=== PATIENT | female | born 1955 | race Caucasian/White ===

== ENCOUNTER 2020-07-18 12:39 | Outpatient (CLI) | payer MEDICARE, OTHER, SELFPAY ==
--- NOTE | 2020-07-18 | ECHO_ITS ---
Patient Info Name: Niru Patterson Age: 64 years : 1955 Gender: Female Ht: 63 in Wt: 185 lbs BSA: 1.96 m2 HR: 87 bpm BP: 174 / 90 mmHg Heart Rhythm: Sinus Rhythm Exam Date: 07/18/2020 1:15 PM Exam Location: [facility] Patient Status: Outpatient Admit Date: 07/18/2020 Staff Ordering Physician: BreezyLenny MD Assembler Skylights: Jordyn Garcia RDCS Attending Provider: BreezyLenny MD Exam Type: CA echo doppler color flow Study Info Indications - Vertigo R42 - Dizziness and giddiness Complete two-dimensional, color flow and Doppler transthoracic echocardiogram is performed. Summary 1. Complete two-dimensional, color flow and Doppler transthoracic echocardiogram is performed. 2. Left ventricular chamber dimension is normal. 3. Left ventricular systolic function is hyperdynamic, estimated at >70%. 4. There is no increased left ventricular wall thickness. 5. The left ventricular diastolic function is grade II diastolic dysfunction. 6. Left atrial chamber dimension is mildly enlarged. 7. There is mild aortic valve stenosis with a peak velocity of 271 cm/s, mean gradient of 12 mmHg, and aortic valve area of 1.9 cm2. Left Ventricle Left ventricular chamber dimension is normal. Left ventricular systolic function is hyperdynamic, estimated at >70%. There is no increased left ventricular wall thickness. The left ventricular diastolic function is grade II diastolic dysfunction. Right Ventricle Right ventricular chamber dimension is normal. Right ventricular systolic function is normal. Left Atria Left atrial chamber dimension is mildly enlarged. Right Atria Right atrial chamber dimension is normal. Atrial Septum Intact interatrial septum visualized by color flow imaging. Aortic Valve The aortic valve is trileaflet. There is mild aortic valve stenosis with a peak velocity of 271 cm/s, mean gradient of 12 mmHg, and aortic valve area of 1.9 cm2. There is trace aortic valve regurgitation. There is mild aortic valve calcification. Pulmonic Valve The pulmonic valve is normal. There is no pulmonic valve stenosis. There is trace pulmonic regurgitation. Mitral Valve The mitral valve has normal leaflets. There is no mitral valve stenosis. There is trace mitral valve regurgitation. Tricuspid Valve The tricuspid valve leaflets are normal. There is no significant tricuspid valve stenosis. There is trace tricuspid valve regurgitation. Pericardium/Pleural The pericardium appears normal. There is no pericardial effusion. Inferior Vena Cava Normal inferior vena cava with >50% collapse upon inspiration consistent with normal right atrial pressure, 5 mmHg. Aorta The aortic root size at the sinus of Valsalva is normal. The prox ascending aorta size is normal. Left Ventricular Outflow Tract Name Value Normal LVOT 2D LVOT Diameter 2.0 cm LVOT Doppler LVOT Peak Gradient 7 mmHg LVOT Mean Gradient 3 mmHg LVOT VTI 29 cm LVOT VTI/AV VTI Ratio 0.6
== END 2020-07-18 12:40 | disposition home or self-care (01) ==
PROVIDERS: PCP Internal Medicine; Visit Provider Internal Medicine
DX: R42 Dizziness and giddiness (principal); I35.0 Nonrheumatic aortic (valve) stenosis
CPT/HCPCS: 93306

== ENCOUNTER 2023-09-08 12:58 | Outpatient (CLI) | payer MEDICARE, SELFPAY ==
--- NOTE | ~2023-09-08 | XR_ITS ---
XR chest 2V Ordering provider: Lenny Tijerina, History: 67 years Female with . PERSISTENT COUGH . Comparison: October 24, 2011 FINDINGS: MEDIASTINUM: The cardiac silhouette is not enlarged. Prominent right hilum. LUNGS: No effusion or pneumothorax. Opacification in the right upper lobe suggestive of pneumonia. Ri ght hilar mass with distal pneumonia is not excluded. Follow-up advised to resolution OTHER: No free air under the diaphragm. IMPRESSION: Opacification in the right upper lobe suggestive of pneumonia. Right hilar mass with distal pneumonia is not excluded. Follow-up advised to resolution Reviewed, dictated and finalized at location A.
--- NOTE | 2023-09-08 14:45 | NEURO_ITS ---
Impression: # Complains of numbness of hands. # Normal Nerve Conduction Study; No Carpal Tunnel Syndrome or ulnar neuropathy. # Normal needle/EMG exam proximally and distally. # Clinical correlation recommended. Nerve Conduction Studies Anti Sensory Summary Table Stim Site NR Peak (ms) P-T Amp (?V) Site1 Site2 Delta-P (ms) Dist (cm) Benoit (m/s) Left Median Anti Sensory (2-3nd Digit) Wrist 3.5 51.4 Wrist 2-3nd Digit 3.5 14.0 40 Wrist 3.4 56.6 Wrist 2-3nd Digit 3.5 14.0 40 Right Median Anti Sensory (2-3nd Digit) Wrist 3.6 43.8 Wrist 2-3nd Digit 3.6 14.0 39 Wrist 3.7 22.9 Wrist 2-3nd Digit 3.6 14.0 39 Left Radial Anti Sensory (Base 1st Digit) Wrist 2.7 29.1 Wrist Base 1st Digit 2.7 0.0 Right Radial Anti Sensory (Base 1st Digit) Wrist 3.0 11.4 Wrist Base 1st Digit 3.0 0.0 Left Ulnar Anti Sensory (5th Digit) Wrist 3.1 34.5 Wrist 5th Digit 3.1 14.0 45 Right Ulnar Anti Sensory (5th Digit) Wrist 3.1 58.6 Wrist 5th Digit 3.1 14.0 45 Motor Summary Table Stim Site NR Onset (ms) O-P Amp (mV) Site1 Site2 Delta-0 (ms) Dist (cm) Benoit (m/s) Left Median Motor (Abd Poll Brev) Wrist 3.5 1.3 Elbow Wrist 5.6 28.0 50 Elbow 9.1 1.0 Right Median Motor (Abd Poll Brev) Wrist 3.2 5.8 Elbow Wrist 5.6 28.0 50 Elbow 8.8 1.9 Left Ulnar Motor (Abd Dig Minimi) Wrist 2.9 4.2 A Elbow Wrist 5.1 27.0 53 A Elbow 8.0 3.0 Right Ulnar Motor (Abd Dig Minimi) Wrist 2.8 3.7 A Elbow Wrist 5.4 29.0 54 A Elbow 8.2 2.3 F Wave Studies NR F-Lat (ms) L-R F-Lat (ms) Left Median (Mrkrs) (Abd Poll Brev) 28.49 0.96 Right Median (Mrkrs) (Abd Poll Brev) 27.54 0.96 Left Ulnar (Mrkrs) (Abd Dig Min) 28.28 0.39 Right Ulnar (Mrkrs) (Abd Dig Min) 28.68 0.39 EMG Side Muscle Nerve Root Ins Act Fibs Amp Dur Recrt Comment Right 1stDorInt Ulnar C8-T1 Nml Nml Nml Nml Nml Right Ext Indicis Radial (Post Int) C7-8 Nml Nml Nml Nml Nml Right Ext Digitorum Radial (Post Int) C7-8 Nml Nml Nml Nml Nml Right BrachioRad Radial C5-6 Nml Nml Nml Nml Nml Right PronatorTeres Median C6-7 Nml Nml Nml Nml Nml Right Abd Poll Brev Median C8-T1 Nml Nml Nml Nml Nml Right ABD Dig Min Ulnar C8-T1 Nml Nml Nml Nml Nml Left 1stDorInt Ulnar C8-T1 Nml Nml Nml Nml Nml Left Ext Indicis Radial (Post Int) C7-8 Nml Nml Nml Nml Nml Left Ext Digitorum Radial (Post Int) C7-8 Nml Nml Nml Nml Nml Left BrachioRad Radial C5-6 Nml Nml Nml Nml Nml Left PronatorTeres Median C6-7 Nml Nml Nml Nml Nml Left Abd Poll Brev Median C8-T1 Nml Nml Nml Nml Nml Left ABD Dig Min Ulnar C8-T1 Nml Nml Nml Nml Nml Right Biceps Musculocut C5-6 Nml Nml Nml Nml Nml Right Triceps Radial C6-7-8 Nml Nml Nml Nml Nml Right Deltoid Axillary C5-6 Nml Nml Nml Nml Nml Left Biceps Musculocut C5-6 Nml Nml Nml Nml Nml Left Triceps Radial C6-7-8 Nml Nml Nml Nml Nml Left Deltoid Axillary C5-6 Nml Nml Nml Nml Nml MTDD
== END 2023-09-08 12:59 | disposition home or self-care (01) ==
PROVIDERS: PCP Internal Medicine; Visit Provider Internal Medicine
DX: M25.531 Pain in right wrist (principal); R20.0 Anesthesia of skin; R05.3 Chronic cough
CPT/HCPCS: 71046; 95886; 95911

== ENCOUNTER 2023-09-28 09:21 | Outpatient (CLI) | payer MEDICARE, SELFPAY ==
--- NOTE | ~2023-09-28 | CT_ITS ---
CT diagnostic chest w con Ordering provider: Lenny Tijerina, History: 67 years Female with . Abn cxr . Comparison: None. Technique: CT chest with IV contrast. Radiation reduction technique utilized. The dose-length product was 288.32 mGy-cm. 75 mL of Omnipaque 350 was given IV. Findings: VISUALIZED THORACIC INLET: Normal. MEDIASTINUM: Aorta/coronary arteries: Mild atheromatous disease. Heart/other: The heart is not enlarged. Lymph nodes: No mediastinal or hilar adenopathy. LUNGS: Infiltrate is seen in the right upper lobe anteriorly suggestive of residual pneumonia. No def inite mass is seen. 2 mm nodule is seen in the left upper lobe laterally.. No effusions. No pneumotho rax. VISUALIZED UPPER ABDOMEN: Left renal cyst measuring 1.3 cm. Soft tissue density also seen in the left kidney upper pole which may be a mass or a complex cyst measuring 1.6 cm. Ultrasound follow-up advis ed. Mild fat infiltration of the liver. Tiny cyst in the liver right lobe measuring 0.8 cm. Left adre nal adenoma measuring 1.2 cm is also noted. Otherwise, the visualized upper abdomen is normal. MUSCULOSKELETAL: Soft tissues: The superficial soft tissues are normal. Bones: Age appropriate degenerative changes of the spine. IMPRESSION: Residual pneumonia in the right upper lobe. Follow-up advised. Soft tissue density also seen in the left kidney upper pole which may be a mass or a complex cyst dilcia suring 1.6 cm. Ultrasound follow-up advised. Left adrenal adenoma measuring 1.2 cm. No follow-up is recommended unless clinical suspicion is prese nt. Reviewed, dictated and finalized at location A. IMPRESSION: Residual pneumonia in the right upper lobe. Follow-up advised. Soft tissue density also seen in the left kidney upper pole which may be a mass or a complex cyst measuring 1.6 cm. Ultrasound follow-up advised. Left adrenal adenoma measuring 1.2 cm. No follow-up is recommended unless clini emily suspicion is present.
--- NOTE | ~2023-09-28 | US_ITS ---
EXAMINATION: US aorta [facility] DATE: 09/29/2023 08:18 CDT INDICATION: Abdominal aortic aneurysm screening. History of smoking. High cholesterol. TECHNIQUE: Grayscale, color Doppler, and pulsed Doppler images of the aorta and common iliac arteries were obtained. COMPARISON: None. FINDINGS: The proximal aorta measures 2.5 cm greatest sagittal dimension. The mid aorta measures 2.2 cm greates t sagittal dimension. The distal aorta measures 2.5 cm greatest sagittal dimension. The right common internal iliac artery measures 1.1 cm. The left common iliac artery measures 1.1 cm. IMPRESSION: 1. Normal caliber aorta without aneurysm. Reviewed, dictated and finalized at location B.
[2023-09-28 09:57] LABS: Estimated Glomerular Filt Rate > 60
== END 2023-09-28 09:22 ==
LOC: MICIMG 09:24
PROVIDERS: PCP Internal Medicine; Visit Provider Internal Medicine
DX: R93.89 Abnormal findings on diagnostic imaging of other specified body structures (principal); D35.02 Benign neoplasm of left adrenal gland
CPT/HCPCS: 71260; 76706; Q9967

== ENCOUNTER 2023-10-14 13:55 | Outpatient (CLI) | payer MEDICARE, OTHER, SELFPAY ==
--- NOTE | ~2023-10-14 | CT_ITS ---
CT Scan of the Chest without Contrast: Clinical Indication: Pulmonary nodule Technique: Contiguous sections were acquired throughout the chest without intravenous contrast. Dose reduction technique was used on this scan by utilizing automated exposure control and iterative recon struction technique. The dose-length product (DLP) was 257.91 mGy-cm. COMPARISON: 09/28/2023 Findings: There is no evidence of any significant mediastinal, hilar or axillary lymphadenopathy. Calcified rig ht paratracheal and right hilar lymph nodes are present. There are atherosclerotic ossifications of t he aorta and coronary arteries. There is no evidence of pleural or pericardial effusion. There is patchy haziness and interstitial disease in the right upper lobe peripherally, stable from p rior exam. Calcified right upper lobe granuloma present. Chronic focal scarring or atelectasis at the lingula. Images through the upper abdomen reveal are calcified splenic granulomas. Impression: Patchy hazy and interstitial disease in the right upper lobe with predominantly peripheral distributi on. Findings could reflect persistent pneumonia, or possibly postradiation changes or postinflammator y change. Correlate clinically. Consider continued follow-up. Evidence of prior granulomatous disease. Reviewed, dictated and finalized at location . Impression: Patchy hazy and interstitial disease in the right upper lobe with predominantly peripheral distribution. Findings could reflect persistent pneumonia, or possi albaro postradiation changes or postinflammatory change. Correlate clinically. Con poultry pathologist continued follow-up. Evidence of prior granulomatous disease.
--- NOTE | ~2023-10-14 | US_ITS ---
US renal BI Ordering provider: Lenny Tijerina, History: . KIDNEY LESION . Comparison: None. Technique: Ultrasound bilateral kidneys. Findings: RIGHT KIDNEY: Measures 11.3x 5.3x 5.6 cm in length which is normal in size. No renal cysts. No renal mass or visualized echogenic stones. Otherwise, normal echotexture and contour. No hydronephrosis. No rmal renal cortical thickness. LEFT KIDNEY: Measures 11.9x 4.8x 5.8 cm in length which is normal in size. Possibility of hypoechoic area in the anterosuperior area of the left kidney is not excluded. Follow-up advised. No visualized echogenic stones. Otherwise, normal echotexture and contour. No hydronephrosis. Normal renal cortica l thickness. BLADDER: Underfilled. IMPRESSION: Possible hypoechoic area in the anterolateral cyst. Left kidney which may be a cyst. Follow-up advise d. Otherwise unremarkable study. Reviewed, dictated and finalized at location A. IMPRESSION: Possible hypoechoic area in the anterolateral cyst. Left kidney which may be a cyst. Follow-up advised. Otherwise unremarkable study.
== END 2023-10-14 13:56 ==
PROVIDERS: PCP Internal Medicine; Visit Provider Internal Medicine
DX: R93.89 Abnormal findings on diagnostic imaging of other specified body structures (principal); N28.9 Disorder of kidney and ureter, unspecified; R91.8 Other nonspecific abnormal finding of lung field
CPT/HCPCS: 71250; 76775

== ENCOUNTER 2023-12-16 09:04 | Outpatient (CLI) | payer MEDICARE, SELFPAY ==
--- NOTE | ~2023-12-16 | XR_ITS ---
Clinical Indication: Pneumonia PA and lateral views of the chest: Comparison: 09/08/2023 Findings: The lungs are clear, without evidence of focal consolidation or pleural effusion. Cardiome diastinal silhouette is within normal limits. Bones and soft tissues are unremarkable. Impression: Normal chest. Reviewed, dictated and finalized at location . Impression: Normal chest.
[2023-12-16 10:12] LABS: Rheumatoid Factor < 12.0 IU/ML (<12)
--- NOTE | 2023-12-16 14:52 | WPDPFTINT ---
PFT Procedure Performed PFT Procedure Performed Spirometry with Pre/Post Bronchodilator Plethysmography (Lung Vol) Diffusing Cap (DLCO) Flow Vol Loop PFT Interpretation Lung volumes were measured with the body plethysmography method. The diminished expiratory reserve volume could be due to obesity. The remaining lung volumes are unremarkable. Spirometry showed diminished expiratory flow rates and a diminished FEV1 to FVC ratio 64%, indicative of obstructive airway disease. Following administration of a bronchodilator there was no significant increase in expiratory flow rates. Lung diffusion capacity is within the normal range at 91% predicted. The flow-volume loop is consistent with obstructive airway disease. Impression: Mild obstructive airway disease with no response to bronchodilators on this testing. Lung diffusion capacity within the normal range.
--- NOTE | 2023-12-16 14:54 | WPDSIXMINUTE ---
Six Minute Walk Procedure Procedure Performed Pulmonary Stress Test (6 min walk) Six Minute Walk Six Minute Walk: This 6 minute walk test was carried out with the patient breathing ambient air. The pre-walk baseline oxyhemoglobin saturation was 94%. The patient walked 274 m with no stops during testing. During the walk the oxyhemoglobin saturation remained in the range of 92% to 94%. Impression: No evidence of oxyhemoglobin desaturation on this testing.
[2023-12-17 07:38] LABS: SS-A <1.0 NEG AI (<1.0 NEG); SS-B <1.0 NEG AI (<1.0 NEG)
[2023-12-18 15:14] LABS: Anti Cyclic Citrullinated Pept <16 UNITS
== END 2023-12-16 09:05 | disposition home or self-care (01) ==
PROVIDERS: PCP Internal Medicine; Visit Provider Internal Medicine Pulmonary Disease
DX: R93.89 Abnormal findings on diagnostic imaging of other specified body structures (principal); J98.8 Other specified respiratory disorders; Z87.01 Personal history of pneumonia (recurrent)
CPT/HCPCS: 36415; 71046; 86038; 86039; 86200; 86235; 86430; 94060; 94618; 94726; 94729

== ENCOUNTER 2024-03-21 10:08 | Outpatient (CLI) | payer MEDICARE, SELFPAY ==
--- NOTE | ~2024-03-21 | DEXA_ITS ---
Bone Density Report Name: SANTIAGO ASIF Age: 68 Sex: Female Ethnicity: White Date of : 1955 Indication: postmenopausal; screening for osteoporosis; asthma or emphysema; Referring Provider: CORTEZ CHAMBERS Study: Bone densitometry was performed. Exam Date: March 21, 2024 Accession number: [id number] Bone Density: Region BMD T-score Z-score Classification AP Spine(L1-L4) 0.945 -0.9 1.1 Normal Femoral Neck (Left) 0.655 -1.7 0.0 Osteopenia Total Hip (Left) 0.925 -0.1 1.3 Normal Femoral Neck (Right) 0.579 -2.4 -0.7 Osteopenia Total Hip (Right) 0.884 -0.5 1.0 Normal Total Hip Mean 0.905 -0.3 1.2 Normal World Health Organization criteria for BMD impression classify patients as: Normal (T-score at or above -1.0), Osteopenia (T-score between -1.0 and -2.5), or Osteoporosis (T-score at or below -2.5). 10-year Fracture Risk(1): Major Osteoporotic Fracture 14% Hip Fracture 4.6% Reported Risk Factors: [place] (), Neck BMD=0.579, BMI=32.0, smoking (1) FRAX(R) Version 3.08. Fracture probability calculated for an untreated patient. Fracture probability may be lower if the patient has received treatment. Clinical Information Provided by Patient: Smokes Has used the following medications: Vitamin D Has the following medical conditions: Asthma or Emphysema Patient maximum height was 65 Menopause Age: 44 Does not regularly consume dairy products Drinks caffeinated beverages Onset of menses at age 11 Number of children 2 Impression: The patient has low bone mass, based on the Right Femoral Neck T-score. The patient has an estimated ten-year risk of hip fracture of 4.6% and an estimated ten-year risk of major fracture of 14%, based on the WHO FRAX algorithm. The patient has risk factors, including: smoking. Discussion: BONE DENSITY IS LOW AT ONE OR MORE SKELETAL SITES. THE PATIENT'S BMD AND CLINICAL RISK FACTORS CONTRIBUTE TO THIS PATIENT'S INCREASED RISK OF FRACTURE. This patient's lowest T-score is low at one or more skeletal sites. It meets the World Health Organization's (WHO) criteria for ?low bone mass? (T-score between -1.0 and -2.5). The patient's 10-year risk of hip fracture as calculated by FRAX exceeds the threshold where pharmacological therapy is recommended by the National Osteoporosis Foundation (NOF). However, all treatment decisions require clinical judgment and consideration of individual patient factors, including patient preferences, comorbidities, previous drug use, risk factors not captured in the FRAX model (e.g., frailty, falls, vitamin D deficiency, increased bone turnover, interval significant decline in bone density) and possible under or overestimation of fracture risk by FRAX. The patient should follow a healthful lifestyle (good nutrition with adequate calcium and vitamin D, and appropriate weight-bearing exercise). Follow-Up: Consider a repeat BMD and Vertebral Fracture Assessment (VFA) exam in 2 years or sooner if medically necessary, to reassess this patient's status. Reported by: ALYSSIA on 03/21/2024 10:46:00 AM. Reviewed, dictated and finalized at location A.
== END 2024-03-21 10:09 | disposition home or self-care (01) ==
LOC: ANHIMG 10:13
PROVIDERS: PCP Internal Medicine; Visit Provider Internal Medicine
DX: Z78.0 Asymptomatic menopausal state (principal); M85.852 Other specified disorders of bone density and structure, left thigh; M85.851 Other specified disorders of bone density and structure, right thigh
CPT/HCPCS: 77080

== ENCOUNTER 2024-05-08 04:36 | Inpatient (IN) | payer MEDICARE, SELFPAY ==
[2024-05-08] VITALS (19 sets, daily range): BP systolic 154–176; BP diastolic 72–88; PULSE 74–93; RESP 16–21; TEMP 36.6–37.2; O2SAT 83–99; BMI 31.8
--- NOTE | ~2024-05-08 | CT_ITS ---
Clinical Indication: Hypoxia CT Scan of the Chest with Contrast: Technique: Contiguous sections were acquired throughout the chest after intravenous administration of 100 cc of Omnipaque 350. Dose reduction technique was used on this scan by utilizing automated expos ure control and iterative reconstruction technique. The dose-length product (DLP) was 271.31 mGy-cm. COMPARISON: 10/14/2023 Findings: There is no evidence of any significant mediastinal, hilar or axillary lymphadenopathy. There is no f illing defect in the pulmonary arterial tree to suggest pulmonary embolus. There is no evidence of ao rtic dissection or aneurysm. There is no evidence of pleural or pericardial effusion. The lungs are clear, aside from right upper lobe calcified granuloma. Images through the upper abdomen reveal no abnormalities. Impression: No evidence of pulmonary embolus, aortic dissection, or aortic aneurysm. No significant pulmonary abnormality. Reviewed, dictated and finalized at [facility]. TH SERVICES MANAGER Impression: No evidence of pulmonary embolus, aortic dissection, or aortic aneurysm. No significant pulmonary abnormality.
--- NOTE | ~2024-05-08 | XR_ITS ---
Portable chest x-ray Comparison: 12/16/2023 Clinical History: Shortness of breath Findings: Probable minimal left pleural effusion. Questionable minimal bibasilar interstitial edema. Cardiomediastinal silhouette is stable. Bones and soft tissues are unremarkable. Impression: Minimal left pleural effusion and questionable minimal bibasilar interstitial pulmonary edema. Reviewed, dictated and finalized at [facility]. R TRIMMER Impression: Minimal left pleural effusion and questionable minimal bibasilar interstitial p ulmonary edema.
--- NOTE | 2024-05-08 04:44 | PC.NURSE ---
EKG with manual patient info entered and shown to Dr. Calzada [id number]
--- NOTE | 2024-05-08 04:52 | ECG_ITS ---
Test Date: 2024-05-08 04:41:39 Measurements Intervals [place] Rate: 85 P: 67 GA: 146 QRS: 95 QRSD: 140 T: 72 QT: 403 QTc: 479 Interpretive Statements SINUS RHYTHM RIGHT BUNDLE BRANCH BLOCK [120+ ms QRS DURATION, UPRIGHT V1, 40+ ms S IN I/aVL/V4/V5/V6] ABNORMAL ECG No previous ECG available for comparison Electronically Signed On 05-08-2024 07:58:29 [employer]OCKSTITCH [employer]AT [employer] by Tomy Dupree M.D.
[2024-05-08 05:03] LABS: Basophils Absolute Auto 0.1 K/mm3 (0.0-0.1); Basophils Percent Auto 0.7 % (0.2-1.2); Eosinophils Absolute Auto 0.4 K/mm3 (0-0.3); Eosinophils Percent Auto 5.9 % (0-4.4); Hematocrit 50.3 % (37.0-47.0); Hemoglobin 16.2 g/dL (12.0-15.0); Immature Granulocyte Absolute 0.02 K/mm3 (0.00-0.031); Immature Granulocyte Percent A 0.3 % (0-0.5); Lymphocytes Absolute Auto 1.98 K/mm3 (0.9-3.2); Mean Corpuscular HGB Conc 32.2 g/dl (32-36); Mean Corpuscular Hemoglobin 33.1 pg (26-34); Mean Corpuscular Volume 102.9 fl (80-100); Mean Platelet Volume 10.1 fl (7.4-10.4); Monocytes Absolute Auto 0.5 K/mm3 (0.1-0.6); Monocytes Percent Auto 7.9 % (2.6-8.5); Neutrophils Absolute Auto 3.8 K/mm3 (1.3-6.7); Neutrophils Percent Auto 56.2 % (45.5-73.1); Platelet Count Result 190 k/mm3 (150-375); Red Blood Count 4.89 M/mm3 (4.2-5.4); Red Cell Distribution Width 15.7 % (11.5-14.5); White Blood Count 6.8 K/mm3 (4.5-10.0)
[2024-05-08] MEDS: IPRATROPIUM 0.5 MG/ALBUTEROL SULFATE 2.5 MG AMPUL.NEB 3 ML 10 ML INHALATION (05:09)
--- NOTE | 2024-05-08 05:11 | ED.GENADULT ---
HPI - General Adult General Chief complaint: Shortness of Breath/Dyspnea Stated complaint: sob/asthma hx History of Present Illness HPI narrative: Patient is a 68-year-old female who presents to the emergency department this evening complaining of worsening shortness of breath for the past 24 hours. Patient states that she has been battling with upper respiratory infection for over 10 days in her primary care physician started her on doxycycline on May 06 which she has been taking. Patient states that she has a history of asthma and uses a rescue inhaler at home as needed. Patient states that she has been using it at home multiple times with no relief and states that over the last 8 hours she has noticed that her shortness of breath has continued to decline. Upon EMS arrival, patient was noted to be satting 85% on room air. Patient does not wear any home oxygen. EMS administered 2 DuoNeb breathing treatments, 2 g of IV magnesium and 125 mg of IV Solu-Medrol. Patient states that her symptoms have significantly improved with the DuoNeb breathing treatments. Denies any chest pain, any recent fevers or chills. Any nausea vomiting or abdominal pain. No additional symptoms or concerns at this time. Related Data Home Medications ?Medication ?Instructions ?Recorded ?Confirmed ?Last Taken ?Type latanoprost 0.005 % eye drops 1 drp EACH EYE DAILY 04/08/23 04/08/23 Unknown History levothyroxine 88 mcg tablet 88 mcg PO DAILY 04/08/23 04/08/23 Unknown History (Synthroid) timolol maleate 0.5 % eye drops 1 drp EACH EYE Q12H 04/08/23 04/08/23 Unknown History fluticasone propionate 230 2 inh inhalation BID 12/08/23 Unknown History mcg-salmeterol 21 mcg/actuation HFA inhaler (Advair HFA) albuterol sulfate 90 mcg/actuation 1 inh inhalation Q4-6H PRN 12/31/23 Unknown History aerosol inhaler Allergies Allergy/AdvReac Type Severity Reaction Status Date / Time Penicillins Allergy Severe Difficulty Verified 12/31/23 11:08 Breathing Lisinopril Allergy Intermediate Rash Uncoded 12/31/23 11:08 Review of Systems Review of Systems: All systems are reviewed and are negative unless stated otherwise in the HPI. [facility] Past Medical History Medical History Asthma Cataract Thyroid disease Heart disease SVT 2012 Small bowel problem bloating Back pain L-5 Ovarian cyst Surgical History Surgical History History of removal of ovarian cyst History of orthopedic surgery H/O laminectomy History of thyroid surgery right thyroidectomy Hx of cataract surgery Family History Family History Grandparent Breast cancer Other Diabetes mellitus Father Alcoholism Social History Social History Smoking packs per day: 1 Smoking cigarettes per day: 20.0 Years smoked: 50 Smoking pack-years: 50.00 Smoking status: Current every day smoker Tobacco type: cigarettes Alcohol intake: current Substance use: never Substance use type: does not use Do You Feel Safe in your Home?: Yes Lack of Transportation: No Lack of Food: Never True Current Housing: I Have Housing Concerned About Future Housing: No Difficulty Paying Gas/Electric Bills: No Difficulty Paying for Meds: No Currently Unemployed: No Education: Master's Degree or Higher Difficulty w/ Childcare or Family Care: No Living arrangements: with family Occupation/Education: retired Gender identity (if verbalized by the patient): Female Sexual Orientation (if Verbalized by the Patient): Straight or Heterosexual Exam Narrative: General: Alert, awake, afebrile, in no acute distress. HEENT: PERRL, no rhinorrhea, no post nasal drip, oropharynx clear. Neck: Trachea midline, no JVD, no lymphadenopathy. Cardiovascular: Regular rate and rhythm, no murmurs, rubs or gallops, no peripheral edema. Respiratory: Wheezing noted along the left lung reese worse than the right, no respiratory distress. Abdomen: Soft, nontender, nondistended, no rebound, no guarding, no peritoneal signs. Musculoskeletal: No joint swelling or deformity, normal muscle tone. Skin: No rashes or petechia, no signs of infection. Psychiatric: Alert and oriented, normal behavior and judgment for situation. Neurological: Alert and oriented to person, place, and time. Follows all commands. No focal deficits, speech is clear and fluent. Course Vital Signs Vital signs: Vital Signs Temperature 98.9 F 05/08/24 04:38 Pulse Rate 88 05/08/24 04:38 Respiratory Rate 21 H 05/08/24 04:38 Pulse Oximetry 91 05/08/24 04:38 Oxygen Delivery Nasal Cannula 05/08/24 04:38 Oxygen Flow Rate 4 05/08/24 04:38 Temperature 98.9 F 05/08/24 04:38 Pulse Rate 84 05/08/24 06:37 Respiratory Rate 20 05/08/24 06:15 Blood Pressure 160/79 H 05/08/24 06:05 Pulse Oximetry 93 05/08/24 05:45 Oxygen Delivery Nasal Cannula 05/08/24 05:45 Oxygen Flow Rate 4 05/08/24 05:45 Fraction of Inspired Oxygen 100 05/08/24 05:19 Medical Decision Making MDM Narrative Medical decision making narrative: The patient was evaluated by myself in the emergency department. History is obtained from patient who is an independent historian and physical exam was performed. External medical records were reviewed at this time. IV was established and pertinent tests were ordered. Vital signs were reviewed and patient was noted to have a blood pressure 160/79, respiratory rate 20, heart rate 79 and currently satting 98% on a non-rebreather. Patient was administered an hour long DuoNeb breathing treatment. EKG was obtained which revealed sinus rhythm rate of 85 beats per minute with a right bundle-branch block. No evidence of acute ischemia. EKG was independently interpreted by me and is currently pending official cardiology read. Laboratory results obtained revealing a magnesium of 2.7 and mild transaminitis with an AST of 46 and ALT 51 otherwise unremarkable. Viral swabs negative for COVID/influenza/RSV. Imaging studies obtained included CXR which was independently interpreted by me revealing no acute cardiopulmonary process, which is pending final radiology interpretation. Differential diagnosis considerations include acute viral syndrome, infectious process such as pneumonia, asthma exacerbation. Comorbidities impacting this visit include history of asthma. I have evaluated and discussed social determinants of health with the patient that could potentially impact subsequent diagnosis and treatment plans. On repeat assessment at the patient, patient's wheezing did improve, patient is still having wheezing mainly along the left lung field. Still requiring oxygen. At this time I did inform the patient that I am recommending hospital admission given her oxygen requirement and the fact that she does not have any O2 at home and patient is agreeable with this plan. On repeat assessment of the patient, reevaluation revealed that the patient is doing well and is in no acute distress. Patient symptoms have improved since she arrived to our emergency department. Repeat vital signs were all reviewed and noted to be stable. Differential diagnosis and treatment plan were discussed with the patient at bedside. Patient agrees with discussion and after shared medical decision making agrees with admission. All questions were answered to the patient's satisfaction. Case was discussed with the on-call hospitalist Dr. Shah at 0630 and he accepted admission for asthma exacerbation. Patient was admitted in stable condition. Vital Signs Vital Signs: Vital Signs Temperature 98.9 F 05/08/24 04:38 Pulse Rate 88 05/08/24 04:38 Respiratory Rate 21 H 05/08/24 04:38 Pulse Oximetry 91 05/08/24 04:38 Oxygen Delivery Nasal Cannula 05/08/24 04:38 Oxygen Flow Rate 4 05/08/24 04:38 Temperature 98.9 F 05/08/24 04:38 Pulse Rate 84 05/08/24 06:37 Respiratory Rate 20 05/08/24 06:15 Blood Pressure 160/79 H 05/08/24 06:05 Pulse Oximetry 93 05/08/24 05:45 Oxygen Delivery Nasal Cannula 05/08/24 05:45 Oxygen Flow Rate 4 05/08/24 05:45 Fraction of Inspired Oxygen 100 05/08/24 05:19 Lab Data 05/08/24 04:56 05/08/24 04:56 Labs: Lab Results 05/08/24 Range/Units 04:56 WBC 6.8 (4.5-10.0) K/mm3 RBC 4.89 (4.2-5.4) M/mm3 Hgb 16.2 H (12.0-15.0) g/dL Hct 50.3 H (37.0-47.0) % MCV 102.9 H (80-100) fl MCH 33.1 (26-34) pg MCHC 32.2 (32-36) g/dl RDW 15.7 H (11.5-14.5) % Plt Count 190 (150-375) k/mm3 MPV 10.1 (7.4-10.4) fl Immature Gran % (Auto) 0.3 (0-0.5) % Neut % (Auto) 56.2 (45.5-73.1) % Lymph % (Auto) 29.0 (18.3-44.2) % [place] % (Auto) 7.9 (2.6-8.5) % Eos % (Auto) 5.9 H (0-4.4) % Baso % (Auto) 0.7 (0.2-1.2) % Lymph # (Auto) 1.98 (0.9-3.2) K/mm3 [place] # (Auto) 0.5 (0.1-0.6) K/mm3 Eos # (Auto) 0.4 H (0-0.3) K/mm3 Baso # (Auto) 0.1 (0.0-0.1) K/mm3 Abs Immat Gran (auto) 0.02 (0.00-0.031) K/mm3 Absolute Neuts (auto) 3.8 (1.3-6.7) K/mm3 Absolute Nucleated RBC 0.000 (0.0-0.012) K/mm3 Nucleated RBC % 0.0 (0.0-0.2) % Sodium 142 (137-145) mmol/L Potassium 3.8 (3.4-5.0) mmol/L Chloride 103 (98-107) mmol/L Carbon Dioxide 29 (22-30) mmol/L Anion Gap 10 (4-12) mmol/L BUN 16 (7-17) mg/dL Creatinine 0.56 L (0.7-1.0) mg/dL Estim Creat Clear Calc 84 ml/min Estimated GFR > 60 (59 - ) Glucose 134 H (65-110) mg/dL Calcium 9.8 (8.4-10.2) mg/dL Magnesium 2.7 H (1.6-2.3) mg/dL Total Bilirubin 1.0 (0.2-1.3) mg/dL AST 46 H (14-36) U/L ALT 51 H (6-35) U/L Alkaline Phosphatase 112 (38-126) U/L Total Protein 8.0 (6.3-8.2) g/dL Albumin 4.6 (3.5-5.1) g/dL Influenza A (RT-PCR) Negative (Negative) Influenza B (RT-PCR) Negative (Negative) RSV (RT-PCR) Negative (Negative) SARS-CoV-2 RNA (RT-PCR) Negative (Negative) Discharge Plan Discharge Clinical Impression: Acute dyspnea, Asthma exacerbation, Acute upper respiratory infection, Acute hypoxic respiratory failure Patient Disposition: Still a Patient Condition: Improved Patient Language: Citizen Of [place] Prescriptions: No Action fluticasone propion-salmeterol [Advair HFA] 230-21 mcg/actuation HFA aerosol inhaler 2 inh inhalation BID albuterol sulfate 90 mcg/actuation HFA aerosol inhaler 1 inh inhalation Q4-6H PRN latanoprost 0.005 % drops 1 drp EACH EYE DAILY levothyroxine [Synthroid] 88 mcg tablet 88 mcg PO DAILY timolol maleate 0.5 % drops 1 drp EACH EYE Q12H Follow-up/Referrals: Breezy,MD Lenny [Primary Care Provider] - Time of Disposition: 06:19
--- OUTSIDE RECORDS SUMMARY | 2024-05-08 05:11 | XMS_ITS | Referral Summary ---
Author Organization [facility] [place] [address] Address [address] [place] [address] Care Team Providers Care Manager Solution Name Role Phone Lenny Tijerina MD Primary Care Provider Joaquin Sosa DO Unavailable [phone] Allergies Active Allergy Reactions Criticality Noted Date Comments Lisinopril Rash Medium 01/29/2021 Penicillins Anaphylaxis High Medications levothyroxine (SYNTHROID) 88 mcg tablet Take 88 mcg by mouth irrigator gravity flow before breakfast Active timoloL (BETIMOL) 0.5 % ophthalmic solution 1 drop 2 (two) times a day Active aspirin 325 mg tablet Take 325 mg by mouth every 6 (six) hours as needed for pain Active vitamin D3-vitamin K2 1000-90 unit-mcg tablet,disintegr ating Take by mouth Active [id number]-[id number]-glutami [id number] 1,000-50 mg tablet, effervescent Take by mouth Act kati albuterol HFA (PROVENTIL HFA,VENTOLIN HFA,PROAIR HFA) 90 mcg/actuation inhaler albuterol sulfate HFA 90 mcg/actuation aerosol inhaler INHALE 2 INHALATIONS EVERY 4 6 HOURS BY MOUTH NEEDED. Active fluticasone propion-salmeter oL (ADVAIR DISKUS) 250-50 mcg/dose diskus inhaler Advair Diskus 250 mcg-50 mcg/dose powder for inhalation INHALE 1 PUFF TWICE A DAY BY INHALATION ROUTE. Active losartan (COZAAR) 25 mg tablet losartan 25 mg tablet TAKE 1 TABLET BY MOUTH EVERY DAY Active Active Problems Problem Noted Date Diagnosed Date Elevated hemoglobin (CMS/HCC) 12/05/2021 Erythrocytosis 07/12/2021 Dizziness and giddiness 01/01/2021 Non-toxic multinodular goiter 07/23/2013 Overview (06/11/2016): NONTOX MULTINODUL GOITER Social History Tobacco Use Types Packs/Day Years Used Date Smoking Tobacco: Every Day Cigarettes 1.5 20 Smokeless Tobacco: Never Tobacco Cessation:Ready to Q uit: Yes; Counseling Given: Yes Alcohol Use Standard Drinks/Week Comments Yes 0 (1 standard drink = 0.6 oz pur e alcohol) AUDIT-C Answer Date Recorded Q1: How often do you have a drink containing alc ohol? 2-3 times a week 09/29/2021 Q2: How many drinks containi ng alcohol do you have on a typical day when you are drinking? 1 or 2 09/29/2021 Q3: How often do you have si x or more drinks on one occasion? 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 SPECIALIST Gender Identity Not on file Sexual Orientation Not on file Occupation Industry Job Start Date Job End Date Retired Not on file Not on file Not on file Last Filed Vital Signs Vital Sign Reading Time Taken Comments Blood Pressure 125/80 01/17/2022 3:03 PM BUSINESS CONTINUITY SPECIALIST Pulse 89 01/17/2022 3:03 PM BUSINESS CONTINUITY SPECIALIST Temperature 36.8 C (98.3 F) 01/17/2022 2:18 PM BUSINESS CONTINUITY SPECIALIST Respiratory Rate 18 01/17/2022 3:03 PM BUSINESS CONTINUITY SPECIALIST Oxygen Saturation 93% 01/17/2022 3:0 3 PM BUSINESS CONTINUITY SPECIALIST Inhaled Oxygen Concentration - - Weight 87 kg (191 lb 12.8 oz) 2:18 PM BUSINESS CONTINUITY SPECIALIST without shoes Height 161 cm (5' 3.39 ) 01/17/2022 2:1 8 PM BUSINESS CONTINUITY SPECIALIST Body Mass Index 33.56 01/17/2022 2:18 PM BUSINESS CONTINUITY SPECIALIST Plan of Treatment Not on file Insurance MEDICARE [employer] CLAIMS OFFICE Member Subscriber Plan / Payer ( fective 2020-Present) Name:Niru Patterson Relation to Subscriber:Self Name:Niru Patterson Payer ID:[id number] (NAIC) Type:MANAGED CARE OTHER Address: [place] [id number] [facility] Care Teams Manager Solution Relationship Specialty Start Date End Date Lenny Tijerina MD PCP - General Internal Medicine 12/04/20 [place] [address] [place] [address] MEDICAL ONCOLOGY, [facility] [address] [place] [address] Medical Oncologist/Undercutter Hematology and Oncology 03/06/22
--- OUTSIDE RECORDS SUMMARY | 2024-05-08 05:11 | XMS_ITS | Data Portability ---
Author Organization [place] [facility] [employer], Main Office Address [address] [place] [address] Care Team Providers Care Slide Machine Tender Name Role Phone CORTEZ TIJERINA Primary Care Provider Assessment Encounter Date Assessment Date Assessment LastModified by Organization Details LastModified Time 06/17/2022 06/17/2022 I have recommended cholesterol medication Tobacco cessation again recommended Continue current therapy See me in 4 months Not available 07/19/2022 23:19:09 01/08/2023 01/08/2023 Continue current therapy follow-up 6 months [email or web address] Not available 01/17/2023 15:50:27 Plan of Treatment Reminders Order Date Submit Date Provider Last Modified By Organization Details Last Modified Time Details Appointments None recorded . Lab T3, free, serum or plasma 023 01/09/20 23 [email or web address] Not available 4 18:42:33 T4, free, serum 023 01/09/20 23 [email or web address] Not available 4 18:42:33 TSH, serum or plasma 023 01/09/20 23 [email or web address] Not available 4 18:42:33 CBC w/ auto diff 023 01/09/20 23 [email or web address] Not available 4 18:42:34 lipid panel, serum 023 01/09/20 23 Not available 4 18:42:34 CMP, serum or plasma 023 01/09/20 23 Not available 4 18:42:34 Referral None recorded . Procedures None recorded . Surgeries None recorded . Imaging None recorded . Medication Orders None recorded . Patient TargetsNo targets recorded. Patient Instructions Encounter Date Encounter Id Patient Instructions Last Modified By Organization Details Last Modified Time 05/29/2022 [id number] we discussed rep eat biopsy but she strongly prefers to avoid. She will continue to work on her smoking. [email or web address] Not available 05/29/2022 11:36:30 06/17/2022 [id number] dementia rating scale-2* [email or web address] Not available 07/19/2022 23:19:34 alcohol misuse* [email or web address] Not available 07/19/2022 23:19:34 depression screening* [email or web address] Not available 07/19/2022 23:19:33 multi-dimensiona l health assessment questionnaire* [email or web address] Not available 07/19/2022 23:19:34 Personalized [facility] Plan and Screening Recommendations Advance Directives - Do you have one? Yes Advance Directives - Do we have your advance directive on file in your health record? No, please bring in a copy at your earliest convenience Primary Prevention/Interven tion (prevents or decreases the chance of common diseases from occurring) Smoking Risk: Smoker Refer to attached smoking cessation handouts Refer to attached handouts and prescription will be sent to pharmacy Continue to consider stopping smoking and call if we can assist you Alcohol Misuse Screening: Positive Refer to attached alcohol cessation handout Refer to attached handout and prescription will be sent to pharmacy Decrease alcohol intake to 1 or less servings per day Continue to consider stopping alcohol and call if we can assist you Weight: Appropriate Overwei ght continue your current weight loss efforts try to lose 5% of your body weight try to lose 10% of your body weight Physical activity: Need more exercise/physical activity minimum of 10-20 minutes of activity that causes mild breathlessness/day Nutrition: Good Fall Risk (screened today): Low Vaccines Pneumococcal: Ordered Recommended today Recommended today, but you have declined Influenza: Ordered Recommended today Recommended today, but you have declined Chronic Disease Risks Stroke: Low Risk Intermediate Risk Heart Attack: Low risk Intermediate Risk Clogging of the Arteries: Low risk Intermediate Risk Diabetes: Low Risk I have no recommendations Secondary Prevention/Interven tion (detects treatable diseases before they may cause symptoms, disability, or ) Breast Cancer Screening with mammogram: Your next mammogram: Ordered Recommended today Cervical/Uterine/Ov luis a Cancer Screening: No screening necessary Osteoporosis Screening: Your next DEXA in: Ordered Recomme nded today Date Screening Last Performed: 04/28/2016 Colon Cancer Screening: Colonoscopy In: Ordered Recomme nded Date Screening Last Performed: 06/29/2009 Eye Disease Screening: Dementia Risk: Low I have no recommendations Depression Screening: Negative Not available 06/17/2022 11:05:47 Reason for Referral None Reported. Results Created Date Observation Date Name Description Value Unit Range Abnormal Flag Note LastModifiedBy Organization Detail LastModifiedTime 04/14/1904/14/2022 POTAS SIUM potassium 4.6 mmol/ L 3.5-5. 1 Not Available [facility] (Lab) [address] [place], [address], 04/14/2022 11:18:24 04/14/19 23 04/14/2022 PLATE LET COUNT platelets 222 x10'3 /uL 150-40 0 Not Available [facility] (Lab) [address] [place], [address], 04/14/2022 11:02:00 04/14/19 23 04/14/2022 HEMOG LOBIN /REY TOCRI T hemoglobin 16.9 g/dL 12.0-1 5.6 high Not Available [facility] (Lab) [address] [place], [address], 04/14/2022 11:01:43 04/14/19 23 04/14/2022 HEMOG LOBIN /REY TOCRI T hematocrit 52.7 % 35.7-4 5.7 high Not Available [facility] (Lab) [address] [place], [address], 04/14/2022 11:01:43 07/03/19 23 07/02/2022 CBC/C OMPLE TE BLD COUNT W/DIF F white blood cells 6.8 x10'3 /uL 4.2-10 .8 Not Available [facility] (Lab) [address] [place], [address], 07/02/2022 18:52:00 07/03/19 23 07/02/2022 CBC/C OMPLE TE BLD COUNT W/DIF F red blood cells 4.99 x10'6 /uL 3.80-5 .20 Not Available [facility] (Lab) [address] [place], [address], 07/02/2022 18:52:00 07/03/19 23 07/02/2022 CBC/C OMPLE TE BLD COUNT W/DIF F hemoglobin 16.4 g/dL 12.0-1 5.6 high Not Available [facility] (Lab) [address] [place], [address], 07/02/2022 18:52:00 07/03/1907/02/2022 CBC/C OMPLE TE BLD COUNT W/DIF F hematocrit 52.4 % 35.7-4 5.7 high Not Available [facility] (Lab) [address] [place], [address], 07/02/2022 18:52:00 07/03/19 23 07/02/2022 CBC/C OMPLE TE BLD COUNT W/DIF F mean red cell volume 105.0 fL 82.0-9 9.0 high Not Available [facility] (Lab) [address] [place], [address], 07/02/2022 18:52:00 07/03/1907/02/2022 CBC/C OMPLE TE BLD COUNT W/DIF F mean red cell hemoglobin 32.9 pg 27.0-3 3.0 Not Available [facility] (Lab) [address] [place], [address], 07/02/2022 18:52:00 07/03/19 23 07/02/2022 CBC/C OMPLE TE BLD COUNT W/DIF F mean RBC HGB concentratio n 31.3 g/dL 31.0-3 6.0 Not Available [facility] (Lab) [address] [place], [address], 07/02/2022 18:52:00 07/03/1907/02/2022 CBC/C OMPLE TE BLD COUNT W/DIF F red cell distribution width 15.3 % 11.8-1 5.5 Not Available [facility] (Lab) [address] [place], [address], 07/02/2022 18:52:00 07/03/19 23 07/02/2022 CBC/C OMPLE TE BLD COUNT W/DIF F platelets 241 x10'3 /uL 150-40 0 Not Available [facility] (Lab) [address] [place], [address], 07/02/2022 18:52:00 07/03/1907/02/2022 CBC/C OMPLE TE BLD COUNT W/DIF F mean platelet volume 11.1 fL 9.0-12 .4 Not Available [facility] (Lab) [address] [place], [address], 07/02/2022 18:52:00 07/03/1907/02/2022 CBC/C OMPLE TE BLD COUNT W/DIF F neutrophils 56.0 % 39.0-7 2.0 Not Available [facility] (Lab) [address] [place], [address], 07/02/2022 18:52:00 07/03/1907/02/2022 CBC/C OMPLE TE BLD COUNT W/DIF F lymphocytes 32.7 % 16.0-4 7.0 Not Available [facility] (Lab) [address] [place], [address], 07/02/2022 18:52:00 07/03/19 23 07/02/2022 CBC/C OMPLE TE BLD COUNT W/DIF F monocytes 7.3 % 5.0-12 .0 Not Available [facility] (Lab) [address] [place], [address], 07/02/2022 18:52:00 07/03/1907/02/2022 CBC/C OMPLE TE BLD COUNT W/DIF F eosinophils 3.4 % 1.0-7. 0 Not Available [facility] (Lab) [address] [place], [address], 07/02/2022 18:52:00 07/03/1907/02/2022 CBC/C OMPLE TE BLD COUNT W/DIF F basophils 0.3 % 0.0-2. 0 Not Available [facility] (Lab) [address] [place], [address], 07/02/2022 18:52:00 07/03/1907/02/2022 CBC/C OMPLE TE BLD COUNT W/DIF F immature granulocytes 0.3 % 0.00-0 .50 Not Available [facility] (Lab) [address] [place], [address], 07/02/2022 18:52:00 07/03/1907/02/2022 CBC/C OMPLE TE BLD COUNT W/DIF F neutrophils, absolute count 3.83 x10'3 /uL 1.5-8. 0 Not Available [facility] (Lab) [address] [place], [address], 07/02/2022 18:52:00 07/03/1907/02/2022 CBC/C OMPLE TE BLD COUNT W/DIF F lymphocytes, absolute count 2.24 x10'3 /uL 1.07-3 .43 Not Available [facility] (Lab) [address] [place], [address], 07/02/2022 18:52:00 07/03/19 23 07/02/2022 CBC/C OMPLE TE BLD COUNT W/DIF F monocytes, absolute count 0.50 x10'3 /uL 0.29-0 .99 Not Available [facility] (Lab) [address] [place], [address], 07/02/2022 18:52:00 07/03/1907/02/2022 CBC/C OMPLE TE BLD COUNT W/DIF F eosinophils, absolute count 0.23 x10'3 /uL 0.02-0 .53 Not Available [facility] (Lab) [address] [place], [address], 07/02/2022 18:52:00 07/03/19 23 07/02/2022 CBC/C OMPLE TE BLD COUNT W/DIF F basophils, absolute count 0.02 x10'3 /uL 0.01-0 .08 Not Available [facility] (Lab) [address] [place], [address], 07/02/2022 18:52:00 07/03/19 23 07/02/2022 CBC/C OMPLE TE BLD COUNT W/DIF F immature granulocytes ,absolute 0.02 x10'3 /uL 0.00-0 .05 Not Available [facility] (Lab) [address] [place], [address], 07/02/2022 18:52:00 07/03/1907/02/2022 CBC/C OMPLE TE BLD COUNT W/DIF F nucleated red blood cells 0.0 % -0 Not Available [facility] (Lab) [address] [place], [address], 07/02/2022 18:52:00 07/03/1907/02/2022 CBC/C OMPLE TE BLD COUNT W/DIF F NRBC# 0.00 x10'3 /uL Not Available [facility] (Lab) [address] [place], [address], 07/02/2022 18:52:00 07/03/1907/02/2022 COMPR EHENS JAYA METAB OLIC PANEL sodium 138 mmol/ L 137-14 5 Not Available [facility] (Lab) [address] [place], [address], 07/02/2022 19:19:54 07/03/19 23 07/02/2022 COMPR EHENS JAYA METAB OLIC PANEL potassium 4.5 mmol/ L 3.5-5. 1 Not Available [facility] (Lab) [address] [place], [address], 07/02/2022 19:19:54 07/03/19 23 07/02/2022 COMPR EHENS JAYA METAB OLIC PANEL chloride 103 mmol/ L 98-107 Not Available [facility] (Lab) [address] [place], [address], 07/02/2022 19:19:54 07/03/19 23 07/02/2022 COMPR EHENS JAYA METAB OLIC PANEL carbon dioxide 27 mmol/ L 22-30 Not Available [facility] (Lab) [address] [place], [address], 07/02/2022 19:19:54 07/03/19 23 07/02/2022 COMPR EHENS JAYA METAB OLIC PANEL anion gap 12.5 mmol/ L 14-22 low Not Available [facility] (Lab) [address] [place], [address], 07/02/2022 19:19:54 07/03/19 23 07/02/2022 COMPR EHENS JAYA METAB OLIC PANEL glucose 99 mg/dL 70-99 Not Available [facility] (Lab) [address] [place], [address], 07/02/2022 19:19:54 07/03/19 23 07/02/2022 COMPR EHENS JAYA METAB OLIC PANEL BUN 16 mg/dL 8-19 Not Available [facility] (Lab) [address] [place], [address], 07/02/2022 19:19:54 07/03/19 23 07/02/2022 COMPR EHENS JAYA METAB OLIC PANEL creatinine 0.64 mg/dL 0.66-1 .25 low Not Available [facility] (Lab) [address] [place], [address], 07/02/2022 19:19:54 07/03/19 23 07/02/2022 COMPR EHENS JAYA METAB OLIC PANEL GFR >60 Refer ence Range : [place] ge GFR Healt hy Adult : >60 mL/mi n/1.7 3 m2 Chron ic Kidne y Disea se: 15-60 mL/mi n/1.7 3 m2 Kidne y Failu re: <15/m L/min /1.73 m2 www.n iddk. nih.g ov The MDRD study equat ion has not been valid ated in child jermain <18 years of age; pregn ant women ; the elder ly >85 years of age; or in some racia l or ethni c subgr oups, such as Hisne nics. Outsi de the valid ated celine eters , estim ated GFR is less accur ate, requi ring clini emily judgm ent on a case- by-ca se basis . Clini emily inter preta tion for other races and ages must be made by the clini eduin. The MDRD study equat ion has not been valid ated for the evalu ation of serum creat inine relat ed to nutri leticia l statu s or medic ation usage . For perso ns <18 years of age, a pedia tric GFR calcu lator is avail able on the [facility] websi te: https ://ww w.kid herminia.o rg/pr ofess ional s/kdo qi/gf r_cal culat or Not Available [facility] (Lab) [address] [place], [address], 07/02/2022 19:19:54 07/03/19 23 07/02/2022 COMPR EHENS JAYA METAB OLIC PANEL alkaline phosphatase 95 U/L 38-126 Not Available [facility] (Lab) [address] [place], [address], 07/02/2022 19:19:54 07/03/19 23 07/02/2022 COMPR EHENS JAYA METAB OLIC PANEL alanine aminotransfe rase 51 U/L 0-35 high Not Available [facility] (Lab) [address] [place], [address], 07/02/2022 19:19:54 07/03/19 23 07/02/2022 COMPR EHENS JAYA METAB OLIC PANEL aspartate aminotransfe rase 57 U/L 15-37 high Not Available [facility] (Lab) [address] [place], [address], 07/02/2022 19:19:54 07/03/19 23 07/02/2022 COMPR EHENS JAYA METAB OLIC PANEL bilirubin, total 0.50 mg/dL 0.20-1 .30 Not Available [facility] (Lab) [address] [place], [address], 07/02/2022 19:19:54 07/03/19 23 07/02/2022 COMPR EHENS JAYA METAB OLIC PANEL calcium 9.4 mg/dL 8.4-10 .2 Not Available [facility] (Lab) [address] [place], [address], 07/02/2022 19:19:54 07/03/19 23 07/02/2022 COMPR EHENS JAYA METAB OLIC PANEL total protein 7.2 g/dL 6.3-8. 2 Not Available [facility] (Lab) [address] [place], [address], 07/02/2022 19:19:54 07/03/19 23 07/02/2022 COMPR EHENS JAYA METAB OLIC PANEL albumin 4.5 g/dL 3.0-4. 4 high Not Available [facility] (Lab) [address] [place], [address], 07/02/2022 19:19:54 07/03/19 23 07/02/2022 COMPR EHENS JAYA METAB OLIC PANEL globulin 2.7 g/dL 2.6-4. 2 Not Available [facility] (Lab) [address] [place], [address], 07/02/2022 19:19:54 07/03/19 23 07/02/2022 COMPR EHENS JAYA METAB OLIC PANEL A/G ratio 1.7 ratio 1.0-2. 0 Not Available [facility] (Lab) [address] [place], [address], 07/02/2022 19:19:54 07/03/19 23 07/02/2022 T3 FREE free T3 3.3 pg/mL 2.77-5 .27 Not Available [facility] (Lab) [address] [place], [address], 07/02/2022 19:37:56 07/03/19 23 07/02/2022 T4 FREE free T4 1.38 NG/dL 0.78-2 .19 Not Available [facility] (Lab) [address] [place], [address], 07/02/2022 19:37:58 07/03/19 23 07/02/2022 TSH thyroid-stim ulating hormone 1.010 uIU/m L 0.465- 4.680 Not Available [facility] (Lab) [address] [place], [address], 07/02/2022 20:00:55 07/03/1907/02/2022 VITAM IN B12 (ANABEL EDUARDA ) vb12 338 pg/mL 239-93 1 Not Available [facility] (Lab) [address] [place], [address], 07/02/2022 21:14:20 07/03/19 23 07/02/2022 FOLAT E, SERUM /PLAS MA folate 5.34 NG/mL 2.76-2 0.0 Not Available [facility] (Lab) [address] [facility] [place], [address], 07/02/2022 21:14:25 09/30/19 24 09/28/2023 US, aorta No observ ation record ed. [email or web address] [facility] [address], [place], [address], 11/19/2023 11:15:10 10/15/19 24 10/14/2023 US, renal No observ ation record ed. [email or web address] [facility] [address], [place], [address], 11/19/2023 11:15:29 Result Notes None recorded. Problems Name Problem SNOMED Code Status Onset Date Resolution Date Notes Provider Name and Address Organization Details Recorded Time Tobacco user 400522334 Active Not Available [facility] 4 23:03:22 Erythrocy tosis 310650897 Active 2021 Not Available [facility] 4 23:03:22 Backache 361029856 Completed Not Available [facility] 3 04:54:42 Pain in throat 233704796 Active 2021 Not Available [facility] 4 23:03:22 Serum vitamin B12 below reference range 603507279 Active 2020 Not Available [facility] 4 23:03:22 Asthma 941497985 Active Not Available [facility] 4 23:03:22 Postopera tive pain 280808602 Active 2022 [facility] 23:03:22 Discitis 2114147 Active [facility] Available [facility] 4 23:03:22 Pure hyperchol esterolem ia 170182040 Active Not Available [facility] 4 23:03:22 Low back pain 889257305 Active Not Available [facility] 4 23:03:22 Lesion of tongue 747367557 Active 2021 Not Available [facility] 4 23:03:22 Otitis externa 1587002 Active 2021 Not Available [facility] 4 23:03:22 Pain in right hip joint 17249610259 9102 Active Not Available [facility] 4 23:03:22 Vitamin D deficienc y 89100342 Active Not Available [facility] 4 23:03:23 Hypothyro idism 85007496 Active Not Available [facility] 4 23:03:23 Herniatio n of rectum into vagina 485254317 Active Not Available [facility] 4 23:03:23 Hyperlipi demia 87235485 Active 2016 Not Available [facility] 4 23:03:23 Essential hypertens ion 13585745 Active 2020 Not Available [facility] 4 23:03:23 Vitamin B12 deficienc y (non anemic) 41283167 Active 2021 Not Available [facility] 4 23:03:23 Neck pain 91006767 Active Not Available [facility] 4 23:03:23 Problem Notes None recorded. Procedures Surgical History Date Name Laterality Status Provider Name and Address Organization Details Recorded Time 06/18/19 Medicare Wellness CPT Code, subsequent completed Corinne Mcfarland RN [place] [facility] [place] [facility] 06/17/2022 10:57:55 10/04/19 20 Most Recent Mammogram completed Not Available [facility] 05/07/2022 04:45:09 09/22/19 20 Date of Last Pap Smear completed Not Available [facility] 05/07/2022 04:45:09 05/19/19 20 Most Recent Bone Density completed Not Available [facility] 05/07/2022 04:45:09 laminectomy completed Not Available [facility] 05/07/2022 04:45:13 Orthopedic Surgery completed Not Available [facility] 05/07/2022 04:45:13 Cataract Surgery completed Not Available [facility] 05/07/2022 04:45:13 Removal of ovarian cyst(s) completed Not Available [facility] 05/07/2022 04:45:13 thyroidectomy completed Not Available [facility] 05/07/2022 04:45:13 Imaging Results Imaging Date Name Status LastModified by Organiz ation Details LastModified Time 09/28/2023 US, aorta completed [email or web address] [facility] [address], [place], [address], 11/19/2023 11:15:10 10/14/2023 US, renal completed [facility] [address], [place], [address], 11/19/2023 11:15:29 Procedure Notes None recorded. Medical Equipment None Reported. Allergies Allergen ID Allergen Name Allergen Category Reaction Reaction Severity Criticality Documentation Date Start Date Code Code System Note Provider Name and Address Organization Details Recorded Time 8328 Product containin g penicilli n (product) medicatio n anaphylax is severe Not available 05/07/2022 30585 8001 SNOMED Not Available [facility] 3 05:04:43 8329 lisinopri l medicatio n rash Not available Not available 05/07/20222020 63123 RxNorm Not Available [facility] 3 05:04:43 Medications Name Sig Start Date Stop Date Status Note LastModified by Organization Details LastModified Time cyclobenz aprine 10 mg tablet Take 1 tablet 3 times a day by oral route as needed. active Not Available Not Available No t Available latanopro st 0.005 % eye drops INSTILL 1 DROP INTO BOTH EYES AT BEDTIME active Not Available Not Available No t Available prednison e 10 mg tablet Take by oral route. active Not Available Not Available No t Available doxycycli ne hyclate 100 mg capsule Take 1 capsule twice a day by oral route for 10 days. active Not Available Not Available No t Available atorvasta tin 20 mg tablet Take 1 tablet every day by oral route. 07/12 completed Pt stated that she has not started this med yet, but she does have it. Not Available Not Available Not Available aspirin 325 mg tablet Take 1 tablet every day by oral route. 2020 active Not Available Not Available Not Avai lable prednison e 20 mg tablet Take 2 tablets every day by oral route for 5 days. 02/07 completed Not Available Not Available Not Available Synthroid 100 mcg tablet one tablet daily 03/15 completed Not Available Not Available Not Available Zithromax Z-Jozef 250 mg tablet Take 1 dose pk by oral route as directed . active Not Available Not Available No t Available Navid Low Dose Aspirin 81 mg tablet,de layed release Take 1 tablet every day by oral route. 04/12 completed Not Available Not Available Not Available Advair Diskus 100 mcg-50 mcg/dose powder for inhalatio n INHALE 1 PUFF PO BID active Not Available Not Available No t Available ketorolac 10 mg tablet 06/22 completed Not Available Not Available Not Available levothyro xine 75 mcg tablet Take 1 tablet every day by oral route. 03/15 completed Not Available Not Available Not Available Valium 5 mg tablet Take 0.5 tablets twice a day by oral route. 07/26 completed Not Available Not Available Not Available hydrocodo ne 7.5 mg-acetam inophen 325 mg tablet TAKE 1 TABLET BY MOUTH EVERY 6 HOURS 06/17 completed Not Available Not Available Not Available cyanocoba eduarda (vit B-12) 1,000 mcg/mL injection solution inject 1ml once a week for 4 weeks then go to monthly shots 10/16 completed shot #4 Not Available Not Available Not Available tobramyci n 0.3 % eye drops 12/28 completed Not Available Not Available Not Available triamcino lone acetonide 0.1 % topical ointment active Not Available Not Available Not Available triamcino lone acetonide 55 mcg nasal spray aerosol Take 2 sprays every day by nasal route for 90 days. 12/16 completed Not Available Not Available Not Available Synthroid 88 mcg tablet TAKE 1 TABLET BY MOUTH EVERY DAY 2023 active Not Available Not Available Not Avai lable losartan 25 mg tablet TAKE 1 TABLET BY MOUTH EVERY DAY 02/10 completed Not Available Not Available Not Available Advair Diskus 250 mcg-50 mcg/dose powder for inhalatio n INHALE 1 PUFF TWICE A DAY BY INHALATI ON ROUTE. active Not Available Not Available No t Available etodolac 400 mg tablet Take 1 tablet twice a day by oral route for 30 days. active Not Available Not Available No t Available lisinopri l 5 mg tablet Take 1 tablet every day by oral route. active Not Available Not Available No t Available methylpre dnisolone 4 mg tablets in a dose pack 12/28 completed Not Available Not Available Not Available albuterol sulfate HFA 90 mcg/actua tion aerosol inhaler INHALE 2 INHALATI ONS EVERY 4-6 HOURS BY MOUTH NEEDED. active Not Available Not Available No t Available Vitamin D2 1,250 mcg (50,000 unit) capsule Take 1 capsule every week by oral route. active Not Available Not Available No t Available timolol maleate 0.5 % eye drops PLEASE SEE ATTACHED FOR DETAILED DIRECTIO NS active Not Available Not Available No t Available loratadin e 10 mg tablet Take 1 tablet every day by oral route. active Not Available Not Available No t Available tobramyci n 0.3 %-dexamet hasone 0.1 % eye drops,berto pension INSTILL 3 DROPS LEFT EAR 3 TIMES A DAY FOR 1 WEEK 06/17 completed Not Available Not Available Not Available OraMagicR x mouthwash 15 ML BY MOUTH, SWISH 1 MINUTE THEN SPIT, 3 TIMES DAILY NEEDED. 2024 active Not Available Not Available Not Avai lable moxifloxa caren 0.5 % eye drops 10/27 completed Not Available Not Available Not Available Ciprodex 0.3 %-0.1 % ear drops,berto pension INSTILL 4 DROPS INTO AFFECTED EAR(S) BY OTIC ROUTE 2 TIMES PER DAY FOR 10 DAYS active Not Available Not Available No t Available rosuvasta tin 20 mg tablet Take 1 tablet every day by oral route. active Not Available Not Available No t Available Crestor 10 mg tablet Take 1 tablet every day by oral route. 06/16 completed pt never started Not Available Not Available Not Available timolol 2 drops into each eye 2 times daily 10/12 completed Not Available Not Available Not Available Travatan Z 0.004 % eye drops active Not Available Not Available No t Available Durezol 0.05 % eye drops 06/22 completed Not Available Not Available Not Available Ilevro 0.3 % eye drops,berto pension 06/22 completed Not Available Not Available Not Available Lotemax 0.5 % eye gel drops 01/24 completed Not Available Not Available Not Available Lumify 0.025 % eye drops 2021 active Not Available Not Available Not Mariam Back Date Recorded Body mass index (BMI) Body height Body temperature Body weight Provider Name and Address Organization Details Last Updated DateTime 03/25/2022 32.6 kg/m2 162.56 cm 97.8 [degF] 83558.55 g Not Available [facility] 05/07/2022 04:51:22 Date Recorded Body mass index (BMI) Body height Body temperature Body weight Provider Name and Address Organization Details Last Updated DateTime 04/24/2022 32.8 kg/m2 162.56 cm 97.9 [degF] 24417.14 g Not Available [facility] 05/07/2022 04:51:22 Date Recorded Body height Body mass index (BMI) Body weight Body temperature Provider Name and Address Organization Details Last Updated DateTime 05/29/2022 162.56 cm 33 kg/m2 14101.74 g 97.6 [degF] Rasheeda Kidd CMA IN [employer] 05/29/2022 11:18:25 Date Recorded Body height Body mass index (BMI) Body weight Body temperature Heart rate Systolic blood pressure Diastolic blood pressure Provider Name and Address Organization Details Last Updated DateTime 3 162.56 cm 33.1 kg/m2 26152.3 3 g 98.5 [degF] 73 /min 144 mm[Hg] 80 mm[Hg] Summer barrios RN [facility] [employer] 3 10:44:57 Date Recorded Pain severity - 0-10 verbal numeric rating [Score] - Reported Provider Name and Address Organization Details Last Updated DateTime 06/17/2022 3 Corinne Mcfarland RN [facility] 06/17/2022 10:58:11 Date Recorded Body height Body mass index (BMI) Body weight Body temperature Heart rate Systolic blood pressure Diastolic blood pressure Provider Name and Address Organization Details Last Updated DateTime 3 162.56 cm 31.6 kg/m2 24313 g 98.2 [degF] 73 /min 136 mm[Hg] 74 mm[Hg] SHA Anne Mobivery [facility] [employer] 3 09:58:29 Social History Question Answer Notes LastModified by Organization Details LastModified Time Tobacco Smoking Status Current Every Day Smoker Not Available [facility] 05/07/2022 04:43:25 Do You Have An Advance Directive? Yes MIGRATION.0301 [id number] Information not available 05/07/2022 What Is Your Level Of Alcohol Consumption? Moderate 2 Glasses Wine Per Day MIGRATION.0301 057761 Information not available 05/07/2022 Are You Blind Or Do You Have Difficulty Seeing? No MIGRATION.0301 716100 Information not available 05/07/2022 What Is Your Level Of Caffeine Consumption? Moderate MIGRATION.0301 709412 Information not available 05/07/2022 How Much Tobacco Do You Chew? None MIGRATION.0301 613533 Information not available 05/07/2022 In The 14 Days Before Symptom Onset, Have You Had Close Contact With A Laboratory-conf irmed COVID-19 While That Case Was Ill? No MIGRATION.030 203224 Information not available 05/07/2022 In The 14 Days Before Symptom Onset, Have You Had Close Contact With A Person Who Is Under Investigation For COVID-19 While That Person Was Ill? No MIGRATION.0301 [id number] Information not available 05/07/2022 Are You Deaf Or Do You Have Serious Difficulty Hearing? No MIGRATION.0301 [id number] Information not available 05/07/2022 What Type Of Diet Are You Following? REGULAR MIGRATION.0301 380256 Information not available 05/07/2022 Which Illicit Or Recreational Drugs Have You Used? None MIGRATION.0301 848975 Information not available 05/07/2022 Do You Or Have You Ever Used E-cigarettes Or Vape? Never Used Electronic Cigarettes MIGRATION.0301 397343 Information not available 05/07/2022 What Is Your Occupation? Retired MIGRATION.0301 800570 Information not available 05/07/2022 Have There Been Any Changes To Your Family Or Social Situation? No MIGRATION.0301 997748 Information not available 05/07/2022 Are There Any Guns Present In Your Home? No MIGRATION.0301 494998 Information not available 05/07/2022 Do You Use Insect Repellent Routinely? No MIGRATION.0301 180114 Information not available 05/07/2022 Where Do You Live? SingleLevelHouse With Basement Information not available 06/17/2022 Presence Of Domestic Violence No Information not available 06/17/2022 Guns Present In The Home? No Information not available 06/17/2022 Are You Able To Care For Yourself? Yes Information not available 06/17/2022 Are You Blind Or Do Yo Have Difficulty Seeing? No Information not available 06/17/2022 Are You Deaf Or Do You Have Serious Difficulty Hearing? No Information not available 06/17/2022 General Stress Level? Low Information not available 06/17/2022 Live Alone Of With Others? With Others [email or web address] Information not available 06/17/2022 Do You Have A Medical Power Of Blow Torch Burner? Yes MIGRATION.0301 [id number] Information not available 05/07/2022 What Was The Date Of Your Most Recent Tobacco Screening? 01/08/2023 [email or web address] Information not available 01/08/2023 Have You Ever Been Counseled For Unhealthy Alcohol Use? No MIGRATION.0301 175661 Information not available 05/07/2022 Do You Have Any Pets? Yes MIGRATION.0301 901360 Information not available 05/07/2022 What Is Your Relationship Status? MIGRATION.0301 089841 Information not available 05/07/2022 Do You Use Your Seat Belt Or Car Seat Routinely? Yes MIGRATION.0301 437973 Information not available 05/07/2022 Do You Have Smoke And Carbon Monoxide Detectors In Your Home? Yes MIGRATION.0301 817501 Information not available 05/07/2022 At What Age Did You Start Smoking Tobacco? 15 MIGRATION.0301 596915 Information not available 05/07/2022 Are You Passively Exposed To Smoke? Yes MIGRATION.0301 196872 Information not available 05/07/2022 Do You Or Have You Ever Used Smokeless Tobacco? Never Used Smokeless Tobacco MIGRATION.0301 571089 Information not available 05/07/2022 Are There Any Smokers In Your House? Yes MIGRATION.0301 877972 Information not available 05/07/2022 How Much Tobacco Do You Smoke? 1 PPD MIGRATION.0301 275798 Information not available 05/07/2022 What Types Of Sporting Activities Do You Participate In? None MIGRATION.0301 084004 Information not available 05/07/2022 Do You Use Any Illicit Or Recreational Drugs? No MIGRATION.0301 095724 Information not available 05/07/2022 Do You Use Sunscreen Routinely? Yes MIGRATION.0301 534498 Information not available 05/07/2022 How Many Years Have You Smoked Tobacco? 45 MIGRATION.0301 800557 Information not available 05/07/2022 Have You Recently Traveled Abroad? No MIGRATION.0301 797782 Information not available 05/07/2022 Do You Have Any Dietary Restrictions? No MIGRATION.0301 874989 Information not available 05/07/2022 Do You Or Have You Ever Used Any Other Forms Of Tobacco Or Nicotine? No MIGRATION.0301 107441 Information not available 05/07/2022 Sex: Female Functional Status Question Answer Note LastModified by Organizat ion Details LastModified Time Do you have difficulty walking or climbing stairs? No Information not available 06/17/2022 Do you have transportation difficulties? No MIGRATION.2527320 026 Information not available 05/07/2022 Are you able to walk? YESWOREST MIGRATION.5103286 026 Information not available 05/07/2022 Do you have difficulty doing errands alone? No MIGRATION.3327820 026 Information not available 05/07/2022 Are you able to care for yourself? Yes MIGRATION.5381016 026 Information not available 05/07/2022 Do you have difficulty dressing or bathing? No MIGRATION.8335442 026 Information not available 05/07/2022 What is your exercise level? Occasional Information not available 06/17/2022 Mental Status Question Answer Note LastModified by Organizat ion Details LastModified Time Do you have difficulty concentrating, remembering or making decisions? No MIGRATION.877307307 6 Information not available 05/07/2022 Family History Relationship Description Onset Age of this Age Resolved Age Notes LastModified by Organization Details LastModified Time Maternal Aunt Diabetes mellitus MIGRATION.337 [id number] Not available 05/07/2022 04:45:20 Sister Diabetes mellitus MIGRATION.902 [id number] Not available 05/07/2022 04:45:20 Sister Diabetes mellitus MIGRATION.233 [id number] Not available 05/07/2022 04:45:21 Maternal Grandmother Malignant tumor of breast >50s MIGRATION.116 [id number] Not available 05/07/2022 04:45:21 Paternal Grandmother Malignant tumor of breast MIGRATION.502 [id number] Not available 05/07/2022 04:45:21 Father Alcoholism MIGRATION.084 2973754 Not available 05/07/2022 04:45:21 Unspecified Relation Alcoholism nephew MIGRATION.852 [id number] Not available 05/07/2022 04:45:21 Medical History Condition Response NERVE DISEASE N BLINDNESS N RHEUMATIC FEVER N KIDNEY STONES N BLADDER PROBLEMS N MRSA N OTHER # 1 N POLIO N LUNG DISEASE/DISORDER N COPD N RADIATION / CHEMOTHERAPY N Other # 2 N BLOOD DISEASES N EAR OR HEARING PROBLEMS N MUMPS N DEPRESSION (INCLUDING POST ) N BOWEL PROBLEMS Y STROKE/TIA N ULCERS N BENIGN PROSTATIC HYPERPLASIA N MEASLES N MYOCARDIAL INFARCTION N OBESITY N GERD/NAUSEA N ANEURYSM N URINARY/BLADDER/KIDNEY PROBLEMS N CORONARY ARTERY DISEASE (CAD) N ADDICTION CONCERNS N Impotence N ENDOMETRIOSIS N USE OF BLOOD THINNERS N SKIN PROBLEMS N GASTROINTESTINAL DISORDER N PERIPHERAL VASCULAR DISEASE N MUSCLE,JOINT OR BONE PROBLEMS N GASTROINTESTINAL BLEEDING N BLOOD CLOTS N ASTHMA Y CATARACTS Y ERECTILE DYSFUNCTION N VARICOSITIES N GI PROBLEMS N Low Testosterone N INFERTILITY N AIDS/HIV N CHEMOTHERAPY / RADIATION N LIVER DISEASE N MALE HYPOGONADISM N HYPERTENSION N Deficiency N TOURETTE'S N ANXIETY DISORDER N BLOOD TRANSFUSION N ANEMIA/BLOOD DISORDER N CHRONIC EAR INFECTIONS N BRONCHITIS N TUBERCULOSIS N GLAUCOMA N FOOT PROBLEM N DIVERTICULITIS N SLEEP APNEA N CHICKENPOX N INFECTIOUS DISEASE N PROSTATE N HEART ARRHYTHMIA N INSOMNIA N HIGH CHOLESTEROL / HYPERLIPIDEMIA Y EYE PROBLEMS N HYPERTHYROIDISM N EDEMA N CHRONIC PAIN SYNDROME N HYPOTHYROIDISM Y CAROTID BLOCKAGE N CONSTIPATION N BACK / NECK PROBLEMS Y HAVE YOU BEEN HOSPITALIZED OR SEEN IN [facility] IN THE PAST YEAR ? N ATHEROSCLEROSIS N BREAST PROBLEMS Y DIALYSIS N ECZEMA N OSTEOPOROSIS N ARTHRITIS N APPENDICITIS N DIABETES, TYPE N BAD TEETH N ENT N HEARTBURN / REFLUX N AUTISM SPECTRUM DISORDER (ASD) N HEPATITIS / LIVER DISEASE N GOUT N SLEEP DISORDER N ALZHEIMER'S DISEASE N Brain Problems N DEMENTIA N HERPES N SEIZURES/EPILEPSY N HEADACHES/MIGRAINES N VASCULAR DISEASE N PACEMAKER N Blood Disorder N DIZZINESS N HEART DISEASE/HEART PROBLEMS N KIDNEY DISEASE N MULTIPLE SCLEROSIS N CANCER: SPECIFY N CARDIAC ARRHYTHMIA N ATRIAL FIBRILLATION N Gall Stones N PULMONARY EMBOLISM N AUTOIMMUNE DISEASE N Gynecological History Statement/Question Response Abnormal Pap N Date of Last Mammogram 10/04/2019 Date of Last Colonoscopy Most Recent Bone Density 05/19/2019 Date of Last Pap 09/22/2019 Date of Last Pap Smear 09/22/2019 Current Control Method Menopause Age at Menarche 11 Most Recent Mammogram 10/04/2019 Breast Problems no Obstetrics History GPAL:G 4 P 2 0 2 2 Type Value Full Term 2 Spontaneous 2 Living 2 Total 4 Immunizations Vaccine Type Date Status Note Provider Nam e and Address Organization Details Recorded Time COVID-19, mRNA, LNP-S, PF, 30 mcg/0.3 mL dose 06/11/2020 completed Not Available [facility] 4 23:03:23 COVID-19, mRNA, LNP-S, PF, 30 mcg/0.3 mL dose 05/14/2020 completed Not Available [facility] 4 23:03:23 Past Encounters Encounter ID Performer Location Encounter Start Date Encounter Closed Date Diagnosis/Indication Diagnosis SNOMED-CT Code Diagnosis ICD10 Code Diagnosis Note [id number] [facility] Internal Med Gennaro Mosher, [place] [address] 07/12/2020 00:00:00 07/13/2020 08:00:17 [id number] [facility] [place] [address] 07/26/2020 00:00:00 07/28/2020 20:57:31 [id number] [facility] [place] [address] 09/04/2020 00:00:00 09/10/2020 21:40:49 [id number] _ATHENA_M IGRATION_ DEFAULT_1 _1 , 10/16/2020 00:00:00 10/16/2020 13:07:00 [id number] [facility] [place] [address] 01/10/2021 00:00:00 01/20/2021 12:34:34 [id number] S[facility] Internal [place] [address] 02/07/2021 00:00:00 03/10/2021 16:40:05 [id number] [facility] Gennaro duncan [address] [place] [address] [place] [address] 03/21/2021 00:00:00 03/21/2021 21:11:17 [id number] [facility] Gennaro duncan [address] [place] [address] [place] [address] 06/13/2021 00:00:00 06/21/2021 20:48:34 [id number] [facility] [address] [facility], [facility] [address] [place] [address] 02/10/2022 00:00:00 02/10/2022 22:51:50 [id number] [facility] [place] [address] [place] [address] 03/25/2022 00:00:00 03/25/2022 12:14:14 [id number] [facility] [place] [address] [place] [address] 04/24/2022 00:00:00 04/24/2022 10:46:19 [id number] Srini El MD [facility] [place] [address] [place] [address] 05/29/2022 10:49:01 05/29/2022 11:42:42 Lesion of tongue 534914789 K14.9 [id number] Cortez Tijerina MD [facility] Gennaro duncan [address] [place] [address] [place] [address] 06/17/2022 10:28:45 06/17/2022 11:49:07 Adult health examination 787192986 Z00.00 Screening for disorder 258868426 Z13.9 Essential hypertension 98502106 I10 Hyperlipidemia 73320664 E78.5 Asthma 032001273 J45.90 9 [id number] Cortez Tijerina MD [facility] Internal Med Gennaro duncan [facility] [place] [address] 01/08/2023 09:41:16 01/08/2023 10:26:33 Essential hypertension 66323436 I10 Hyperlipidemia 95894453 E78.5 Hypothyroidism 80153728 E03.9 Health Concerns Section Related Observation LastModified by Organization Detai ls LastModified Time None Recorded Concern Status LastModified by Organization Details LastModified Time None Recorded Advance Directives Directive Y: Payers Encounter Date Sequence Insurance Name Policy Number Policy Gifford Covered Member ID Gifford Member ID Guarantor Name 05/29/2022 1 [place] Niru A Neunaber [id number] Dara Neunaber 05/29/2022 2 [employer] (MEDICARE SUPPLEMENT) Niru A Neunaber [id number] Dara Neunaber 06/17/2022 1 [place] Niru A Neunaber [id number] 7 Dara Neunaber 06/17/2022 2 [employer] (MEDICARE SUPPLEMENT) Niru A Neunaber [id number] Dara Neunaber 01/08/2023 1 [place] Niru A Neunaber [id number] 7 Dara Neunaber 01/08/2023 2 [employer] (MEDICARE SUPPLEMENT) Niru A Neunaber [id number] Dara Neunaber Notes Date Note Type Note Provider Name and Address Organization Details Recorded Time 3 text/html the patient reports that she has irritation in the area of the previous left tongue biopsy. She reports that she is reducing smoking but has not yet managed quit. Srini El MD [address], [place], [address], [facility] 05/29/2022 11:36:47 3 text/html Cholesterol 270Biopsy of oral lesionHypothyroid no heat or cold intoleranceContinues to smokeCOPD stable Cortez Tijerina MD [address], [address], [place], [address], [facility] 07/19/2022 23:19:37 3 text/html Hyperlipidemia try to follow low-fat dietBiopsy of oral lesion still has some symptomsHypothyroid no heat or cold intoleranceContinues to smokeCOPD stable Cortez Tijerina MD [address] [facility], [facility] [address], [place], [address], [facility] [place] [facility] 01/17/2023 15:50:43 OBGyn Episode No OBEpisode recorded.
--- OUTSIDE RECORDS SUMMARY | 2024-05-08 05:11 | XMS_ITS | Encounter Summary ---
Author Organization [employer] Address 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 Gender Identity Not on file Sexual Orientation Not on file documented as of this encounter Plan of Treatment Not on file documented as of this encounter Procedures Procedure Name Priority Date/Time Associated Diagnosis Comments HEMOGLOBIN AND HEMATOCRIT Routine 12/11/2004 10:53 AM CDT documented in this encounter Results * (ABNORMAL) HEMOGLOBIN AND HEMATOCRIT (12/11/2004 10:53 AM CDT) HEMOGLOBIN 15.1(H) 11.8 - 14.8 g/dL INTERFACE SYSTEM HEMATOCRIT 45.4(H) 35.5 - 44.0 % INTERFACE SYSTEM 12/11/2004 10:5 3 AM CDT us Donnie Smallwood MD HEMATOLOGY ORDERABLES Final R esult INTERFACE SYSTEM Refer to clinic/hospital department documented in this encounter Visit Diagnoses Diagnosis Benign neoplasm of thyroid glands- Primary documented in this encounter
--- OUTSIDE RECORDS SUMMARY | 2024-05-08 05:11 | XMS_ITS | Clinical Summary ---
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
--- OUTSIDE RECORDS SUMMARY | 2024-05-08 05:11 | XMS_ITS | Clinical Summary ---
Author Organization [facility] [address] Address [address] [place] [address] Care Team Providers Care Production Controller Name Role Phone Lenny Tijerina MD Primary Care Provider Joaquin Sosa DO Unavailable [phone] Allergies Active Allergy Reactions Criticality Noted Date Comments Lisinopril Rash Medium 01/29/2021 Penicillins Anaphylaxis High Medications levothyroxine (SYNTHROID) 88 mcg tablet Take 88 mcg by mouth systems program manager before breakfast Active timoloL (BETIMOL) 0.5 % ophthalmic solution 1 drop 2 (two) times a day Active aspirin 325 mg tablet Take 325 mg by mouth every 6 (six) hours as needed for pain Active vitamin D3-vitamin K2 1000-90 unit-mcg tablet,disintegr ating Take by mouth Active ys-iyg-F-glutami [id number]-ososhc-[id number] 1,000-50 mg tablet, effervescent Take by mouth [...] goiter 07/23/2013 Overview (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/2016): NONTOX MULTINODUL GOITER Surgical History Surgery Date Site/Laterality Comments THYROIDECTOMY 2006 Thyroidectomy LAMINECTOMY AND MICRODISCECTOMY LUMBAR SPINE Medical History Medical History Date Comments Postoperative hypothyroidism Moderate asthma with acute exacerbation Seasonal rhinitis Primary hypertension Pure hypercholesterolemia Family History Medical History Relation Name Comments Stroke Father No Known Problems Maternal Grandfather Cancer Maternal Grandmother No Known Problems Mother No Known Problems Paternal Grandfather No Known Problems Paternal Grandmother Diabetes Sister Relation Name Status Comments Father Maternal Grandfather Maternal Grandmother Mother Paternal Grandfather Paternal Grandmother Sister Social History Tobacco Use Types Packs/Day Years [...] on file Legal 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 Gender Identity Not on file Sexual Orientation Not on file Occupation Industry Job Start Date Job End Date Retired Not on file Not on file Not on file Obstetrics History Last Filed Vital Signs Vital Sign Reading Time Taken Comments Blood Pressure 125/80 01/17/2022 3:03 PM TYING MACHINE OPERATOR Pulse 89 01/17/2022 3:03 PM TYING MACHINE OPERATOR Temperature 36.8 C (98.3 F) 01/17/2022 2:18 PM TYING MACHINE OPERATOR Respiratory Rate 18 01/17/2022 3:03 PM TYING MACHINE OPERATOR Oxygen Saturation 93% 01/17/2022 3:0 3 PM TYING MACHINE OPERATOR Inhaled Oxygen Concentration - - Weight 87 kg (191 lb 12.8 oz) 2 2:18 PM TYING MACHINE OPERATOR without shoes Height 161 cm (5' 3.39 ) 01/17/2022 2:1 8 PM TYING MACHINE OPERATOR Body Mass Index 33.56 01/17/2022 2:18 PM TYING MACHINE OPERATOR Plan of Treatment Health Maintenance Due Date Last Done Comments Breast Cancer Screening-Mammogram 1954 Colon Cancer Screening-Colonoscopy 1954 Depression Screening 1954 Fall Risk Assessment 1954 Hepatitis C Screening 1954 Osteoporosis Screening-Bone Density Scan 1954 DTaP/Tdap/Td Vaccine (1 - Tdap) 1965 Hepatitis B Screening 1972 Pneumococcal vaccine 65+ (1 of 2 - PCV) 1973 Zoster Vaccine (1 of 2) 2004 Well Visit 65+ 11/18/2019 Covid-19 Vaccine ( season) 11/08/202307/2020, 05/14/2020 Influenza Vaccine (#1) 2023 [place] [address] [facility] CLAIMS OFFICE [facility] CLAIMS OFFICE MEDICARE Care Teams Production Controller Relationship Specialty Start Date End Date Lenny Tijerina MD PCP - General Internal Medicine 12/04/20 Joaquin Sosa DO [address] [place] [address] MEDICAL ONCOLOGY, [facility] [address] [place] [address] Medical Oncologist/Counselor [facility] Hematology and Oncology 03/06/22
--- OUTSIDE RECORDS SUMMARY | 2024-05-08 05:11 | XMS_ITS | CONTINUITY OF CARE DOCUMENT ---
Author Name woody mckay Address Unknown Organization [facility] Address [address] [place] [address] Phone [phone] Care Team Providers Care Candy Department Manager Name Role Phone Akash Camacho MD Unavailable CORTEZ URBINA MD Unavailable [phone] CORTEZ URBINA MD Unavailable [phone] INSURANCE PROVIDERS Payer name Policy type / Coverage type [place] red alliance party ID [employer] PPO HMO [id number] [place] MEDICARE Medicare [id number]
--- OUTSIDE RECORDS SUMMARY | 2024-05-08 05:11 | XMS_ITS | Encounter Summary ---
Author Organization [employer] Address [address] [place] [address] Care Team Providers Care Health And Wellness Instructor Name Role Phone Unavailable Primary Care Provider Unavailabl e Encounter Details Date Type Department Care Team (Late st Contact Info) Description 12/11/2004 Outpatient Historical [facility] Support [facility]. ([facility]t Cardiology[facility]) [address] 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
[2024-05-08 05:15] LABS: Alanine Aminotransferase 51 U/L (6-35); Albumin Level 4.6 g/dL (3.5-5.1); Alkaline Phosphatase 112 U/L (38-126); Anion Gap 10 mmol/L (4-12); Aspartate Amino Transferase 46 U/L (14-36); Blood Urea Nitrogen 16 mg/dL (7-17); Calcium 9.8 mg/dL (8.4-10.2); Carbon Dioxide 29 mmol/L (22-30); Chloride 103 mmol/L (98-107); Estimated CRCL calculation 84 ml/min; Estimated Glomerular Filt Rate > 60; Glucose 134 mg/dL (65-110); Magnesium 2.7 mg/dL (1.6-2.3); Potassium 3.8 mmol/L (3.4-5.0); Sodium 142 mmol/L (137-145)
[2024-05-08 05:40] LABS: Influenza A QL RT-PCR Negative (Negative); Influenza B QL RT-PCR Negative (Negative); RSV RNA, RT-PCR Negative (Negative); SARS-CoV-2 RNA PCR Negative (Negative)
--- NOTE | 2024-05-08 06:37 | PC.NURSE ---
Addendum entered by Trisha Vaughn RN 05/08/24 06:42: *After breathing treatment pt was placed on 8L high flow nasal cannula and has remained in lower 90s. Original Note: Upon arrival to ed pt was sating upper 80s to lower 90s on 4L nasal cannula. Pts sats continued to drop. Around 30 minutes after arrival pt was sating 87% on 5L nasal cannula.. Pt placed on nonrebreather until RT arrived for breathing treatment. After breathing treatment pt has remained in lower 90s on 4L nasal cannula.
[2024-05-08] MEDS: methylPREDNISolone SOD SUCC 125 MG VIAL 60 MG IV PUSH ×3 (08:35→20:54)
--- NOTE | 2024-05-08 09:08 | P.HP_ITS ---
H&P: HPI History of Present Illness Date/Time: 05/08/24 09:08 Chief Complaint: SOB Narrative: Patient is a 68-year-old female who presented to the emergency department with complaints of worsening shortness breath. Patient states around 10 days ago she was developing shortness a breath and left ear pain and spoke with her primary care physician who at that time prescribed patient doxycycline. patient st ates that she has gotten progressively worse for the last few days and woke up around 3:00 a.m. prior to arrival with continued difficulty breathing and called EMS. upon arrival to the emergency department patient was found to be in acute respiratory distress with hypoxia she was requiring 8 L high-flow to maintain 92%. Patient reports she does have a history asthma, hypertension, and hypothyroidism however she has not been taking her medication for hypertension states she has been monitoring her BP at home and her systolic is usually in the 130s. patient's CXR showed mild pulmonary edema otherwise clear lung reese. I performed a CTA to rule out PE which was negative and again showed clear lung reese. Patient with normal WBC denied any fever chills nausea or vomiting, viral panel COVID/influenza/ RSV negative. patient was given a 1 hour nebulizer treatment with some improvement to shortness breath however continued to be hypoxic. Patient was admitted to the medical unit for acute respiratory failure with hypoxia likely secondary to asthma exacerbation started on IV methylprednisone continued DuoNeb. Review of Systems Review of Systems: All systems reviewed & are unremarkable except as noted in HPI and below PMFSH Past Medical History Medical History (Updated 05/08/24 @ 09:13 by Fariha Angeles APRN) Hypothyroidism Asthma Cataract Thyroid disease Heart disease SVT 2011 Small bowel problem bloating Back pain L-5 Ovarian cyst Surgical History Surgical History History of removal of ovarian cyst History of orthopedic surgery H/O laminectomy History of thyroid surgery right thyroidectomy Hx of cataract surgery Family History Family History Grandparent Breast cancer Other Diabetes mellitus Father Alcoholism Social History Social History Smoking packs per day: 1 Smoking cigarettes per day: 20.0 Years smoked: 50 Smoking pack-years: 50.00 Smoking status: Current every day smoker Tobacco type: cigarettes Alcohol intake: current Substance use: never Substance use type: does not use Do You Feel Safe in your Home?: Yes Lack of Transportation: No Lack of Food: Never True Current Housing: I Have Housing Concerned About Future Housing: No Difficulty Paying Gas/Electric Bills: No Difficulty Paying for Meds: No Currently Unemployed: No Education: Master's Degree or Higher Difficulty w/ Childcare or Family Care: No Living arrangements: with family Occupation/Education: retired Gender identity (if verbalized by the patient): Female Sexual Orientation (if Verbalized by the Patient): Straight or Heterosexual Meds Home Medications and Allergies Home Medications ?Medication ?Instructions ?Recorded ?Confirmed ?Type latanoprost 0.005 % eye drops 1 drp EACH EYE DAILY 04/08/23 05/08/24 History levothyroxine 88 mcg tablet 88 mcg PO DAILY 04/08/23 05/08/24 History (Synthroid) timolol maleate 0.5 % eye drops 1 drp EACH EYE Q12H 04/08/23 05/08/24 History fluticasone propionate 230 2 inh inhalation BID 12/08/23 05/08/24 History mcg-salmeterol 21 mcg/actuation HFA inhaler (Advair HFA) albuterol sulfate 90 mcg/actuation 1 inh inhalation Q4-6H 12/31/23 05/08/24 History aerosol inhaler doxycycline hyclate 100 mg tablet 100 mg PO Q12H 05/08/24 05/08/24 History Allergies Allergy/AdvReac Type Severity Reaction Status Date / Time Penicillins Allergy Severe Difficulty Verified 05/08/24 06:42 Breathing lisinopril Allergy Intermediate Rash Verified 05/08/24 07:47 Vital Signs Vital Signs - 24 hr 05/08/24 04:38 05/08/24 05:09 05/08/24 05:19 Temperature 98.9 F Pulse Rate 88 79 Respiratory Rate 21 H 20 Blood Pressure Pulse Oximetry 91 98 Oxygen Delivery Nasal Cannula Non-Rebreather Mask Oxygen Flow Rate 4 10 Fraction of Inspired Oxygen 100 05/08/24 05:45 05/08/24 06:05 05/08/24 06:15 Temperature Pulse Rate 88 Respiratory Rate 20 Blood Pressure 160/79 H Pulse Oximetry 93 Oxygen Delivery Nasal Cannula Oxygen Flow Rate 4 Fraction of Inspired Oxygen 05/08/24 06:37 05/08/24 06:38 Temperature Pulse Rate 84 Respiratory Rate Blood Pressure Pulse Oximetry 92 Oxygen Delivery High Flow Nasal Cannula Oxygen Flow Rate 8 Fraction of Inspired Oxygen Exam Narrative: * GENERAL: Alert and oriented x 3. No acute distress. * EYES: EOMI. No scleral icterus. PERRLA. * HEENT: Moist mucous membranes. * LUNGS: Clear to auscultation bilaterally. No accessory muscle use. * CARDIOVASCULAR: Regular rate and rhythm. No murmur. No JVD. S1-S2 * ABDOMEN: Soft, non tenderness and non-distended. No palpable masses. * EXTREMITIES: No edema. Non-tender * SKIN: No rashes or lesions. Skin warm, dry. * NEUROLOGIC: No focal neurological deficits. CN II-XII grossly intact * PSYCHIATRIC: Appropriate mood and affect. Good judgement and insight. No visual or auditory hallucinations. No suicidal or homicidal ideation. H&P: Results Labs Labs: Short CBC 05/08/24 Range/Units 04:56 WBC 6.8 (4.5-10.0) K/mm3 Hgb 16.2 H (12.0-15.0) g/dL Hct 50.3 H (37.0-47.0) % Plt Count 190 (150-375) k/mm3 BMP 05/08/24 04:56 Sodium 142 Potassium 3.8 Chloride 103 Carbon Dioxide 29 BUN 16 Creatinine 0.56 L Glucose 134 H Calcium 9.8 Liver Function 05/08/24 Range/Units 04:56 Total Bilirubin 1.0 (0.2-1.3) mg/dL AST 46 H (14-36) U/L ALT 51 H (6-35) U/L Alkaline Phosphatase 112 (38-126) U/L Albumin 4.6 (3.5-5.1) g/dL Imaging Chest x-ray: Radiologist's impression: Portable chest x-ray Comparison: 12/16/2023 Clinical History: Shortness of breath Findings: Probable minimal left pleural effusion. Questionable minimal bibasilar interstitial edema. Cardiomediastinal silhouette is stable. Bones and soft tissues are unremarkable. Impression: Minimal left pleural effusion and questionable minimal bibasilar interstitial pulmonary edema. Assessment and Plan Assessment and plan (1) Acute hypoxic respiratory failure: Code(s): J96.01 - Acute respiratory failure with hypoxia Status: Acute Assessment and Plan: Patient presented with hypoxia was requiring 8 L high-flow just to maintain 92% patient with past medical history asthma in recently treated outpatient with doxycycline for possible pneumonia. * CXR Minimal left pleural effusion and questionable minimal bibasilar interstitial pulmonary edema. * CTA pending to r/o PE * Viral panel negative * IV methylprednisone (HX asthma) * DuoNebs * Echocardiogram pending * will add lasix pending BNP/echo * Wean oxygen as tolerated to maintain 92% currently requiring 8L high flow (2) Asthma exacerbation: Code(s): J45.901 - Unspecified asthma with (acute) exacerbation Status: Acute Assessment and Plan: * SEE ABOVE (3) Hypothyroidism: Code(s): E03.9 - Hypothyroidism, unspecified Status: Acute Assessment and Plan: * resume levothyroxine Plan Code status: Full code per patient DVT prophylaxis: Lovenox Stress ulcer prophylaxis: NA PT/OT notes: Ambulatory Disposition: Quality VTE Prophylaxis VTE prophylaxis: pharmacologic ordered -Patient's previous records reviewed on admission -ER notes reviewed in detail on admission -discussed all findings and current treatment plan with patient/Family/POA -Consultations reviewed for recommendations -Patient's disposition for safe discharge discussed with telephonic case manager Dictation performed by [employer] direct speech recognition software, therefore through operator variants and typographical errors may occur. Hospitalist MIPS Advance Care Plan I have confirmed that the patient's Advanced Care Plan is present, code status is documented, or surrogate decision maker is listed in patient medical record.: Yes Medication Reconciliation I have utilized all available resources to obtain, update and review the patients current medications (includes all prescriptions, OTC, herbals, cannabis, and nutritional supplements).: Yes The patient is not eligible for med reconciliation; the patient is in a emergent medical situation where delaying treatment would jeopardize the patients health.: No
[2024-05-08] MEDS: IPRATROPIUM 0.5 MG/ALBUTEROL SULFATE 2.5 MG AMPUL.NEB 3 ML INHALATION ×3 (09:10→20:08)
[2024-05-08] MEDS: ENOXAPARIN 40 MG/0.4 ML SYRINGE SUB-Q (09:22)
[2024-05-08 11:10] LABS: NT Pro B Type Natriuretic Pept 392 pg/mL (19.9-100)
[2024-05-08] MEDS: guaiFENesin 12 HR 600 MG TABCR 1200 MG PO ×2 (11:26→20:53)
[2024-05-08] MEDS: LORATADINE 10 MG TABLET PO (20:53)
[2024-05-09] VITALS (19 sets, daily range): BP systolic 126–154; BP diastolic 60–81; PULSE 70–98; RESP 18–20; TEMP 36.7–37.2; O2SAT 93–98
--- NOTE | 2024-05-09 | ECHO_ITS ---
Patient Info Name: Niru Patterson Age: 68 years : 1955 Gender: Female Ht: 64 in Wt: 185 lbs BSA: 1.98 m2 HR: 81 bpm BP: 154 / 81 mmHg Heart Rhythm: Sinus Rhythm Technical Quality: Good Exam Date: 05/09/2024 11:52 AM Exam Location: Echo Lab Patient Status: Inpatient Admit Date: 05/08/2024 Staff Ordering Physician: Fariha Angeles APRN Endodontic Assistant: Bren Rudolph RDCS Attending Provider: Bal Mabry MD Referring Physician: Karthik ROTHMAN; Exam Type: CA echo doppler color flow Study Info Indications - Hypoxia/Pulmonary edema Complete two-dimensional, color flow and Doppler transthoracic echocardiogram is performed. Summary 1. Left ventricular chamber dimension is normal. 2. Left ventricular systolic function is normal, estimated at 65-70%. 3. There is mildly increased left ventricular wall thickness. 4. The left ventricular diastolic function is grade I diastolic dysfunction. 5. Right ventricular systolic function is normal. 6. There is mild aortic valve stenosis with a peak velocity of 206 cm/s, mean gradient of 11 mmHg, and aortic valve area of 1.8 cm2. 7. There is mild aortic valve regurgitation. 8. There is mild tricuspid valve regurgitation. 9. Normal inferior vena cava with >50% collapse upon inspiration consistent with normal right atrial pressure, 3 mmHg. Left Ventricle Left ventricular chamber dimension is normal. Left ventricular systolic function is normal, estimated at 65-70%. There is mildly increased left ventricular wall thickness. The left ventricular diastolic function is grade I diastolic dysfunction. Right Ventricle Right ventricular chamber dimension is normal. Right ventricular systolic function is normal. Left Atria Left atrial chamber dimension is normal. Right Atria Right atrial chamber dimension is normal. Atrial Septum Intact interatrial septum visualized by color flow imaging. Aortic Valve The aortic valve is trileaflet. There is mild aortic valve stenosis with a peak velocity of 206 cm/s, mean gradient of 11 mmHg, and aortic valve area of 1.8 cm2. There is mild aortic valve regurgitation. Pulmonic Valve The pulmonic valve is not well visualized. There is no pulmonic regurgitation. Mitral Valve There is trace mitral valve regurgitation. Tricuspid Valve There is mild tricuspid valve regurgitation. Pericardium/Pleural There is no pericardial effusion. Inferior Vena Cava Normal inferior vena cava with >50% collapse upon inspiration consistent with normal right atrial pressure, 3 mmHg. Aorta The aortic root size at the sinus of Valsalva is normal. Left Ventricular Outflow Tract Name Value Normal LVOT 2D LVOT Diameter 1.8 cm LVOT Doppler LVOT Peak Gradient 8 mmHg LVOT Mean Gradient 5 mmHg LVOT VTI 36 cm LVOT VTI/AV VTI Ratio 0.7 LVOT Stroke Volume 87 ml LVOT CO 16.0 l/min LVOT CI 8.1 l/min/m2 Pulmonic Valve Name Value Normal PV Doppler PV Peak Gradient 6 mmHg Mitral Valve Name Value Normal MV Doppler MV Decel [place] 373 cm/s2 MV PHT 66 ms MV Area (PHT) 3.3 cm2 4.0-5.0 MV Diastolic Function MV E Peak Velocity 85 cm/s MV A Peak Velocity 91 cm/s MV E/A 0.9 MV Decel Time 227 ms MV Annular TDI MV E/e' (Septal) 14.0 <=8.0 MV E/e' (Lateral) 10.3 <=8.0 MV E/e' (Average) 12.2 Tricuspid Valve Name Value Normal TV Regurgitation Doppler TR Peak Velocity 197 cm/s TR Peak Gradient 16 mmHg Estimated PAP/RSVP RA Pressure 3 mmHg <=5 PA Systolic Pressure 19 mmHg <36 RV Systolic Pressure 19 mmHg <36 Aorta Name Value Normal Ascending Aorta Ao Root Diameter (MM) 3.0 cm Ao Root Diam Index (MM) 1.5 cm/m2 Aortic Valve Name Value Normal AV Doppler AV Peak Velocity 206 cm/s AV Peak Gradient 16 mmHg AV Mean Gradient 11 mmHg AV VTI 48 cm AV Area (Cont Eq VTI) 1.8 cm2 >=3.0 AV Area (Cont Eq [place]) 1.7 cm2 AV Regurgitation 2D LVOT Area 2.4 cm2 Ventricles Name Value Normal LV Dimensions 2D/MM IVS Diastolic Thickness (2D) 1.4 cm 0.6-1.0 LVID Diastole (2D) 4.3 cm 3.8-5.2 LVIW Diastolic Thickness (2D) 1.1 cm 0.6-0.9 LVID Systole (2D) 2.7 cm 2.2-3.5 LVOT Diameter 1.8 cm LV Mass (2D Cubed) 193.83 g 67.00-162.00 LV Mass Index (2D Cubed) 98 g/m2 43-95 Relative Wall Thickness (2D) 0.52 LV Fractional Shortening/Ejection Fraction 2D/MM LV Fractional Shortening (2D) 37 % 27-45 LV EF (2D Teicholz) 67 % 54-74 LV Diastolic Volume (4C MOD) 83 ml LV EF (4C MOD) 67 % LV Diastolic Volume (2C MOD) 83 ml LV EF (2C MOD) 63 % LV Diastolic Volume (BP MOD) 83 ml 46-106 LV Diastolic Volume Index (BP MOD) 42 ml/m2 29-61 LV Systolic Volume (BP MOD) 29 ml 14-42 LV Systolic Volume Index (BP MOD) 15 ml/m2 8-24 LV EF (BP MOD) 65 % 54-74 LV Diastolic Length (4C) 7.8 cm LV Systolic Length (4C) 6.0 cm LV Stroke Volume (4C MOD) 56 ml Atria Name Value Normal LA Dimensions LA Dimension (MM) 3.5 cm 2.7-3.8 LA Volume (4C A-L) 55 ml LA Volume (BP A-L) 55 ml RA Dimensions RA Area (4C) 15.7 cm2 <=18.0 Report Signatures
[2024-05-09] MEDS: IPRATROPIUM 0.5 MG/ALBUTEROL SULFATE 2.5 MG AMPUL.NEB 3 ML INHALATION ×5 (02:10→20:43)
[2024-05-09] MEDS: methylPREDNISolone SOD SUCC 125 MG VIAL 60 MG IV PUSH ×3 (05:02→20:48)
[2024-05-09 06:39] LABS: Basophils Percent Auto 0.1 % (0.2-1.2); Hematocrit 46.2 % (37.0-47.0); Hemoglobin 14.7 g/dL (12.0-15.0); Immature Granulocyte Absolute 0.09 K/mm3 (0.00-0.031); Immature Granulocyte Percent A 0.6 % (0-0.5); Lymphocytes Absolute Auto 1.23 K/mm3 (0.9-3.2); Lymphocytes Percent Auto 8.1 % (18.3-44.2); Mean Corpuscular HGB Conc 31.8 g/dl (32-36); Mean Corpuscular Hemoglobin 32.5 pg (26-34); Mean Corpuscular Volume 102.2 fl (80-100); Mean Platelet Volume 10.2 fl (7.4-10.4); Monocytes Absolute Auto 0.6 K/mm3 (0.1-0.6); Monocytes Percent Auto 4.1 % (2.6-8.5); Neutrophils Absolute Auto 13.3 K/mm3 (1.3-6.7); Neutrophils Percent Auto 87.1 % (45.5-73.1); Platelet Count Result 233 k/mm3 (150-375); Red Blood Count 4.52 M/mm3 (4.2-5.4); Red Cell Distribution Width 15.8 % (11.5-14.5); White Blood Count 15.2 K/mm3 (4.5-10.0)
[2024-05-09 07:03] LABS: Alanine Aminotransferase 37 U/L (6-35); Albumin Level 4.1 g/dL (3.5-5.1); Alkaline Phosphatase 77 U/L (38-126); Anion Gap 10 mmol/L (4-12); Aspartate Amino Transferase 26 U/L (14-36); Bilirubin,Total 0.7 mg/dL (0.2-1.3); Blood Urea Nitrogen 17 mg/dL (7-17); Calcium 9.6 mg/dL (8.4-10.2); Carbon Dioxide 25 mmol/L (22-30); Chloride 104 mmol/L (98-107); Estimated CRCL calculation 91 ml/min; Estimated Glomerular Filt Rate > 60; Glucose 205 mg/dL (65-110); Potassium 4.2 mmol/L (3.4-5.0); Sodium 139 mmol/L (137-145)
[2024-05-09] MEDS: guaiFENesin 12 HR 600 MG TABCR 1200 MG PO ×2 (08:37→20:48)
--- NOTE | 2024-05-09 10:51 | P.PNIM_ITS ---
Progress Note: A&P Assessment and Plan (1) Acute hypoxic respiratory failure: Code(s): J96.01 - Acute respiratory failure with hypoxia Status: Acute Assessment and Plan: Patient presented with hypoxia was requiring 8 L high-flow just to maintain 92% patient with past medical history asthma in recently treated outpatient with doxycycline for possible pneumonia. * CXR Minimal left pleural effusion and questionable minimal bibasilar interstitial pulmonary edema. * CTA pending to r/o PE * Viral panel negative * IV methylprednisone (HX asthma) * DuoNebs * Echocardiogram pending * will add lasix pending BNP/echo * Wean oxygen as tolerated to maintain 92% currently requiring 8L high flow 3/3: * Patient weaned to 5L * Echo still pending * May need a home oxygen study if unable to wean oxygen * Follow-up for further outpatient PFT testing and with pulmonology (2) Asthma exacerbation: Code(s): J45.901 - Unspecified asthma with (acute) exacerbation Status: Acute Assessment and Plan: * SEE ABOVE (3) Hypothyroidism: Code(s): E03.9 - Hypothyroidism, unspecified Status: Acute Assessment and Plan: * resume levothyroxine Plan Code status: Full code per patient DVT prophylaxis: Lovenox Stress ulcer prophylaxis: NA PT/OT notes: Ambulatory Disposition: patient continues admission for acute respiratory failure hypoxia continue to wean oxygen tolerated plan will be to return when medically stable Time Spent With Patient Time with patient: 15 - 25 minutes Subjective Date/time seen: 05/09/24 10:51 Interval history: Patient is a 68-year-old female who was admitted for treatment of acute respiratory failure with hypoxia secondary to recent U RI with asthma exacerbation. 05/09/24: Patient remains on 5L HF to maintain 92%, WBC bumped likely secondary to high dose IV steroids. Overall states she is feeling better and cough has improved. Review of Systems Review of Systems: All systems reviewed & are unremarkable except as noted in HPI and below Exam Narrative: * GENERAL: Alert and oriented x 3. No acute distress. * HEENT: Moist mucous membranes. * LUNGS: diminished with scant wheezing to auscultation bilaterally. Use of accessory muscles, dry cough * CARDIOVASCULAR: Regular rate and rhythm. No murmur. No JVD. S1-S2 * ABDOMEN: Soft, non tenderness and non-distended. * EXTREMITIES: No edema. Non-tender * SKIN: No rashes or lesions. Skin warm, dry. * NEUROLOGIC: No focal neurological deficits. * PSYCHIATRIC: Appropriate mood and affect. Good judgement and insight. Objective Data Vital Signs Vital Signs: Vital Signs - 24 hr 05/08/24 11:35 05/08/24 15:03 05/08/24 15:03 Temperature Pulse Rate 76 85 Respiratory Rate 16 20 Blood Pressure 176/76 H Pulse Oximetry 99 96 Oxygen Delivery High Flow Nasal Cannula Oxygen Flow Rate 8 Fraction of Inspired Oxygen 05/08/24 15:10 05/08/24 15:12 05/08/24 20:00 Temperature 97.9 F Pulse Rate 78 83 Respiratory Rate 20 16 Blood Pressure 154/72 H Pulse Oximetry 83 L 95 Oxygen Delivery High Flow Nasal Cannula Oxygen Flow Rate 6 Fraction of Inspired Oxygen 05/08/24 20:00 05/08/24 20:08 05/08/24 20:11 Temperature Pulse Rate 77 74 Respiratory Rate 20 Blood Pressure Pulse Oximetry 99 Oxygen Delivery High Flow Nasal Cannula Oxygen Flow Rate 8 Fraction of Inspired Oxygen 05/08/24 20:16 05/08/24 20:16 05/08/24 22:00 Temperature 98 F Pulse Rate 75 79 Respiratory Rate 20 18 Blood Pressure 171/88 H Pulse Oximetry 97 95 Oxygen Delivery High Flow Nasal Cannula Oxygen Flow Rate 6 Fraction of Inspired Oxygen 05/09/24 00:00 05/09/24 02:12 05/09/24 02:18 Temperature Pulse Rate 72 88 80 Respiratory Rate 20 20 Blood Pressure Pulse Oximetry Oxygen Delivery Oxygen Flow Rate Fraction of Inspired Oxygen 05/09/24 04:00 05/09/24 05:08 05/09/24 07:50 Temperature 98.1 F Pulse Rate 79 76 Respiratory Rate 18 Blood Pressure 154/81 H Pulse Oximetry 93 97 Oxygen Delivery High Flow Nasal Cannula Oxygen Flow Rate 6 Fraction of Inspired Oxygen 44 05/09/24 07:50 05/09/24 07:58 05/09/24 08:00 Temperature Pulse Rate 90 94 Respiratory Rate 20 20 Blood Pressure Pulse Oximetry 94 Oxygen Delivery High Flow Nasal Cannula Oxygen Flow Rate 5 Fraction of Inspired Oxygen 05/09/24 08:00 05/09/24 09:07 Temperature Pulse Rate 74 Respiratory Rate Blood Pressure Pulse Oximetry 94 Oxygen Delivery High Flow Nasal Cannula Oxygen Flow Rate 5 Fraction of Inspired Oxygen 40 Intake/Output Intake/Output: Intake & Output 05/06/24 05/07/24 05/08/24 05/09/24 23:59 23:59 23:59 23:59 Intake Total 280 440 Balance 280 440 Meds/Results Medications: Active Medications Generic Name Dose Route Start Last Admin Trade Name Freq PRN Reason Stop Dose Admin Acetaminophen 650 mg 05/08/24 07:42 Acetaminophen 325 Mg Tablet PO Q4H PRN Mild Pain (1-3) or Fever Hydrocodone Bitart/Acetaminophen 1 tab 05/08/24 07:42 Hydrocodone/Acetaminophen (*Crx) 5-325 Mg Tablet PO Q4H PRN Moderate Pain (4-6) Albuterol/Ipratropium 3 ml 05/08/24 08:00 05/09/24 07:50 Ipratropium 0.5 Mg/Albuterol Sulfate 2.5 Mg Ampul.Neb 3 Ml INHALATION 3 ml Q6HRT SHA Administration Enoxaparin Sodium 40 mg 05/08/24 09:00 05/08/24 09:22 Enoxaparin 40 Mg/0.4 Ml Syringe SUB-Q 40 mg DAILY SHA Administration Guaifenesin 1,200 mg 05/08/24 11:15 05/09/24 08:37 Guaifenesin 12 Hr 600 Mg Tabcr PO 1,200 mg Q12HR SHA Administration Levothyroxine Sodium 88 mcg 05/08/24 06:30 05/09/24 05:02 Levothyroxine Sodium 88 Mcg Tablet PO Not Given DAILY@0630 [facility] Loratadine 10 mg 05/08/24 21:00 05/08/24 20:53 Loratadine 10 Mg Tablet PO 10 mg QHS SHA Administration Methylprednisolone Sodium Succinate 60 mg 05/08/24 07:50 05/09/24 05:02 Methylprednisolone Sod Succ 125 Mg Vial IV PUSH 60 mg Q8HR SHA Administration Ondansetron HCl 4 mg 05/08/24 07:42 Ondansetron Inj 4 Mg/2 Ml Vial IV PUSH Q6H PRN Nausea And Vomiting Perflutren Lipid Microsphere 0 ml 05/08/24 07:46 Perflutren Lipid Microspheres 1.5 Ml Vial Diluted To 10 Ml Total Volume IV P [facility] 05/11/24 07:46 ONCE PRN adequate visualization Protocol Radiology Results: ITS Impressions Chest X-Ray 05/08/24 06:29 Impression: Minimal left pleural effusion and questionable minimal bibasilar interstitial pulmonary edema. Chest CTA 05/08/24 09:31 Impression: No evidence of pulmonary embolus, aortic dissection, or aortic aneurysm. No significant pulmonary abnormality. Labs Labs: Laboratory Results - last 24 hr 05/08/24 05/09/24 10:47 06:27 WBC 15.2 H RBC 4.52 Hgb 14.7 Hct 46.2 MCV 102.2 H MCH 32.5 MCHC 31.8 L RDW 15.8 H Plt Count 233 MPV 10.2 Immature Gran % (Auto) 0.6 H Neut % (Auto) 87.1 H Lymph % (Auto) 8.1 L [place] % (Auto) 4.1 Eos % (Auto) 0.0 Baso % (Auto) 0.1 L Lymph # (Auto) 1.23 [place] # (Auto) 0.6 Eos # (Auto) 0.0 Baso # (Auto) 0.0 Abs Immat Gran (auto) 0.09 H Absolute Neuts (auto) 13.3 H Absolute Nucleated RBC 0.000 Nucleated RBC % 0.0 Sodium 139 Potassium 4.2 Chloride 104 Carbon Dioxide 25 Anion Gap 10 BUN 17 Creatinine 0.51 L Estim Creat Clear Calc 91 Estimated GFR > 60 Glucose 205 H Calcium 9.6 Total Bilirubin 0.7 AST 26 ALT 37 H Alkaline Phosphatase 77 NT-Pro-B Natriuret Pep 392 H Total Protein 7.0 Albumin 4.1 Quality VTE Prophylaxis VTE prophylaxis: pharmacologic ordered -Patient's previous records reviewed on admission -ER notes reviewed in detail on admission -discussed all findings and current treatment plan with patient/Family/POA -Consultations reviewed for recommendations -Patient's disposition for safe discharge discussed with disability case manager Dictation performed by [employer] direct speech recognition software, ther [employer] machinist set up variants and typographical errors may occur. Hospitalist MIPS Advance Care Plan I have confirmed that the patient's Advanced Care Plan is present, code status is documented, or surrogate decision maker is listed in patient medical record.: Yes Medication Reconciliation I have utilized all available resources to obtain, update and review the patients current medications (includes all prescriptions, OTC, herbals, cannabis, and nutritional supplements).: Yes The patient is not eligible for med reconciliation; the patient is in a emergent medical situation where delaying treatment would jeopardize the patients health.: No
[2024-05-09] MEDS: LORATADINE 10 MG TABLET PO (20:48)
[2024-05-10] VITALS (18 sets, daily range): BP systolic 150–182; BP diastolic 70–90; PULSE 63–95; RESP 18–20; TEMP 36.2–36.7; O2SAT 94–98
[2024-05-10] MEDS: methylPREDNISolone SOD SUCC 125 MG VIAL 60 MG IV PUSH ×3 (05:09→21:42)
[2024-05-10 07:23] LABS: Basophils Percent Auto 0.1 % (0.2-1.2); Hematocrit 45.3 % (37.0-47.0); Hemoglobin 14.4 g/dL (12.0-15.0); Immature Granulocyte Percent A 2.6 % (0-0.5); Lymphocytes Absolute Auto 0.97 K/mm3 (0.9-3.2); Lymphocytes Percent Auto 6.3 % (18.3-44.2); Mean Corpuscular HGB Conc 31.8 g/dl (32-36); Mean Corpuscular Hemoglobin 33.6 pg (26-34); Mean Corpuscular Volume 105.8 fl (80-100); Mean Platelet Volume 10.4 fl (7.4-10.4); Monocytes Absolute Auto 0.5 K/mm3 (0.1-0.6); Neutrophils Absolute Auto 13.6 K/mm3 (1.3-6.7); Platelet Count Result 233 k/mm3 (150-375); Red Blood Count 4.28 M/mm3 (4.2-5.4); Red Cell Distribution Width 15.9 % (11.5-14.5); White Blood Count 15.4 K/mm3 (4.5-10.0)
[2024-05-10 07:36] LABS: Alanine Aminotransferase 35 U/L (6-35); Alkaline Phosphatase 65 U/L (38-126); Anion Gap 10 mmol/L (4-12); Aspartate Amino Transferase 27 U/L (14-36); Bilirubin,Total 0.6 mg/dL (0.2-1.3); Blood Urea Nitrogen 22 mg/dL (7-17); Calcium 9.4 mg/dL (8.4-10.2); Carbon Dioxide 24 mmol/L (22-30); Chloride 104 mmol/L (98-107); Estimated CRCL calculation 85 ml/min; Estimated Glomerular Filt Rate > 60; Glucose 175 mg/dL (65-110); Potassium 4.4 mmol/L (3.4-5.0); Sodium 138 mmol/L (137-145)
[2024-05-10 08:12] LABS: Platelet Estimate Adequate (Adequate); Schistocytes None Seen
[2024-05-10] MEDS: guaiFENesin 12 HR 600 MG TABCR 1200 MG PO ×2 (08:20→21:40)
[2024-05-10] MEDS: IPRATROPIUM 0.5 MG/ALBUTEROL SULFATE 2.5 MG AMPUL.NEB 3 ML INHALATION ×2 (08:22→14:36)
--- NOTE | 2024-05-10 10:43 | P.PNIM_ITS ---
Progress Note: A&P Assessment and Plan (1) Acute hypoxic respiratory failure: Code(s): J96.01 - Acute respiratory failure with hypoxia Status: Acute Assessment and Plan: Patient presented with hypoxia was requiring 8 L high-flow just to maintain 92% patient with past medical history asthma in recently treated outpatient with doxycycline for possible pneumonia. * CXR Minimal left pleural effusion and questionable minimal bibasilar interstitial pulmonary edema. * CTA pending to r/o PE * Viral panel negative * IV methylprednisone (HX asthma) * DuoNebs * Echocardiogram pending * will add lasix pending BNP/echo * Wean oxygen as tolerated to maintain 92% currently requiring 8L high flow 05/09: * Patient weaned to 5L * Echo still pending * May need a home oxygen study if unable to wean oxygen * Follow-up for further outpatient PFT testing and with pulmonology 05/10: * Continue with current treatment plan weaned to 4L NC today * if unable to wean in the next few days will need home oxygen walk study perfor med for discharge * Echo: Diastolic grade 1 LVEF 65-70% (2) Asthma exacerbation: Code(s): J45.901 - Unspecified asthma with (acute) exacerbation Status: Acute Assessment and Plan: * SEE ABOVE * Transition to PO steroids 05/11/24 * will need taper dose at discharge (3) Hypothyroidism: Code(s): E03.9 - Hypothyroidism, unspecified Status: Acute Assessment and Plan: * resume levothyroxine (4) Hypertension: Code(s): I10 - Essential (primary) hypertension Status: Acute Assessment and Plan: * Patient continued to be hypertensive * BP: 182/90>177/80 * No home medication * started on Nifedipine 30 XL * will continue to monitor and adjust as needed Plan Code status: Full code per patient DVT prophylaxis: Lovenox Stress ulcer prophylaxis: NA PT/OT notes: Ambulatory Disposition: patient continues admission for acute respiratory failure hypoxia continue to wean oxygen tolerated plan will be to return when medically stable will need oxygen walk study prior to discharge if unable to wean oxygen and follow-up outpatient with pulmonology for further PFT testing Time Spent With Patient Time with patient: 15 - 25 minutes Subjective Date/time seen: 05/10/24 10:43 Interval history: Patient is a 68-year-old female who was admitted for treatment of acute respiratory failure with hypoxia secondary to recent U RI with asthma exacerbation. 05/10/24: Patient with slow progression but weaning off oxygen down to 4 liters today, Patient reports improvement to SOB and cough overall. Review of Systems Review of Systems: All systems reviewed & are unremarkable except as noted in HPI and below Exam Narrative: * GENERAL: Alert and oriented x 3. No acute distress. * HEENT: Moist mucous membranes. * LUNGS: diminished with scant wheezing to auscultation bilaterally. Use of accessory muscles, dry cough * CARDIOVASCULAR: Regular rate and rhythm. No murmur. No JVD. S1-S2 * ABDOMEN: Soft, non tenderness and non-distended. * EXTREMITIES: No edema. Non-tender * SKIN: No rashes or lesions. Skin warm, dry. * NEUROLOGIC: No focal neurological deficits. * PSYCHIATRIC: Appropriate mood and affect. Good judgement and insight. Objective Data Vital Signs Vital Signs: Vital Signs - 24 hr 05/09/24 12:00 05/09/24 13:33 05/09/24 13:33 Temperature Pulse Rate 80 97 Respiratory Rate 20 Blood Pressure Pulse Oximetry 98 Oxygen Delivery High Flow Nasal Cannula Oxygen Flow Rate 5 Fraction of Inspired Oxygen 40 05/09/24 13:40 05/09/24 13:56 05/09/24 14:00 Temperature 99.0 F Pulse Rate 98 90 Respiratory Rate 20 18 Blood Pressure 126/60 Pulse Oximetry 96 98 Oxygen Delivery High Flow Nasal Cannula Oxygen Flow Rate 4 Fraction of Inspired Oxygen 36 05/09/24 16:00 05/09/24 20:00 05/09/24 20:00 Temperature Pulse Rate 79 70 Respiratory Rate Blood Pressure Pulse Oximetry 98 Oxygen Delivery High Flow Nasal Cannula Oxygen Flow Rate 4 Fraction of Inspired Oxygen 05/09/24 20:43 05/09/24 20:52 05/09/24 20:52 Temperature Pulse Rate 94 96 Respiratory Rate 20 20 Blood Pressure Pulse Oximetry 96 Oxygen Delivery High Flow Nasal Cannula Oxygen Flow Rate 4 Fraction of Inspired Oxygen 05/09/24 22:00 05/10/24 00:00 05/10/24 04:00 Temperature 98.0 F Pulse Rate 75 75 64 Respiratory Rate 18 Blood Pressure 140/64 Pulse Oximetry 98 Oxygen Delivery Oxygen Flow Rate Fraction of Inspired Oxygen 05/10/24 05:54 05/10/24 08:00 05/10/24 08:00 Temperature 97.2 F L Pulse Rate 75 63 Respiratory Rate 18 Blood Pressure 182/90 H Pulse Oximetry 98 94 Oxygen Delivery High Flow Nasal Cannula Oxygen Flow Rate 4 Fraction of Inspired Oxygen 05/10/24 08:19 05/10/24 08:22 05/10/24 08:26 Temperature Pulse Rate 95 Respiratory Rate 18 Blood Pressure 177/80 H Pulse Oximetry 94 Oxygen Delivery High Flow Nasal Cannula Oxygen Flow Rate 4 Fraction of Inspired Oxygen 05/10/24 08:32 05/10/24 09:19 Temperature Pulse Rate 95 Respiratory Rate 18 Blood Pressure 150/70 H Pulse Oximetry Oxygen Delivery Oxygen Flow Rate Fraction of Inspired Oxygen Intake/Output Intake/Output: Intake & Output 05/07/24 05/08/24 05/09/24 05/10/24 23:59 23:59 23:59 23:59 Intake Total 280 1220 490 Balance 280 1220 490 Meds/Results Medications: Active Medications Generic Name Dose Route Start Last Admin Trade Name Freq PRN Reason Stop Dose Admin Acetaminophen 650 mg 05/08/24 07:42 Acetaminophen 325 Mg Tablet PO Q4H PRN Mild Pain (1-3) or Fever Hydrocodone Bitart/Acetaminophen 1 tab 05/08/24 07:42 Hydrocodone/Acetaminophen (*Crx) 5-325 Mg Tablet PO Q4H PRN Moderate Pain (4-6) Albuterol/Ipratropium 3 ml 05/08/24 08:00 05/10/24 08:22 Ipratropium 0.5 Mg/Albuterol Sulfate 2.5 Mg Ampul.Neb 3 Ml INHALATION 3 ml Q6HRT SHA Administration Enoxaparin Sodium 40 mg 05/08/24 09:00 05/10/24 08:18 Enoxaparin 40 Mg/0.4 Ml Syringe SUB-Q Not Given DAILY SHA Guaifenesin 1,200 mg 05/08/24 11:15 05/10/24 08:20 Guaifenesin 12 Hr 600 Mg Tabcr PO 1,200 mg Q12HR SHA Administration Levothyroxine Sodium 88 mcg 05/08/24 06:30 05/10/24 05:13 Levothyroxine Sodium 88 Mcg Tablet PO Not Given DAILY@0630 [facility] Loratadine 10 mg 05/08/24 21:00 05/09/24 20:48 Loratadine 10 Mg Tablet PO 10 mg QHS SHA Administration Methylprednisolone Sodium Succinate 60 mg 05/08/24 07:50 05/10/24 05:09 Methylprednisolone Sod Succ 125 Mg Vial IV PUSH 60 mg Q8HR SHA Administration Nifedipine 30 mg 05/10/24 09:00 Nifedipine 30 Mg Tab.Er.24 PO QAM [facility] Ondansetron HCl 4 mg 05/08/24 07:42 Ondansetron Inj 4 Mg/2 Ml Vial IV PUSH Q6H PRN Nausea And Vomiting Perflutren Lipid Microsphere 0 ml 05/08/24 07:46 Perflutren Lipid Microspheres 1.5 Ml Vial Diluted To 10 Ml Total Volume IV PUSH 05/11/24 07:46 ONCE PRN adequate visualization Protocol Radiology Results: ITS Impressions Chest X-Ray 05/08/24 06:29 Impression: Minimal left pleural effusion and questionable minimal bibasilar interstitial pulmonary edema. Chest CTA 05/08/24 09:31 Impression: No evidence of pulmonary embolus, aortic dissection, or aortic aneurysm. No significant pulmonary abnormality. Labs Labs: Laboratory Results - last 24 hr 05/10/24 07:08 WBC 15.4 H RBC 4.28 Hgb 14.4 Hct 45.3 MCV 105.8 H MCH 33.6 MCHC 31.8 L RDW 15.9 H Plt Count 233 MPV 10.4 Immature Gran % (Auto) 2.6 H Neut % (Auto) 88.0 H Lymph % (Auto) 6.3 L [place] % (Auto) 3.0 Eos % (Auto) 0.0 Baso % (Auto) 0.1 L Lymph # (Auto) 0.97 [place] # (Auto) 0.5 Eos # (Auto) 0.0 Baso # (Auto) 0.0 Abs Immat Gran (auto) 0.40 H Absolute Neuts (auto) 13.6 H Absolute Nucleated RBC 0.000 Band Neutrophils % Not Reportable Nucleated RBC % 0.0 Platelet Estimate Adequate Schistocytes None seen Sodium 138 Potassium 4.4 Chloride 104 Carbon Dioxide 24 Anion Gap 10 BUN 22 H Creatinine 0.55 L Estim Creat Clear Calc 85 Estimated GFR > 60 Glucose 175 H Calcium 9.4 Total Bilirubin 0.6 AST 27 ALT 35 Alkaline Phosphatase 65 Total Protein 7.0 Albumin 4.0 Quality VTE Prophylaxis VTE prophylaxis: pharmacologic ordered -Patient's previous records reviewed on admission -ER notes reviewed in detail on admission -discussed all findings and current treatment plan with patient/Family/POA -Consultations reviewed for recommendations -Patient's disposition for safe discharge discussed with case packer and sealer Dictation performed by [employer] direct speech recognition software, therefore bush and vine farmer fruit crops variants and typographical errors may occur. Hospitalist MIPS Advance Care Plan I have confirmed that the patient's Advanced Care Plan is present, code status is documented, or surrogate decision maker is listed in patient medical record.: Yes Medication Reconciliation I have utilized all available resources to obtain, update and review the patients current medications (includes all prescriptions, OTC, herbals, cannabis, and nutritional supplements).: Yes The patient is not eligible for med reconciliation; the patient is in a emergent medical situation where delaying treatment would jeopardize the patients health.: No
[2024-05-10 13:09] LABS: Hemoglobin A1C 5.4 % (<5.7)
[2024-05-10] MEDS: NIFEdipine 30 MG TAB.ER.24 PO (14:37)
[2024-05-10] MEDS: LORATADINE 10 MG TABLET PO (21:42)
[2024-05-11] VITALS (19 sets, daily range): BP systolic 150–172; BP diastolic 68–92; PULSE 63–88; RESP 16–22; TEMP 36.5–36.7; O2SAT 92–98
--- NOTE | 2024-05-11 02:34 | PCRCNOTE ---
Window of time for administration has passed. See next scheduled administration.
[2024-05-11] MEDS: IPRATROPIUM 0.5 MG/ALBUTEROL SULFATE 2.5 MG AMPUL.NEB 3 ML INHALATION ×4 (02:36→21:00)
[2024-05-11] MEDS: LEVOTHYROXINE SODIUM 88 MCG TABLET PO (05:20)
[2024-05-11] MEDS: methylPREDNISolone SOD SUCC 125 MG VIAL 60 MG IV PUSH ×3 (05:20→20:31)
[2024-05-11 06:14] LABS: Alanine Aminotransferase 35 U/L (6-35); Alkaline Phosphatase 56 U/L (38-126); Anion Gap 10 mmol/L (4-12); Aspartate Amino Transferase 29 U/L (14-36); Bilirubin,Total 0.7 mg/dL (0.2-1.3); Blood Urea Nitrogen 24 mg/dL (7-17); Calcium 9.2 mg/dL (8.4-10.2); Carbon Dioxide 27 mmol/L (22-30); Chloride 103 mmol/L (98-107); Estimated CRCL calculation 88 ml/min; Estimated Glomerular Filt Rate > 60; Glucose 145 mg/dL (65-110); Potassium 4.3 mmol/L (3.4-5.0); Sodium 140 mmol/L (137-145)
[2024-05-11 06:26] LABS: Basophils Percent Auto 0.1 % (0.2-1.2); Hematocrit 44.8 % (37.0-47.0); Hemoglobin 14.3 g/dL (12.0-15.0); Immature Granulocyte Absolute 0.08 K/mm3 (0.00-0.031); Immature Granulocyte Percent A 0.7 % (0-0.5); Lymphocytes Percent Auto 10.4 % (18.3-44.2); Mean Corpuscular HGB Conc 31.9 g/dl (32-36); Mean Corpuscular Hemoglobin 32.9 pg (26-34); Mean Corpuscular Volume 103.2 fl (80-100); Mean Platelet Volume 10.7 fl (7.4-10.4); Monocytes Absolute Auto 0.4 K/mm3 (0.1-0.6); Monocytes Percent Auto 3.8 % (2.6-8.5); Neutrophils Absolute Auto 9.8 K/mm3 (1.3-6.7); Platelet Count Result 234 k/mm3 (150-375); Red Blood Count 4.34 M/mm3 (4.2-5.4); Red Cell Distribution Width 15.8 % (11.5-14.5); White Blood Count 11.6 K/mm3 (4.5-10.0)
[2024-05-11] MEDS: NIFEdipine 30 MG TAB.ER.24 PO (08:28)
[2024-05-11] MEDS: guaiFENesin 12 HR 600 MG TABCR 1200 MG PO ×2 (08:28→20:30)
--- NOTE | 2024-05-11 10:15 | P.PNIM_ITS ---
Progress Note: A&P Assessment and Plan (1) Acute upper respiratory infection: Code(s): J06.9 - Acute upper respiratory infection, unspecified Status: Acute (2) Asthma exacerbation: Code(s): J45.901 - Unspecified asthma with (acute) exacerbation Status: Acute (3) Hypothyroidism: Code(s): E03.9 - Hypothyroidism, unspecified Status: Acute (4) Hypertension: Code(s): I10 - Essential (primary) hypertension Status: Acute Plan (1) Acute hypoxic respiratory failure: Code(s): J96.01 - Acute respiratory failure with hypoxia Status: Acute Assessment and Plan: Patient presented with hypoxia was requiring 8 L high-flow just to maintain 92% patient with past medical history asthma in recently treated outpatient with doxycycline for possible pneumonia. * CXR Minimal left pleural effusion and questionable minimal bibasilar interstitial pulmonary edema. * CTA does not show PE or significant pulmonary abnormality * Viral panel negative * IV methylprednisone (HX asthma) * DuoNebs * will add lasix pending BNP/echo * Wean oxygen as tolerated to maintain 92% currently requiring 8L high flow3/3: * May need a home oxygen study if unable to wean oxygen * Follow-up for further outpatient PFT testing and with pulmonology3/4: * Continue with current treatment plan weaned to 4L NC * Echo: Diastolic grade 1 LVEF 65-70% Asthma exacerbation: Code(s): J45.901 - Unspecified asthma with (acute) exacerbation Status: Acute Assessment and Plan: Continue DuoNeb scheduled, q.6 hours, methylprednisolone 60 mg q8h IV, Start DuoNeb scheduled q.12 hours Patient still on high-flow oxygen Hypothyroidism: Code(s): E03.9 - Hypothyroidism, unspecified Status: Acute Assessment and Plan: resume levothyroxine Hypertension: Code(s): I10 - Essential (primary) hypertension Status: Acute Assessment and Plan: * Patient continued to be hypertensive * BP: 182/90>177/80 * No home medication * started on Nifedipine 30 XL * will continue to monitor and adjust as needed Plan Code status: Full code per patient DVT prophylaxis: Lovenox Stress ulcer prophylaxis: NA PT/OT notes: Ambulatory Disposition: patient continues admission for acute respiratory failure hypoxia continue to wean oxygen tolerated plan will be to return when medically stable will need oxygen walk study prior to discharge if unable to wean oxygen and follow-up outpatient with pulmonology for further PFT testing Subjective Date/time seen: 05/11/24 10:15 Interval history: I saw examined patient today, patient feels better today, still has a cough with scant phlegm. No respiratory distress at rest, but still has shortness breath with walking. Denies chest pain abdomen pain nausea vomiting diarrhea Exam Narrative: * GENERAL: Alert and oriented x 3. No acute distress. * HEENT: Moist mucous membranes. * LUNGS: diminished with scant wheezing to auscultation bilaterally. Use of accessory muscles, dry cough * CARDIOVASCULAR: Regular rate and rhythm. No murmur. No JVD. S1-S2 * ABDOMEN: Soft, non tenderness and non-distended. * EXTREMITIES: No edema. Non-tender * SKIN: No rashes or lesions. Skin warm, dry. * NEUROLOGIC: No focal neurological deficits. * PSYCHIATRIC: Appropriate mood and affect. Good judgement and insight. Objective Data Vital Signs Vital Signs: Vital Signs - 24 hr 05/10/24 12:00 05/10/24 13:40 05/10/24 14:00 Temperature 98.0 F Pulse Rate 81 88 Respiratory Rate 18 Blood Pressure 170/84 H 168/74 H Pulse Oximetry 95 Oxygen Delivery Oxygen Flow Rate Fraction of Inspired Oxygen 05/10/24 14:36 05/10/24 14:39 05/10/24 14:45 Temperature Pulse Rate 70 74 Respiratory Rate 20 20 Blood Pressure Pulse Oximetry 94 Oxygen Delivery High Flow Nasal Cannula Oxygen Flow Rate 4 Fraction of Inspired Oxygen 05/10/24 16:00 05/10/24 20:00 05/10/24 20:00 Temperature Pulse Rate 75 63 Respiratory Rate Blood Pressure Pulse Oximetry 95 Oxygen Delivery High Flow Nasal Cannula Oxygen Flow Rate 4 Fraction of Inspired Oxygen 36 05/10/24 21:59 05/11/24 00:00 05/11/24 02:25 Temperature 97.9 F Pulse Rate 66 63 70 Respiratory Rate 20 20 Blood Pressure 151/77 H Pulse Oximetry 96 Oxygen Delivery Oxygen Flow Rate Fraction of Inspired Oxygen 05/11/24 02:35 05/11/24 04:00 05/11/24 05:35 Temperature 97.7 F Pulse Rate 74 68 77 Respiratory Rate 20 22 H Blood Pressure 150/82 H Pulse Oximetry 98 Oxygen Delivery Oxygen Flow Rate Fraction of Inspired Oxygen 05/11/24 07:57 05/11/24 07:57 05/11/24 08:07 Temperature Pulse Rate 85 77 Respiratory Rate 20 20 Blood Pressure Pulse Oximetry 92 Oxygen Delivery Nasal Cannula Oxygen Flow Rate 4 Fraction of Inspired Oxygen Intake/Output Intake/Output: Intake & Output 05/08/24 05/09/24 05/10/24 05/11/24 23:59 23:59 23:59 23:59 Intake Total 280 1220 2410 904 Balance 280 1220 2410 904 Meds/Results Medications: Active Medications Generic Name Dose Route Start Last Admin Trade Name Freq PRN Reason Stop Dose Admin Acetaminophen 650 mg 05/08/24 07:42 Acetaminophen 325 Mg Tablet PO Q4H PRN Mild Pain (1-3) or Fever Hydrocodone Bitart/Acetaminophen 1 tab 05/08/24 07:42 Hydrocodone/Acetaminophen (*Crx) 5-325 Mg Tablet PO Q4H PRN Moderate Pain (4-6) Albuterol/Ipratropium 3 ml 05/08/24 08:00 05/11/24 07:57 Ipratropium 0.5 Mg/Albuterol Sulfate 2.5 Mg Ampul.Neb 3 Ml INHALATION 3 ml Q6HRT SHA Administration Enoxaparin Sodium 40 mg 05/08/24 09:00 05/11/24 08:31 Enoxaparin 40 Mg/0.4 Ml Syringe SUB-Q Not Given DAILY SHA Guaifenesin 1,200 mg 05/08/24 11:15 05/11/24 08:28 Guaifenesin 12 Hr 600 Mg Tabcr PO 1,200 mg Q12HR SHA Administration Levothyroxine Sodium 88 mcg 05/08/24 06:30 05/11/24 05:20 Levothyroxine Sodium 88 Mcg Tablet PO 88 mcg DAILY@0630 SHA Administration Loratadine 10 mg 05/08/24 21:00 05/10/24 21:42 Loratadine 10 Mg Tablet PO 10 mg QHS SHA Administration Methylprednisolone Sodium Succinate 60 mg 05/08/24 07:50 05/11/24 05:20 Methylprednisolone Sod Succ 125 Mg Vial IV PUSH 60 mg Q8HR SHA Administration Nifedipine 30 mg 05/10/24 09:00 05/11/24 08:28 Nifedipine 30 Mg Tab.Er.24 PO 30 mg QAM SHA Administration Ondansetron HCl 4 mg 05/08/24 07:42 Ondansetron Inj 4 Mg/2 Ml Vial IV PUSH Q6H PRN Nausea And Vomiting Radiology Results: ITS Impressions Chest X-Ray 05/08/24 06:29 Impression: Minimal left pleural effusion and questionable minimal bibasilar interstitial pulmonary edema. Chest CTA 05/08/24 09:31 Impression: No evidence of pulmonary embolus, aortic dissection, or aortic aneurysm. No significant pulmonary abnormality. Labs Labs: Laboratory Results - last 24 hr 05/10/24 05/11/24 07:08 05:32 WBC 11.6 H RBC 4.34 Hgb 14.3 Hct 44.8 MCV 103.2 H MCH 32.9 MCHC 31.9 L RDW 15.8 H Plt Count 234 MPV 10.7 H Immature Gran % (Auto) 0.7 H Neut % (Auto) 85.0 H Lymph % (Auto) 10.4 L [place] % (Auto) 3.8 Eos % (Auto) 0.0 Baso % (Auto) 0.1 L Lymph # (Auto) 1.20 [place] # (Auto) 0.4 Eos # (Auto) 0.0 Baso # (Auto) 0.0 Abs Immat Gran (auto) 0.08 H Absolute Neuts (auto) 9.8 H Absolute Nucleated RBC 0.000 Nucleated RBC % 0.0 Sodium 140 Potassium 4.3 Chloride 103 Carbon Dioxide 27 Anion Gap 10 BUN 24 H Creatinine 0.53 L Estim Creat Clear Calc 88 Estimated GFR > 60 Glucose 145 H Hemoglobin A1c 5.4 Calcium 9.2 Total Bilirubin 0.7 AST 29 ALT 35 Alkaline Phosphatase 56 Total Protein 7.0 Albumin 4.0
[2024-05-11] MEDS: FLUTICASONE/SALMETEROL 115-21 MCG INHALER 1 PUFF 2 PUFF INHALATION ×2 (12:25→21:00)
[2024-05-11] MEDS: LORATADINE 10 MG TABLET PO (20:30)
[2024-05-12] VITALS (25 sets, daily range): BP systolic 133–168; BP diastolic 56–81; PULSE 62–90; RESP 16–20; TEMP 36.3–36.7; O2SAT 92–100
[2024-05-12] MEDS: IPRATROPIUM 0.5 MG/ALBUTEROL SULFATE 2.5 MG AMPUL.NEB 3 ML INHALATION ×4 (02:37→20:37)
[2024-05-12] MEDS: LEVOTHYROXINE SODIUM 88 MCG TABLET PO (05:16)
[2024-05-12] MEDS: methylPREDNISolone SOD SUCC 125 MG VIAL 60 MG IV PUSH (05:16)
[2024-05-12 07:16] LABS: Basophils Percent Auto 0.1 % (0.2-1.2); Hematocrit 46.4 % (37.0-47.0); Hemoglobin 14.8 g/dL (12.0-15.0); Immature Granulocyte Absolute 0.06 K/mm3 (0.00-0.031); Immature Granulocyte Percent A 0.7 % (0-0.5); Lymphocytes Absolute Auto 0.91 K/mm3 (0.9-3.2); Lymphocytes Percent Auto 9.9 % (18.3-44.2); Mean Corpuscular HGB Conc 31.9 g/dl (32-36); Mean Corpuscular Volume 103.6 fl (80-100); Mean Platelet Volume 10.2 fl (7.4-10.4); Monocytes Absolute Auto 0.5 K/mm3 (0.1-0.6); Monocytes Percent Auto 5.5 % (2.6-8.5); Neutrophils Absolute Auto 7.7 K/mm3 (1.3-6.7); Neutrophils Percent Auto 83.8 % (45.5-73.1); Platelet Count Result 210 k/mm3 (150-375); Red Blood Count 4.48 M/mm3 (4.2-5.4); Red Cell Distribution Width 15.6 % (11.5-14.5); White Blood Count 9.2 K/mm3 (4.5-10.0)
[2024-05-12 07:25] LABS: Alanine Aminotransferase 42 U/L (6-35); Albumin Level 3.9 g/dL (3.5-5.1); Alkaline Phosphatase 57 U/L (38-126); Anion Gap 7 mmol/L (4-12); Aspartate Amino Transferase 33 U/L (14-36); Bilirubin,Total 0.7 mg/dL (0.2-1.3); Blood Urea Nitrogen 23 mg/dL (7-17); Calcium 9.4 mg/dL (8.4-10.2); Carbon Dioxide 30 mmol/L (22-30); Chloride 100 mmol/L (98-107); Estimated CRCL calculation 78 ml/min; Estimated Glomerular Filt Rate > 60; Glucose 156 mg/dL (65-110); Potassium 4.5 mmol/L (3.4-5.0); Sodium 137 mmol/L (137-145)
[2024-05-12] MEDS: FLUTICASONE/SALMETEROL 115-21 MCG INHALER 1 PUFF 2 PUFF INHALATION ×2 (08:21→20:37)
[2024-05-12] MEDS: NIFEdipine 30 MG TAB.ER.24 PO (08:40)
[2024-05-12] MEDS: guaiFENesin 12 HR 600 MG TABCR 1200 MG PO ×2 (08:40→21:29)
--- NOTE | 2024-05-12 09:12 | P.PNIM_ITS ---
Progress Note: A&P Assessment and Plan (1) Acute upper respiratory infection: Code(s): J06.9 - Acute upper respiratory infection, unspecified Status: Acute (2) Asthma exacerbation: Code(s): J45.901 - Unspecified asthma with (acute) exacerbation Status: Acute (3) Hypothyroidism: Code(s): E03.9 - Hypothyroidism, unspecified Status: Acute (4) Hypertension: Code(s): I10 - Essential (primary) hypertension Status: Acute Plan (1) Acute hypoxic respiratory failure: Code(s): J96.01 - Acute respiratory failure with hypoxia Status: Acute Assessment and Plan: Patient presented with hypoxia was requiring 8 L high-flow just to maintain 92% patient with past medical history asthma in recently treated outpatient with doxycycline for possible pneumonia. * CXR Minimal left pleural effusion and questionable minimal bibasilar interstitial pulmonary edema. * CTA does not show PE or significant pulmonary abnormality * Viral panel negative * IV methylprednisone (HX asthma) * DuoNebs * will add lasix pending BNP/echo * Wean oxygen as tolerated to maintain 92% currently requiring 8L high flow3/3: * May need a home oxygen study if unable to wean oxygen * Follow-up for further outpatient PFT testing and with pulmonology3/4: * Continue with current treatment plan weaned to 4L NC * Echo: Diastolic grade 1 LVEF 65-70% Asthma exacerbation: Code(s): J45.901 - Unspecified asthma with (acute) exacerbation Status: Acute Assessment and Plan: Continue DuoNeb scheduled, q.6 hours, methylprednisolone 60 mg q8h IV, Start DuoNeb scheduled q.12 hours Patient still on high-flow oxygen Change to Methylprednisone 40 mg q.12 hours IV today /. May change to prednisone p.o. tomorrow Hypothyroidism: Code(s): E03.9 - Hypothyroidism, unspecified Status: Acute Assessment and Plan: resume levothyroxine Hypertension: Code(s): I10 - Essential (primary) hypertension Status: Acute Assessment and Plan: * Patient continued to be hypertensive * BP: 182/90>177/80 * No home medication * started on Nifedipine 30 XL * will continue to monitor and adjust as needed Plan Code status: Full code per patient DVT prophylaxis: Lovenox Stress ulcer prophylaxis: NA PT/OT notes: Ambulatory Disposition: patient continues admission for acute respiratory failure hypoxia continue to wean oxygen tolerated plan will be to return when medically stable will need oxygen walk study prior to discharge if unable to wean oxygen and follow-up outpatient with pulmonology for further PFT testing Subjective Date/time seen: 05/12/24 09:12 Interval history: I saw examined patient today, patient feels better today, patient condition continue approved still has cough but less severe. No respiratory distress at rest, Denies chest pain abdomen pain nausea vomiting diarrhea Exam Narrative: * GENERAL: Alert and oriented x 3. No acute distress. * HEENT: Moist mucous membranes. * LUNGS: diminished with scant wheezing to auscultation bilaterally. Use of accessory muscles, dry cough * CARDIOVASCULAR: Regular rate and rhythm. No murmur. No JVD. S1-S2 * ABDOMEN: Soft, non tenderness and non-distended. * EXTREMITIES: No edema. Non-tender * SKIN: No rashes or lesions. Skin warm, dry. * NEUROLOGIC: No focal neurological deficits. * PSYCHIATRIC: Appropriate mood and affect. Good judgement and insight. Objective Data Vital Signs Vital Signs: Vital Signs - 24 hr 05/11/24 12:00 05/11/24 12:00 05/11/24 14:00 Temperature 98.0 F Pulse Rate 83 88 Respiratory Rate 18 Blood Pressure 159/68 H Pulse Oximetry 93 94 Oxygen Delivery Nasal Cannula Oxygen Flow Rate 3 05/11/24 14:18 05/11/24 14:18 05/11/24 14:28 Temperature Pulse Rate 78 76 Respiratory Rate 20 20 Blood Pressure Pulse Oximetry 94 Oxygen Delivery Nasal Cannula Oxygen Flow Rate 3 05/11/24 16:00 05/11/24 20:00 05/11/24 20:00 Temperature Pulse Rate 80 65 Respiratory Rate Blood Pressure Pulse Oximetry 93 Oxygen Delivery Nasal Cannula Oxygen Flow Rate 3 05/11/24 20:33 05/11/24 20:36 05/11/24 21:00 Temperature 98.1 F Pulse Rate 69 73 Respiratory Rate 16 20 Blood Pressure 172/69 H 162/92 H Pulse Oximetry 95 Oxygen Delivery Oxygen Flow Rate 05/11/24 21:00 05/11/24 21:12 05/12/24 00:00 Temperature Pulse Rate 74 66 Respiratory Rate 20 Blood Pressure Pulse Oximetry 93 Oxygen Delivery Nasal Cannula Oxygen Flow Rate 3 05/12/24 02:37 05/12/24 02:45 05/12/24 04:00 Temperature Pulse Rate 65 70 67 Respiratory Rate 20 20 Blood Pressure Pulse Oximetry Oxygen Delivery Oxygen Flow Rate 05/12/24 05:14 05/12/24 08:36 05/12/24 08:36 Temperature 98.0 F Pulse Rate 69 77 Respiratory Rate 16 18 Blood Pressure 168/81 H Pulse Oximetry 94 97 Oxygen Delivery Nasal Cannula Oxygen Flow Rate 3 05/12/24 08:44 Temperature Pulse Rate 80 Respiratory Rate 18 Blood Pressure Pulse Oximetry Oxygen Delivery Oxygen Flow Rate Intake/Output Intake/Output: Intake & Output 05/09/24 05/10/24 05/11/24 05/12/24 23:59 23:59 23:59 23:59 Intake Total 1220 2410 1384 568 Balance 1220 2410 1384 568 Meds/Results Medications: Active Medications Generic Name Dose Route Start Last Admin Trade Name Freq PRN Reason Stop Dose Admin Acetaminophen 650 mg 05/08/24 07:42 Acetaminophen 325 Mg Tablet PO Q4H PRN Mild Pain (1-3) or Fever Hydrocodone Bitart/Acetaminophen 1 tab 05/08/24 07:42 Hydrocodone/Acetaminophen (*Crx) 5-325 Mg Tablet PO Q4H PRN Moderate Pain (4-6) Albuterol/Ipratropium 3 ml 05/08/24 08:00 05/12/24 08:20 Ipratropium 0.5 Mg/Albuterol Sulfate 2.5 Mg Ampul.Neb 3 Ml INHALATION 3 ml Q6HRT SHA Administration Enoxaparin Sodium 40 mg 05/08/24 09:00 05/12/24 08:40 Enoxaparin 40 Mg/0.4 Ml Syringe SUB-Q Not Given DAILY [facility] Guaifenesin 1,200 mg 05/08/24 11:15 05/12/24 08:40 Guaifenesin 12 Hr 600 Mg Tabcr PO 1,200 mg Q12HR SHA Administration Levothyroxine Sodium 88 mcg 05/08/24 06:30 05/12/24 05:16 Levothyroxine Sodium 88 Mcg Tablet PO 88 mcg DAILY@0630 SHA Administration Loratadine 10 mg 05/08/24 21:00 05/11/24 20:30 Loratadine 10 Mg Tablet PO 10 mg QHS SHA Administration Methylprednisolone Sodium Succinate 60 mg 05/08/24 07:50 05/12/24 05:16 Methylprednisolone Sod Succ 125 Mg Vial IV PUSH 60 mg Q8HR SHA Administration Nifedipine 30 mg 05/10/24 09:00 05/12/24 08:40 Nifedipine 30 Mg Tab.Er.24 PO 30 mg QAM SHA Administration Ondansetron HCl 4 mg 05/08/24 07:42 Ondansetron Inj 4 Mg/2 Ml Vial IV PUSH Q6H PRN Nausea And Vomiting Fluticasone/Salmeterol 2 puff 05/11/24 10:30 05/12/24 08:21 Fluticasone/Salmeterol 115-21 Mcg Inhaler 1 Puff INHALATION 2 puff Q12HRT SHA Administration Radiology Results: ITS Impressions Chest X-Ray 05/08/24 06:29 Impression: Minimal left pleural effusion and questionable minimal bibasilar interstitial pulmonary edema. Chest CTA 05/08/24 09:31 Impression: No evidence of pulmonary embolus, aortic dissection, or aortic aneurysm. No significant pulmonary abnormality. Labs Labs: Laboratory Results - last 24 hr 05/12/24 05/12/24 07:05 07:06 WBC 9.2 RBC 4.48 Hgb 14.8 Hct 46.4 MCV 103.6 H MCH 33.0 MCHC 31.9 L RDW 15.6 H Plt Count 210 MPV 10.2 Immature Gran % (Auto) 0.7 H Neut % (Auto) 83.8 H Lymph % (Auto) 9.9 L [place] % (Auto) 5.5 Eos % (Auto) 0.0 Baso % (Auto) 0.1 L Lymph # (Auto) 0.91 [place] # (Auto) 0.5 Eos # (Auto) 0.0 Baso # (Auto) 0.0 Abs Immat Gran (auto) 0.06 H Absolute Neuts (auto) 7.7 H Absolute Nucleated RBC 0.000 Nucleated RBC % 0.0 Sodium 137 Potassium 4.5 Chloride 100 Carbon Dioxide 30 Anion Gap 7 BUN 23 H Creatinine 0.61 L Estim Creat Clear Calc 78 Estimated GFR > 60 Glucose 156 H Calcium 9.4 Total Bilirubin 0.7 AST 33 ALT 42 H Alkaline Phosphatase 57 Total Protein 7.0 Albumin 3.9
[2024-05-12] MEDS: LORATADINE 10 MG TABLET PO (21:29)
[2024-05-13] VITALS (14 sets, daily range): BP systolic 138–152; BP diastolic 65–71; PULSE 63–92; RESP 16–18; TEMP 36.3; O2SAT 87–93
[2024-05-13] MEDS: IPRATROPIUM 0.5 MG/ALBUTEROL SULFATE 2.5 MG AMPUL.NEB 3 ML INHALATION ×2 (02:59→09:01)
[2024-05-13] MEDS: LEVOTHYROXINE SODIUM 88 MCG TABLET PO (05:42)
[2024-05-13 06:43] LABS: Basophils Percent Auto 0.1 % (0.2-1.2); Eosinophils Percent Auto 0.5 % (0-4.4); Hematocrit 45.9 % (37.0-47.0); Hemoglobin 14.6 g/dL (12.0-15.0); Immature Granulocyte Absolute 0.04 K/mm3 (0.00-0.031); Immature Granulocyte Percent A 0.5 % (0-0.5); Lymphocytes Absolute Auto 2.38 K/mm3 (0.9-3.2); Lymphocytes Percent Auto 28.5 % (18.3-44.2); Mean Corpuscular HGB Conc 31.8 g/dl (32-36); Mean Corpuscular Volume 103.6 fl (80-100); Mean Platelet Volume 10.3 fl (7.4-10.4); Monocytes Absolute Auto 0.9 K/mm3 (0.1-0.6); Monocytes Percent Auto 10.5 % (2.6-8.5); Neutrophils Percent Auto 59.9 % (45.5-73.1); Platelet Count Result 213 k/mm3 (150-375); Red Blood Count 4.43 M/mm3 (4.2-5.4); Red Cell Distribution Width 15.7 % (11.5-14.5); White Blood Count 8.4 K/mm3 (4.5-10.0)
[2024-05-13 06:56] LABS: Alanine Aminotransferase 80 U/L (6-35); Albumin Level 3.7 g/dL (3.5-5.1); Alkaline Phosphatase 49 U/L (38-126); Anion Gap 6 mmol/L (4-12); Aspartate Amino Transferase 84 U/L (14-36); Bilirubin,Total 0.7 mg/dL (0.2-1.3); Blood Urea Nitrogen 25 mg/dL (7-17); Calcium 8.7 mg/dL (8.4-10.2); Carbon Dioxide 30 mmol/L (22-30); Chloride 103 mmol/L (98-107); Estimated CRCL calculation 69 ml/min; Estimated Glomerular Filt Rate > 60; Glucose 88 mg/dL (65-110); Potassium 3.9 mmol/L (3.4-5.0); Sodium 139 mmol/L (137-145)
--- NOTE | 2024-05-13 08:40 | P.PNIM_ITS ---
Progress Note: A&P Assessment and Plan (1) Acute upper respiratory infection: Code(s): J06.9 - Acute upper respiratory infection, unspecified Status: Acute (2) Asthma exacerbation: Code(s): J45.901 - Unspecified asthma with (acute) exacerbation Status: Acute (3) Hypothyroidism: Code(s): E03.9 - Hypothyroidism, unspecified Status: Acute (4) Hypertension: Code(s): I10 - Essential (primary) hypertension Status: Acute Plan (1) Acute hypoxic respiratory failure: Code(s): J96.01 - Acute respiratory failure with hypoxia Status: Acute Assessment and Plan: Patient presented with hypoxia was requiring 8 L high-flow just to maintain 92% patient with past medical history asthma in recently treated outpatient with doxycycline for possible pneumonia. * CXR Minimal left pleural effusion and questionable minimal bibasilar interstitial pulmonary edema. * CTA does not show PE or significant pulmonary abnormality * Viral panel negative * IV methylprednisone (HX asthma) * DuoNebs * will add lasix pending BNP/echo * Wean oxygen as tolerated to maintain 92% currently requiring 8L high flow3/3: * May need a home oxygen study if unable to wean oxygen * Follow-up for further outpatient PFT testing and with pulmonology3/4: * Continue with current treatment plan weaned to 4L NC * Echo: Diastolic grade 1 LVEF 65-70% Asthma exacerbation: Code(s): J45.901 - Unspecified asthma with (acute) exacerbation Status: Acute Assessment and Plan: Continue DuoNeb scheduled, q.6 hours, methylprednisolone 60 mg q8h IV, Start DuoNeb scheduled q.12 hours Patient still on high-flow oxygen Change to Methylprednisone 40 mg q.12 hours IV today /6. May change to prednisone p.o. tomorrow Change to prednisone p.o. on the tapering dose today, continue Advair 2 puffs b.i.d. and better inhaler q.4 hours p.r.n. Hypothyroidism: Code(s): E03.9 - Hypothyroidism, unspecified Status: Acute Assessment and Plan: resume levothyroxine Hypertension: Code(s): I10 - Essential (primary) hypertension Status: Acute Assessment and Plan: * Patient continued to be hypertensive * BP: 182/90>177/80 * No home medication * started on Nifedipine 30 XL Continue nifedipine p.o. on discharge Plan Code status: Full code per patient DVT prophylaxis: Lovenox Stress ulcer prophylaxis: NA PT/OT notes: Ambulatory Home oxygen evaluation is ordered Subjective Date/time seen: 05/13/24 08:40 Interval history: I saw examined patient today, patient feels better today, patient condition continue to improve, patient denies shortness breath with walking, denies chest pain abdomen pain nausea vomiting diarrhea. Patient is afebrile blood pressure stable, patient is on room air Exam Narrative: GENERAL: Pleasant, in no acute distress. Well-nourished. - EYES: EOMI. Anicteric. - HENT: Moist mucous membranes. - LUNGS: Clear to auscultation bilateral ly, no wheezing, rhonchi, or rales. - CARDIOVASCULAR: Regular rate and rhyth m. No murmur. No JVD. - ABDOMEN: Soft, non-tender and non-dist ended. No palpable masses. - EXTREMITIES: No edema. Peripheral puls es 2+. Non-tender. - NEUROLOGIC: No focal neurological defi cits. CN II-XII grossly intact. - PSYCHIATRIC: Awake, Alert and oriented x 3. Appropriate mood and affect. - SKIN: No rashes or lesions. Warm. - LYMPH: No cervical lymphadenopathy. Objective Data Vital Signs Vital Signs: Vital Signs - 24 hr 05/12/24 08:44 05/12/24 09:40 05/12/24 10:00 Temperature Pulse Rate 80 81 Respiratory Rate 18 Blood Pressure 153/56 H Pulse Oximetry 96 100 Oxygen Delivery High Flow Therapy with Na Oxygen Flow Rate 2 05/12/24 12:00 05/12/24 13:46 05/12/24 14:00 Temperature 97.4 F L Pulse Rate 80 81 Respiratory Rate 18 Blood Pressure 133/59 L Pulse Oximetry 95 94 Oxygen Delivery High Flow Therapy with Na Oxygen Flow Rate 1 05/12/24 14:50 05/12/24 15:02 05/12/24 16:00 Temperature Pulse Rate 78 90 81 Respiratory Rate 20 20 Blood Pressure Pulse Oximetry Oxygen Delivery Oxygen Flow Rate 05/12/24 20:00 05/12/24 20:00 05/12/24 20:40 Temperature Pulse Rate 66 64 Respiratory Rate 20 Blood Pressure Pulse Oximetry 95 Oxygen Delivery High Flow Nasal Cannula Oxygen Flow Rate 1 05/12/24 20:41 05/12/24 20:42 05/12/24 20:51 Temperature Pulse Rate 66 Respiratory Rate 20 Blood Pressure Pulse Oximetry 95 Oxygen Delivery Room Air Nasal Cannula Oxygen Flow Rate 1 05/12/24 21:02 05/12/24 21:30 05/12/24 22:00 Temperature 97.8 F Pulse Rate 62 Respiratory Rate 18 Blood Pressure 146/65 H Pulse Oximetry 92 93 92 Oxygen Delivery Room Air Room Air Oxygen Flow Rate 05/12/24 23:46 05/13/24 00:00 05/13/24 03:01 Temperature Pulse Rate 63 69 Respiratory Rate 18 Blood Pressure Pulse Oximetry 93 Oxygen Delivery Room Air Oxygen Flow Rate 05/13/24 03:03 05/13/24 03:09 05/13/24 04:00 Temperature Pulse Rate 72 64 Respiratory Rate 18 Blood Pressure Pulse Oximetry 93 Oxygen Delivery Room Air Oxygen Flow Rate 05/13/24 05:35 Temperature 97.3 F L Pulse Rate 66 Respiratory Rate 16 Blood Pressure 152/71 H Pulse Oximetry 91 Oxygen Delivery Oxygen Flow Rate Intake/Output Intake/Output: Intake & Output 05/10/24 05/11/24 05/12/24 05/13/24 23:59 23:59 23:59 23:59 Intake Total 2410 1384 1398 800 Balance 2410 1384 1398 800 Meds/Results Medications: Active Medications Generic Name Dose Route Start Last Admin Trade Name Freq PRN Reason Stop Dose Admin Acetaminophen 650 mg 05/08/24 07:42 Acetaminophen 325 Mg Tablet PO Q4H PRN Mild Pain (1-3) or Fever Hydrocodone Bitart/Acetaminophen 1 tab 05/08/24 07:42 Hydrocodone/Acetaminophen (*Crx) 5-325 Mg Tablet PO Q4H PRN Moderate Pain (4-6) Albuterol/Ipratropium 3 ml 05/08/24 08:00 05/13/24 02:59 Ipratropium 0.5 Mg/Albuterol Sulfate 2.5 Mg Ampul.Neb 3 Ml INHALATION 3 ml Q6HRT SHA Administration Enoxaparin Sodium 40 mg 05/08/24 09:00 05/12/24 08:40 Enoxaparin 40 Mg/0.4 Ml Syringe SUB-Q Not Given DAILY SHA Guaifenesin 1,200 mg 05/08/24 11:15 05/12/24 21:29 Guaifenesin 12 Hr 600 Mg Tabcr PO 1,200 mg Q12HR SHA Administration Levothyroxine Sodium 88 mcg 05/08/24 06:30 05/13/24 05:42 Levothyroxine Sodium 88 Mcg Tablet PO 88 mcg DAILY@0630 SHA Administration Loratadine 10 mg 05/08/24 21:00 05/12/24 21:29 Loratadine 10 Mg Tablet PO 10 mg QHS SHA Administration Nifedipine 30 mg 05/10/24 09:00 05/12/24 08:40 Nifedipine 30 Mg Tab.Er.24 PO 30 mg QAM SHA Administration Ondansetron HCl 4 mg 05/08/24 07:42 Ondansetron Inj 4 Mg/2 Ml Vial IV PUSH Q6H PRN Nausea And Vomiting Prednisone 40 mg 05/13/24 08:00 Prednisone 20 Mg Tablet PO DAILY@0800 [facility] Fluticasone/Salmeterol 2 puff 05/11/24 10:30 05/12/24 20:37 Fluticasone/Salmeterol 115-21 Mcg Inhaler 1 Puff INHALATION 2 puff Q12HRT SHA Administration Radiology Results: ITS Impressions Chest X-Ray 05/08/24 06:29 Impression: Minimal left pleural effusion and questionable minimal bibasilar interstitial pulmonary edema. Chest CTA 05/08/24 09:31 Impression: No evidence of pulmonary embolus, aortic dissection, or aortic aneurysm. No significant pulmonary abnormality. Labs Labs: Laboratory Results - last 24 hr 05/13/24 06:25 WBC 8.4 RBC 4.43 Hgb 14.6 Hct 45.9 MCV 103.6 H MCH 33.0 MCHC 31.8 L RDW 15.7 H Plt Count 213 MPV 10.3 Immature Gran % (Auto) 0.5 Neut % (Auto) 59.9 Lymph % (Auto) 28.5 [place] % (Auto) 10.5 H Eos % (Auto) 0.5 Baso % (Auto) 0.1 L Lymph # (Auto) 2.38 [place] # (Auto) 0.9 H Eos # (Auto) 0.0 Baso # (Auto) 0.0 Abs Immat Gran (auto) 0.04 H Absolute Neuts (auto) 5.0 Absolute Nucleated RBC 0.000 Nucleated RBC % 0.0 Sodium 139 Potassium 3.9 Chloride 103 Carbon Dioxide 30 Anion Gap 6 BUN 25 H Creatinine 0.69 L Estim Creat Clear Calc 69 Estimated GFR > 60 Glucose 88 Calcium 8.7 Total Bilirubin 0.7 AST 84 H ALT 80 H Alkaline Phosphatase 49 Total Protein 6.0 L Albumin 3.7
--- NOTE | 2024-05-13 08:41 | P.DS_ITS ---
DS: Admitting Diagnosis Discharge Date 05/13/24 Admitting Diagnosis (1) Acute upper respiratory infection: Code(s): J06.9 - Acute upper respiratory infection, unspecified Status: Acute (2) Asthma exacerbation: Code(s): J45.901 - Unspecified asthma with (acute) exacerbation Status: Acute (3) Hypothyroidism: Code(s): E03.9 - Hypothyroidism, unspecified Status: Acute (4) Hypertension: Code(s): I10 - Essential (primary) hypertension Status: Acute DS: Discharge Diagnosis Discharge Diagnosis (1) Acute upper respiratory infection: Code(s): J06.9 - Acute upper respiratory infection, unspecified Status: Acute (2) Asthma exacerbation: Code(s): J45.901 - Unspecified asthma with (acute) exacerbation Status: Acute (3) Hypothyroidism: Code(s): E03.9 - Hypothyroidism, unspecified Status: Acute (4) Hypertension: Code(s): I10 - Essential (primary) hypertension Status: Acute DS: Summary Hospital Course Hospital Course: Patient is a 68-year-old female who presented to the emergency department with complaints of worsening shortness breath. Patient states around 10 days ago she was developing shortness a breath and left ear pain and spoke with her primary care physician who at that time prescribed patient doxycycline. patient states that she has gotten progressively worse for the last few days and woke up around 3:00 a.m. prior to arrival with continued difficulty breathing and called EMS. upon arrival to the emergency department patient was found to be in acute respiratory distress with hypoxia she was requiring 8 L high-flow to maintain 92%. Patient reports she does have a history asthma, hypertension, and hypothyroidism however she has not been taking her medication for hypertension states she has been monitoring her BP at home and her systolic is usually in the 130s. patient's CXR showed mild pulmonary edema otherwise clear lung reese. I performed a CTA to rule out PE which was negative and again showed clear lung reese. Patient with normal WBC denied any fever chills nausea or vomiting, viral panel COVID/influenza/ RSV negative. patient was given a 1 hour nebulizer treatment with some improvement to shortness breath however continued to be hypoxic. Patient was admitted to the medical unit for acute respiratory failure with hypoxia likely secondary to asthma exacerbation started on IV methylprednisone continued DuoNeb. The following med issues have been addressed during hospitalization Acute hypoxic respiratory failure: Code(s): J96.01 - Acute respiratory failure with hypoxia Status: Acute Assessment and Plan: Patient presented with hypoxia was requiring 8 L high-flow just to maintain 92% patient with past medical history asthma in recently treated outpatient with doxycycline for possible pneumonia. * CXR Minimal left pleural effusion and questionable minimal bibasilar interstitial pulmonary edema. * CTA does not show PE or significant pulmonary abnormality * Viral panel negative * IV methylprednisone (HX asthma) * DuoNebs * will add lasix pending BNP/echo * Wean oxygen as tolerated to maintain 92% currently requiring 8L high flow3/3: * May need a home oxygen study if unable to wean oxygen * Follow-up for further outpatient PFT testing and with pulmonology3/4: * Continue with current treatment plan weaned to 4L NC * Echo: Diastolic grade 1 LVEF 65-70% Currently patient is on room air. Home oxygen evaluation is ordered Asthma exacerbation: Code(s): J45.901 - Unspecified asthma with (acute) exacerbation Status: Acute Assessment and Plan: Continue DuoNeb scheduled, q.6 hours, methylprednisolone 60 mg q8h IV, Start DuoNeb scheduled q.12 hours Patient still on high-flow oxygen Change to Methylprednisone 40 mg q.12 hours IV today /. May change to prednisone p.o. tomorrow Change to prednisone p.o. on the tapering dose today, continue Advair 2 puffs b.i.d. and better inhaler q.4 hours p.r.n. Hypothyroidism: Code(s): E03.9 - Hypothyroidism, unspecified Status: Acute Assessment and Plan: resume levothyroxine Hypertension: Code(s): I10 - Essential (primary) hypertension Status: Acute Assessment and Plan: * Patient continued to be hypertensive * BP: 182/90>177/80 * No home medication * started on Nifedipine 30 XL Continue nifedipine p.o. on discharge Time Spent with Patient Time attestation: Total time spent providing and/or coordinating discharge services: Exam Narrative: GENERAL: Pleasant, in no acute distress. Well-nourished. - EYES: EOMI. Anicteric. - HENT: Moist mucous membranes. - LUNGS: Clear to auscultation bilateral ly, no wheezing, rhonchi, or rales. - CARDIOVASCULAR: Regular rate and rhyth m. No murmur. No JVD. - ABDOMEN: Soft, non-tender and non-dist ended. No palpable masses. - EXTREMITIES: No edema. Peripheral puls es 2+. Non-tender. - NEUROLOGIC: No focal neurological defi cits. CN II-XII grossly intact. - PSYCHIATRIC: Awake, Alert and oriented x 3. Appropriate mood and affect. - SKIN: No rashes or lesions. Warm. - LYMPH: No cervical lymphadenopathy. DS: Data Data Completed and Pending Labs on day of discharge: Labs from last 24 hours 05/13/24 06:25 WBC 8.4 RBC 4.43 Hgb 14.6 Hct 45.9 MCV 103.6 H MCH 33.0 MCHC 31.8 L RDW 15.7 H Plt Count 213 MPV 10.3 Immature Gran % (Auto) 0.5 Neut % (Auto) 59.9 Lymph % (Auto) 28.5 [place] % (Auto) 10.5 H Eos % (Auto) 0.5 Baso % (Auto) 0.1 L Lymph # (Auto) 2.38 [place] # (Auto) 0.9 H Eos # (Auto) 0.0 Baso # (Auto) 0.0 Abs Immat Gran (auto) 0.04 H Absolute Neuts (auto) 5.0 Absolute Nucleated RBC 0.000 Nucleated RBC % 0.0 Sodium 139 Potassium 3.9 Chloride 103 Carbon Dioxide 30 Anion Gap 6 BUN 25 H Creatinine 0.69 L Estim Creat Clear Calc 69 Estimated GFR > 60 Glucose 88 Calcium 8.7 Total Bilirubin 0.7 AST 84 H ALT 80 H Alkaline Phosphatase 49 Total Protein 6.0 L Albumin 3.7 Discharge Plan Discharge Attending physician on discharge: luke Consulting providers: Fariha Angeles Discharging Clinician: Alejandro Salas Anticipated Discharge Date/Time: 05/13/24 09:42 Patient Disposition: Home, Self-Care Activity: as tolerated Diet: as tolerated Patient Instructions: Antibiotic Form Patient Language: Bulgarian Stand Alone Forms: General Discharge Information Follow-up/Referrals: Breezy,MD Lenny [Primary Care Provider] - Paul Luevano MD [Physician] - Alex Ko MD [Physician] - Discharge Medications: New prednisone 10 mg tablet 10 mg PO DIRECTED Qty: 20 0RF Rx Instructions: see taper instructions 40 mg daily p.o. x2, then 30 mg daily x2 20 mg daily x2 10 mg daily x2 nifedipine [Procardia XL] 30 mg Tablet Extended Release 24hr 30 mg PO QAM Qty: 30 1RF Continued latanoprost 0.005 % drops 1 drp EACH EYE DAILY timolol maleate 0.5 % drops 1 drp EACH EYE Q12H levothyroxine [Synthroid] 88 mcg tablet 88 mcg PO DAILY Qty: 30 0RF fluticasone propion-salmeterol [Advair HFA] 230-21 mcg/actuation HFA aerosol inhaler 2 inh inhalation BID Qty: 1 1RF albuterol sulfate 90 mcg/actuation HFA aerosol inhaler 1 inh inhalation Q4-6H Qty: 1 1RF Discontinued doxycycline hyclate 100 mg tablet 100 mg PO Q12H Date of admission: 05/08/24 06:37 Primary Care Provider: BenoitLenny Admitting Provider: Bal Mabry Attending physician on admission: Bal Mabry Condition: Improved
[2024-05-13] MEDS: predniSONE 20 MG TABLET 40 MG PO (08:42)
[2024-05-13] MEDS: NIFEdipine 30 MG TAB.ER.24 PO (08:43)
[2024-05-13] MEDS: guaiFENesin 12 HR 600 MG TABCR 1200 MG PO (08:43)
[2024-05-13] MEDS: FLUTICASONE/SALMETEROL 115-21 MCG INHALER 1 PUFF 2 PUFF INHALATION (09:01)
--- NOTE | 2024-05-13 13:37 | HOMEO2EVAL ---
Evaluation was performed at [facility] Home Oxygen Evaluation RC: Home Oxygen (O2) Evaluation Start: 05/13/24 08:41 Freq: ONCE Status: Discharge Protocol: RPE Activity Type Activity Date Activity User E-sign Co-sign Detail Recorded Client Recorded Date Recorded By Document 05/13/24 12:00 [email or web address] [email or web address] 05/13/24 13:37 LISA Document 05/13/24 12:03 LISA [email or web address] 05/13/24 13:37 LISA Document 05/13/24 12:04 LISA [email or web address] 05/13/24 13:37 LISA Document 05/13/24 12:05 LISA [email or web address] 05/13/24 13:37 LISA Document 05/13/24 12:15 LISA [email or web address] 05/13/24 13:37 LISA 05/13/24 05/13/24 05/13/24 12:00 12:03 12:04 Home O2 Evaluation [Oxygen] -Test Phase Resting Exercise Exercise -Oxygen Delivery Room Air Room Air Nasal Cannula -Oxygen Flow Rate (L/min) 1 [Pulse Oximetry] -Pulse Oximetry (90-100 %) 91 87 L 88 L [Pulse Rate] -Pulse Rate (60-100 beats/min) 80 90 [Evaluation] -Activity Tolerance [Exercise] -Ambulation Distance (feet) -Ambulation Distance (meters) [Comments] -Home Oxygen Evaluation Comments [Charges] -Evaluation Charges O2 Evaluation by Pulmonary 05/13/24 05/13/24 12:05 12:15 Home O2 Evaluation [Oxygen] -Test Phase Exercise Resting -Oxygen Delivery Nasal Cannula Room Air -Oxygen Flow Rate (L/min) 2 [Pulse Oximetry] -Pulse Oximetry (90-100 %) 92 92 [Pulse Rate] -Pulse Rate (60-100 beats/min) 92 79 [Evaluation] -Activity Tolerance Excellent [Exercise] -Ambulation Distance (feet) 100 -Ambulation Distance (meters) 30.47 [Comments] -Home Oxygen Evaluation Comments Pt requires 2 liters home O2 with activity. [Charges] -Evaluation Charges
--- NOTE | 2024-05-13 13:49 | PCRCNOTE ---
Home O2 arranged with [facility], pt d.c with transport tank. DME will arrange set up when home
== END 2024-05-13 12:38 | disposition home or self-care (01) | DRG 189 ==
LOC: ANHED 06:19 → ANH3MEDSUR 18:49
PROVIDERS: Nurse Practitioner Family; Admitting Provider Internal Medicine; Emergency Provider Emergency Medicine; PCP Internal Medicine; Visit Provider Hospitalist
DX: J96.01 Acute respiratory failure with hypoxia (principal); J45.901 Unspecified asthma with (acute) exacerbation; J06.9 Acute upper respiratory infection, unspecified; E03.9 Hypothyroidism, unspecified; I10 Essential (primary) hypertension; F17.210 Nicotine dependence, cigarettes, uncomplicated; Z20.822 Contact with and (suspected) exposure to COVID-19
CPT/HCPCS: 36415; 71045; 71275; 80053; 83036; 83735; 83880; 85025; 87637; 93005; 93306; 94618; 94640; 99285; A9270; J1650; J2919; J7512; Q9967

== ENCOUNTER 2024-06-10 12:49 | Outpatient (NON) | payer MEDICARE, SELFPAY ==
--- OUTSIDE RECORDS SUMMARY | 2024-06-10 12:53 | XMS_ITS | Encounter Summary ---
Author Organization [employer] Address [address] [place] [address] Care Team Providers Care Rolloff Truck Driver Name Role Phone Unavailable Primary Care Provider Unavailabl e Encounter Details Date Type Department Care Team (Late st Contact Info) Description 12/11/2004 Outpatient Historical [facility] [address] 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
--- OUTSIDE RECORDS SUMMARY | 2024-06-10 12:53 | XMS_ITS | CONTINUITY OF CARE DOCUMENT ---
Author Name woody mckay Address Unknown Organization [facility] Address [address] [place] [address] Phone [phone] Care Team Providers Care Boss Dyer Name Role Phone Akash Camacho MD Unavailable [phone] CORTEZ URBINA MD Unavailable CORTEZ URBINA MD Unavailable [phone] INSURANCE PROVIDERS Payer name Policy type / Coverage type [place] red green party ID [employer] PPO O [id number] [place] MED[place] Medicare [id number]
--- OUTSIDE RECORDS SUMMARY | 2024-06-10 12:54 | XMS_ITS | Clinical Summary ---
Author Organization [facility] [address] Address [address] [place] [address] Care Team Providers Care Work Order Sorting Clerk Name Role Phone Lenny Tijerina MD Primary Care Provider Joaquin Sosa DO Unavailable [phone] Allergies Active Allergy Reactions Criticality Noted Date Comments Lisinopril Rash Medium 01/29/2021 Penicillins Anaphylaxis High Medications levothyroxine (SYNTHROID) 88 mcg tablet Take 88 mcg by mouth stratigraphy teacher before breakfast Active timoloL (BETIMOL) 0.5 % ophthalmic solution 1 drop 2 (two) times a day Active aspirin 325 mg tablet Take 325 mg by mouth every 6 (six) hours as needed for pain Active vitamin D3-vitamin K2 1000-90 unit-mcg tablet,disintegr ating Take by mouth Active [id number]-glutami [id number] 1,000-50 mg tablet, effervescent Take by mouth [...] Problem Noted Date Diagnosed Date Elevated hemoglobin 12/05/2021 Erythrocytosis 07/12/2021 Dizziness and giddiness 01/01/2021 [...] on file Legal Sex Female 6:30 AM ANODIZER Gender Identity Not on file Sexual Orientation Not on file Occupation Industry Job Start Date Job End Date Retired Not on file Not on file Not on file Obstetrics History Last Filed Vital Signs Vital Sign Reading Time Taken Comments Blood Pressure 125/80 01/17/2022 3:03 PM ANODIZER Pulse 89 01/17/2022 3:03 PM ANODIZER Temperature 36.8 C (98.3 F) 01/17/2022 2:18 PM ANODIZER Respiratory Rate 18 01/17/2022 3:03 PM ANODIZER Oxygen Saturation 93% 01/17/2022 3:0 3 PM ANODIZER Inhaled Oxygen Concentration - - Weight 87 kg (191 lb 12.8 oz) 2 2:18 PM ANODIZER without shoes Height 161 cm (5' 3.39 ) 01/17/2022 2:1 8 PM ANODIZER Body Mass Index 33.56 01/17/2022 2:18 PM ANODIZER Plan of Treatment Health Maintenance Due Date [...] 05/14/2020 Influenza Vaccine (#1) 2023 Insurance MEDICARE [facility] CLAIMS OFFICE MEDICARE HUMAN MEDICARE SUPPLEMENT Care Teams Work Order Sorting Clerk Relationship Specialty Start Date End Date Lenny Tijerina MD PCP - General Internal Medicine 12/04/20 Joaquin Sosa DO [address] [place] [address] MEDICAL ONCOLOGY, [facility] [address] [place] [address] Medical Oncologist/Rehabilitation Attendant Hematology and Oncology 03/06/22
--- OUTSIDE RECORDS SUMMARY | 2024-06-10 12:54 | XMS_ITS | Encounter Summary ---
Author Organization [employer] Address 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
--- OUTSIDE RECORDS SUMMARY | 2024-06-10 12:54 | XMS_ITS | Clinical Summary ---
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
--- OUTSIDE RECORDS SUMMARY | 2024-06-10 12:54 | XMS_ITS | Data Portability ---
[facility] Address [address] [place] [address] Care Team Providers Care Pipe Processor Name Role Phone CORTEZ TIJERINA Primary Care Provider Assessment Encounter Date Assessment Date Assessment LastModified by Organization Details LastModified Time 07/09/2023 07/09/2023 Obtain old records continue current therapy LDCT chest abdominal aortic aneurysm screening blood work tobacco cessation discussed she is not ready for plan yet see me back in 4 months [email or web address] Not available 07/09/2023 22:03:59 09/14/2023 09/14/2023 CT chest with contrast see me in 5 weeks. Low-fat diet. Continue meds for hypothyroidism . Smoking cessation again recommended. Not available 10/11/2023 11:41:28 01/14/2024 01/14/2024 health assessments and screenings discussed ordered were appropriate and patient agreeable she will keep her regular follow up all questions answered Not available 01/24/2024 18:19:09 05/19/2024 05/19/2024 continue with nifedipine she is done with her steroids continue with her inhalers I believe she has a pulmonary follow up she will see me back in 1 month and she has had a mouth lesion we will have ENT take a look at it [email or web address] Not available 05/21/2024 22:51:06 Plan of Treatment Reminders Order Date Submit Date Provider Last Modified By Organization Details Last Modified Time Details Appointments ANY 15 2024 02:00P M Cortez Tijerina MD Not available Not available Not available Lab CMP, serum or plasma 2023 024 [email or web address] [facility], [address], [place], [address], 05/12/2024 23:22:57 lipid panel, serum 2023 024 [facility], [address] [place] [address], [facility], [place], [address], 08/12/2023 15:50:56 CBC w/ auto diff 2023 024 [place] [address] [facility], [address] [place] [address] 2, [place], [address], 05/12/2024 23:22:57 T4, free, serum 2023 024 [facility], [address] [place] [address] 2, [place], [address], 08/12/2023 15:50:57 TSH, ultra-sen sitive, serum 2023 024 [facility], [address] [place] [address] 2, [place], [address], 08/12/2023 15:50:57 T3, free, serum or plasma 2023 024 [facility], [address] [place] [address] 2, [place], [address], 08/12/2023 15:50:57 Referral None recorded. Procedures None recorded. Surgeries None recorded. Imaging bone density 2023 024 [facility], [address], [place], [address], 03/22/2024 03:39:20 CT, chest, w/ contrast 2023 024 [facility], [address], [place], [address], 09/30/2023 10:37:18 LDCT, chest, for lung cancer screening 2023 024 [facility] ([facility]), [address], [place], [address], 07/10/2023 09:14:38 US, abdominal aorta 2023 024 [facility], [address], [place], [address], 09/29/2023 09:24:09 Medication Orders None recorded. Patient TargetsNo targets recorded. Patient Instructions Encounter Date Encounter Id Patient Instructions Last Modified By Organization Details Last Modified Time 01/14/2024 [id number] A healthy lifestyle: care instructions [email or web address] Not available 01/14/2024 21:36:39 Quitting Tobacco : Care Instructions Not available 01/14/2024 21:36:39 Medicare [facility] Preventive Checklist [email or web address] Not available 01/14/2024 21:36:39 05/19/2024 [id number] A healthy lifestyle: care instructions [email or web address] Not available 05/19/2024 13:27:16 Reason for Referral None Reported. Results Created Date Observation Date Name Description Value Unit Range Abnormal Flag Note LastModifiedBy Organization Detail LastModifiedTime 08/11/1908/12/2023 LIPID PANEL cholesterol, total 221 mg/dL 100-19 9 above high normal Not Available [facility] ([facility]) [address] [place], [address], 08/12/2023 10:14:44 08/11/1908/12/2023 LIPID PANEL triglyceride s 382 mg/dL 0-149 above high normal Not Available [facility] ([facility]) [address] [facility], [place], [address], 08/12/2023 10:14:44 08/11/1908/12/2023 LIPID PANEL HDL cholesterol 29 mg/dL >39 below low normal Not Available [facility] ([facility] [facility]) [address] [place], [address], 08/12/2023 10:14:44 08/11/19 24 08/12/2023 LIPID PANEL VLDL cholesterol emily 68 mg/dL 5-40 above high normal Not Available [facility] ([facility]) [address] [place], [address], 08/12/2023 10:14:44 08/11/19 24 08/12/2023 LIPID PANEL LDL chol calc ([facility]) 124 mg/dL 0-99 above high normal Not Available [facility] ([facility]) [address] [place], [address], 08/12/2023 10:14:44 08/11/19 24 08/12/2023 COMP. METAB OLIC PANEL (14) glucose 88 mg/dL 70-99 Not Available [facility] ([facility]) [address] [place], [address], 08/12/2023 10:14:45 08/11/19 24 08/12/2023 COMP. METAB OLIC PANEL (14) BUN 8 mg/dL 8-27 Not Available [facility] ([facility]) [address] [place], [address], 08/12/2023 10:14:45 08/11/19 24 08/12/2023 COMP. METAB OLIC PANEL (14) creatinine 0.53 mg/dL 0.57-1 .00 below low normal Not Available [facility] ([facility]) [address] [place], [address], 08/12/2023 10:14:45 08/11/19 24 08/12/2023 COMP. METAB OLIC PANEL (14) eGFR 101 mL/mi n/1.7 3 >59 Not Available [facility] ([facility]) [address] [place], [address], 08/12/2023 10:14:45 08/11/19 24 08/12/2023 COMP. METAB OLIC PANEL (14) BUN/creatini ne ratio 15 12-28 Not Available [facility] ([facility]) [address], [place], [address], 08/12/2023 10:14:45 08/11/19 24 08/12/2023 COMP. METAB OLIC PANEL (14) sodium 142 mmol/ L 134-14 4 Not Available [facility] ([facility]) [address], [place], [address], 08/12/2023 10:14:45 08/11/19 24 08/12/2023 COMP. METAB OLIC PANEL (14) potassium 4.7 mmol/ L 3.5-5. 2 Not Available [facility] ([facility]) [address], [place], [address], 08/12/2023 10:14:45 08/11/19 24 08/12/2023 COMP. METAB OLIC PANEL (14) chloride 103 mmol/ L 96-106 Not Available [facility] ([facility]) [address], [place], [address], 08/12/2023 10:14:45 08/11/19 24 08/12/2023 COMP. METAB OLIC PANEL (14) carbon dioxide, total 20 mmol/ L 20-29 Not Available [facility] ([facility]) [address] [facility], [place], [address], 08/12/2023 10:14:45 08/11/19 24 08/12/2023 COMP. METAB OLIC PANEL (14) calcium 9.5 mg/dL 8.7-10 .3 Not Available [facility] ([facility]) [address] [facility] [place], [address], 08/12/2023 10:14:45 08/11/19 24 08/12/2023 COMP. METAB OLIC PANEL (14) protein, total 6.6 g/dL 6.0-8. 5 Not Available [facility] ([facility]) [address] [facility] [place], [address], 08/12/2023 10:14:45 08/11/19 24 08/12/2023 COMP. METAB OLIC PANEL (14) albumin 4.1 g/dL 3.9-4. 9 Not Available [facility] ([facility]) [address] [place], [address], 08/12/2023 10:14:45 08/11/19 24 08/12/2023 COMP. METAB OLIC PANEL (14) globulin, total 2.5 g/dL 1.5-4. 5 Not Available [facility] ([facility]) [address] [place], [address], 08/12/2023 10:14:45 08/11/19 24 08/12/2023 COMP. METAB OLIC PANEL (14) A/G ratio 1.6 1.2-2. 2 Not Available [facility] ([facility]) [address] [place], [address], 08/12/2023 10:14:45 08/11/19 24 08/12/2023 COMP. METAB OLIC PANEL (14) bilirubin, total 0.4 mg/dL 0.0-1. 2 Not Available [facility] ([facility]) [address] [place], [address], 08/12/2023 10:14:45 08/11/19 24 08/12/2023 COMP. METAB OLIC PANEL (14) alkaline phosphatase 125 IU/L 44-121 above high normal Not Available [facility] ([facility]) [address] [place], [address], 08/12/2023 10:14:45 08/11/19 24 08/12/2023 COMP. METAB OLIC PANEL (14) AST (SGOT) 42 IU/L 0-40 above high normal Not Available [facility] ([facility]) [address] [place], [address], 08/12/2023 10:14:45 08/11/19 24 08/12/2023 COMP. METAB OLIC PANEL (14) ALT (SGPT) 33 IU/L 0-32 above high normal Not Available [facility] ([facility]) [address] [place], [address], 08/12/2023 10:14:45 08/11/19 24 08/12/2023 TSH TSH 0.515 uIU/m L 0.450- 4.500 Not Available [facility] ([facility]) [address] [place], [address], 08/12/2023 10:14:45 08/11/19 24 08/12/2023 CBC WITH DIFFE RENTI AL/PL ATELE T WBC 6.1 x10e3 /uL 3.4-10 .8 Not Available [facility] ([facility]) [address] [place], [address], 08/12/2023 10:14:46 08/11/19 24 08/12/2023 CBC WITH DIFFE RENTI AL/PL ATELE T RBC 4.97 x10e6 /uL 3.77-5 .28 Not Available [facility] ([facility]) [address] [place], [address], 08/12/2023 10:14:46 08/11/19 24 08/12/2023 CBC WITH DIFFE RENTI AL/PL ATELE T hemoglobin 16.2 g/dL 11.1-1 5.9 above high normal Not Available [facility] ([facility]) [address] [place], [address], 08/12/2023 10:14:46 08/11/19 24 08/12/2023 CBC WITH DIFFE RENTI AL/PL ATELE T hematocrit 49.2 % 34.0-4 6.6 above high normal Not Available [facility] ([facility]) [address] [place], [address], 08/12/2023 10:14:46 08/11/19 24 08/12/2023 CBC WITH DIFFE RENTI AL/PL ATELE T MCV 99 fL 79-97 above high normal Not Available [facility] ([facility]) [address] [facility], [place], [address], 08/12/2023 10:14:46 08/11/19 24 08/12/2023 CBC WITH DIFFE RENTI AL/PL ATELE T MCH 32.6 pg 26.6-3 3.0 Not Available [facility] ([facility]) [address] [facility], [place], [address], 08/12/2023 10:14:46 08/11/19 24 08/12/2023 CBC WITH DIFFE RENTI AL/PL ATELE T MCHC 32.9 g/dL 31.5-3 5.7 Not Available [facility] ([facility]) [address] [facility], [place], [address], 08/12/2023 10:14:46 08/11/19 24 08/12/2023 CBC WITH DIFFE RENTI AL/PL ATELE T RDW 13.1 % 11.7-1 5.4 Not Available [facility] ([facility]) [address] [facility], [place], [address], 08/12/2023 10:14:46 08/11/19 24 08/12/2023 CBC WITH DIFFE RENTI AL/PL ATELE T platelets 282 x10e3 /uL 150-45 0 Not Available [facility] ([facility]) [address] [facility], [place], [address], 08/12/2023 10:14:46 08/11/19 24 08/12/2023 CBC WITH DIFFE RENTI AL/PL ATELE T neutrophils 56 % notest ab. Not Available [facility] ([facility]) [address] [facility], [place], [address], 08/12/2023 10:14:46 08/11/19 24 08/12/2023 CBC WITH DIFFE RENTI AL/PL ATELE T lymphs 34 % notest ab. Not Available [facility] ([facility]) [address] [facility], [place], [address], 08/12/2023 10:14:46 08/11/19 24 08/12/2023 CBC WITH DIFFE RENTI AL/PL ATELE T monocytes 6 % notest ab. Not Available [facility] ([facility]) [address] [facility], [place], [address], 08/12/2023 10:14:46 08/11/19 24 08/12/2023 CBC WITH DIFFE RENTI AL/PL ATELE T eos 3 % notest ab. Not Available [facility] ([facility]) [address] [facility], [place], [address], 08/12/2023 10:14:46 08/11/19 24 08/12/2023 CBC WITH DIFFE RENTI AL/PL ATELE T basos 1 % notest ab. Not Available [facility] ([facility]) [address] [facility], [place], [address], 08/12/2023 10:14:46 08/11/19 24 08/12/2023 CBC WITH DIFFE RENTI AL/PL ATELE T neutrophils (absolute) 3.4 x10e3 /uL 1.4-7. 0 Not Available [facility] ([facility]) [address] [facility], [place], [address], 08/12/2023 10:14:46 08/11/19 24 08/12/2023 CBC WITH DIFFE RENTI AL/PL ATELE T lymphs (absolute) 2.1 x10e3 /uL 0.7-3. 1 Not Available [facility] ([facility]) [address] [facility], [place], [address], 08/12/2023 10:14:46 08/11/19 24 08/12/2023 CBC WITH DIFFE RENTI AL/PL ATELE T monocytes(ab solute) 0.4 x10e3 /uL 0.1-0. 9 Not Available [facility] ([facility]) [address] [facility], [place], [address], 08/12/2023 10:14:46 08/11/19 24 08/12/2023 CBC WITH DIFFE RENTI AL/PL ATELE T eos (absolute) 0.2 x10e3 /uL 0.0-0. 4 Not Available [facility] ([facility]) [address] [facility], [place], [address], 08/12/2023 10:14:46 08/11/19 24 08/12/2023 CBC WITH DIFFE RENTI AL/PL ATELE T baso (absolute) 0.0 x10e3 /uL 0.0-0. 2 Not Available [facility] ([facility]) [address] [place], [address], 08/12/2023 10:14:46 08/11/19 24 08/12/2023 CBC WITH DIFFE RENTI AL/PL ATELE T immature granulocytes 0 % notest ab. Not Available [facility] ([facility]) [address] [place], [address], 08/12/2023 10:14:46 08/11/19 24 08/12/2023 CBC WITH DIFFE RENTI AL/PL ATELE T immature grans (abs) 0.0 x10e3 /uL 0.0-0. 1 Not Available [facility] ([facility]) [address] [place], [address], 08/12/2023 10:14:46 08/11/19 24 08/12/2023 TRIIO DOTHY CHAYO E (T3), FREE triiodothyro nine (T3), free 2.7 pg/mL 2.0-4. 4 Not Available [facility] ([facility]) [address] [place], [address], 08/12/2023 10:14:46 08/11/19 24 08/12/2023 T4,FR EE(DI RECT) T4,free(dire ct) 1.42 NG/dL 0.82-1 .77 Not Available [facility] ([facility]) [address] [facility], [place], [address], 08/12/2023 10:14:46 09/08/19 24 09/08/2023 XR, chest , 2 view No observ ation record ed. [address], [place], [address], 09/11/2023 16:22:27 09/09/19 24 09/08/2023 nerve condu ction study /EMG, upper extre mity (PROC ) No observ ation record ed. [address], [place], [address], 09/11/2023 16:22:10 09/29/19 24 09/28/2023 US, abdom inal aorta No observ ation record ed. [facility] [address], [place], [address], 10/08/2023 11:04:13 09/30/19 24 09/28/2023 US, abdom inal aorta No observ ation record ed. [facility] [address], [place], [address], 10/08/2023 11:04:14 09/30/19 24 09/28/2023 CT, chest , w/ contr ast No observ ation record ed. [facility] [address], [place], [address], 10/08/2023 11:04:14 10/14/19 24 10/14/2023 US, kidne y No observ ation record ed. [facility] [address], [place], [address], 10/21/2023 15:17:15 10/15/19 24 10/14/2023 CT, chest , w/ contr ast No observ ation record ed. [facility] [address], [place], [address], 10/21/2023 15:17:16 12/16/19 24 12/16/2023 XR, chest , 2 view No observ ation record ed. [address], [place], [address], 12/16/2023 20:40:36 12/16/1912/16/2023 PFT, compl ete No observ ation record ed. [address], [place], [address], 12/17/2023 09:59:51 12/16/19 24 12/16/2023 six minut e walk test* No observ ation record ed. [address], [place], [address], 12/17/2023 10:03:52 03/21/19 25 03/21/2024 bone densi ty No observ ation record ed. [address], [place], [address], 03/23/2024 11:35:02 03/21/19 25 03/21/2024 bone densi ty No observ ation record ed. [address], [place], [address], 03/23/2024 11:35:03 05/09/19 25 05/08/2024 XR, chest , 2 view No observ ation record ed. [address], [place], [address], 05/25/2024 16:59:02 05/09/19 25 05/08/2024 CT, chest , w/o contr ast No observ ation record ed. [address], [place], [address], 05/25/2024 16:59:02 05/11/19 25 05/09/2024 US, doppl er echoc ardio gram No observ ation record ed. [address], [place], [address], 05/13/2024 15:53:48 Result Notes None recorded. Problems Name Problem SNOMED Code Status Onset Date Resolution Date Notes Provider Name and Address Organization Details Recorded Time Asthma 677527026 Active 2023 Noy [place] null, [place] - [facility] 4 10:49:04 Nicotine dependence 11045832 Active 2023 Noy [place] [facility] 4 10:49:05 Essential hypertension 94526248 Active 2023 Noy [place] [facility] 4 10:50:17 Hyperlipidemia 11472767 Active 2023 Noy [place] [facility] 4 10:50:19 Hypothyroidism 66065668 Active 2023 N[place] [facility] 4 10:50:20 Standard chest X-ray abnormal 706233076 Active 2023 Noy [place] [facility] 4 15:52:33 Problem Notes None recorded. Procedures Surgical History Date Name Laterality Status Provider Name and Address Organization Details Recorded Time Eye Surgery completed NAHUN Melendez - [facility] 07/09/2023 10:10:32 Back Surgery completed NAHUN Melendez - [facility] 07/09/2023 10:10:38 Imaging Results Imaging Date Name Status LastModified by Organization Details LastModified Time 09/08/2023 XR, chest, 2 view completed [place] [address] [facility] [address], [place], [address], 09/11/2023 16:22:27 09/08/2023 nerve conduction study/EMG, upper extremity (PROC) completed [address], [place], [address], 09/11/2023 16:22:10 09/28/2023 US, abdominal aorta completed [facility] [address], [place], [address], 10/08/2023 11:04:13 09/28/2023 US, abdominal aorta completed [facility] [address], [place], [address], 10/08/2023 11:04:14 09/28/2023 CT, chest, w/ contrast completed [facility] [address], [place], [address], 10/08/2023 11:04:14 10/14/2023 US, kidney completed [facility] [address], [place], [address], 10/21/2023 15:17:15 10/14/2023 CT, chest, w/ contrast completed [facility] [address], [place], [address], 10/21/2023 15:17:16 12/16/2023 XR, chest, 2 view completed [address] [facility], [place], [address], 12/16/2023 20:40:36 12/16/2023 PFT, complete completed [address] [address], [place], [address], 12/17/2023 09:59:51 12/16/2023 six minute walk test* completed [address] [address], [place], [address], 12/17/2023 10:03:52 03/21/2024 bone density completed [address] [address], [place], [address], 03/23/2024 11:35:02 03/21/2024 bone density completed [address] [address], [place], [address], 03/23/2024 11:35:03 05/08/2024 XR, chest, 2 view completed [address] [address], [place], [address], 05/25/2024 16:59:02 05/08/2024 CT, chest, w/o contrast completed [place] [address], [place], [address], 05/25/2024 16:59:02 05/09/2024 US, doppler echocardiogram completed [address] [address], [place], [address], 05/13/2024 15:53:48 Procedure Notes None recorded. Medical Equipment None Reported. Allergies Allergen ID Allergen Name Allergen Category Reaction Reaction Severity Criticality Documentation Date Start Date Code Code System Note Provider Name and Address Organization Details Recorded Time 465740 Product containin g penicilli n (product) medicatio n hives Not available Not available 07/09/2023 73680 8001 SNOMED Not Available Not Available Not Available 17050809 lisinopri l medicatio n itching rash Not available Not available Not available 07/09/2023 23640 RxNorm Not Available Not Available Not Available Medications Name Sig Start Date Stop Date Status Note LastModified by Organization Details LastModified Time Spacer USE WITH INHALER NEEDED 2024 active Not Available Not Available Not Avai lable nifedipine ER 30 mg tablet,exte nded release 24 hr TAKE 1 TABLET BY MOUTH EVERY MORNING active Not Available Not Available No t Available latanoprost 0.005 % eye drops INSTILL 1 DROP INTO BOTH EYES AT BEDTIME active Not Available Not Available No t Available prednisone 10 mg tablet PLEASE SEE ATTACHED FOR DETAILED DIRECTION S 05/19 completed Not Available Not Available Not Available atorvastati n 10 mg tablet TAKE 1 TABLET BY MOUTH EVERY DAY active Not Available Not Available No t Available azithromyci n 250 mg tablet TAKE 2 TABLETS BY MOUTH TODAY, THEN TAKE 1 TABLET DAILY FOR 4 DAYS DIRECTED 09/13 completed Not Available Not Available Not Available aspirin 325 mg tablet Take 1 tablet every day by oral route. active Not Available Not Available No t Available nifedipine ER 30 mg tablet,exte nded release Take 1 tablet every day by oral route. 05/19 completed Not Available Not Available Not Available valacyclovi r 500 mg tablet TAKE 1 TABLET BY MOUTH THREE TIMES A DAY FOR 7 DAYS active Not Available Not Available No t Available prednisone 10 mg tablets in a dose pack Take by oral route. 05/19 completed Not Available Not Available Not Available ciprofloxac in 0.3 % eye drops INSTILL 1 DROP INTO THE AFFECTED EYE(S) FOUR TIMES A DAY DIRECTED 05/19 completed Not Available Not Available Not Available timolol 0.5 % eye drops INSTILL 1 DROP INTO AFFECTED EYE(S) BY OPHTHALMI C ROUTE 2 TIMES PER DAY 01/13 completed Not Available Not Available Not Available Synthroid 88 mcg tablet TAKE 1 TABLET BY MOUTH EVERY DAY active Not Available Not Available No t Available methylpredn isolone 4 mg tablets in a dose pack TAKE 6 TABLETS ON DAY 1 DIRECTED ON PACKAGE AND DECREASE BY 1 TAB EACH DAY FOR A TOTAL OF 6 DAYS 09/13 completed Not Available Not Available Not Available albuterol sulfate HFA 90 mcg/actuati on aerosol inhaler INHALE 1 PUFF EVERY 4 - 6 HOURS active Not Available Not Available No t Available timolol maleate 0.5 % eye drops INSTILL 1 DROP INTO BOTH EYES TWICE A DAY active Not Available Not Available No t Available doxycycline hyclate 100 mg tablet TAKE 1 TABLET BY MOUTH TWICE A DAY FOR 7 DAYS 05/19 completed Not Available Not Available Not Available fluticasone propionate 230 mcg-salmete rol 21 mcg/actuati on HFA inhaler INHALE 2 PUFFS BY MOUTH TWICE A DAY active Not Available Not Available No t Available Advair HFA 45 mcg-21 mcg/actuati on aerosol inhaler active Not Available Not Available Not Available Luis Trevino [facility] spacer USE WITH INHALER NEEDED active Not Available Not Available No t Available albuterol sulf 90 mcg/actuati on breath activated powder inhaler,sen sor Inhale 2 puffs every 4 hours by inhalatio n route as needed. active Not Available Not Available No t Available Vitals Date Recorded Body weight Body mass index (BMI) Body height Oxygen saturation Oxygen saturation in Arterial blood by Pulse oximetry Heart rate Systolic blood pressure Diastolic blood pressure Provider Name and Address Organization Details Last Updated DateTime 4 92421.7 7 g 32.1 kg/m2 162.56 cm 96 % 96 % 75 /min 130 mm[Hg] 80 mm[Hg] Elmira Lazaro MA [facility] 4 10:13:58 Date Recorded Body height Body mass index (BMI) Body weight Heart rate Oxygen saturation Oxygen saturation in Arterial blood by Pulse oximetry Systolic blood pressure Diastolic blood pressure Provider Name and Address Organization Details Last Updated DateTime 4 162.56 cm 31.2 kg/m2 91538.8 1 g 84 /min 96 % 96 % 146 mm[Hg] 80 mm[Hg] Elmira Lazaro MA [facility] 4 14:54:43 Date Recorded Body height Body mass index (BMI) Body weight Heart rate Oxygen saturation Oxygen saturation in Arterial blood by Pulse oximetry Systolic blood pressure Diastolic blood pressure Provider Name and Address Organization Details Last Updated DateTime 4 162.56 cm 33.1 kg/m2 72786.3 3 g 82 /min 95 % 95 % 152 mm[Hg] 90 mm[Hg] Kylah Antonio MA [facility] 4 10:05:16 Date Recorded Pain severity - 0-10 verbal numeric rating [Score] - Reported Provider Name and Address Organization Details Last Updated DateTime 01/14/2024 5 Corinne Mcfarland [facility] 01/14/2024 10:30:23 Date Recorded Body height Body mass index (BMI) Body weight Heart rate Oxygen saturation Oxygen saturation in Arterial blood by Pulse oximetry Systolic blood pressure Diastolic blood pressure Provider Name and Address Organization Details Last Updated DateTime 5 162.56 cm 33.2 kg/m2 69796.0 5 g 72 /min 98 % 98 % 100 mm[Hg] 58 mm[Hg] Brittny Lewis MA [place] - [facility] 11:41:38 Social History Question Answer Notes LastModified by Organizat ion Details LastModified Time Tobacco Smoking Status Current Every Day Smoker Elmira Lazaro [place] - [facility] 07/15/2023 14:44:27 Do You Have An Advance Directive? Yes Information not available 07/09/2023 What Is Your Level Of Alcohol Consumption? Moderate 1 Cup Of Wine Every Night Information not available 01/14/2024 Are You Blind Or Do You Have Difficulty Seeing? No Information not available 07/09/2023 What Is Your Level Of Caffeine Consumption? Moderate 1 Cup Of Coffee In The Morning Information not available 07/09/2023 In The 14 Days Before Symptom Onset, Have You Had Close Contact With A Laboratory-confir med COVID-19 While That Case Was Ill? No Information not available 05/19/2024 In The 14 Days Before Symptom Onset, Have You Had Close Contact With A Person Who Is Under Investigation For COVID-19 While That Person Was Ill? No Information not available 05/19/2024 Have You Been To An Area Known To Be High Risk For COVID-19? No Information not available 05/19/2024 Are You Currently Employed? No Retired Information not available 01/14/2024 Are You Deaf Or Do You Have Serious Difficulty Hearing? No Information not available 07/09/2023 What Type Of Diet Are You Following? REGULAR Information not available 07/09/2023 What Is The Highest Grade Or Level Of School You Have Completed Or The Highest Degree You Have Received? [id number] Information not available 01/14/2024 Are There Any Guns Present In Your Home? No Information not available 07/09/2023 In The Past 7 Days, How Many Days Did You Exercise? 0 Information not available 01/14/2024 In The Past 7 Days, How Much Pain Have You [place]? A Lot Information not available 01/14/2024 In General, Would You Say You Health Is: Good Information not available 01/14/2024 How Would You Describe The Condition Of Your Mouth And Teeth- Including False Teeth Or Dentures? Good Information not available 01/14/2024 Each Night, How Many Hours Of Sleep Do You Get? 5 Information no t available 01/14/2024 Has Anyone Ever Told You That You Snore? No Information not available 01/14/2024 In The Past 7 Days, How Often Have You [place] Sleepy In The Daytime? Always Information not available 01/14/2024 On They Days When You Drank Alcohol, How Often Did You Have 4 Or More Drinks At A Time? Never Information no t available 01/14/2024 # Alcohol Drinks Per Week 7 Information not available 01/14/2024 What Was The Date Of Your Most Recent Tobacco Screening? 05/19/2024 Information not available 05/19/2024 What Is Your Current Pack Years? 30ormorepack years Information not available 07/15/2023 What Is Your Relationship Status? Information not available 07/09/2023 Do You Use Your Seat Belt Or Car Seat Routinely? Yes Information not available 07/09/2023 Do You Have Smoke And Carbon Monoxide Detectors In Your Home? Yes Information not available 07/09/2023 At What Age Did You Start Smoking Tobacco? 17 Information not available 01/14/2024 How Much Tobacco Do You Smoke? 1 PPD Information not available 07/15/2023 Do You Feel Stressed (tense, Restless, Nervous, Or Anxious, Or Unable To Sleep At Night)? [id number] Information not available 07/09/2023 Do You Use Any Illicit Or Recreational Drugs? No Information not available 07/09/2023 Do You Use Sunscreen Routinely? Yes Information not available 01/14/2024 Has Tobacco Cessation Counseling Been Provided? Yes Information not available 07/15/2023 On What Date Was Tobacco Cessation Counseling Provided? 05/19/2024 Information not available 05/19/2024 How Many Years Have You Smoked Tobacco? 51 Information not available 01/14/2024 Do You Or Have You Ever Used Any Other Forms Of Tobacco Or Nicotine? No Information not available 07/09/2023 Sex: Female Functional Status Question Answer Note LastModified by Organizat ion Details LastModified Time Are you able to care for yourself? Yes Information not available 07/09/2023 What is your exercise level? Occasional active lifestyle Information not available 01/14/2024 Mental Status None recorded. Family History Relationship Description Onset Age of this Age Resolved Age Notes LastModified by Organization Details LastModified Time Father Alcohol abuse [email or web address] Not available 04/2023 10:09:37 Father Cerebrovascu lar accident [email or web address] Not available 0 07/09/2023 10:10:07 Sister Diabetes mellitus [email or web address] Not available 04/2023 10:09:46 Sister Disorder of thyroid gland [email or web address] Not available 04/2023 10:09:53 Medical History Condition Response Coronary Artery Disease N Other N High Blood Pressure N Atrial Fibrillation N Kidney or Bladder Problems N Thyroid Problems Y GI Problems N Depression N COPD Y Blood Clots N Have you had a mammogram in the last yea r? Y Skin Problems N Anemia N Heart Attack (AL) N Anxiety Disorder N Diabetes N Muscle, Joint, or Bone Problems N Seizures/Epilepsy N Have you had a colonoscopy in the last 1 0 years? Y Acid Reflux (GERD) N Cancer N Stroke N Asthma N Allergies N Have you had a PSA blood test in the las t year? N High Cholesterol Y Hepatitis N Liver Disease N Headaches N Heart Failure N Osteoporosis N Gynecological History Statement/Question Response If Post Menopausal, Age at Menopause 47 Obstetrics History GPAL:G 2 P 2 0 0 2 Type Value Full Term 2 Living 2 Total 2 Past Encounters Encounter ID Performer Location Encounter Start Date Encounter Closed Date Diagnosis/Indication Diagnosis SNOMED-CT Code Diagnosis ICD10 Code Diagnosis Note [id number] Cortez Tijerina MD [facility] [employer] [address] [place] [address] 07/09/2023 09:48:31 07/09/2023 11:00:49 Asthma 567209287 J45.909 Nicotine dependence 5629 4008 Z87.891 Essential hypertension 43892351 I10 Hyperlipidemia 43826626 E78.5 Hypothyroidism 43495424 E03.9 Abdominal aortic aneurysm screening 884648071 Z13.6 [id number] Cortez Tijerina MD [facility] [facility] [place] [address] [place] [address] 09/14/2023 14:28:49 09/14/2023 16:12:44 Standard chest X-ray abnormal 517075508 R93.89 Hyperlipidemia 51372207 E78.5 Hypothyroidism 37944507 E03.9 [id number] Cortez Tijerina MD [facility] [place] [address] [place] [address] 01/14/2024 09:53:03 01/14/2024 11:00:48 Adult health examination 063945453 Z00.00 Health Risk Assessment collected and reviewed Obesity 675411614 E66.9 Postmenopausal state 764 74525 Z78.0 [id number] Cortez Tijerina MD [facility] [place] [address] [place] [address] 05/19/2024 10:54:05 05/19/2024 12:32:32 Body mass index 30+ - obesity 668854315 Z68.33 Overweight 377903894 E66 .3 Acute hypo xemic respiratory failure 650200122 J96.01 Asthma 256192696 J45.90 9 Essential hypertension 09069596 I10 Health Concerns Section Related Observation LastModified by Organization Detai ls LastModified Time None Recorded Concern Status LastModified by Organization Details LastModified Time None Recorded Advance Directives Directive Y: Payers Encounter Date Sequence Insurance Name Policy Number Policy Gifford Covered Member ID Gifford Member ID Guarantor Name 07/09/2023 1 [place] Niru A Neunaber [id number] Dara Neunaber 07/09/2023 2 [employer] (MEDICARE SUPPLEMENT) Niru A Neunaber [id number] Dara Neunaber 09/14/2023 1 [place] Niru A Neunaber [id number] Dara Neunaber 09/14/2023 2 [employer] (MEDICARE SUPPLEMENT) Niru A Neunaber [id number] Dara Neunaber 01/14/2024 2 [employer] (MEDICARE SUPPLEMENT) Niru A Neunaber [id number] Dara Neunaber 01/14/2024 [place] - RHC - FQHC Niru Whitakeraber [id number] Niru Slater Neunaber 05/19/2024 1 [place] Niru Whitakeraber [id number] Niru Slater Neunaber 05/19/2024 2 [employer] (MEDICARE SUPPLEMENT) Niru Whitakeraber [id number] Niru Slater Neunaber Notes Date Note Type Note Provider Name and Address Organization Details Recorded Time 07/09/2023 text/html 67-year-old with nicotine dependence asthma hypertension hyperlipidemia hypothyroidism comes in for ongoing care continues to smoke her breathing's been fine hypertension no headache or dizziness dyslipidemia she does need some blood work done hypothyroid no heat or cold intolerance she has had problems with her back and seen pain management and she thinks that she may go back and use her chiropractic services for therapy Cortez Tijerina MD Attn: [address] [place], [address], [facility] 07/09/2023 22:04:17 09/14/2023 text/html hyperlipidemia taking the atorvastatin no side effects asthma occasional wheeze but nothing significant no hemoptysis. Hypothyroid no heat or cold intolerance Mckeon conduction studies were unremarkable numbness, chest x-ray showed pneumonia given Z-Jozef Cortez Tijerina MD Attn: [address] [place], [address], [facility] 10/11/2023 11:41:46 01/14/2024 text/html MAW 2Reported bypatient.Diet and Nutrition:healthy diet Fracture Risk:no sudden unexplained fractures;history of fractures Concentration and Memory:no decreased concentrating ability; no memory lapses or loss; does not forget words Speech/Motor difficulties:no speech difficulties; no difficulty expressing formulated concepts; no difficulty with fine manipulative tasks; no difficulty writing/copying; no slowed reaction time; does not knock things over when trying to pick them up Hearing:no loss of hearing Vision:worse near(glasses) Activities of Daily Living:able to bathe with limited or no assistance; able to contol urination and bowels; able to dress with limited or no assistance; able to feed self with limited or no assistance; able to get out of chair or bed with limited or no assistance; able to groom with limited or no assistance; able to toilet with limited or no assistance Instrumental Activities of Daily Living:able to do house work with limited or no assistance; able to grocery shop with limited or no assistance; able to manage medications with limited or no assistance; able to manage money with limited or no assistance; able to prepare meals with limited or no assistance; able to use the phone with limited or no assistance Falls Risk Assessment:no frequent falls while walking; no fall in the past year; no fall since last visit; no dizziness/vertigo Home Safety:no unsafe isaak hazzards; no unsafe stairs; working smoke/CO detectors; practicing 'safer sex'; no fire arms; good lighting in the home;does not have hand bars in the bathroom/shower Cortez Tijerina MD Attn: [address] [place], [address], [facility] 01/24/2024 18:19:24 05/19/2024 text/html admitted with ac geovanny hypoxic respiratory failure secondary to asthma exacerbation PCR for viral pathogens was negative. Slow improvement CTA negative for PE discharge been doing fine since then was hypertensive started on nifedipine XL 30 mg daily she still feels a little bit weak with the breathing is fine on ambient air Cortez Tijerina MD Attn: [address] [place], [address], [facility] 05/21/2024 22:51:25 OBGyn Episode No OBEpisode recorded.
--- OUTSIDE RECORDS SUMMARY | 2024-06-10 12:54 | XMS_ITS | Referral Summary ---
Author Organization [facility] [address] Address [address] [place] [address] Care Team Providers Care Chrome Plater Helper Name Role Phone Lenny Tijerina MD Primary Care Provider Joaquin Sosa DO Unavailable [phone] Allergies Active Allergy Reactions Criticality Noted Date Comments Lisinopril Rash Medium 01/29/2021 Penicillins Anaphylaxis High Medications levothyroxine (SYNTHROID) 88 mcg tablet Take 88 mcg by mouth licsw before breakfast Active timoloL (BETIMOL) 0.5 % ophthalmic solution 1 drop 2 (two) times a day Active aspirin 325 mg tablet Take 325 mg by mouth every 6 (six) hours as needed for pain Active vitamin D3-vitamin K2 1000-90 unit-mcg tablet,disintegr ating Take by mouth Active sy-oyx-Z-glutami [id number] 1,000-50 mg tablet, effervescent Take by mouth [...] on file Legal 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 Gender Identity Not on file Sexual Orientation Not on file Occupation Industry Job Start Date Job End Date Retired Not on file Not on file Not on file Last Filed Vital Signs Vital Sign Reading Time Taken Comments Blood Pressure 125/80 01/17/2022 3:03 PM [employer] PAPER COATING SUPERVISOR Pulse 89 01/17/2022 3:03 PM CARB[employer] P[employer]ER COATING SUPERVISOR Temperature 36.8 C (98.3 F) 01/17/2022 2:18 PM [employer] P[employer]ER [employer]ATING SUPERVISOR Respiratory Rate 18 01/17/2022 3:03 PM CARB[employer] PAPER COATING SUPERVISOR Oxygen Saturation 93% 01/17/2022 3:0 3 PM CARBON PAPER COATING SUPERVISOR Inhaled Oxygen Concentration - - Weight 87 kg (191 lb 12.8 oz) 2:18 PM CARBON PAPER COATING SUPERVISOR without shoes Height 161 cm (5' 3.39 ) 01/17/2022 2:1 8 PM CARB[employer] PAPER COATING SUPERVISOR Body Mass Index 33.56 01/17/2022 2:18 PM CARBON PAPER COATING SUPERVISOR Plan of Treatment Not on file Insurance MEDICARE [facility] CLAIMS OFFICE MEDICARE [facility] MEDICARE SUPPLEMENT Care Teams Chrome Plater Helper Relationship Specialty Start Date End Date Lenny Tijerina MD PCP - General Internal Medicine 12/04/20 Joaquin Sosa DO [address] [place] [address] MEDICAL ONCOLOGY, [address] [address] Medical Oncologist/Kick Plate Installer Hematology and Oncology 03/06/22
== END 2024-06-10 12:50 | disposition home or self-care (01) ==
LOC: ANHGOSHLAB 12:51
PROVIDERS: PCP Internal Medicine; Visit Provider Otolaryngology Otolaryngology/Facial Plastic Surgery
DX: K12.1 Other forms of stomatitis (principal)
CPT/HCPCS: 87070; 87075; 87102; 87205; 87206

== ENCOUNTER 2024-07-20 06:44 | Outpatient (CLI) | payer MEDICARE, SELFPAY ==
--- NOTE | ~2024-07-20 | MR_ITS ---
EXAMINATION: MR orbits face neck wo/w con DATE: 07/20/2024 07:48 INDICATION: Glossitis with mouth ulcer TECHNIQUE: Magnetic resonance imaging (MRI) of the face was performed without and with 17 mL ProHance intravenous contrast. Sequences included axial, sagittal and coronal T1-weighted FSE, axial and irvin nal fluid sensitive FSE STIR, axial and sagittal T1-weighted FS FSE and postcontrast axial, sagittal and coronal T1-weighted FS FSE. COMPARISON: None. FINDINGS: There is a region of enhancing soft tissue along the left lateral margin of the base of the tongue wh ich measures 2.6 cm AP, 1.2 cm medial to lateral and 2.0 cm craniocaudally. This can also be clearly appreciated on the T1-weighted images as loss of the T1 hyperintense intramuscular fat signal. No oth er abnormally enhancing lesions identified. No pathologically enlarged lymphadenopathy at the face or visualized neck. Bilateral parotid and submandibular glands are normal. Visualized portion of the br ain is unremarkable. There is mild mucosal thickening in the bilateral ethmoid, maxillary and frontal sinuses. Orbits are normal. Mild cervical spondylosis. IMPRESSION: 1. 2.6 x 2.0 x 1.2 cm enhancing soft tissue lesion at the left lateral base of the tongue which raise s concern for malignancy such as squamous cell carcinoma versus scarring related to chronic inflammat ion or reported biopsy. Reviewed, dictated and finalized at location A. IMPRESSION: 1. 2.6 x 2.0 x 1.2 cm enhancing soft tissue lesion at the left lateral base of the tongue which raises concern for malignancy such as squamous cell carcinoma versus scarring related to chronic inflammation or reported biopsy.
--- OUTSIDE RECORDS SUMMARY | 2024-07-20 06:48 | XMS_ITS | CONTINUITY OF CARE DOCUMENT ---
Author Name woody mckay Address Unknown Organization [facility] Address [address] [place] [address] Phone [phone] Care Team Providers Care Headrig Sawyer Name Role Phone Akash Camacho MD Unavailable CORTEZ URBINA MD Unavailable CORTEZ URBINA MD Unavailable [phone] INSURANCE PROVIDERS Payer name Policy type / Coverage type [place] [employer] party ID [employer] PPO O [id number] [place] MED[place] Medicare [id number]
--- OUTSIDE RECORDS SUMMARY | 2024-07-20 06:48 | XMS_ITS | Clinical Summary ---
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
--- OUTSIDE RECORDS SUMMARY | 2024-07-20 06:48 | XMS_ITS | Data Portability ---
Author Organization [place] [facility], Main Office Address [address] [place] [address] Care Team Providers Care Airport Duty Manager Name Role Phone CIARA CORTEZ Primary Care Provider Assessment Encounter Date Assessment Date Assessment LastModified by Organization Details LastModified Time 06/17/2022 06/17/2022 I have recommended cholesterol medication Tobacco cessation again recommended Continue current therapy See me in 4 months Not available 07/19/2022 23:19:09 01/08/2023 01/08/2023 Continue current therapy follow-up 6 months Not available 01/17/2023 15:50:27 Plan of Treatment Reminders Order Date Submit Date Provider Last Modified By Organization Details Last Modified Time Details Appointments None recorded . Lab T3, free, serum or plasma 023 01/09/20 23 Not available 4 18:42:33 T4, free, serum 023 01/09/20 23 [email or web address] Not available 4 18:42:33 TSH, serum or plasma 023 01/09/20 23 [email or web address] Not available 4 18:42:33 CBC w/ auto diff 023 01/09/20 23 Not available 4 18:42:34 lipid panel, serum 023 01/09/20 23 [email or web address] Not available 4 18:42:34 CMP, serum or plasma 023 01/09/20 23 Not available 4 18:42:34 Referral None recorded . Procedures None recorded . Surgeries None recorded . Imaging None recorded . Medication Orders None recorded . Patient TargetsNo targets recorded. Patient Instructions Encounter Date Encounter Id Patient Instructions Last Modified By Organization Details Last Modified Time 05/29/2022 [id number] we discussed rep eat biopsy but she strongly prefers to avoid. She will continue to work on her smoking. [email or web address] Not available 05/29/2022 11:36:30 06/17/2022 [id number] dementia rating scale-2* [email or web address] Not available 07/19/2022 23:19:34 alcohol misuse* [email or web address] Not available 07/19/2022 23:19:34 depression screening* [email or web address] Not available 07/19/2022 23:19:33 multi-dimensiona health assessment questionnaire* Not available 07/19/2022 23:19:[address] [facility] Plan and Screening Recommendations Advance Directives - [...] 4.6 mmol/ L 3.5-5. 1 Not Available [facility] (Lab) [address] [place], [address], 04/14/2022 11:18:24 04/14/19 23 04/14/2022 PLATE LET COUNT platelets 222 x10'3 /uL 150-40 0 Not Available [facility] (Lab) [address] [place], [address], 04/14/2022 11:02:00 04/14/19 23 04/14/2022 HEMOG LOBIN /REY TOCRI T hemoglobin 16.9 g/dL 12.0-1 5.6 high Not Available [facility] (Lab) [address] [place], [address], 04/14/2022 11:01:43 04/14/19 23 04/14/2022 HEMOG LOBIN /REY TOCRI T hematocrit 52.7 % 35.7-4 5.7 high Not Available [facility] (Lab) [address] [place], [address], 04/14/2022 11:01:43 07/03/19 23 07/02/2022 CBC/C OMPLE TE BLD COUNT W/DIF F white blood cells 6.8 x10'3 /uL 4.2-10 .8 Not Available [facility] (Lab) [address] [place], [address], 07/02/2022 18:52:00 07/03/19 23 07/02/2022 CBC/C OMPLE TE BLD COUNT W/DIF F red blood cells 4.99 x10'6 /uL 3.80-5 .20 Not Available [facility] (Lab) [address] [place], [address], 07/02/2022 18:52:00 07/03/19 23 07/02/2022 CBC/C OMPLE TE BLD COUNT W/DIF F hemoglobin 16.4 g/dL 12.0-1 5.6 high Not Available [facility] (Lab) [address] [place], [address], 07/02/2022 18:52:00 07/03/19 23 07/02/2022 CBC/C OMPLE TE BLD COUNT W/DIF F hematocrit 52.4 % 35.7-4 5.7 high Not Available [facility] (Lab) [address] [place], [address], 07/02/2022 18:52:00 07/03/19 23 07/02/2022 CBC/C OMPLE TE BLD COUNT W/DIF F mean red cell volume 105.0 fL 82.0-9 9.0 high Not Available [facility] (Lab) [address] [place], [address], 07/02/2022 18:52:00 07/03/1907/02/2022 CBC/C OMPLE TE BLD COUNT W/DIF F mean red cell hemoglobin 32.9 pg 27.0-3 3.0 Not Available [facility] (Lab) [address] [place], [address], 07/02/2022 18:52:00 07/03/19 23 07/02/2022 CBC/C OMPLE TE BLD COUNT W/DIF F mean RBC HGB concentratio n 31.3 g/dL 31.0-3 6.0 Not Available [facility] (Lab) [address] [place], [address], 07/02/2022 18:52:00 07/03/1907/02/2022 CBC/C OMPLE TE BLD COUNT W/DIF F red cell distribution width 15.3 % 11.8-1 5.5 Not Available [facility] (Lab) [address] [place], [address], 07/02/2022 18:52:00 07/03/1907/02/2022 CBC/C OMPLE TE BLD COUNT W/DIF F platelets 241 x10'3 /uL 150-40 0 Not Available [facility] (Lab) [address] [place], [address], 07/02/2022 18:52:00 07/03/1907/02/2022 CBC/C OMPLE TE BLD COUNT W/DIF F mean platelet volume 11.1 fL 9.0-12 .4 Not Available [facility] (Lab) [address] [place], [address], 07/02/2022 18:52:00 07/03/1907/02/2022 CBC/C OMPLE TE BLD COUNT W/DIF F neutrophils 56.0 % 39.0-7 2.0 Not Available [facility] (Lab) [address] [place], [address], 07/02/2022 18:52:00 07/03/1907/02/2022 CBC/C OMPLE TE BLD COUNT W/DIF F lymphocytes 32.7 % 16.0-4 7.0 Not Available [facility] (Lab) [address] [place], [address], 07/02/2022 18:52:00 07/03/19 23 07/02/2022 CBC/C OMPLE TE BLD COUNT W/DIF F monocytes 7.3 % 5.0-12 .0 Not Available [facility] (Lab) [address] [place], [address], 07/02/2022 18:52:00 07/03/1907/02/2022 CBC/C OMPLE TE BLD COUNT W/DIF F eosinophils 3.4 % 1.0-7. 0 Not Available [facility] (Lab) [address] [place], [address], 07/02/2022 18:52:00 07/03/1907/02/2022 CBC/C OMPLE TE BLD COUNT W/DIF F basophils 0.3 % 0.0-2. 0 Not Available [facility] (Lab) [address] [place], [address], 07/02/2022 18:52:00 07/03/1907/02/2022 CBC/C OMPLE TE BLD COUNT W/DIF F immature granulocytes 0.3 % 0.00-0 .50 Not Available [facility] (Lab) [address] [place], [address], 07/02/2022 18:52:00 07/03/1907/02/2022 CBC/C OMPLE TE BLD COUNT W/DIF F neutrophils, absolute count 3.83 x10'3 /uL 1.5-8. 0 Not Available [facility] (Lab) [address] [place], [address], 07/02/2022 18:52:00 07/03/1907/02/2022 CBC/C OMPLE TE BLD COUNT W/DIF F lymphocytes, absolute count 2.24 x10'3 /uL 1.07-3 .43 Not Available [facility] (Lab) [address] [place], [address], 07/02/2022 18:52:00 07/03/1907/02/2022 CBC/C OMPLE TE BLD COUNT W/DIF F monocytes, absolute count 0.50 x10'3 /uL 0.29-0 .99 Not Available [facility] (Lab) [address] [place], [address], 07/02/2022 18:52:00 07/03/1907/02/2022 CBC/C OMPLE TE BLD COUNT W/DIF F eosinophils, absolute count 0.23 x10'3 /uL 0.02-0 .53 Not Available [facility] (Lab) [address] [place], [address], 07/02/2022 18:52:00 07/03/1907/02/2022 CBC/C OMPLE TE BLD COUNT W/DIF F basophils, absolute count 0.02 x10'3 /uL 0.01-0 .08 Not Available [facility] (Lab) [address] [place], [address], 07/02/2022 18:52:00 07/03/19 23 07/02/2022 CBC/C OMPLE TE BLD COUNT W/DIF F immature granulocytes ,absolute 0.02 x10'3 /uL 0.00-0 .05 Not Available [facility] (Lab) [address] [place], [address], 07/02/2022 18:52:00 07/03/1907/02/2022 CBC/C OMPLE TE BLD COUNT W/DIF F nucleated red blood cells 0.0 % -0 Not Available [facility] (Lab) [address] [place], [address], 07/02/2022 18:52:00 07/03/1907/02/2022 CBC/C OMPLE TE BLD COUNT W/DIF F NRBC# 0.00 x10'3 /uL Not Available [facility] (Lab) [address] [place], [address], 07/02/2022 18:52:00 07/03/1907/02/2022 COMPR EHENS JAYA METAB OLIC PANEL sodium 138 mmol/ L 137-14 5 Not Available [facility] (Lab) [address] [place], [address], 07/02/2022 19:19:54 07/03/19 23 07/02/2022 COMPR EHENS JAYA METAB OLIC PANEL potassium 4.5 mmol/ L 3.5-5. 1 Not Available [facility] (Lab) [address] [place], [address], 07/02/2022 19:19:54 07/03/19 23 07/02/2022 COMPR EHENS JAYA METAB OLIC PANEL chloride 103 mmol/ L 98-107 Not Available [facility] (Lab) [address] [place], [address], 07/02/2022 19:19:54 07/03/19 23 07/02/2022 COMPR EHENS JAYA METAB OLIC PANEL carbon dioxide 27 mmol/ L 22-30 Not Available [facility] (Lab) [address] [place], [address], 07/02/2022 19:19:54 07/03/19 23 07/02/2022 COMPR EHENS JAYA METAB OLIC PANEL anion gap 12.5 mmol/ L 14-22 low Not Available [facility] (Lab) [address] [place], [address], 07/02/2022 19:19:54 07/03/19 23 07/02/2022 COMPR EHENS JAYA METAB OLIC PANEL glucose 99 mg/dL 70-99 Not Available [facility] (Lab) [address] [place], [address], 07/02/2022 19:19:54 07/03/19 23 07/02/2022 COMPR EHENS JAYA METAB OLIC PANEL BUN 16 mg/dL 8-19 Not Available [facility] (Lab) [address] [place], [address], 07/02/2022 19:19:54 07/03/19 23 07/02/2022 COMPR EHENS JAYA METAB OLIC PANEL creatinine 0.64 mg/dL 0.66-1 .25 low Not Available [facility] (Lab) [address] [place], [address], 07/02/2022 19:19:54 07/03/19 23 07/02/2022 COMPR EHENS JAYA METAB OLIC PANEL GFR >60 Refer ence Range : Sells ge GFR Healt hy Adult : >60 [...] or ethni c subgr oups, such as Hisma nics. Outsi de the valid ated celine [...] calcu lator is avail able on the F websi te: https ://ww w.kid herminia.o rg/pr ofess ional s/kdo qi/gf r_cal culat or Not Available [facility] (Lab) [address] [place], [address], 07/02/2022 19:19:54 07/03/19 23 07/02/2022 COMPR EHENS JYAA METAB OLIC PANEL alkaline phosphatase 95 U/L 38-126 Not Available [facility] (Lab) [address] [place], [address], 07/02/2022 19:19:54 07/03/19 23 07/02/2022 COMPR EHENS JAYA METAB OLIC PANEL alanine aminotransfe rase 51 U/L 0-35 high Not Available [facility] (Lab) [address] [place], [address], 07/02/2022 19:19:54 07/03/19 23 07/02/2022 COMPR EHENS JAYA METAB OLIC PANEL aspartate aminotransfe rase 57 U/L 15-37 high Not Available [facility] (Lab) [address] [place], [address], 07/02/2022 19:19:54 07/03/19 23 07/02/2022 COMPR EHENS JAYA METAB OLIC PANEL bilirubin, total 0.50 mg/dL 0.20-1 .30 Not Available [facility] (Lab) [address] [place], [address], 07/02/2022 19:19:54 07/03/19 23 07/02/2022 COMPR EHENS JAYA METAB OLIC PANEL calcium 9.4 mg/dL 8.4-10 .2 Not Available [facility] (Lab) [address] [place], [address], 07/02/2022 19:19:54 07/03/19 23 07/02/2022 COMPR EHENS JAYA METAB OLIC PANEL total protein 7.2 g/dL 6.3-8. 2 Not Available [facility] (Lab) [address] [place], [address], 07/02/2022 19:19:54 07/03/19 23 07/02/2022 COMPR EHENS JAYA METAB OLIC PANEL albumin 4.5 g/dL 3.0-4. 4 high Not Available [facility] (Lab) [address] [place], [address], 07/02/2022 19:19:54 07/03/19 23 07/02/2022 COMPR EHENS JAYA METAB OLIC PANEL globulin 2.7 g/dL 2.6-4. 2 Not Available [facility] (Lab) [address] [place], [address], 07/02/2022 19:19:54 07/03/19 23 07/02/2022 COMPR EHENS JAYA METAB OLIC PANEL A/G ratio 1.7 ratio 1.0-2. 0 Not Available [facility] (Lab) [address] [place], [address], 07/02/2022 19:19:54 07/03/19 23 07/02/2022 T3 FREE free T3 3.3 pg/mL 2.77-5 .27 Not Available [facility] (Lab) [address] [place], [address], 07/02/2022 19:37:56 07/03/19 23 07/02/2022 T4 FREE free T4 1.38 NG/dL 0.78-2 .19 Not Available [facility] (Lab) [address] [place], [address], 07/02/2022 19:37:58 07/03/1907/02/2022 TSH thyroid-stim ulating hormone 1.010 uIU/m L 0.465- 4.680 Not Available [facility] (Lab) [address] [place], [address], 07/02/2022 20:00:55 07/03/1907/02/2022 VITAM IN B12 (ANABEL EDUARDA ) vb12 338 pg/mL 239-93 1 Not Available [facility] (Lab) [address] [place], [address], 07/02/2022 21:14:20 07/03/19 23 07/02/2022 FOLAT E, SERUM /PLAS MA folate 5.34 NG/mL 2.76-2 0.0 Not Available [facility] (Lab) [address] [place], [address], 07/02/2022 21:14:25 09/30/19 24 09/28/2023 US, aorta No observ ation record ed. [email or web address] [facility] [address], [place], [address], 11/19/2023 11:15:10 10/15/19 24 10/14/2023 US, renal No observ ation record ed. [email or web address] [facility] [address], [place], [address], 11/19/2023 11:15:29 Result Notes None recorded. Problems Name Problem SNOMED Code Status Onset Date Resolution Date Notes Provider Name and Address Organization Details Recorded Time Tobacco user 285560909 Active Not Available [facility] 4 23:03:22 Erythrocy tosis 246061802 Active 2021 Not Available [facility] 4 23:03:22 Backache 140641998 Completed Not Available [facility] 3 04:54:42 Pain in throat 619238097 Active 2021 Not Available [facility] 4 23:03:22 Serum vitamin B12 below reference range 569440062 Active 2020 Not Available [facility] 4 23:03:22 Asthma 088183977 Active Not Available [facility] 4 23:03:22 Postopera tive pain 144042777 Active 2022 Not Available [facility] 4 23:03:22 Discitis 5449835 Active [facility] Available [facility] 4 23:03:22 Pure hyperchol esterolem ia 496277783 Active Not Available [facility] 4 23:03:22 Low back pain 006845957 Active Not Available [facility] 4 23:03:22 Lesion of tongue 912578248 Active 2021 Not Available [facility] 4 23:03:22 Otitis externa 8175214 Active 2021 Not Available [facility] 4 23:03:22 Pain of right hip joint 69022982818 9102 Active Not Available [facility] 4 23:03:22 Vitamin D deficienc y 32247124 Active Not Available [facility] 4 23:03:23 Hypothyro idism 43494889 Active Not Available [facility] 4 23:03:23 Herniatio n of rectum into vagina 460732070 Active Not Available [facility] 4 23:03:23 Hyperlipi demia 02799731 Active 2016 Not Available [facility] 4 23:03:23 Essential hypertens ion 31670467 Active 2020 Not Available [facility] 4 23:03:23 Vitamin B12 deficienc y (non anemic) 37133236 Active 2021 Not Available [facility] 4 23:03:23 Neck pain 67996997 Active Not Available [facility] 4 23:03:23 Problem Notes None recorded. Procedures Surgical History Date Name Laterality Status Provider Name and Address Organization Details Recorded Time 06/18/19 Medicare Wellness CPT Code, subsequent completed Corinne Mcfarland RN [place] [facility] [employer] [facility] 06/17/2022 10:57:55 10/04/19 20 Most Recent Mammogram completed Not Available [facility] 05/07/2022 04:45:09 09/22/19 20 Date of Last Pap Smear completed Not Available [facility] 05/07/2022 04:45:09 05/19/19 20 Most Recent Bone Density completed Not Available [facility] 05/07/2022 04:45:09 laminectomy completed Not Available [facility] 05/07/2022 04:45:13 Orthopedic Surgery completed Not Available [facility] 05/07/2022 04:45:13 Cataract Surgery completed Not Available [facility] 05/07/2022 04:45:13 Removal of ovarian cyst(s) completed Not Available [facility] 05/07/2022 04:45:13 thyroidectomy completed Not Available [facility] 05/07/2022 04:45:13 Imaging Results Imaging Date Name Status LastModified by Organiz ation Details LastModified Time 09/28/2023 US, aorta completed [facility] [address], [place], [address], 11/19/2023 11:15:10 10/14/2023 US, renal completed [facility] [address], [place], [address], 11/19/2023 11:15:29 Procedure Notes None recorded. Medical Equipment None Reported. Allergies Allergen ID Allergen Name Allergen Category Reaction Reaction Severity Criticality Documentation Date Start Date Code Code System Note Provider Name and Address Organization Details Recorded Time 8328 Product containin g penicilli n (product) medicatio n anaphylax is severe Not available 05/07/2022 35613 8001 SNOMED Not Available [facility] 3 05:04:43 8329 lisinopri l medicatio n rash Not available Not available 05/07/20222020 45264 RxNorm Not Available [facility] 3 05:04:43 Medications Name Sig Start Date Stop Date Status Note LastModified by Organization Details LastModified Time nifedipin e ER 30 mg tablet,ex tended release 24 hr active Not Available Not Available Not Available cyclobenz aprine 10 mg tablet Take 1 [...] it. Not Available Not Available Not Available atorvasta tin 10 mg tablet TAKE 1 TABLET BY MOUTH EVERY DAY active Not Available Not Available No t Available azithromy caren 250 mg tablet TAKE 2 TABLETS BY MOUTH TODAY, THEN TAKE 1 TABLET DAILY FOR 4 DAYS DIRECTED active Not Available Not Available No t Available aspirin 325 mg tablet Take 1 tablet every day by oral route. 2020 active Not Available Not Available Not Avai lable prednison e 20 mg tablet Take 2 tablets every day by oral route for 5 days. 02/07 completed Not Available Not Available Not Available Synthroid 100 mcg tablet one tablet daily 03/15 completed Not Available Not Available Not Available Navid Low Dose Aspirin 81 mg [...] completed Not Available Not Available Not Available ciproflox acin 0.3 % eye drops INSTILL 1 DROP INTO THE AFFECTED EYE(S) FOUR TIMES A DAY DIRECTED active Not Available Not Available No t Available hydrocodo ne 7.5 mg-acetam inophen 325 [...] Not Available Not Available No t Available losartan 25 mg tablet TAKE 1 TABLET [...] DAY FOR A TOTAL OF 6 DAYS active Not Available Not Available No t Available albuterol sulfate HFA 90 mcg/actua tion aerosol inhaler TAKE 2 PUFFS BY MOUTH EVERY 4 HOURS active Not Available Not Available No t Available Vitamin D2 1,250 mcg (50,000 unit) capsule Take 1 capsule every week by oral route. active Not Available Not Available No t Available timolol maleate 0.5 % eye drops INSTILL 1 DROP INTO BOTH EYES TWICE A DAY active Not Available Not Available No t Available doxycycli ne hyclate 100 mg tablet TAKE 1 TABLET BY MOUTH TWICE A DAY FOR 7 DAYS active Not [...] completed Not Available Not Available Not Available fluticaso ne propionat e 230 mcg-salme terol 21 mcg/actua tion HFA inhaler INHALE 2 PUFFS BY MOUTH TWICE A DAY active Not Available Not Available No t Available Travatan Z 0.004 % eye drops active Not Available Not Available No t Available Durezol 0.05 % eye drops 06/22 completed Not Available Not Available Not Available OptiChamb er Belinda [facility] spacer USE WITH INHALER NEEDED active Not Available Not Available No t Available Ilevro 0.3 % eye drops,berto pension 06/22 completed Not Available Not Available Not Available Lotemax 0.5 % eye gel drops 01/24 completed Not Available Not Available Not Available Lumify 0.025 % eye drops 2021 active Not Available Not Available Not Avai lable Vitals Date Recorded Body mass index (BMI) Body height Body temperature Body weight Provider Name and Address Organization Details Last Updated DateTime 03/25/2022 32.6 kg/m2 162.56 cm 97.8 [degF] 18623.55 g Not Available [facility] 05/07/2022 04:51:22 Date Recorded Body mass index (BMI) Body height Body temperature Body weight Provider Name and Address Organization Details Last Updated DateTime 04/24/2022 32.8 kg/m2 162.56 cm 97.9 [degF] 76073.14 g Not Available [facility] 05/07/2022 04:51:22 [id number]|2024-07-20 06:48:00|2024-07-20 06:48:00|XMS_ITS|[place] TIPTON|External Medical Summaries|[id number]|" Encounter Summary Created on: July 20, 2024 Niru Patterson : 1955 Sex: Female Author Organization [employer] Address [address] [place] [address] Care Team Providers Care Airport Duty Manager Name Role Phone Unavailable Primary Care Provider Unavailabl e Encounter Details Date Type Department Care Team (Latest Contact Info) Description 12/24/2004 Outpatient Historical [facility] Donnie Smallwood MD [address] [facility] [id number] [place] [id number] BENIGN NEOPLASM THYROID (Primary Dx) Social History Tobacco Use Types Packs/Day Years Used Date Smoking Tobacco: Never Assessed Comments Unknown Sex and Gender Information Value Date Recorded Sex Assigned at Not on file 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
--- OUTSIDE RECORDS SUMMARY | 2024-07-20 06:48 | XMS_ITS | Encounter Summary ---
Author Organization [employer] Address [address] [place] [address] Care Team Providers Care Television Maintenance Worker Name Role Phone Unavailable Primary Care Provider Unavailabl e Encounter Details Date Type Department Care Team (Late st Contact Info) Description 12/11/2004 Outpatient Historical [facility] [address] 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
--- OUTSIDE RECORDS SUMMARY | 2024-07-20 06:49 | XMS_ITS | Data Portability ---
Author Organization [facility] Address [address] [place] [address] Care Team Providers Care Marble Setter Name Role Phone TIJERINA CORTEZ Primary Care Provider Assessment Encounter Date Assessment Date Assessment LastModified by Organization Details LastModified Time 07/09/2023 07/09/2023 Obtain old records continue current therapy LDCT chest abdominal aortic aneurysm screening blood work tobacco cessation discussed she is not ready for plan yet see me back in 4 months [email or web address] Not available 07/09/2023 22:03:59 09/14/2023 09/14/2023 CT chest with contrast see me in 5 weeks. Low-fat diet. Continue meds for hypothyroidism . Smoking cessation again recommended. [email or web address] Not available 10/11/2023 11:41:28 01/14/2024 01/14/2024 health assessments and screenings discussed ordered were appropriate and patient agreeable she will keep her regular follow up all questions answered [email or web address] Not available 01/24/2024 18:19:09 05/19/2024 05/19/2024 continue with nifedipine she is done with her steroids continue with her inhalers I believe she has a pulmonary follow up she will see me back in 1 month and she has had a mouth lesion we will have ENT take a look at it Not available 05/21/2024 22:51:06 06/30/2024 06/30/2024 Needs to quit smoking low-fat diet follow up ENT they may need to do another biopsy she says follow up in 1 month [email or web address] Not available 07/02/2024 16:33:50 Plan of Treatment Reminders Order Date Submit Date Provider Last Modified By Organization Details Last Modified Time Details Appointments ANY 15 2024 01:30P Pura Tijerina MD Not available Not available Not available Lab CMP, serum or plasma 2023 024 [email or web address] [facility], [address] [place] [address] 2, [place], [address], 05/12/2024 23:22:57 lipid panel, serum 2023 024 DEWY ROSE [facility], [address] [place] [address] 2, [place], [address], 08/12/2023 15:50:56 CBC w/ auto diff 2023 024 [email or web address] [facility], [address] [place] [address], [place], [address], 05/12/2024 23:22:57 T4, free, serum 2023 024 DEWY ROSE [facility], [address] [place] [address] 2, [place], [address], 08/12/2023 15:50:57 TSH, ultra-sen sitive, serum 2023 024 DEWY ROSE [facility], [address] [place] [address], [place], [address], 08/12/2023 15:50:57 T3, free, serum or plasma 2023 024 DEWY ROSE [facility], [address] [place] [address], [place], [address], 08/12/2023 15:50:57 Referral None recorded. Procedures None recorded. Surgeries None recorded. Imaging bone density 2023 024 [facility], [address], [place], [address], 03/22/2024 03:39:20 CT, chest, w/ contrast 2023 024 [facility], [address], [place], [address], 09/30/2023 10:37:18 LDCT, chest, for lung cancer screening 2023 024 [facility]), [address], [place], [address], 07/10/2023 09:14:38 US, abdominal aorta 2023 024 [facility], [address], [place], [address], 09/29/2023 09:24:09 Medication Orders None recorded. Patient TargetsNo targets recorded. Patient Instructions Encounter Date Encounter Id Patient Instructions Last Modified By Organization Details Last Modified Time 01/14/2024 [id number] A healthy lifestyle: care instructions [email or web address] Not available 01/14/2024 21:36:39 Quitting Tobacco : Care Instructions [email or web address] Not available 01/14/2024 21:36:39 Medicare [facility] Preventive Checklist [email or web address] Not available 01/14/2024 21:36:39 05/19/2024 [id number] A healthy lifestyle: care instructions [email or web address] Not available 05/19/2024 13:27:16 06/30/2024 [id number] A healthy lifestyle: care instructions [email or web address] Not available 06/30/2024 21:34:17 Reason for Referral None Reported. Results Created Date Observation Date Name Description Value Unit Range Abnormal Flag Note LastModifiedBy Organization Detail LastModifiedTime 08/11/1908/12/2023 LIPID PANEL cholesterol, total 221 mg/dL 100-19 9 above high normal Not Available [facility] ([facility]) [address] [place], [address], 08/12/2023 10:14:44 08/11/19 24 08/12/2023 LIPID PANEL triglyceride s 382 mg/dL 0-149 above high normal Not Available [facility] ([facility]) [address] [place], [address], 08/12/2023 10:14:44 08/11/19 24 08/12/2023 LIPID PANEL HDL cholesterol 29 mg/dL >39 below low normal Not Available [facility] ([facility]) [address] [place], [address], 08/12/2023 10:14:44 08/11/19 24 08/12/2023 LIPID PANEL VLDL cholesterol emily 68 mg/dL 5-40 above high normal Not Available [facility] ([facility]) [address] [place], [address], 08/12/2023 10:14:44 08/11/19 24 08/12/2023 LIPID PANEL LDL chol calc ([facility]) 124 mg/dL 0-99 above high normal Not Available [facility] ([facility]) [address] [place], [address], 08/12/2023 10:14:44 08/11/19 24 08/12/2023 COMP. METAB OLIC PANEL (14) glucose 88 mg/dL 70-99 Not Available [facility] ([facility]) [address] [place], [address], 08/12/2023 10:14:45 08/11/19 24 08/12/2023 COMP. METAB OLIC PANEL (14) BUN 8 mg/dL 8-27 Not Available [facility] ([facility]) [address] [place], [address], 08/12/2023 10:14:45 08/11/19 24 08/12/2023 COMP. METAB OLIC PANEL (14) creatinine 0.53 mg/dL 0.57-1 .00 below low normal Not Available [facility] ([facility]) [address] [place], [address], 08/12/2023 10:14:45 08/11/19 24 08/12/2023 COMP. METAB OLIC PANEL (14) eGFR 101 mL/mi n/1.7 3 >59 Not Available [facility] ([facility]) [address] [facility] [place], [address], 08/12/2023 10:14:45 08/11/19 24 08/12/2023 COMP. METAB OLIC PANEL (14) BUN/creatini ne ratio 15 12-28 Not Available [facility] ([facility]) [address] [facility] [place], [address], 08/12/2023 10:14:45 08/11/19 24 08/12/2023 COMP. METAB OLIC PANEL (14) sodium 142 mmol/ L 134-14 4 Not Available [facility] ([facility]) [address] [facility] [place], [address], 08/12/2023 10:14:45 08/11/19 24 08/12/2023 COMP. METAB OLIC PANEL (14) potassium 4.7 mmol/ L 3.5-5. 2 Not Available [facility] ([facility]) [address] [facility], [place], [address], 08/12/2023 10:14:45 08/11/19 24 08/12/2023 COMP. METAB OLIC PANEL (14) chloride 103 mmol/ L 96-106 Not Available [facility] ([facility]) [address] [facility] [place], [address], 08/12/2023 10:14:45 08/11/19 24 08/12/2023 COMP. METAB OLIC PANEL (14) carbon dioxide, total 20 mmol/ L 20-29 Not Available [facility] ([facility]) [address] [facility] [place], [address], 08/12/2023 10:14:45 08/11/19 24 08/12/2023 COMP. METAB OLIC PANEL (14) calcium 9.5 mg/dL 8.7-10 .3 Not Available [facility] ([facility]) [address] [place], [address], 08/12/2023 10:14:45 08/11/19 24 08/12/2023 COMP. METAB OLIC PANEL (14) protein, total 6.6 g/dL 6.0-8. 5 Not Available [facility] ([facility]) [address] [place], [address], 08/12/2023 10:14:45 08/11/19 24 08/12/2023 COMP. METAB OLIC PANEL (14) albumin 4.1 g/dL 3.9-4. 9 Not Available [facility] ([facility]) [address] [place], [address], 08/12/2023 10:14:45 08/11/19 24 08/12/2023 COMP. METAB OLIC PANEL (14) globulin, total 2.5 g/dL 1.5-4. 5 Not Available [facility] ([facility]) [address] [facility] [place], [address], 08/12/2023 10:14:45 08/11/19 24 08/12/2023 COMP. METAB OLIC PANEL (14) A/G ratio 1.6 1.2-2. 2 Not Available [facility] ([facility]) [address] [facility] [place], [address], 08/12/2023 10:14:45 08/11/19 24 08/12/2023 COMP. METAB OLIC PANEL (14) bilirubin, total 0.4 mg/dL 0.0-1. 2 Not Available [facility] ([facility]) [address] [facility] [place], [address], 08/12/2023 10:14:45 08/11/19 24 08/12/2023 COMP. METAB OLIC PANEL (14) alkaline phosphatase 125 IU/L 44-121 above high normal Not Available [facility] ([facility]) [address] [facility] [place], [address], 08/12/2023 10:14:45 08/11/19 24 08/12/2023 COMP. METAB OLIC PANEL (14) AST (SGOT) 42 IU/L 0-40 above high normal Not Available [facility] ([facility]) [address] [facility], [place], [address], 08/12/2023 10:14:45 08/11/19 24 08/12/2023 COMP. METAB OLIC PANEL (14) ALT (SGPT) 33 IU/L 0-32 above high normal Not Available [facility] ([facility]) [address] [facility], [place], [address], 08/12/2023 10:14:45 08/11/19 24 08/12/2023 TSH TSH 0.515 uIU/m L 0.450- 4.500 Not Available [facility] ([facility]) [address] [place], [address], 08/12/2023 10:14:45 08/11/19 24 08/12/2023 CBC WITH DIFFE RENTI AL/PL ATELE T WBC 6.1 x10e3 /uL 3.4-10 .8 Not Available [facility] ([facility]) [address] [place], [address], 08/12/2023 10:14:46 08/11/19 24 08/12/2023 CBC WITH DIFFE RENTI AL/PL ATELE T RBC 4.97 x10e6 /uL 3.77-5 .28 Not Available [facility] ([facility]) [address] [place], [address], 08/12/2023 10:14:46 08/11/19 24 08/12/2023 CBC WITH DIFFE RENTI AL/PL ATELE T hemoglobin 16.2 g/dL 11.1-1 5.9 above high normal Not Available [facility] ([facility]) [address] [place], [address], 08/12/2023 10:14:46 08/11/19 24 08/12/2023 CBC WITH DIFFE RENTI AL/PL ATELE T hematocrit 49.2 % 34.0-4 6.6 above high normal Not Available [facility] ([facility]) [address] [facility], [place], [address], 08/12/2023 10:14:46 08/11/19 24 08/12/2023 CBC WITH DIFFE RENTI AL/PL ATELE T MCV 99 fL 79-97 above high normal Not Available [facility] ([facility]) [address] [facility], [place], [address], 08/12/2023 10:14:46 08/11/19 24 08/12/2023 CBC WITH DIFFE RENTI AL/PL ATELE T MCH 32.6 pg 26.6-3 3.0 Not Available [facility] ([facility]) [address] [facility], [place], [address], 08/12/2023 10:14:46 08/11/19 24 08/12/2023 CBC WITH DIFFE RENTI AL/PL ATELE T MCHC 32.9 g/dL 31.5-3 5.7 Not Available [facility] ([facility]) [address] [facility], [place], [address], 08/12/2023 10:14:46 08/11/19 24 08/12/2023 CBC WITH DIFFE RENTI AL/PL ATELE T RDW 13.1 % 11.7-1 5.4 Not Available [facility] ([facility]) [address] [facility], [place], [address], 08/12/2023 10:14:46 08/11/19 24 08/12/2023 CBC WITH DIFFE RENTI AL/PL ATELE T platelets 282 x10e3 /uL 150-45 0 Not Available [facility] ([facility]) [address] [facility], [place], [address], 08/12/2023 10:14:46 08/11/19 24 08/12/2023 CBC WITH DIFFE RENTI AL/PL ATELE T neutrophils 56 % notest ab. Not Available [facility] ([facility]) [address] [facility], [place], [address], 08/12/2023 10:14:46 08/11/19 24 08/12/2023 CBC WITH DIFFE RENTI AL/PL ATELE T lymphs 34 % notest ab. Not Available [facility] ([facility]) [address] [facility], [place], [address], 08/12/2023 10:14:46 08/11/19 24 08/12/2023 CBC WITH DIFFE RENTI AL/PL ATELE T monocytes 6 % notest ab. Not Available [facility] ([facility]) [address] [facility], [place], [address], 08/12/2023 10:14:46 08/11/19 24 08/12/2023 CBC WITH DIFFE RENTI AL/PL ATELE T eos 3 % notest ab. Not Available [facility] ([facility]) [address] [facility], [place], [address], 08/12/2023 10:14:46 08/11/19 24 08/12/2023 CBC WITH DIFFE RENTI AL/PL ATELE T basos 1 % notest ab. Not Available [facility] ([facility]) [address] [facility], [place], [address], 08/12/2023 10:14:46 08/11/19 24 08/12/2023 CBC WITH DIFFE RENTI AL/PL ATELE T neutrophils (absolute) 3.4 x10e3 /uL 1.4-7. 0 Not Available [facility] ([facility]) [address] [facility], [place], [address], 08/12/2023 10:14:46 08/11/19 24 08/12/2023 CBC WITH DIFFE RENTI AL/PL ATELE T lymphs (absolute) 2.1 x10e3 /uL 0.7-3. 1 Not Available [facility] ([facility]) [address] [facility], [place], [address], 08/12/2023 10:14:46 08/11/19 24 08/12/2023 CBC WITH DIFFE RENTI AL/PL ATELE T monocytes(ab solute) 0.4 x10e3 /uL 0.1-0. 9 Not Available [facility] ([facility]) [address] [facility], [place], [address], 08/12/2023 10:14:46 08/11/19 24 08/12/2023 CBC WITH DIFFE RENTI AL/PL ATELE T eos (absolute) 0.2 x10e3 /uL 0.0-0. 4 Not Available [facility] ([facility]) [address] [facility], [place], [address], 08/12/2023 10:14:46 08/11/19 24 08/12/2023 CBC WITH DIFFE RENTI AL/PL ATELE T baso (absolute) 0.0 x10e3 /uL 0.0-0. 2 Not Available [facility] ([facility]) [address] [facility], [place], [address], 08/12/2023 10:14:46 08/11/19 24 08/12/2023 CBC WITH DIFFE RENTI AL/PL ATELE T immature granulocytes 0 % notest ab. Not Available [facility] ([facility]) [address] [facility], [place], [address], 08/12/2023 10:14:46 08/11/19 24 08/12/2023 CBC WITH DIFFE RENTI AL/PL ATELE T immature grans (abs) 0.0 x10e3 /uL 0.0-0. 1 Not Available [facility] ([facility]) [address] [place], [address], 08/12/2023 10:14:46 08/11/19 24 08/12/2023 TRIIO DOTHY CHAYO E (T3), FREE triiodothyro nine (T3), free 2.7 pg/mL 2.0-4. 4 Not Available [facility] ([facility]) [address] [facility], [place], [address], 08/12/2023 10:14:46 08/11/19 24 08/12/2023 T4,FR EE(DI RECT) T4,free(dire ct) 1.42 NG/dL 0.82-1 .77 Not Available [facility] ([facility]) [address] [facility], [place], [address], 08/12/2023 10:14:46 09/08/19 24 09/08/2023 XR, chest , 2 view No observ ation record ed. [address], [place], [address], 09/11/2023 16:22:27 09/09/19 24 09/08/2023 nerve condu ction study /EMG, upper extre mity (PROC ) No observ ation record ed. [address], [place], [address], 09/11/2023 16:22:10 09/29/19 24 09/28/2023 US, abdom inal aorta No observ ation record ed. [facility] [address], [place], [address], 10/08/2023 11:04:13 09/30/19 24 09/28/2023 US, abdom inal aorta No observ ation record ed. [facility] [address], [place], [address], 10/08/2023 11:04:14 09/30/19 24 09/28/2023 CT, chest , w/ contr ast No observ ation record ed. [facility] [address], [place], [address], 10/08/2023 11:04:14 10/14/19 24 10/14/2023 US, kidne y No observ ation record ed. [facility] [address], [place], [address], 10/21/2023 15:17:15 10/15/19 24 10/14/2023 CT, chest , w/ contr ast No observ ation record ed. [facility] [address], [place], [address], 10/21/2023 15:17:16 12/16/19 24 12/16/2023 XR, chest , 2 view No observ ation record ed. [address] [facility], [place], [address], 12/16/2023 20:40:36 12/16/19 24 12/16/2023 PFT, compl ete No observ ation record ed. [address], [place], [address], 12/17/2023 09:59:51 12/16/19 24 12/16/2023 six minut e walk test* No observ ation record ed. [address], [place], [address], 12/17/2023 10:03:52 03/21/19 25 03/21/2024 bone densi ty No observ ation record ed. [address], [place], [address], 03/23/2024 11:35:02 03/21/19 25 03/21/2024 bone densi ty No observ ation record ed. [address], [place], [address], 03/23/2024 11:35:03 05/09/19 25 05/08/2024 XR, chest , 2 view No observ ation record ed. [address], [place], [address], 05/25/2024 16:59:02 05/09/19 25 05/08/2024 CT, chest , w/o contr ast No observ ation record ed. [address], [place], [address], 05/25/2024 16:59:02 05/11/19 25 05/09/2024 US, doppl er echoc ardio gram No observ ation record ed. [address], [place], [address], 05/13/2024 15:53:48 Result Notes None recorded. Problems Name Problem SNOMED Code Status Onset Date Resolution Date Notes Provider Name and Address Organization Details Recorded Time Asthma 277435173 Active 2023 Noy Santos [place] null, [place] - [facility] 4 10:49:04 Nicotine dependence 45503868 Active 2023 Noy [place] [facility] 4 10:49:05 Essential hypertension 88707863 Active 2023 Noy [place] [facility] 4 10:50:17 Hyperlipidemia 26909057 Active 2023 Noy [place] [facility] 4 10:50:19 Hypothyroidism 47667570 Active 2023 Noy [place] [facility] 4 10:50:20 Standard chest X-ray abnormal 794084706 Active 2023 Noy [place] [facility] 4 15:52:33 Problem Notes None recorded. Procedures Surgical History Date Name Laterality Status Provider Name and Address Organization Details Recorded Time Eye Surgery completed NAHUN Melendez - [facility] 07/09/2023 10:10:32 Back Surgery completed Elmira Lazaro [place] - [facility] 07/09/2023 10:10:38 Imaging Results Imaging Date Name Status LastModified by Organization Details LastModified Time 09/08/2023 XR, chest, 2 view completed [address], [place], [address], 09/11/2023 16:22:27 09/08/2023 nerve conduction study/EMG, upper extremity (PROC) completed [address], [place], [address], 09/11/2023 16:22:10 09/28/2023 US, abdominal aorta completed [facility] [address], [place], [address], 10/08/2023 11:04:13 09/28/2023 US, abdominal aorta completed [facility] [address], [place], [address], 10/08/2023 11:04:14 09/28/2023 CT, chest, w/ contrast completed [facility] [address], [place], [address], 10/08/2023 11:04:14 10/14/2023 US, kidney completed [facility] [address], [place], [address], 10/21/2023 15:17:15 10/14/2023 CT, chest, w/ contrast completed [facility] [address], [place], [address], 10/21/2023 15:17:16 12/16/2023 XR, chest, 2 view completed [address], [place], [address], 12/16/2023 20:40:36 12/16/2023 PFT, complete completed [address] [address], [place], [address], 12/17/2023 09:59:51 12/16/2023 six minute walk test* completed [address], [place], [address], 12/17/2023 10:03:52 03/21/2024 bone density completed [address], [place], [address], 03/23/2024 11:35:02 03/21/2024 bone density completed [address], [place], [address], 03/23/2024 11:35:03 05/08/2024 XR, chest, 2 view completed [address] [address], [place], [address], 05/25/2024 16:59:02 05/08/2024 CT, chest, w/o contrast completed [address], [place], [address], 05/25/2024 16:59:02 05/09/2024 US, doppler echocardiogram completed [address] [address], [place], [address], 05/13/2024 15:53:48 Procedure Notes None recorded. Medical Equipment None Reported. Allergies Allergen ID Allergen Name Allergen Category Reaction Reaction Severity Criticality Documentation Date Start Date Code Code System Note Provider Name and Address Organization Details Recorded Time 930380 Product containin g penicilli n (product) medicatio n hives Not available Not available 07/09/2023 18195 8001 SNOMED NAHUN Melendez [place] - [facility] 10:03:14 120052 lisinopri l medicatio n itching rash Not available Not available Not available 07/09/2023 71759 RxNorm NAHUN Melendez [place] - [facility] 10:03:19 Medications Name Sig Start Date Stop Date Status Note LastModified by Organization Details LastModified Time Spacer USE WITH INHALER NEEDED 2024 active Not Available Not Available Not Avai lable nifedipine ER 30 mg tablet,exte nded release 24 hr TAKE 1 TABLET BY MOUTH EVERY MORNING 06/30 completed Not Available Not Available Not Available latanoprost 0.005 % eye drops INSTILL [...] completed Not Available Not Available Not Available Ear Drops 2-3 drops in ear for ear pain active Not Available Not Available No t Available fluticasone propionate 230 mcg-salmete rol 21 mcg/actuati on HFA inhaler INHALE 2 PUFFS BY MOUTH TWICE A DAY active Not Available Not Available No t Available Advair HFA 45 mcg-21 mcg/actuati on aerosol inhaler active Not Available Not Available Not Available Luis Trevino [facility] spacer USE WITH INHALER NEEDED active Not [...] Address Organization Details Last Updated DateTime 4 76151.7 7 g 32.1 kg/m2 162.56 cm 96 % 96 % 75 /min 130 mm[Hg] 80 mm[Hg] NAHUN Melendez - [facility] 4 10:13:58 Date Recorded Body height Body mass index (BMI) Body weight Heart rate Oxygen saturation Oxygen saturation in Arterial blood by Pulse oximetry Systolic blood pressure Diastolic blood pressure Provider Name and Address Organization Details Last Updated DateTime 4 162.56 cm 31.2 kg/m2 82574.8 1 g 84 /min 96 % 96 % 146 mm[Hg] 80 mm[Hg] Elmira Lazaro [place] - [facility] 4 14:54:43 Date Recorded Body height Body mass index (BMI) Body weight Heart rate Oxygen saturation Oxygen saturation in Arterial blood by Pulse oximetry Systolic blood pressure Diastolic blood pressure Provider Name and Address Organization Details Last Updated DateTime 4 162.56 cm 33.1 kg/m2 22753.3 3 g 82 /min 95 % 95 % 152 mm[Hg] 90 mm[Hg] [facility]UN Griffith [facility] 4 10:05:16 Date Recorded Pain severity - 0-10 verbal numeric rating [Score] - Reported Provider Name and Address Organization Details Last Updated DateTime 01/14/2024 5 Corinne Mcfarland [facility] 01/14/2024 10:30:23 Date Recorded Body height Body mass index (BMI) Body weight Heart rate Oxygen saturation Oxygen saturation in Arterial blood by Pulse oximetry Systolic blood pressure Diastolic blood pressure Provider Name and Address Organization Details Last Updated DateTime 5 162.56 cm 33.2 kg/m2 56903.0 5 g 72 /min 98 % 98 % 100 mm[Hg] 58 mm[Hg] Brittny Lewis MA [facility] 5 11:41:38 Date Recorded Body height Body mass index (BMI) Body weight Heart rate Oxygen saturation Oxygen saturation in Arterial blood by Pulse oximetry Systolic blood pressure Diastolic blood pressure Provider Name and Address Organization Details Last Updated DateTime 5 162.56 cm 31.9 kg/m2 13286.1 8 g 82 /min 95 % 95 % 122 mm[Hg] 72 mm[Hg] Brittny Lewis MA [facility] 5 15:08:07 Social History Question Answer Notes LastModified by Organizat ion Details LastModified Time Tobacco Smoking Status Current Every Day Smoker Elmira Lazaro MA null, [id number]|2024-07-20 06:49:00|2024-07-20 06:49:00|XMS_ITS|NIKKIG SAEED|External Medical Summaries|[id number]|" Referral Summary Created on: July 20, 2024 Niru Patterson : 1955 Sex: Female Author Organization [facility] [address] [address] Address [address] [place] [address] Care Team Providers Care Marble Setter Name Role Phone Cortez Tijerina MD Primary Care Provider [phone] Sheila Joaquin Pierce DO Unavailable Allergies Active Allergy Reactions Criticality Noted Date Comments Lisinopril Rash Medium 01/29/2021 Penicillins Anaphylaxis High Medications levothyroxine (SYNTHROID) 88 mcg tablet Take 88 mcg by mouth dependency program director before breakfast Active timoloL (BETIMOL) 0.5 % ophthalmic solution 1 drop 2 (two) times a day Active aspirin 325 mg tablet Take 325 mg by mouth every 6 (six) hours as needed for pain Active vitamin D3-vitamin K2 1000-90 unit-mcg tablet,disintegr ating Take by mouth Active bg-[id number]-I-glutami [id number] 1,000-50 mg tablet, effervescent Take by mouth [...] on file Legal Sex Female 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 Gender Identity Not on file Sexual Orientation Not on file Occupation Industry Job Start Date Job End Date Retired Not on file Not on file Not on file Last Filed Vital Signs Vital Sign Reading Time Taken Comments Blood Pressure 125/80 01/17/2022 3:03 PM SUPPLY CHAIN PROGRAM MANAGER Pulse 89 01/17/2022 3:03 PM SUPPLY CHAIN PROGRAM MANAGER Temperature 36.8 C (98.3 F) 01/17/2022 2:18 PM SUPPLY CHAIN PROGRAM MANAGER Respiratory Rate 18 01/17/2022 3:03 PM SUPPLY CHAIN PROGRAM MANAGER Oxygen Saturation 93% 01/17/2022 3:0 3 PM SUPPLY CHAIN PROGRAM MANAGER Inhaled Oxygen Concentration - - Weight 87 kg (191 lb 12.8 oz) 2:18 PM SUPPLY CHAIN PROGRAM MANAGER without shoes Height 161 cm (5' 3.39 ) 01/17/2022 2:1 8 PM SUPPLY CHAIN PROGRAM MANAGER Body Mass Index 33.56 01/17/2022 2:18 PM SUPPLY CHAIN PROGRAM MANAGER Plan of Treatment Not on file Insurance MEDICARE [facility] CLAIMS OFFICE MEDICARE [facility] MEDICARE SUPPLEMENT MEDICARE Care Teams Marble Setter Relationship Specialty Start Date End Date Cortez Tijerina MD PCP - General Internal Medicine 12/04/20 Joaquin Sosa DO [address] [place] [address] MEDICAL ONCOLOGY, [place] [address] Medical Oncologist/Mobile Solutions Architect Hematology and Oncology 03/06/22 "
--- OUTSIDE RECORDS SUMMARY | 2024-07-20 06:49 | XMS_ITS | Clinical Summary ---
Author Organization [facility] [address] Address [address] [place] [address] Care Team Providers Care Drywall Taper Name Role Phone Lenny Tijerina MD Primary Care Provider [phone] Joaquin Sosa DO Unavailable [phone] Allergies Active Allergy Reactions Criticality Noted Date Comments Lisinopril Rash Medium 01/29/2021 Penicillins Anaphylaxis High Medications levothyroxine (SYNTHROID) 88 mcg tablet Take 88 mcg by mouth pegger dobby looms before breakfast Active timoloL (BETIMOL) 0.5 % ophthalmic solution 1 drop 2 (two) times a day Active aspirin 325 mg tablet Take 325 mg by mouth every 6 (six) hours as needed for pain Active vitamin D3-vitamin K2 1000-90 unit-mcg tablet,disintegr ating Take by mouth Active bc-ckk-S-glutami [id number] 1,000-50 mg tablet, effervescent Take by mouth [...] on file Legal Sex Female 6:30 AM LEHR ATTENDANT Gender Identity Not on file Sexual Orientation Not on file Occupation Industry Job Start Date Job End Date Retired Not on file Not on file Not on file Obstetrics History Last Filed Vital Signs Vital Sign Reading Time Taken Comments Blood Pressure 125/80 01/17/2022 3:03 PM LEHR ATTENDANT Pulse 89 01/17/2022 3:03 PM LEHR ATTENDANT Temperature 36.8 C (98.3 F) 01/17/2022 2:18 PM LEHR ATTENDANT Respiratory Rate 18 01/17/2022 3:03 PM LEHR ATTENDANT Oxygen Saturation 93% 01/17/2022 3:0 3 PM LEHR ATTENDANT Inhaled Oxygen Concentration - - Weight 87 kg (191 lb 12.8 oz) 2 2:18 PM LEHR ATTENDANT without shoes Height 161 cm (5' 3.39 ) 01/17/2022 2:1 8 PM LEHR ATTENDANT Body Mass Index 33.56 01/17/2022 2:18 PM LEHR ATTENDANT Plan of Treatment Health Maintenance Due Date [...] Vaccine ( season) 11/08/202307/2020, 05/14/2020 Influenza Vaccine (Season Ended) 2024 Insurance [facility]IC[facility] CLAIM[facility] OFF[facility] MEDICARE [employer] MEDICARE SUPPLEMENT MEDICARE Care Teams Drywall Taper Relationship Specialty Start Date End Date Lenny Tijerina MD PCP - General Internal Medicine 12/04/20 Joaquin Sosa DO [address] [place] [address] MEDICAL ONCOLOGY, [address] [address] Medical Oncologist/Valve Pipe Irrigator Hematology and Oncology 03/06/22
== END 2024-07-20 06:45 | disposition home or self-care (01) ==
PROVIDERS: PCP Internal Medicine; Visit Provider Otolaryngology Otolaryngology/Facial Plastic Surgery
DX: K14.0 Glossitis (principal)
CPT/HCPCS: 70543; A9579

== ENCOUNTER 2025-01-03 15:48 | Emergency (ER) | payer MEDICARE, SELFPAY ==
[2025-01-03 15:54] VITALS: BP 180/78; PULSE 76; RESP 16; TEMP 36.6; O2SAT 99
--- NOTE | 2025-01-03 16:25 | PC.NURSE ---
TXA administered by Dr. Huddleston topically to L. side of pt. mouth.
--- NOTE | 2025-01-03 16:27 | PC.NURSE ---
Dr. Huddleston in room with the pt attempting to visualzie the biopsy site on the tongue. Ana and Britta KOENIG are in the room assisting.
[2025-01-03 16:32] VITALS: BP 141/0; PULSE 96; RESP 16; O2SAT 94
[2025-01-03 16:43] LABS: Hematocrit 53.4 % (37.0-47.0); Hemoglobin 17.2 g/dL (12.0-15.0); Immature Granulocyte Percent A 0.2 % (0-0.5); Lymphocytes Absolute Auto 2.12 K/mm3 (0.9-3.2); Mean Corpuscular HGB Conc 32.2 g/dl (32-36); Mean Corpuscular Hemoglobin 30.3 pg (26-34); Mean Corpuscular Volume 94.2 fl (80-100); Nucleated Red Blood Cells Absolute Auto 0.000 K/mm3 (0.0-0.012); Nucleated Red Blood Cells Perc 0.0 % (0.0-0.2); Platelet Count Result 329 k/mm3 (150-375); Red Blood Count 5.67 M/mm3 (4.2-5.4); White Blood Count 10.2 K/mm3 (4.5-10.0)
[2025-01-03 16:56] LABS: Alanine Aminotransferase 14 U/L (6-35); Albumin Level 4.7 g/dL (3.5-5.1); Alkaline Phosphatase 91 U/L (38-126); Anion Gap 16 mmol/L (4-12); Aspartate Amino Transferase 28 U/L (14-36); Bilirubin,Total 1.3 mg/dL (0.2-1.3); Blood Urea Nitrogen 22 mg/dL (7-17); Calcium 9.7 mg/dL (8.4-10.2); Carbon Dioxide 18 mmol/L (22-30); Chloride 102 mmol/L (98-107); Estimated CRCL calculation 74 ml/min; Estimated Glomerular Filt Rate > 60; Glucose 106 mg/dL (65-110); Potassium 4.4 mmol/L (3.4-5.0); Sodium 136 mmol/L (137-145); Total Protein 8.0 g/dL (6.3-8.2)
[2025-01-03 16:57] LABS: INR 1.0; Prothrombin Time 13.6 Seconds (11.1-14.7)
[2025-01-03 16:58] LABS: Partial Thromboplastin Time 29.8 Seconds (22.3-36.8)
--- NOTE | 2025-01-03 17:02 | PC.NURSE ---
RYLIE and Dr. Choi in the room with the pt
--- NOTE | 2025-01-03 17:04 | PC.NURSE ---
ENT MD with Dr. Huddleston at bedside assessing pt.
--- NOTE | 2025-01-03 17:22 | ED.WOUNDLAC ---
HPI - Wound/Laceration General Chief Complaint: Wound/Laceration Stated Complaint: bleeding after oral biopsy Time Seen by Provider: 01/03/25 16:02 History of Present Illness HPI narrative: 69-year-old female with history of squamous cell carcinoma of the tongue status post biopsy 1 week prior at [facility] with Dr. Mcclain. Patient presents with profuse bleeding from her lateral tongue. She has been swallowing blood clots and for last week has been having intermittent bleeding but not to this degree. Denies any other symptoms but has pain and bleeding from her left-sided tongue. Denies any new injuries. Was otherwise in her normal state of health. Related Data Home Medications ?Medication ?Instructions ?Recorded ?Confirmed ?Last Taken ?Type latanoprost 0.005 % eye drops 1 drp EACH EYE DAILY 04/08/23 07/01/24 Unknown History timolol maleate 0.5 % eye drops 1 drp EACH EYE Q12H 04/08/23 07/01/24 Unknown History olopatadine 0.2 % eye drops 1 drp EACH EYE DAILY 07/01/24 07/01/24 Unknown History (Pataday Once Daily Relief) Allergies Allergy/AdvReac Type Severity Reaction Status Date / Time Penicillins Allergy Severe Difficulty Verified 07/01/24 10:33 Breathing lisinopril Allergy Intermediate Rash Verified 07/01/24 10:33 Review of Systems Review of Systems: As [facility] Past Medical History Medical History Tongue mass Tongue ulcer Stomatitis and mucositis Oral ulcer Hypothyroidism Asthma Cataract Thyroid disease Heart disease SVT 2012 Small bowel problem bloating Back pain L-5 Ovarian cyst Surgical History Surgical History History of removal of ovarian cyst History of orthopedic surgery H/O laminectomy History of thyroid surgery right thyroidectomy Hx of cataract surgery Family History Family History Grandparent Breast cancer Other Diabetes mellitus Father Alcoholism Social History Social History Social History: Caffeine-coffee Smoking packs per day: 1 Smoking cigarettes per day: 20.0 Years smoked: 50 Smoking pack-years: 50.00 Smoking status: Current every day smoker Tobacco type: cigarettes Second hand tobacco smoke exposure: Yes Alcohol intake: current Drinks per week: 1 Substance use: never Substance use type: does not use Do You Feel Safe in your Home?: Yes Lack of Transportation: No Lack of Food: Never True Current Housing: I Have Housing Concerned About Future Housing: No Difficulty Paying Gas/Electric Bills: No Difficulty Paying for Meds: No Currently Unemployed: No Education: Master's Degree or Higher Difficulty w/ Childcare or Family Care: No Living arrangements: with family Occupation/Education: retired Gender identity (if verbalized by the patient): Female Sexual Orientation (if Verbalized by the Patient): Straight or Heterosexual Spiritual care concerns: No Exam Narrative: GENERAL: [Well-appearing, well-nourished, and in no acute distress.] HEAD: [Normocephalic, atraumatic.] EYES: [PERRLA and EOMI.] ENT: Large area of excision and biopsy on the left lateral tongue with active bleeding that appears oozing dark blood. Large clots forming with tenderness to palpation. Uvula midline, minor amount of blood in the posterior oropharynx, dry mucous membranes. NECK: Supple. CHEST: [Clear to auscultation. No respiratory distress.] HEART: [Regular rate and rhythm]. No murmur heard. [Normal peripheral pulses.] ABDOMEN: [Soft, nondistended], [nontender], [No rigidity or guarding] EXTREMITIES: Normal range of motion. [No edema.] SKIN: Warm, dry, no rash. NEURO: [No focal deficits]. Alert and oriented [x3.] PSYCH: [Normal mood and affect.] Course Vital Signs Vital signs: Vital Signs Temperature 36.6 C 01/03/25 15:54 Pulse Rate 76 01/03/25 15:54 Respiratory Rate 16 01/03/25 15:54 Blood Pressure 180/78 H 01/03/25 15:54 Pulse Oximetry 99 01/03/25 15:54 Oxygen Delivery Room Air 01/03/25 15:54 Temperature 36.6 C 01/03/25 15:54 Pulse Rate 78 01/03/25 18:34 Respiratory Rate 16 01/03/25 18:34 Blood Pressure 133/63 01/03/25 18:34 Pulse Oximetry 97 01/03/25 18:34 Oxygen Delivery Room Air 01/03/25 15:54 MDM - Wound/Laceration MDM Narrative Medical decision making narrative: 69-year-old female with history of squamous cell carcinoma of the tongue status post biopsy 1 week prior at [facility] with Dr. Mcclain. Patient presents with profuse bleeding from her lateral tongue. She has been swallowing blood clots and for last week has been having intermittent bleeding but not to this degree. Denies any other symptoms but has pain and bleeding from her left-sided tongue. Denies any new injuries. Was otherwise in her normal state of health. Large area of excision and biopsy on the left lateral tongue with active bleeding that appears oozing dark blood. Large clots forming with tenderness to palpation. Uvula midline, minor amount of blood in the posterior oropharynx, dry mucous membranes. Patient is hemodynamically stable. Direct suction visualization under lamp showed large area of excision from biopsy sites that are oozing blood and forming clots. Large amount of clot was suctioned out with small amount of oozing persistent. Direct pressure with TXA infused gauze slowed the bleeding. Spoke to ENT Dr. Gonzalez who recommended Afrin and TXA mixture and direct pressure with further suction. This applied with improvement in hemostasis. Discussions with ENT were to transfer the patient to [facility]. Dr. Mcclain was spoken with over the phone by Dr. Gonzalez and confirmed ER to ER transfer preferentially. Awaiting discussion with [facility] transfer system to initiate. Patient remains hemodynamically stable and hemostasis is better. Per ENT discussion large excision and lingual artery involvement likely the source of bleeding. Patient's bleeding is controlled at this time. Spoke to Dr. Weir in the emergency department at [facility] and patient was accepted as a direct ER to ER transfer. ALS ambulance services arranged. Patient left the department without any further issues. Medical Records Attestation: I reviewed the patient's medical records. Lab Data Attestation: I reviewed the patient's lab results. 01/03/25 16:34 01/03/25 16:34 Labs: Lab Results 01/03/25 Range/Units 16:34 WBC 10.2 H (4.5-10.0) K/mm3 RBC 5.67 H (4.2-5.4) M/mm3 Hgb 17.2 H (12.0-15.0) g/dL Hct 53.4 H (37.0-47.0) % MCV 94.2 (80-100) fl MCH 30.3 (26-34) pg MCHC 32.2 (32-36) g/dl RDW 14.3 (11.5-14.5) % Plt Count 329 D (150-375) k/mm3 MPV 10.6 H (7.4-10.4) fl Immature Gran % (Auto) 0.2 (0-0.5) % Neut % (Auto) 70.4 (45.5-73.1) % Lymph % (Auto) 20.9 (18.3-44.2) % [place] % (Auto) 7.2 (2.6-8.5) % Eos % (Auto) 1.0 (0-4.4) % Baso % (Auto) 0.3 (0.2-1.2) % Lymph # (Auto) 2.12 (0.9-3.2) K/mm3 [place] # (Auto) 0.7 H (0.1-0.6) K/mm3 Eos # (Auto) 0.1 (0-0.3) K/mm3 Baso # (Auto) 0.0 (0.0-0.1) K/mm3 Abs Immat Gran (auto) 0.02 (0.00-0.031) K/mm3 Absolute Neuts (auto) 7.2 H (1.3-6.7) K/mm3 Absolute Nucleated RBC 0.000 (0.0-0.012) K/mm3 Nucleated RBC % 0.0 (0.0-0.2) % PT 13.6 (11.1-14.7) Seconds INR 1.0 APTT 29.8 (22.3-36.8) Seconds Sodium 136 L (137-145) mmol/L Potassium 4.4 (3.4-5.0) mmol/L Chloride 102 (98-107) mmol/L Carbon Dioxide 18 L (22-30) mmol/L Anion Gap 16 H (4-12) mmol/L BUN 22 H (7-17) mg/dL Creatinine 0.61 L (0.7-1.0) mg/dL Estim Creat Clear Calc 74 ml/min Estimated GFR > 60 (59 - ) Glucose 106 (65-110) mg/dL Calcium 9.7 (8.4-10.2) mg/dL Total Bilirubin 1.3 (0.2-1.3) mg/dL AST 28 (14-36) U/L ALT 14 (6-35) U/L Alkaline Phosphatase 91 (38-126) U/L Total Protein 8.0 (6.3-8.2) g/dL Albumin 4.7 (3.5-5.1) g/dL Blood Type A Positive Antibody Screen Negative Critical Care Time Critical Care Time Critical Care Time: Yes Total Critical Care Time: 35 Discharge Plan Discharge Clinical Impression: Postoperative hemorrhage, Squamous cell cancer of tongue Patient Disposition: Acute Care Hospital Condition: Stable Patient Language: Persian Prescriptions: No Action latanoprost 0.005 % drops 1 drp EACH EYE DAILY timolol maleate 0.5 % drops 1 drp EACH EYE Q12H olopatadine [Pataday Once Daily Relief] 0.2 % drops 1 drp EACH EYE DAILY levothyroxine [Synthroid] 88 mcg tablet 88 mcg PO DAILY Qty: 30 0RF albuterol sulfate 90 mcg/actuation HFA aerosol inhaler 1 inh inhalation Q4-6H Qty: 1 1RF fluticasone propion-salmeterol [Advair HFA] 230-21 mcg/actuation HFA aerosol inhaler 2 inh inhalation BID Qty: 1 1RF Follow-up/Referrals: Breezy,MD Lenny [Primary Care Provider]
--- NOTE | 2025-01-03 17:37 | WPDPROCEDUR ---
Procedures Other Procedures Procedure 1: Other Procedure: Control of oral cavity hemorrhage. Verbal consent obtained by the patient. Patient gargled lidocaine. I was able to assist in controlling the hemorrhage by applying pressure as well as suctioning clot. After some simple suctioning I realized the extent of the clot. At this time the bleeding was well controlled with just the small ooze. Patient tolerated everything well.
--- NOTE | 2025-01-03 17:38 | WPDCN ---
Assessment and Plan Assessment and plan (1) Tongue cancer: Code(s): C02.9 - Malignant neoplasm of tongue, unspecified Status: Acute Assessment and Plan: Bleeding controlled with application of Afrin and TXA. I discussed with Head and neck Oncology at [facility], was able to contact the attending surgeon. The lingual artery was involved during the biopsy. I was advised to transfer the patient to [facility] for further evaluation treatment. Bleeding controlled for the moment. HPI Data of Consult Date/Time: 01/03/25 17:38 Primary Care Provider: Lenny Tijerina, Consult Narrative Narrative: Niru [place] is a 69 year old female status post tongue biopsy approximately 1 week ago. Patient reported intermittent oozing over the past 7 days. Today copious amounts of blood. ENT consult for further evaluation and treatment. Review of Systems Review of Systems: All systems reviewed & are unremarkable except as noted in HPI and below PMFSH Past Medical History Medical History Tongue mass Tongue ulcer Stomatitis and mucositis Oral ulcer Hypothyroidism Asthma Cataract Thyroid disease Heart disease SVT 2012 Small bowel problem bloating Back pain L-5 Ovarian cyst Surgical History Surgical History History of removal of ovarian cyst History of orthopedic surgery H/O laminectomy History of thyroid surgery right thyroidectomy Hx of cataract surgery Family History Family History Grandparent Breast cancer Other Diabetes mellitus Father Alcoholism Social History Social History Social History: Caffeine-coffee Smoking packs per day: 1 Smoking cigarettes per day: 20.0 Years smoked: 50 Smoking pack-years: 50.00 Smoking status: Current every day smoker Tobacco type: cigarettes Second hand tobacco smoke exposure: Yes Alcohol intake: current Drinks per week: 1 Substance use: never Substance use type: does not use Do You Feel Safe in your Home?: Yes Lack of Transportation: No Lack of Food: Never True Current Housing: I Have Housing Concerned About Future Housing: No Difficulty Paying Gas/Electric Bills: No Difficulty Paying for Meds: No Currently Unemployed: No Education: Master's Degree or Higher Difficulty w/ Childcare or Family Care: No Living arrangements: with family Occupation/Education: retired Gender identity (if verbalized by the patient): Female Sexual Orientation (if Verbalized by the Patient): Straight or Heterosexual Spiritual care concerns: No Meds Home Medications and Allergies Home Medications ?Medication ?Instructions ?Recorded ?Confirmed ?Type latanoprost 0.005 % eye drops 1 drp EACH EYE DAILY 04/08/23 07/01/24 History timolol maleate 0.5 % eye drops 1 drp EACH EYE Q12H 04/08/23 07/01/24 History albuterol sulfate 90 mcg/actuation 1 inh inhalation Q4-6H #1 g 05/13/24 07/01/24 Rx aerosol inhaler fluticasone propionate 230 2 inh inhalation BID #1 g 05/13/24 07/01/24 Rx mcg-salmeterol 21 mcg/actuation HFA inhaler (Advair HFA) levothyroxine 88 mcg tablet 88 mcg PO DAILY #30 tabs 05/13/24 07/01/24 Rx (Synthroid) olopatadine 0.2 % eye drops 1 drp EACH EYE DAILY 07/01/24 07/01/24 History (Pataday Once Daily Relief) Allergies Allergy/AdvReac Type Severity Reaction Status Date / Time Penicillins Allergy Severe Difficulty Verified 07/01/24 10:33 Breathing lisinopril Allergy Intermediate Rash Verified 07/01/24 10:33 Vital Signs Vital Signs - 24 hr 01/03/25 15:54 01/03/25 16:32 Temperature 36.6 C Pulse Rate 76 96 Respiratory Rate 16 16 Blood Pressure 180/78 H 141/0 H Pulse Oximetry 99 94 Oxygen Delivery Room Air Exam Narrative: Oral cavity examined see procedure note for details but the left clot was suctioned, the extent of the biopsy was realized. Bleeding was controlled at this point with the application Afrin and TXA. The bleed had nice clot formed over. Over it. Results Labs 01/03/25 16:34 01/03/25 16:34 Labs: Short CBC 01/03/25 Range/Units 16:34 WBC 10.2 H (4.5-10.0) K/mm3 Hgb 17.2 H (12.0-15.0) g/dL Hct 53.4 H (37.0-47.0) % Plt Count 329 D (150-375) k/mm3 BMP 01/03/25 16:34 Sodium 136 L Potassium 4.4 Chloride 102 Carbon Dioxide 18 L BUN 22 H Creatinine 0.61 L Glucose 106 Calcium 9.7 Liver Function 01/03/25 Range/Units 16:34 Total Bilirubin 1.3 (0.2-1.3) mg/dL AST 28 (14-36) U/L ALT 14 (6-35) U/L Alkaline Phosphatase 91 (38-126) U/L Albumin 4.7 (3.5-5.1) g/dL
--- OUTSIDE RECORDS SUMMARY | 2025-01-03 17:44 | XMS_ITS | Encounter Summary ---
Author Organization [employer] Address [address] [place] [address] Care Team Providers Care Regional Ehs Manager Name Role Phone Unavailable Primary Care Provider Unavailabl e Encounter Details Date Type Department Care Team (Late st Contact Info) Description 12/11/[address] [facility] Support [facility]. ([facility]) [address] 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
--- OUTSIDE RECORDS SUMMARY | 2025-01-03 17:44 | XMS_ITS | Clinical Summary ---
Author Organization [facility] [place] [address] Address [address] [place] [address] Care Team Providers Care Histological Illustrator Name Role Phone Lenny Tijerina MD Primary Care Provider [phone] Joaquin Sosa DO Unavailable [phone] Allergies Active Allergy Reactions Criticality Noted Date Comments Lisinopril Rash,Itching High 01/29/2021 UNCODED Penicillins Anaphylaxis,Shortness of breath,Hives High 05/26/2024 Medications levothyroxine (SYNTHROID) 88 mcg tabletIndication s:hypothyroidism Take 1 tablet (88 mcg total) by mouth early breastfeeding care specialist before breakfast Active aspirin 325 mg tablet Take 1 tablet (325 mg total) by mouth every 6 (six) hours as needed for pain Active albuterol HFA (PROVENTIL HFA,VENTOLIN HFA,PROAIR HFA) 90 mcg/actuation inhaler albuterol sulfate HFA 90 mcg/actuation aerosol inhaler INHALE 2 INHALATIONS EVERY 4 6 HOURS BY MOUTH NEEDED. 11/23/19 21 Active timolol (TIMOPTIC) 0.5 % ophthalmic solutionIndicati ons:open angle glaucoma Administer 1 drop into both eyes 2 (two) times a day 06/30/19 25 Active latanoprost (XALATAN) 0.005 % ophthalmic solutionIndicati ons:open angle glaucoma Administer 1 drop into both eyes nightly 06/30/19 25 Active Advair HFA 45-21 mcg/actuation inhaler Inhale 2 puffs 2 (two) times a day 08/09/19 25 Active multivitamin with minerals tabletIndication s:Mineral Deficiency Prevention,Vitam in Deficiency Prevention Take 1 tablet by mouth daily before breakfast Active oxyCODONE (ROXICODONE) 5 mg immediate release tabletIndication s:Pain Take 1 tablet (5 mg total) by mouth every 4 (four) hours as needed for pain 25 tablet 12/28/19 25 Active timoloL (BETIMOL) 0.5 % ophthalmic solution 1 drop 2 (two) times a day Discontinu ed(Therapy completed) vitamin D3-vitamin K2 1000-90 unit-mcg tablet,disintegr ating Take by mouth Discontinu ed(Therapy completed) oq-dkj-Q-glutami [id number] 1,000-50 mg tablet, effervescent Take by mouth Discontinu ed(Therapy completed) losartan (COZAAR) 25 mg tablet losartan 25 mg tablet TAKE 1 TABLET BY MOUTH EVERY DAY Discontinu ed(Therapy completed) valACYclovir (VALTREX) 500 mg tablet Take 1 tablet (500 mg total) by mouth daily 05/25/19 25 Discontinu ed(Therapy completed) predniSONE (DELTASONE) 10 mg tablet Take 1 tablet (10 mg) by mouth daily 05/14/19 25 Discontinu ed(Therapy completed) NIFEdipine XL 30 mg 24 hr tablet Take 1 tablet (30 mg total) by mouth daily Discontinu ed(Therapy completed) loratadine (CLARITIN) 10 mg tablet Take 1 tablet (10 mg total) by mouth daily Discontinu ed(Therapy completed) gabapentin (NEURONTIN) 100 mg capsule Take 2 capsules (200 mg total) by mouth 2 (two) times a day 07/29/19 25 Discontinu ed(Therapy completed) etodolac (LODINE) 400 mg tablet Take 1 tablet (400 mg total) by mouth daily Discontinu ed(Therapy completed) doxycycline 100 mg tablet Take 1 tablet/capsule (100 mg total) by mouth daily Discontinu ed(Therapy completed) ciprofloxacin-de xAMETHasone (Ciprodex) otic suspension Administer 4 drops into each ear 2 (two) times a day 025 Discontinu ed(Therapy completed) atorvastatin (LIPITOR) 10 mg tablet Take 1 tablet (10 mg total) by mouth daily 025 Discontinu ed(Therapy completed) oxyCODONE (ROXICODONE) 5 mg immediate release tabletIndication s:Pain Take 1 tablet (5 mg total) by mouth every 4 (four) hours as needed for pain for up to 7 days 42 tablet 12/17/19 25 cholecalciferol 25 mcg (1,000 unit) tabletIndication s:Vitamin D Deficiency Take 1 tablet (1,000 Units total) by mouth daily before breakfast Discontinu ed(Therapy completed) Active Problems Problem Noted Date Diagnosed Date Tongue lesion 12/15/2024 Other diseases of tongue 08/04/2024 Elevated hemoglobin 12/05/2021 Erythrocytosis 07/12/2021 Dizziness and giddiness 01/01/2021 Non-toxic multinodular goiter 07/23/2013 Overview (06/11/2016): NONTOX MULTINODUL GOITER Encounters Date Type Department Care Team Description 12/27/2024 9:02 AM CDT - 12/27/2024 10:36 AM CDT Surgery [facility] Operating [facility] ([facility]) [address] [place] [id number] Tony Mcclain MD EXCISION AND REPAIR LESION ORAL CAVITY. - TONGUE 12/27/2024 8:47 AM CDT Anesthesia Event [facility] Operating Room [facility] ([facility]) [address] [place] [id number] Jean-Pierre Ojeda MD Lentz, William Thomas, NP 12/27/2024 6:47 AM CDT - 12/27/2024 12:23 PM CDT Hospital Encounter [facility] Operating Room [facility] ([facility]) [address] [place] [address] Tony Mcclain MD Tongue lesion Discharge Disposition: Discharge to home or self care 12/27/2024 Orders Only [facility] Otolaryngology Head-Neck Division [address] [place] [address] Tony Mcclain MD Tongue lesion (Primary Dx); Squamous cell carcinoma, tongue border (HCC) 12/15/2024 10:20 AM CDT Office Visit [facility] Head-Neck Division [address] [place] [address] [address] [place] [address] Tony Mcclain MD Tongue lesion (Primary Dx) 11/02/2024 9:00 AM CDT Office Visit [facility] Otolaryngology Head-Neck Division [address] [place] [address] [address] [place] [id number] Tony Mcclain MD Other diseases of tongue (Primary Dx) from Last 3 Months Surgical History Surgery Date Site/Laterality Comments LAMINECTOMY AND MICRODISCECTOMY LUMBAR SPINE 03/09/1993 - 03/08/1994 THYROIDECTOMY, PARTIAL 03/09/2005 - 03/08/2006 Right BIOPSY 04/09/2022 - 05/06/2022 tongue COLONOSCOPY 03/09/2009 - 03/08/2010 EXCISION AND REPAIR LESION ORAL CAVITY 12/27/2024 Mouth/Left Procedure: EXCISION AND REPAIR LESION ORAL CAVITY. - TONGUE; Surgeon: Tony Mcclain MD; Location: [facility] OR POD 4; Service: Otolaryngology; Laterality: Left; Medical History Medical History Date Comments Postoperative hypothyroidism Moderate asthma with acute exacerbation Seasonal rhinitis Primary hypertension Pure hypercholesterolemia Family History Medical History Relation Name Comments Stroke Father No Known Problems Maternal Grandfather Cancer Maternal Grandmother No Known Problems Mother No Known Problems Paternal Grandfather No Known Problems Paternal Grandmother Diabetes Sister Anesthesia problems Neg Hx Relation Name Status Comments Father Maternal Grandfather Maternal Grandmother Mother Paternal Grandfather Paternal Grandmother Sister Social History Tobacco Use Types Packs/Day Years Used Date Smoking Tobacco: Every Day Cigarettes 1.5 25.8 Started: 1999 Smokeless Tobacco: Never Tobacco Cessation:Ready to Q uit: Not Asked; Counseling Given: Not Answered Alcohol Use Standard Drinks/Week Comments Yes 4 (1 standard drink = 0.6 oz pur e alcohol) AUDIT-C Answer Date Recorded Q1: How often do you have a drink containing alc ohol? Never 12/27/2024 Average Number of Drinks Not on file 025 Frequency of Binge Drinking Not on file 12/08 Personal Safety Answer Date Recorded Have you ever been in or are you currently in a harmful physical or emotional relationship or is someone making you feel afraid or unsafe? 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 Gender Identity Not on file Sexual Orientation Not on file Occupation Industry Job Start Date Job End Date Retired Not on file Not on file Not on file Obstetrics History Last Filed Vital Signs Vital Sign Reading Time Taken Comments Blood Pressure 154/76 12/27/2024 12:00 PM CDT Pulse 64 12/27/2024 12:00 PM CDT Temperature 35.7 C (96.2 F) 12/27/2024 8:25 AM CDT Respiratory Rate 16 12/27/2024 12:00 PM CDT Oxygen Saturation 91% 12/27/2024 12:00 PM CDT Inhaled Oxygen Concentration - - Weight 77.1 kg (170 lb) 12/27/2024 8:25 AM CDT Height 162.6 cm (5' 4) 12/27/2024 8:25 AM CDT Body Mass Index 29.18 12/27/2024 8:25 AM CDT Plan of Treatment Health Maintenance Due Date Last Done Comments Breast Cancer Screening-Mammogram 1955 Colon Cancer Screening-Colonoscopy 1955 Depression Screening 1955 Hepatitis C Screening 1955 Osteoporosis Screening-Bone Density Scan 1955 DTaP/Tdap/Td Vaccine (1 - Tdap) 1965 Hepatitis B Screening 1972 Pneumococcal vaccine 65+ (1 of 2 - PCV) 1973 Lung Cancer Screening 2004 Zoster Vaccine (1 of 2) 2004 Well Visit 65+ 11/18/2019 Covid-19 Vaccine (3 - season) 11/07/202407/2020, 05/14/2020 Influenza Vaccine (#1) 2024 Fall Risk Assessment 12/27/2025 12/27/2024 Goals Goal Patient Goal Type Associated Problems Recent Progress Patient-Stated? 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 12/27/2024 8:45 AM CDT Tongue lesion Case Notes 12/16 - Waiting for WIT. NB from Last 3 Months Results * Tissue aerobic and anaerobic culture and gram stain Tissue Tongue (12/27/2024 9:21 AM CDT) Direct Specimen Exam Stain: No polymorphonuclear leukocytes seen. No organisms seen. Report Final Report: Few Mixed upper respiratory tract microorganisms. [facility] Organism MIXED UPPER RESPIRATORY TRACT MICROORGANISMS. [facility] Tissue (Tongue) 12/27/2024 9 :21 AM CDT 12/27/2024 11:04 AM CDT Narrative [facility] - 12/30/2024 1:29 PM CDT LEFT POSTERIOR TONGUE LESION Testing performed by [facility] Microbiology Laboratory ([phone]) Specimens submitted from normally sterile body sites will have all bacterial morphotypes identified. Specimens that contain grossly mixed ndaya and/or are from body sites that are not normally sterile will be examined for Staphylococcus aureus, Pseudomonas aeruginosa, beta-hemolytic strep, vancomycin-resistant Enterococcus, Bacteroides, Parabacteroides, Clostridium perfringens and fungus. If any of these are isolated, the organism will be reported. Current interpretive data was last revised on 2019. us Tony Mcclain MD LAB MICROBIOLOGY - GENERAL ORD ERABLES Final Result [facility] Department [place] [address] * VA AN ELECTIVE ENDOTRACHEAL AIRWAY, VA AN PROCEDURE PLACEHOLDER (12/27/2024 9:17 AM CDT) Narrative Shanna Nix CRNA - 12/27/2024 9:17 AM CDT Shanna Nix CRNA 12/27/2024 9:18 AM Airway Patient location: OR Urgency: elective Indications for airway management: anesthesia Difficult airway: no Staff: Placed by: PRINT SHOP ASSISTANT: Shanna Nix CRNA Emergent airway documentation: Risks and benefits discussed: yes Consent obtained: yes Consent given by: patient Airway prep: Preoxygenated: yes Patient position: sniffing Mask difficulty assessment: 1 - vent by mask Spontaneous ventilation during airway: absent Sedation level during airway: GA Final airway details: Final airway type: endotracheal airway Tube type: ETT ETT size: 7.0 mm Cuffed: yes Technique used for successful ETT placement: video laryngoscopy Insertion site: oral Video blade type: Inman Blade size: 3 Cormack-Lehane (video): grade I - full view of glottis Cuff volume: 6 mL Cuff inflated with: air ETT to teeth: 22 cm Placement verified by: auscultation and CO2 detection Airway secured with: silk tape Number of attempts: 1 us Jean-Pierre Ojeda MD ANESTHESIA ORDERABLES Fi nal Result * Surgical pathology (12/27/2024 9:07 AM CDT) Tissue (Tongue, Biopsy) 12/27/2024 9:07 AM CDT Tissue specimen (specimen) (Tongue, Biopsy) 12/27/2024 9:11 AM CDT Narrative PATHOLOGY [facility] - 12/29/2024 3:35 PM CDT EPIC results best viewed via link to PDF [facility] [place] [address] Note to Patients: This report may contain a detailed description of human tissue sent by a health care provider to the laboratory for pathologic evaluation. The content of this report is essential for diagnosis and may provide important critical findings. This information may be unfamiliar to patients to review without a medical professional present. It is advised that the patient review this report in the presence of a health care provider who can answer questions and explain the details. SURGICAL PATHOLOGY REPORT FINAL Patient Name: NIRU ASIF Gender: F : 1955 (Age: 69) Address: [address] [place], [place] [address] [address] Hospital #: [id number] Taken:12/27/2024 Received:12/27/2024 Reported: 12/29/2024 Patient Type: [facility] Service: Surgery Location: Physician(s): Garrett Carey M.D. Diagnosis: A. Oral cavity, left posterior tongue, biopsy (AFR1): - Invasive squamous cell carcinoma, moderately-poorly differentiated B. Oral cavity, left posterior tongue, biopsy: - Invasive squamous cell carcinoma, moderately-poorly differentiated kes/12/29/2024 15:35 By this signature, I attest that the above diagnosis is based upon my personal examination of the slides(and/or other material indicated in the diagnosis). Iqra Segura MD, PhD Report Electronically Reviewed and Signed Out By Iqra Segura MD, PhD 12/29/2024 15:35:33 Intraoperative Consultation: Frozen Section Diagnosis AFR1: Left posterior tongue - Squamous cell carcinoma By Naomie Arce MS, PA (ASCP)CM, Oneida Mabry MS, PA(ASCP)CM, Harrison Grissom M.D., Marquise Torres, Gross Consultation A: Left posterior tongue Received fresh, are two pieces of irregular red-powell to powell soft tissue (1.5 x 1.0 x 1.0 and 2.2 x 1.0 x 0.7 cm). The pieces of tissue are entirely submitted intact for frozen section in cassette AFR1. By Naomie Arce MS, ROSALINDA ([facility])EMELY, Oneida Mabry MS, PA([facility])EMELY, Harrison Grissom M.D., Marquise Torres DO I personally examined the relevant preparation(s) or a microscopic image of the relevant preparation(s) for the specimen(s) while the surgical procedure was still underway and rendered or confirmed the diagnosis(es) Report Electronically reviewed and Signed out by Marquise Torres DO (A) History: The patient is a 69-year-old woman who presents with a tongue lesion. Operative procedure: Excision and repair lesion oral cavity-tongue. Specimen(s) Received: A: Left posterior tongue B: Left posterior tongue Gross Description: Received in two formalin jars labeled with the patient's identifiers. A. Designated left posterior tongue is a frozen section remnant submitted as received (frozen section control) in AFR1. Jar 0. B. Designated B. left posterior tongue are two unoriented and irregular fragments of faulkner-red and rubbery soft tissue/mucosa (1.0 x 0.5 x 0.5 cm and 1.0 x 0.7 x 0.5 cm). The apparent margin of the slightly smaller fragment is inked black and the apparent margin of the slightly larger fragment is inked blue. Both tissues are serially sectioned and entirely submitted in individual cassettes labeled B1 and B2. Jar 0. sxv/12/27/2024 14:02 PA(s): Claudio Alvraez MS, ROSALINDA ([facility])CM By this signature, I attest that the above diagnosis is based upon my personal examination of the slides(and/or other material). Addenda/Procedures The performance characteristics of some immunohistochemical stains, fluorescence in-situ hybridization tests and immunophenotyping by flow cytometry cited in this report (if any) were determined by the Surgical Pathology and Flow Cytometry Departments at [facility] as part of an ongoing quality assurance coordinator program and in compliance with federally mandated regulations drawn from the Clinical Laboratory Improvement Act of 1988 (CLIA '88). Some of these tests rely on the use of analyte specific reagents and are subject to specific labeling requirements by the US Food and Drug Administration. Such diagnostic tests may only be performed in a facility that is certified by the Department of Health and Human Services as a [facility] laboratory under CLIA '88. The FDA has determined that such clearance or approval is not necessary. This test is used for clinical purposes. It should not be regarded as investigational or for research. Nevertheless, federal rules concerning the medical use of analyte specific reagents require that the following disclaimer be attached to the report: This test was developed and its performance characteristics determined by the Surgical Pathology and Flow Cytometry Departments of [facility]. It has not been cleared or approved by the U. S. Food and Drug Administration. IMAGES AND SCANNED DOCUMENTS, IF INCLUDED, ONLY VIEWABLE IN PDF VERSION OF REPORT Tony Mcclain MD LAB PATHOLOGY ORDERABLES Final Result PATHOLOGY [facility] 3rd Floor [place], [place] [phone] from Last 3 Months Additional Health Concerns Active Problems Noted Date Diagnosed Date Autogenerated Problem 12/23/2024 Insurance MEDICARE [employer] MEDICARE SUPPLEMENT Member Subscriber Plan / Payer (Ef fective 2024-Present) Name:Niru Asif Relation to Subscriber:Self Name:Niru Asif Payer ID:[id number] (NAIC) Type:COMMERCIAL Address: [place] [id number] MEDICARE [facility] MEDICARE SUPPLEMENT MEDICARE Care Teams Histological Illustrator Relationship Specialty Start Date End Date Lenny Tijerina MD PCP - General Internal Medicine 12/04/20 Joaquin Sosa DO [address] [place] [address] MEDICAL ONCOLOGY, [address] [address] Medical Oncologist/Service Desk Lead Hematology and Oncology 03/06/22
--- OUTSIDE RECORDS SUMMARY | 2025-01-03 17:44 | XMS_ITS | Clinical Summary ---
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
--- OUTSIDE RECORDS SUMMARY | 2025-01-03 17:44 | XMS_ITS | Data Portability ---
Author Organization [facility], Main Office Address [address] [place] [address] Care Team Providers Care Solidworks Designer Name Role Phone CORTEZ TIJERINA Primary Care Provider [phone] Assessment Encounter Date Assessment Date Assessment LastModified by Organization Details LastModified Time 06/17/2022 06/17/2022 I have recommended cholesterol medication Tobacco cessation again recommended Continue current therapy See me in 4 months Not available 07/19/2022 23:19:09 01/08/2023 01/08/2023 Continue current therapy follow-up 6 months [email or web address] Not available 01/17/2023 15:50:27 Plan of Treatment Reminders Order Date Submit Date Provider Last Modified By Organization Details Last Modified Time Details Appointments None recorded . Lab T3, free, serum or plasma 023 01/09/20 23 [email or web address] Not available 4 18:42:33 T4, free, serum 023 01/09/20 23 [email or web address] Not available 4 18:42:33 TSH, serum or plasma 023 01/09/20 23 [email or web address] Not available 4 18:42:33 CBC w/ auto diff 023 01/09/20 23 [email or web address] Not available 4 18:42:34 lipid panel, serum 023 01/09/20 23 Not available 4 18:42:34 CMP, serum or plasma 023 01/09/20 23 [email or web address] Not available 4 18:42:34 Referral None recorded . Procedures None recorded . Surgeries None recorded . Imaging None recorded . Medication Orders None recorded . Patient TargetsNo targets recorded. Patient Instructions Encounter Date Encounter Id Patient Instructions Last Modified By Organization Details Last Modified Time 05/29/2022 [id number] we discussed rep eat biopsy but she strongly prefers to avoid. She will continue to work on her smoking. [email or web address] Not available 05/29/2022 11:36:30 06/17/2022 [id number] dementia rating scale-2* [email or web address] Not available 07/19/2022 23:19:34 alcohol misuse* Not available 07/19/2022 23:19:34 depression screening* Not available 07/19/2022 23:19:33 multi-dimensiona health assessment questionnaire* [email or web address] Not available 07/19/2022 23:19:34 Personalized Hea lt Plan and Screening Recommendations Advance Directives - Do you have one? Yes Advance Directives - Do we have your advance directive on file in your health record? No, please bring in a copy at your earliest convenience Primary Prevention/Interven tion (prevents or decreases the chance of common diseases from occurring) Smoking Risk: Smoker Continue to consider stopping smoking and call if we can assist you Alcohol Misuse Screening: Positive Continue to consider stopping alcohol and call if we can assist you Weight: Overweight try to lose 10% of your body weight Physical activity: Need more exercise/physical activity minimum of 10-20 minutes of activity that causes mild breathlessness/day Nutrition: Good Fall Risk (screened today): Low Vaccines Pneumococcal: Recommended today, but you have declined Influenza: Recommended today, but you have declined Chronic Disease Risks Stroke: Intermediate Risk Continue current treatment plan Heart Attack: Intermediate Risk Continue current treatment plan Clogging of the Arteries: Intermediate Risk Continue current treatment plan Diabetes: Low Risk I have no recommendations Secondary Prevention/Interven tion (detects treatable diseases before they may cause symptoms, disability, or ) Breast Cancer Screening with mammogram: Recommended today Cervical/Uterine/Ov luis a Cancer Screening: No screening necessary Osteoporosis Screening: Recommended today Date Screening Last Performed: 04/28/2016 Colon Cancer Screening: Colonoscopy Recommended Date Screening Last Performed: 06/29/2009 Eye Disease Screening: Your next exam in: 06/2023 Dementia Risk: Low I have no recommendations Depression Screening: Negative I have no recommendations. Not available 06/17/2022 11:05:47 Reason for Referral None Reported. Results Created Date Observation Date Name Description Value Unit Range Abnormal Flag Note LastModifiedBy Organization Detail LastModifiedTime 04/14/1904/14/2022 POTAS SIUM potassium 4.6 mmol/ L 3.5-5. 1 Not Available [facility] (Lab) [address] [place], [address], 04/14/2022 11:18:24 04/14/19 23 04/14/2022 PLATE LET COUNT platelets 222 x10'3 /uL 150-40 0 Not Available [facility] (Lab) [address] [place], [address], 04/14/2022 11:02:00 04/14/19 23 04/14/2022 HEMOG LOBIN /RYE TOCRI T hemoglobin 16.9 g/dL 12.0-1 5.6 high Not Available [facility] (Lab) [address] [place], [address], 04/14/2022 11:01:43 04/14/19 23 04/14/2022 HEMOG LOBIN /REY TOCRI T hematocrit 52.7 % 35.7-4 5.7 high Not Available [facility] (Lab) [address] [place], [address], 04/14/2022 11:01:43 07/03/19 23 07/02/2022 CBC/C OMPLE TE BLD COUNT W/DIF F white blood cells 6.8 x10'3 /uL 4.2-10 .8 Not Available [facility] (Lab) [address] [place], [address], 07/02/2022 18:52:00 07/03/19 23 07/02/2022 CBC/C OMPLE TE BLD COUNT W/DIF F red blood cells 4.99 x10'6 /uL 3.80-5 .20 Not Available [facility] (Lab) [address] [place], [address], 07/02/2022 18:52:00 07/03/19 23 07/02/2022 CBC/C OMPLE TE BLD COUNT W/DIF F hemoglobin 16.4 g/dL 12.0-1 5.6 high Not Available [facility] (Lab) [address] [place], [address], 07/02/2022 18:52:00 07/03/19 23 07/02/2022 CBC/C OMPLE TE BLD COUNT W/DIF F hematocrit 52.4 % 35.7-4 5.7 high Not Available [facility] (Lab) [address] [place], [address], 07/02/2022 18:52:00 07/03/19 23 07/02/2022 CBC/C OMPLE TE BLD COUNT W/DIF F mean red cell volume 105.0 fL 82.0-9 9.0 high Not Available [facility] (Lab) [address] [place], [address], 07/02/2022 18:52:00 07/03/19 23 07/02/2022 CBC/C OMPLE TE BLD COUNT W/DIF F mean red cell hemoglobin 32.9 pg 27.0-3 3.0 Not Available [facility] (Lab) [address] [place], [address], 07/02/2022 18:52:00 07/03/1907/02/2022 CBC/C OMPLE TE BLD COUNT W/DIF F mean RBC HGB concentratio n 31.3 g/dL 31.0-3 6.0 Not Available [facility] (Lab) [address] [place], [address], 07/02/2022 18:52:00 07/03/19 23 07/02/2022 CBC/C OMPLE TE BLD COUNT W/DIF F red cell distribution width 15.3 % 11.8-1 5.5 Not Available [facility] (Lab) [address] [place], [address], 07/02/2022 18:52:00 07/03/1907/02/2022 CBC/C OMPLE TE BLD COUNT W/DIF F platelets 241 x10'3 /uL 150-40 0 Not Available [facility] (Lab) [address] [place], [address], 07/02/2022 18:52:00 07/03/19 23 07/02/2022 CBC/C OMPLE TE BLD COUNT W/DIF F mean platelet volume 11.1 fL 9.0-12 .4 Not Available [facility] (Lab) [address] [place], [address], 07/02/2022 18:52:00 07/03/1907/02/2022 CBC/C OMPLE TE BLD COUNT W/DIF F neutrophils 56.0 % 39.0-7 2.0 Not Available [facility] (Lab) [address] [place], [address], 07/02/2022 18:52:00 07/03/1907/02/2022 CBC/C OMPLE TE BLD COUNT W/DIF F lymphocytes 32.7 % 16.0-4 7.0 Not Available [facility] (Lab) [address] [place], [address], 07/02/2022 18:52:00 07/03/19 23 07/02/2022 CBC/C OMPLE TE BLD COUNT W/DIF F monocytes 7.3 % 5.0-12 .0 Not Available [facility] (Lab) [address] [place], [address], 07/02/2022 18:52:00 07/03/19 23 07/02/2022 CBC/C OMPLE TE BLD COUNT W/DIF F eosinophils 3.4 % 1.0-7. 0 Not Available [facility] (Lab) [address] [place], [address], 07/02/2022 18:52:00 07/03/1907/02/2022 CBC/C OMPLE TE BLD COUNT W/DIF F basophils 0.3 % 0.0-2. 0 Not Available [facility] (Lab) [address] [place], [address], 07/02/2022 18:52:00 07/03/1907/02/2022 CBC/C OMPLE TE BLD COUNT W/DIF F immature granulocytes 0.3 % 0.00-0 .50 Not Available [facility] (Lab) [address] [place], [address], 07/02/2022 18:52:00 07/03/1907/02/2022 CBC/C OMPLE TE BLD COUNT W/DIF F neutrophils, absolute count 3.83 x10'3 /uL 1.5-8. 0 Not Available [facility] (Lab) [address] [place], [address], 07/02/2022 18:52:00 07/03/1907/02/2022 CBC/C OMPLE TE BLD COUNT W/DIF F lymphocytes, absolute count 2.24 x10'3 /uL 1.07-3 .43 Not Available [facility] (Lab) [address] [place], [address], 07/02/2022 18:52:00 07/03/1907/02/2022 CBC/C OMPLE TE BLD COUNT W/DIF F monocytes, absolute count 0.50 x10'3 /uL 0.29-0 .99 Not Available [facility] (Lab) [address] [place], [address], 07/02/2022 18:52:00 07/03/19 23 07/02/2022 CBC/C OMPLE TE BLD COUNT W/DIF F eosinophils, absolute count 0.23 x10'3 /uL 0.02-0 .53 Not Available [facility] (Lab) [address] [place], [address], 07/02/2022 18:52:00 07/03/19 23 07/02/2022 CBC/C OMPLE TE BLD COUNT W/DIF F basophils, absolute count 0.02 x10'3 /uL 0.01-0 .08 Not Available [facility] (Lab) [address] [place], [address], 07/02/2022 18:52:00 07/03/1907/02/2022 CBC/C OMPLE TE BLD COUNT W/DIF F immature granulocytes ,absolute 0.02 x10'3 /uL 0.00-0 .05 Not Available [facility] (Lab) [address] [place], [address], 07/02/2022 18:52:00 07/03/19 23 07/02/2022 CBC/C OMPLE TE BLD COUNT W/DIF F nucleated red blood cells 0.0 % -0 Not Available [facility] (Lab) [address] [place], [address], 07/02/2022 18:52:00 07/03/19 23 07/02/2022 CBC/C OMPLE TE BLD COUNT W/DIF F NRBC# 0.00 x10'3 /uL Not Available [facility] (Lab) [address] [place], [address], 07/02/2022 18:52:00 07/03/1907/02/2022 COMPR EHENS JAYA METAB OLIC PANEL sodium 138 mmol/ L 137-14 5 Not Available [facility] (Lab) [address] [place], [address], 07/02/2022 19:19:54 07/03/1907/02/2022 COMPR EHENS JAYA METAB OLIC PANEL potassium 4.5 mmol/ L 3.5-5. [address] [facility] (Lab) [address] [place], [address], 07/02/2022 19:19:54 07/03/19 23 07/02/2022 COMPR EHENS JAYA METAB OLIC PANEL chloride 103 mmol/ L 98-[address] [facility] (Lab) [address] [place], [address], 07/02/2022 19:19:54 07/03/19 23 07/02/2022 COMPR EHENS JAYA METAB OLIC PANEL carbon dioxide 27 mmol/ L 22-30 Not Available [facility] (Lab) [address] [place], [address], 07/02/2022 19:19:54 07/03/19 23 07/02/2022 COMPR EHENS JAYA METAB OLIC PANEL anion gap 12.5 mmol/ L 14-22 low Not Available [facility] (Lab) [address] [place], [address], 07/02/2022 19:19:54 07/03/19 23 07/02/2022 COMPR EHENS JAYA METAB OLIC PANEL glucose 99 mg/dL 70-99 Not Available [facility] (Lab) [address] [place], [address], 07/02/2022 19:19:54 07/03/19 23 07/02/2022 COMPR EHENS JAYA METAB OLIC PANEL BUN 16 mg/dL 8-19 Not Available [facility] (Lab) [address] [place], [address], 07/02/2022 19:19:54 07/03/19 23 07/02/2022 COMPR EHENS JAYA METAB OLIC PANEL creatinine 0.64 mg/dL 0.66-1 .25 low Not Available [facility] (Lab) [address] [place], [address], 07/02/2022 19:19:54 07/03/19 23 07/02/2022 COMPR EHENS JAYA METAB OLIC PANEL GFR >60 Refer ence Range : [place] [facility] GFR Healt hy Adult : >60 mL/mi n/1.7 3 m2 Chron ic Kidne y Disea se: 15-60 mL/mi n/1.7 3 m2 Kidne y Failu re: <15/m L/min /1.73 m2 www.n iddk. [facility].g ov The MDRD study equat ion has not been valid ated in child jermain <18 years of age; pregn ant women ; the elder ly >85 years of age; or in some racia l or ethni c subgr oups, such as Hispa nics. Outsi de the valid ated celine [...] calcu lator is avail able on the [facility] websi te: https :[email or web address].murray hope.o rg/pr ofess ional s/kdo qi/gf r_cal culat or Not Available [facility] (Lab) [address] [place], [address], 07/02/2022 19:19:54 07/03/19 23 07/02/2022 COMPR EHENS JAYA METAB OLIC PANEL alkaline phosphatase 95 U/L 38-126 Not Available [facility] (Lab) [address] [place], [address], 07/02/2022 19:19:54 07/03/19 23 07/02/2022 COMPR EHENS JAYA METAB OLIC PANEL alanine aminotransfe rase 51 U/L 0-35 high Not Available [facility] (Lab) [address] [place], [address], 07/02/2022 19:19:54 07/03/19 23 07/02/2022 COMPR EHENS JAYA METAB OLIC PANEL aspartate aminotransfe rase 57 U/L 15-37 high Not Available [facility] (Lab) [address] [place], [address], 07/02/2022 19:19:54 07/03/19 23 07/02/2022 COMPR EHENS JAYA METAB OLIC PANEL bilirubin, total 0.50 mg/dL 0.20-1 .30 Not Available [facility] (Lab) [address] [place], [address], 07/02/2022 19:19:54 07/03/19 23 07/02/2022 COMPR EHENS JAYA METAB OLIC PANEL calcium 9.4 mg/dL 8.4-10 .2 Not Available [facility] (Lab) [address] [place], [address], 07/02/2022 19:19:54 07/03/19 23 07/02/2022 COMPR EHENS JAYA METAB OLIC PANEL total protein 7.2 g/dL 6.3-8. 2 Not Available [facility] (Lab) [address] [place], [address], 07/02/2022 19:19:54 07/03/19 23 07/02/2022 COMPR EHENS JAYA METAB OLIC PANEL albumin 4.5 g/dL 3.0-4. 4 high Not Available [facility] (Lab) [address] [place], [address], 07/02/2022 19:19:54 07/03/19 23 07/02/2022 COMPR EHENS JAYA METAB OLIC PANEL globulin 2.7 g/dL 2.6-4. 2 Not Available [facility] (Lab) [address] [place], [address], 07/02/2022 19:19:54 07/03/1907/02/2022 COMPR EHENS JAYA METAB OLIC PANEL A/G ratio 1.7 ratio 1.0-2. 0 Not Available [facility] (Lab) [address] [place], [address], 07/02/2022 19:19:54 07/03/19 23 07/02/2022 T3 FREE free T3 3.3 pg/mL 2.77-5 .27 Not Available [facility] (Lab) [address] [place], [address], 07/02/2022 19:37:56 07/03/19 23 07/02/2022 T4 FREE free T4 1.38 NG/dL 0.78-2 .19 Not Available [facility] (Lab) [address] [place], [address], 07/02/2022 19:37:58 07/03/19 23 07/02/2022 TSH thyroid-stim ulating hormone 1.010 uIU/m L 0.465- 4.680 Not Available [facility] (Lab) [address] [place], [address], 07/02/2022 20:00:55 07/03/1907/02/2022 VITAM IN B12 (ANABEL EDUARDA ) vb12 338 pg/mL 239-93 1 Not Available [facility] (Lab) [address] [place], [address], 07/02/2022 21:14:20 07/03/1907/02/2022 FOLAT E, SERUM /PLAS MA folate 5.34 NG/mL 2.76-2 0.0 Not Available [facility] (Lab) [address] [place], [address], 07/02/2022 21:14:25 09/30/19 24 09/28/2023 US, aorta No observ ation record ed. [email or web address] [facility] [address], [place], [address], 11/19/2023 11:15:10 10/15/19 24 10/14/2023 US, renal No observ ation record ed. [facility] [address], [place], [address], 11/19/2023 11:15:29 Result Notes None recorded. Problems Name Problem SNOMED Code Status Onset Date Resolution Date Notes Provider Name and Address Organization Details Recorded Time Tobacco user 601573951 Active Not Available [facility] 4 23:03:22 Backache 311101308 Completed Not Available [facility] 3 04:54:42 Asthma 879718136 Active Not Available [facility] 4 23:03:22 Discitis 5688691 Active Not Available [facility] 4 23:03:22 Pure hyperchol esterolem ia 386984335 Active Not Available [facility] 4 23:03:22 Low back pain 212500590 Active Not Available [facility] 4 23:03:22 Pain of right hip joint 76936665033 9102 Active Not Available [facility] 4 23:03:22 Vitamin D deficienc y 93856654 Active Not Available [facility] 4 23:03:23 Hypothyro idism 73970419 Active Not Available [facility] 4 23:03:23 Herniatio n of rectum into vagina 573890592 Active Not Available [facility] 4 23:03:23 Neck pain 23227287 Active Not Available [facility] 4 23:03:23 Hyperlipi demia 80322003 Active 2016 Not Available [facility] 4 23:03:23 Serum vitamin B12 below reference range 940041689 Active 2020 Not Available [facility] 4 23:03:22 Essential hypertens ion 27733984 Active 2020 Not Available [facility] 4 23:03:23 Erythrocy tosis 115367952 Active 2021 Not Available [facility] 4 23:03:22 Vitamin B12 deficienc y (non anemic) 76240482 Active 2021 Not Available [facility] 4 23:03:23 Otitis externa 6841956 Active 2021 Not Available [facility] 4 23:03:22 Pain in throat 338832133 Active 2021 Not Available [facility] 4 23:03:22 Lesion of tongue 792545360 Active 2021 Not Available [facility] 4 23:03:22 Postopera tive pain 075664117 Active 2022 Not Available [facility] 4 23:03:22 Problem Notes None recorded. Procedures Surgical History Date Name Laterality Status Provider Name and Address Organization Details Recorded Time 06/18/19 Medicare Wellness CPT Code, subsequent completed Corinne Mcfarland RN [place] [facility] [employer] 06/17/2022 10:57:55 10/04/19 20 Most Recent Mammogram completed Not Available [facility] 05/07/2022 04:45:09 09/22/19 20 Date of Last Pap Smear completed Not Available [facility] 05/07/2022 04:45:09 05/19/19 20 Most Recent Bone Density completed Not Available [facility] 05/07/2022 04:45:09 laminectomy completed Not Available [facility] 05/07/2022 04:45:13 Orthopedic Surgery completed Not Available [facility] 05/07/2022 04:45:13 Cataract Surgery completed Not Available [facility] 05/07/2022 04:45:13 Removal of ovarian cyst(s) completed Not Available [facility] 05/07/2022 04:45:13 thyroidectomy completed Not Available [facility] 05/07/2022 04:45:13 Imaging Results None recorded. Procedure Notes None recorded. Medical Equipment None Reported. Allergies Allergen ID Allergen Name Allergen Category Reaction Reaction Severity Criticality Documentation Date Start Date Code Code System Note Provider Name and Address Organization Details Recorded Time 8338 Product containin g penicilli n (product) medicatio n anaphylax is severe Not available 05/07/2022 83462 8001 SNOMED Not Available [facility] 3 05:04:43 8329 lisinopri l medicatio n rash Not available Not available 05/07/20222020 41947 RxNorm Not Available [facility] 3 05:04:43 Medications Name Sig Start Date [...] Not Available Not Available [facility] spacer USE WITH INHALER NEEDED [...] 03/25/2022 32.6 kg/m2 162.56 cm 97.8 [degF] 09001.55 g Not Available [facility] 05/07/2022 04:51:22 Date Recorded Body mass index (BMI) Body height Body temperature Body weight Provider Name and Address Organization Details Last Updated DateTime 04/24/2022 32.8 kg/m2 162.56 cm 97.9 [degF] 01701.14 g Not Available [facility] 05/07/2022 04:51:22 Date Recorded Body height Body mass index (BMI) Body weight Body temperature Provider Name and Address Organization Details Last Updated DateTime 05/29/2022 162.56 cm 33 kg/m2 12575.74 g 97.6 [degF] Rasheeda Kidd CMA [facility] [employer] 05/29/2022 11:18:25 Date Recorded Pain severity - 0-10 verbal numeric rating [Score] - Reported Provider Name and Address Organization Details Last Updated DateTime 06/17/2022 3 Corinne Mcfarland RN [facility] 06/17/2022 10:58:11 Date Recorded Body height Body mass index (BMI) Body weight Body temperature Heart rate Systolic And Diastolic Provider Name and Address Organization Details Last Updated DateTime 3 162.56 cm 33.1 kg/m2 99847.3 3 g 98.5 [degF] 73 /min 144/80 mm[Hg] Summer barrios RN [facility] [employer] [facility] 10:44:57 Date Recorded Body height Body mass index (BMI) Body weight Body temperature Heart rate Systolic And Diastolic Provider Name and Address Organization Details Last Updated DateTime 3 162.56 cm 31.6 kg/m2 57401 g 98.2 [degF] 73 /min 136/74 mm[Hg] SHA Anne [facility] [employer] [facility] 09:58:29 Social History Question Answer Notes LastModified by Organization Details LastModified Time Tobacco Smoking Status Current Every Day Smoker Not Available [facility] 05/07/2022 04:43:25 Do You Have An Advance Directive? Yes MIGRATION.0301 [id number] Information not available 05/07/2022 Are You Blind Or Do You Have Difficulty Seeing? No MIGRATION.0301 [id number] Information not available 05/07/2022 What Is Your Level Of Caffeine Consumption? Moderate MIGRATION.0301 [id number] Information not available 05/07/2022 How Much Tobacco Do You Chew? None MIGRATION.0301 [id number] Information not available 05/07/2022 In The 14 Days Before Symptom Onset, Have You Had Close Contact With A Laboratory-conf irmed COVID-19 While That Case Was Ill? No MIGRATION.0301 [id number] Information not available 05/07/2022 In The 14 Days Before Symptom Onset, Have You Had Close Contact With A Person Who Is Under Investigation For COVID-19 While That Person Was Ill? No MIGRATION.0301 [id number] Information not available 05/07/2022 Are You Deaf Or Do You Have Serious Difficulty Hearing? No MIGRATION.0301 [id number] Information not available 05/07/2022 What Type Of Diet Are You Following? REGULAR MIGRATION.0301 [id number] Information not available 05/07/2022 Which Illicit Or Recreational Drugs Have You Used? None MIGRATION.0301 [id number] Information not available 05/07/2022 Have There Been Any Changes To Your Family Or Social Situation? No MIGRATION.0301 [id number] Information not available 05/07/2022 Are There Any Guns Present In Your Home? No MIGRATION.0301 [id number] Information not available 05/07/2022 Do You Use Insect Repellent Routinely? No MIGRATION.0301 [id number] Information not available 05/07/2022 Where Do You [...] Live Alone Of With Others? With Others Information not available 06/17/2022 Do You Have A Medical Power Of Passenger Representative? Yes MIGRATION.0301 [id number] Information not available 05/07/2022 What Was The Date Of Your Most Recent Tobacco Screening? 01/08/2023 [email or web address] Information not available 01/08/2023 Have You Ever Been Counseled For Unhealthy Alcohol Use? No MIGRATION.0301 [id number] Information not available 05/07/2022 Do You Have Any Pets? Yes MIGRATION.0301 [id number] Information not available 05/07/2022 What Is Your Relationship Status? MIGRATION.0301 [id number] Information not available 05/07/2022 Do You Use Your Seat Belt Or Car Seat Routinely? Yes MIGRATION.0301 719901 Information not available 05/07/2022 Do You Have Smoke And Carbon Monoxide Detectors In Your Home? Yes MIGRATION.0301 650912 Information not available 05/07/2022 At What Age Did You Start Smoking Tobacco? 15 MIGRATION.0301 520991 Information not available 05/07/2022 Are You Passively Exposed To Smoke? Yes MIGRATION.0301 [id number] Information not available 05/07/2022 Are There Any Smokers In Your House? Yes MIGRATION.0301 050685 Information not available 05/07/2022 How Much Tobacco Do You Smoke? 1 PPD MIGRATION.0301 [id number] Information not available 05/07/2022 What Types Of Sporting Activities Do You Participate In? None MIGRATION.0301 688677 Information not available 05/07/2022 Do You Use Sunscreen Routinely? Yes MIGRATION.0301 [id number] Information not available 05/07/2022 How Many Years Have You Smoked Tobacco? 45 MIGRATION.0301 695167 Information not available 05/07/2022 Have You Recently Traveled Abroad? No MIGRATION.0301 995661 Information not available 05/07/2022 Do You Have Difficulty Walking Or Climbing Stairs? No Information not available 06/17/2022 Do You Have Any Dietary Restrictions? No MIGRATION.0301 [id number] Information not available 05/07/2022 Sex: Female Functional Status Question Answer Note LastModified by Organizat ion Details LastModified Time Do you use any illicit or recreational drugs? No MIGRATION.86113 95270 Information not available 05/07/2022 Do you or have you ever used any other forms of tobacco or nicotine? No MIGRATION.53536 89116 Information not available 05/07/2022 What is your level of alcohol consumption? Moderate 2 glasses wine per day MIGRATION.26219 45995 Information not available 05/07/2022 Do you or have you ever used smokeless tobacco? Never used smokeless tobacco MIGRATION.37422 81881 Information not available 05/07/2022 Do you have transportation difficulties? No MIGRATION.36766 84174 Information not available 05/07/2022 Are you able to walk independently without assistance or assistive devices? YESWOREST MIGRATION.37020 03668 Information not available 05/07/2022 Do you have difficulty doing errands alone? No MIGRATION.13331 37503 Information not available 05/07/2022 Are you able to care for yourself independently? Yes [id number] Information not available 05/07/2022 What is your occupation? retired [id number] Information not available 05/07/2022 Do you have difficulty dressing, bathing, grooming, or toileting? No [id number] Information not available 05/07/2022 Do you or have you ever used e-cigarettes or vape? Never used electronic cigarettes [id number] Information not available 05/07/2022 What is your exercise level? Occasional Information not available 06/17/2022 Mental Status Question Answer Note LastModified by Organizat ion Details LastModified Time Do you have difficulty concentrating, remembering or making decisions? No [id number] Information not available 05/07/2022 Family History Relationship Description Onset Age of this Age Resolved Age Notes LastModified by Organization Details LastModified Time Maternal Aunt Diabetes mellitus [id number] Not available 05/07/2022 04:45:20 Sister Diabetes mellitus [id number] Not available 05/07/2022 04:45:20 Sister Diabetes mellitus [id number] [id number] Not available 05/07/2022 04:45:21 Maternal Grandmother Malignant neoplasm of breast >50s MIGRATION.441 [id number] Not available 05/07/2022 04:45:21 Paternal Grandmother Malignant neoplasm of breast [id number].493 [id number] Not available 05/07/2022 04:45:21 Father Alcoholism MIGRATION.[id number] Not available 05/07/2022 04:45:21 Unspecified Relation Alcoholism nephew MIGRATION.197 [id number] Not available 05/07/2022 04:45:21 Medical History Condition Response NERVE DISEASE N BLINDNESS N RHEUMATIC FEVER N KIDNEY STONES N BLADDER PROBLEMS N MRSA N OTHER # 1 N POLIO N LUNG DISEASE/DISORDER N RADIATION / CHEMOTHERAPY N COPD N Other # 2 N BLOOD DISEASES N EAR OR HEARING PROBLEMS N MUMPS N BOWEL PROBLEMS Y DEPRESSION (INCLUDING POST ) N STROKE/TIA N ULCERS N BENIGN PROSTATIC HYPERPLASIA N MEASLES N MYOCARDIAL INFARCTION N OBESITY N GERD/NAUSEA N ANEURYSM N URINARY/BLADDER/KIDNEY PROBLEMS N CORONARY ARTERY DISEASE (CAD) N ADDICTION CONCERNS N ENDOMETRIOSIS N Impotence N USE OF BLOOD THINNERS N SKIN [...] APNEA N CHICKENPOX N INFECTIOUS DISEASE N HEART ARRHYTHMIA N PROSTATE N INSOMNIA N HIGH CHOLESTEROL / HYPERLIPIDEMIA Y HYPERTHYROIDISM N EYE PROBLEMS N EDEMA N CHRONIC PAIN SYNDROME N HYPOTHYROIDISM Y CAROTID BLOCKAGE N CONSTIPATION N BACK / NECK PROBLEMS Y HAVE YOU BEEN HOSPITALIZED OR SEEN IN [facility] IN THE PAST YEAR ? N ATHEROSCLEROSIS N BREAST PROBLEMS Y DIALYSIS N ECZEMA N OSTEOPOROSIS N ARTHRITIS N APPENDICITIS N DIABETES, TYPE N BAD TEETH N ENT N HEARTBURN / REFLUX N AUTISM SPECTRUM DISORDER (ASD) N HEPATITIS / LIVER DISEASE N GOUT N SLEEP DISORDER N ALZHEIMER'S DISEASE N Brain Problems N HERPES N DEMENTIA N HEADACHES/MIGRAINES N SEIZURES/EPILEPSY N VASCULAR DISEASE N PACEMAKER N Blood Disorder N DIZZINESS N HEART DISEASE/HEART PROBLEMS N KIDNEY DISEASE N MULTIPLE SCLEROSIS N CARDIAC ARRHYTHMIA N CANCER: SPECIFY N ATRIAL FIBRILLATION N Gall Stones N [...] mcg/0.3 mL dose 06/11/2020 completed Not Available [facility] 4 23:03:23 COVID-19, mRNA, LNP-S, PF, 30 mcg/0.3 mL dose 05/14/2020 completed Not Available [facility] 4 23:03:23 Past Encounters Encounter ID Performer Location Encounter Start Date Encounter Closed Date Diagnosis/Indication Diagnosis SNOMED-CT Code Diagnosis ICD10 Code Diagnosis IMO Codes Diagnosis Note [id number] Cortez Tijerina MD [facility] Internal Med [address] , [place] [address] 07/12/2020 00:00:00 07/13/2020 08:00:17 [id number] Cortez Tijerina MD [facility] Internal Med [address] , [place] [address] 07/26/2020 00:00:00 07/28/2020 20:57:31 [id number] Cortez Tijerina MD [facility] [address] , [place] [address] 09/04/2020 00:00:00 09/10/2020 21:40:49 [id number] [facility] ic_Gateway _ATHENA_M IGRATION_ DEFAULT_1 _1 , 10/16/2020 00:00:00 10/16/2020 13:07:00 [id number] Cortez Tijerina MD [facility] Internal Med [address] , [place] [address] 01/10/2021 00:00:00 01/20/2021 12:34:34 [id number] Cortez Tijerina MD [facility] Internal Med [address] [facility] [address] , [place] [address] 02/07/2021 00:00:00 03/10/2021 16:40:05 [id number] Cortez Tijerina MD [facility] Internal Med [address] [address] [facility] [address] , [place] [address] 03/21/2021 00:00:00 03/21/2021 21:11:17 [id number] Cortez Tijerina MD [facility] Internal Med [place] [address] [place] [address] y , [place] [address] 06/13/2021 00:00:00 06/21/2021 20:48:34 [id number] Cortez Tijerina MD [facility] Internal Med [facility] [address] [facility] [address] [place] [address] 02/10/2022 00:00:00 02/10/2022 22:51:50 [id number] Srini El MD [facility] ENT [place] [address] [place] [address] 03/25/2022 00:00:00 03/25/2022 12:14:14 [id number] Srini El MD [facility] ENT [place] [address] [place] [address] 04/24/2022 00:00:00 04/24/2022 10:46:19 [id number] Srini El MD [facility] ENT [place] [address] [place] [address] 05/29/2022 10:49:01 05/29/2022 11:42:42 Lesion of tongue 342860486 K14.9 [id number] Cortez Tijerina MD [facility] Internal Med [place] [address] [address] [facility] [address] , [place] [address] 06/17/2022 10:28:45 06/17/2022 11:49:07 Adult health examination 881132885 Z00.00 Screening for disorder 672160154 Z13.9 Essential hypertension 70087758 I10 Hyperlipidemia 90306440 E78.5 Asthma 223382750 J45.90 9 [id number] Cortez Tijerina MD [facility] Internal Med [address] [address] [facility] [place] [address] 01/08/2023 09:41:16 01/08/2023 10:26:33 Essential hypertension 15684242 I10 Hyperlipidemia 69627021 E78.5 Hypothyroidism 06726438 E03.9 Health Concerns Section Related Observation LastModified by Organization Detai ls LastModified Time None Recorded Concern Status LastModified by Organization Details LastModified Time None Recorded Advance Directives Directive Y: Payers Insurance Date Sequence Insurance Name Policy Number Policy Gifford Covered Member ID Gifford Member ID Guarantor Name 01/07/2023 1 [place] Niru Amin Neunaber [id number] Niru Slater Neunaber 01/19/2023 2 [employer] (MEDICARE SUPPLEMENT) Niru Amin Neunaber [id number] Niru Slater Neunaber Notes Date Note Type Note Provider Name and Address Organization Details Recorded Time 3 text/html the patient reports that she has irritation in the area of the previous left tongue biopsy. She reports that she is reducing smoking but has not yet managed quit. Srini El MD [address], [place], [address], [facility] [employer] [facility] [employer] 05/29/2022 11:36:47 3 text/html Cholesterol 270Biopsy of oral lesionHypothyroid no heat or cold intoleranceContinues to smokeCOPD stable Cortez Tijerina MD [address], [place], [address], [facility] [employer] [facility] [employer] 07/19/2022 23:19:37 3 text/html Hyperlipidemia try to follow low-fat dietBiopsy of oral lesion still has some symptomsHypothyroid no heat or cold intoleranceContinues to smokeCOPD stable Cortez Tijerina MD [address], [place], [address], [facility] [employer] [facility] [employer] 01/17/2023 15:50:43 OBGyn Episode No OBEpisode recorded.
--- OUTSIDE RECORDS SUMMARY | 2025-01-03 17:44 | XMS_ITS | Encounter Summary ---
Author Organization [facility] Address [address] [place] [address] Care Team Providers Care Clinical Rehabilitation Liaison Name Role Phone Unavailable Primary Care Provider Unavailabl e Encounter Details Date Type Department Care Team (Latest Contact Info) Description 12/24/2004 Outpatient Historical [facility] Donnie Smallwood MD [address] 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
--- OUTSIDE RECORDS SUMMARY | 2025-01-03 17:44 | XMS_ITS | Data Portability ---
Author Organization [facility] Address [address] [place] [address] Care Team Providers Care Compressed Gases Tester Name Role Phone CORTEZ TIJERINA Primary Care Provider Assessment Encounter Date Assessment Date Assessment LastModified by Organization Details LastModified Time 01/14/2024 01/14/2024 health assessments and screenings discussed ordered were appropriate and patient agreeable she will keep her regular follow up all questions answered [email or web address] Not available 01/24/2024 18:19:09 05/19/2024 05/19/2024 continue with nifedipine she is done with her steroids continue with her inhalers I believe she has a pulmonary follow up she will see me back in 1 month and she has had a mouth lesion we will have ENT take a look at it [email or web address] Not available 05/21/2024 22:51:06 06/30/2024 06/30/2024 Needs to quit smoking low-fat diet follow up ENT they may need to do another biopsy she says follow up in 1 month [email or web address] Not available 07/02/2024 16:33:50 07/28/2024 07/28/2024 MRI reviewed we will get her sent to a tertiary care center for further evaluation and management with regards to the pain that appears to emanate from this lesion it is also involving her ear a little bit now too we will add some gabapentin side effects of that discussed continue with her inhalers medications for hypothyroidism she will follow up with me in 6 weeks. With the gabapentin we will start with 200 mg at night after a week if she is tolerating that she can go to 200 mg b.i.d. and stay on that until she sees me in 6 weeks [email or web address] Not available 07/30/2024 18:39:24 09/08/2024 09/08/2024 Asthma/COPD appears stable Hypertension discussed lot going on probably some anxiety component here because of the lesion and needs to be biopsied we will monitor Oral lesion I have recommended that she follow the advice of the ENT at [place] and probably do the punch biopsy. Given her risk factors head and neck malignancy think we need some definitive answers See me back in 4 months [email or web address] Not available 09/09/2024 14:31:44 Plan of Treatment Reminders Order Date Submit Date Provider Last Modified By Organization Details Last Modified Time Details Appointments ANY 15 2024 10:15A M Cortez Tijerina MD Not available Not available Not available Lab None recorded. Referral None recorded. Procedures None recorded. Surgeries None recorded. Imaging bone density 2023 024 [facility], [address] [address], [place], [address], 03/22/2024 03:39:20 Medication Orders gabapenti n 100 mg capsule 2024 025 [facility] [id number] [facility], [address], [place], [address], 09/08/2024 13:54:03 Patient TargetsNo targets recorded. Patient Instructions Encounter Date Encounter Id Patient Instructions Last Modified By Organization Details Last Modified Time 01/14/2024 [id number] A healthy lifestyle: care instructions Not available 01/14/2024 21:36:39 Quitting Tobacco : Care Instructions Not available 01/14/2024 21:36:39 Medicare [facility] Preventive Checklist [email or web address] Not available 01/14/2024 21:36:39 05/19/2024 [id number] A healthy lifestyle: care instructions Not available 05/19/2024 13:27:16 06/30/2024 [id number] A healthy lifestyle: care instructions [email or web address] Not available 06/30/2024 21:34:17 07/28/2024 [id number] A healthy lifestyle: care instructions [email or web address] Not available 07/28/2024 17:58:05 Quitting Tobacco : Care Instructions [email or web address] Not available 07/28/2024 14:37:23 09/08/2024 [id number] Quitting Tobacco : Care Instructions [email or web address] Not available 09/08/2024 14:13:39 A healthy lifestyle: care instructions [email or web address] Not available 09/08/2024 14:13:39 Reason for Referral None Reported. Results Created Date Observation Date Name Description Value Unit Range Abnormal Flag Note LastModifiedBy Organization Detail LastModifiedTime 12/16/1912/16/2023 XR, chest , 2 view No observ ation record ed. [address], [place], [address], 12/16/2023 20:40:36 12/16/19 24 12/16/2023 PFT, compl ete No observ ation record ed. [address], [place], [address], 12/17/2023 09:59:51 12/16/19 24 12/16/2023 six minut e walk test* No observ ation record ed. [address], [place], [address], 12/17/2023 10:03:52 03/21/19 25 03/21/2024 bone densi ty No observ ation record ed. [address], [place], [address], 03/23/2024 11:35:02 03/21/19 25 03/21/2024 bone densi ty No observ ation record ed. [address], [place], [address], 03/23/2024 11:35:03 05/09/19 25 05/08/2024 XR, chest , 2 view No observ ation record ed. [address], [place], [address], 05/25/2024 16:59:02 05/09/19 25 05/08/2024 CT, chest , w/o contr ast No observ ation record ed. [address], [place], [address], 05/25/2024 16:59:02 05/11/19 25 05/09/2024 US, doppl er echoc ardio gram No observ ation record ed. [address], [place], [address], 05/13/2024 15:53:48 07/22/19 25 07/20/2024 MRI, head + neck + orbit s, w/wo contr ast No observ ation record ed. [address], [place], [address], 07/27/2024 11:47:42 Result Notes None recorded. Problems Name Problem SNOMED Code Status Onset Date Resolution Date Notes Provider Name and Address Organization Details Recorded Time Asthma 796588564 Active 2023 Noy [place], [place] - [facility] 4 10:49:04 Nicotine dependence 87128111 Active 2023 N[place] [facility] 4 10:49:05 Essential hypertension 98562315 Active 2023 N[place] [facility] 4 10:50:17 Hyperlipidemia 89647274 Active 2023 Noy [place] [facility] 4 10:50:19 Hypothyroidism 25855894 Active 2023 N[place] [facility] 4 10:50:20 Standard chest X-ray abnormal 033302479 Active 2023 Nyo Santos [place], [place] [facility] 15:52:33 Problem Notes None recorded. Procedures Surgical History Date Name Laterality Status Provider Name and Address Organization Details Recorded Time Eye Surgery completed NAHUN Melendez - [facility] 07/09/2023 10:10:32 Back Surgery completed Elmira Lazaro MA [facility] 07/09/2023 10:10:38 Imaging Results None recorded. Procedure Notes None recorded. Medical Equipment None Reported. Allergies Allergen ID Allergen Name Allergen Category Reaction Reaction Severity Criticality Documentation Date Start Date Code Code System Note Provider Name and Address Organization Details Recorded Time 17050808 Product containin g penicilli n (product) medicatio n hives Not available Not available 07/09/2023 49329 8001 SNOMED NAHUN Melendez [facility] 4 10:03:14 259547 lisinopri l medicatio n itching rash Not available Not available Not available 07/09/2023 86077 RxNorm NAHUN Melendez [facility] 10:03:19 Medications Name Sig Start Date Stop [...] TAKE 1 TABLET BY MOUTH EVERY DAY 05/19 completed Not Available Not Available Not Available azithromyci n 250 mg tablet TAKE [...] THREE TIMES A DAY FOR 7 DAYS 09/08 completed Not Available Not Available Not Available prednisone 10 mg tablets in a [...] TAKE 1 TABLET BY MOUTH EVERY DAY 2024 active Not Available Not Available Not Avai lable gabapentin 100 mg capsule TAKE 2 CAPSULES BY MOUTH TWICE A DAY 09/08 completed Not Available Not Available Not Available methylpredn isolone 4 mg tablets in [...] 2 PUFFS BY MOUTH TWICE A DAY 09/08 completed Not Available Not Available Not Available Advair HFA 45 mcg-21 mcg/actuati on aerosol inhaler INHALE 2 PUFFS BY MOUTH TWICE A DAY 2024 active Not Available Not Available Not Avai danelle Trevino [facility] spacer USE WITH INHALER NEEDED active Not Available Not Available No t Available albuterol sulf 90 mcg/actuati on breath activated powder inhaler,sen sor Inhale 2 puffs every 4 hours by inhalatio n route as needed. active Not Available Not Available No t Available Vitals Date Recorded Body height Body mass index (BMI) Body weight Heart rate Oxygen saturation Oxygen saturation in Arterial blood by Pulse oximetry Systolic And Diastolic Provider Name and Address Organization Details Last Updated DateTime 03/13/202 5 162.56 cm 33.2 kg/m2 76625.0 5 g 72 /min 98 % 98 % 100/58 mm[Hg] Brittny Lewis [facility] 5 11:41:38 Date Recorded Body height Body mass index (BMI) Body weight Heart rate Oxygen saturation Oxygen saturation in Arterial blood by Pulse oximetry Systolic And Diastolic Provider Name and Address Organization Details Last Updated DateTime 5 162.56 cm 31.9 kg/m2 10302.1 8 g 82 /min 95 % 95 % 122/72 mm[Hg] Brittny Lewis [facility] 5 15:08:07 Date Recorded Body height Body mass index (BMI) Body weight Heart rate Oxygen saturation Oxygen saturation in Arterial blood by Pulse oximetry Systolic And Diastolic Provider Name and Address Organization Details Last Updated DateTime 5 162.56 cm 31.7 kg/m2 16327.1 5 g 71 /min 94 % 94 % 136/70 mm[Hg] Madelyn Iyer [facility] 5 14:37:12 Date Recorded Body height Body mass index (BMI) Body weight Heart rate Oxygen saturation Oxygen saturation in Arterial blood by Pulse oximetry Systolic And Diastolic Provider Name and Address Organization Details Last Updated DateTime 5 162.56 cm 32.2 kg/m2 04471.9 3 g 88.99 /min 95 % 95 % 140/78 mm[Hg] Brittny Lewis [facility] 5 13:52:53 Date Recorded Pain severity - 0-10 verbal numeric rating [Score] - Reported Provider Name and Address Organization Details Last Updated DateTime 01/14/2024 5 Corinne Mcfarland [facility] 01/14/2024 10:30:23 Date Recorded Body height Body mass index (BMI) Body weight Heart rate Oxygen saturation Oxygen saturation in Arterial blood by Pulse oximetry Systolic And Diastolic Provider Name and Address Organization Details Last Updated DateTime 4 162.56 cm 33.1 kg/m2 70094.3 3 g 82 /min 95 % 95 % 152/90 mm[Hg] Kylah Antonio MA [facility] 4 10:05:16 Social History Question Answer Notes LastModified by Organizat ion Details LastModified Time Tobacco Smoking Status Current Every Day Smoker Elmira Lazaro MA [facility] [place] [facility] 07/15/2023 14:44:27 Do You Have An Advance Directive? Yes Information not available 07/09/2023 Are You Blind Or Do You Have [...] No Information not available 05/19/2024 Are You Deaf Or Do You Have Serious Difficulty Hearing? No Information not available 07/09/2023 What Type Of Diet Are You Following? REGULAR Information not available 07/09/2023 What Is The Highest Grade Or Level Of School You Have Completed Or The Highest Degree You Have Received? [id number] Information not available 01/14/2024 Are There Any Guns Present In Your Home? No Information not available 07/09/2023 In The Past 7 Days, How Many Days Did You Exercise? 0 Information not available 01/14/2024 In The Past 7 Days, How Much Pain Have You Liberty? A Lot Information not available 01/14/2024 In [...] Past 7 Days, How Often Have You Liberty Sleepy In The Daytime? Always Information not available 01/14/2024 On They Days When You Drank Alcohol, How Often Did You Have 4 Or More Drinks At A Time? Never Information no t available 01/14/2024 # Alcohol Drinks Per Week 7 Information not available 01/14/2024 What Was The Date Of Your Most Recent Tobacco Screening? 09/08/2024 Information not available 09/08/2024 What Is Your Current Pack Years? 30ormorepack [...] PPD Information not available 07/15/2023 Do You Use Sunscreen Routinely? Yes Information not available 01/14/2024 Has Tobacco Cessation Counseling Been Provided? Yes Information not available 07/15/2023 On What Date Was Tobacco Cessation Counseling Provided? 09/08/2024 Information not available 09/08/2024 How Many Years Have You Smoked Tobacco? 51 Information not available 01/14/2024 Sex: Female Functional Status Question Answer Note LastModified by Organizat ion Details LastModified Time Do you use any illicit or recreational drugs? No Information not available 07/09/2023 Do you or have you ever used any other forms of tobacco or nicotine? No Information not available 07/09/2023 What is your level of alcohol consumption? Moderate 1 cup of wine every night Information not available 01/14/2024 Are you currently employed? No Retired Information not available 01/14/2024 Are you able to care for yourself independently? Yes Information not available 07/09/2023 What is your exercise level? Occasional active lifestyle Information not available 01/14/2024 Mental Status Question Answer Note LastModified by Organization D etails LastModified Time Do you feel stressed (tense, restless, nervous, or anxious, or unable to sleep at night)? [id number] Information not available 07/09/2023 Family History Relationship Description Onset Age of this Age Resolved Age Notes LastModified by Organization Details LastModified Time Father Harmful pattern of use of alcohol [email or web address] Not available 04/2023 10:09:37 Father Cerebrovascu [...] Skin Problems N Anemia N Heart Attack (ND) N Anxiety Disorder N Diabetes N Muscle, [...] ICD10 Code Diagnosis IMO Codes Diagnosis Note [id number] Cortez Tijerina MD [facility] [employer] [address] [place] [address] 07/09/2023 09:48:31 07/09/2023 11:00:49 Asthma 756204752 J45.909 Nicotine dependence 5629 4008 Z87.891 Essential hypertension 83343215 I10 Hyperlipidemia 88805780 E78.5 Hypothyroidism 55346755 E03.9 Abdominal aortic aneurysm screening 311623752 Z13.6 [id number] Cortez Tijerina MD [facility] [email or web address] [facility] [place] [address] [place] [address] 09/14/2023 14:28:49 09/14/2023 16:12:44 Standard chest X-ray abnormal 928848750 R93.89 Hyperlipidemia 07651550 E78.5 Hypothyroidism 80869353 E03.9 [id number] Cortez Tijerina MD [facility] [employer] [facility] [place] [address] [place] [address] 01/14/2024 09:53:03 01/14/2024 11:00:48 Adult health examination 655213825 Z00.00 Health Risk Assessment collected and reviewed Obesity 316809879 E66.9 Postmenopausal state 764 29215 Z78.0 [id number] Cortez Tijerina MD [facility] [employer] [facility] [place] [address] [place] [address] 05/19/2024 10:54:05 05/19/2024 12:32:32 Body mass index 30+ - obesity 179188243 Z68.33 Overweight 570266188 E66 .3 Acute hypo xemic respiratory failure 750309465 J96.01 Asthma 997090906 J45.90 9 Essential hypertension 84824312 I10 [id number] Cortez Tijerina MD [facility] [employer] [facility] [place] [address] [place] [address] 06/30/2024 14:49:46 06/30/2024 16:17:22 Body mass index 30+ - obesity 681859036 Z68.31 253439 Obese class I 0510124230 08711 E66.811 3672944827 Essential hypertension 03358052 I10 Hyperlipidemia 57141739 E78.5 Hypothyroidism 23472695 E03.9 Nicotine dependence 5629 4008 Z87.774 [id number] Cortez Tijerina MD [facility] [employer] [facility] [place] [address] [place] [address] 07/28/2024 13:51:22 07/28/2024 15:05:32 Cigarette smoker 08272204 F17.210 480883 Smoker 61065865 F17.200 Obesity ca used by energy imbalance 454551369 E66.811 E66.09 Z68.31 83182102 Pain in face 63455481 R5 1.9 99166 Hypothyroidism 91788412 E03.9 [id number] Cortez Tijerina MD [facility] [employer] [place] [address] [place] [address] 09/08/2024 13:32:33 09/08/2024 14:32:21 Body mass index 30+ - obesity 234052031 Z68.32 605309 Obese class I 1917912944 87526 E66.811 6678850403 Smoker 34841518 F17.200 Essential hypertension 42336195 I10 Asthma 064544523 J45.90 9 Health Concerns Section Related Observation LastModified by Organization Detai ls LastModified Time None Recorded Concern Status LastModified by Organization Details LastModified Time None Recorded Advance Directives Directive Y: Payers Insurance Date Sequence Insurance Name Policy Number Policy Gifford Covered Member ID Gifford Member ID Guarantor Name 09/06/2024 1 [place] Niru Amin Neunaber [id number] Niru Slater Neunaber 09/06/2024 [place] - FQHC Niru Slater Neunaber [id number] Niru Slater Neunaber 09/12/2024 2 [employer] (MEDICARE SUPPLEMENT) Niru Amin Neunaber [id number] Niru Whitakerabeling Notes Date Note Type Note Provider Name and Address Organization Details Recorded Time 01/14/2024 text/html MAW 2Reported by PatientSocial/Behavi oral HistoryFor fracture risk, patient reportshistory of fracturesbut reportsno sudden unexplained fractures. For diet and nutrition, patient reportshealthy diet.Mental Status:For concentration and memory, patient reportsno decreased concentrating ability,no memory lapses or loss, anddoes not forget words. For speech/motor difficulties, patient reportsno speech difficulties,no difficulty expressing formulated concepts,no difficulty with fine manipulative tasks,no difficulty writing/copying,no slowed reaction time, anddoes not knock things over when trying to pick them up.Functional AbilityFor vision, patient reportsworse near (glasses). For home safety, patient reportsdoes not have hand bars in the bathroom/showerbut reportsno unsafe isaak hazzards,no unsafe stairs,working smoke/co detectors,practicing 'safer sex',no fire arms, andgood lighting in the home. For hearing, patient reportsno loss of hearing. For activities of daily living, patient reportsable to bathe with limited or no assistance,able to contol urination and bowels,able to dress with limited or no assistance,able to feed self with limited or no assistance,able to get out of chair or bed with limited or no assistance,able to groom with limited or no assistance, andable to toilet with limited or no assistance. For instrumental activities of daily living, patient reportsable to do house work with limited or no assistance,able to grocery shop with limited or no assistance,able to manage medications with limited or no assistance,able to manage money with limited or no assistance,able to prepare meals with limited or no assistance, andable to use the phone with limited or no assistance. For falls risk assessment, patient reportsno frequent falls while walking,no fall in the past year,no fall since last visit, andno dizziness/vertigo. Cortez Tijerina MD Attn: Accounting, [address] [place], [address], [facility] 01/24/2024 18:19:24 05/19/2024 text/html admitted with acute hypoxic respiratory failure secondary to asthma exacerbation PCR for viral pathogens was negative. Slow improvement CTA negative for PE discharge been doing fine since then was hypertensive started on nifedipine XL 30 mg daily she still feels a little bit weak with the breathing is fine on ambient air Cortez Tijerina MD Attn: Accounting, [address] [place], [address], [facility] 05/21/2024 22:51:25 06/30/2024 text/html Lung issues fine nondiagnostic biopsy oral cavity hyperlipidemia she is trying to focus on diet Cortez Tijerina MD Attn: Accounting, [address] [place], [address], [facility] 07/02/2024 16:34:08 07/28/2024 text/html Tongue lesion starting to cause some facial pain on that side. Has not spoken with her ENT doctor who ordered the test she says she has made several calls from whatever it has not made a connection. COPD/asthma has been stable no cough or wheezing no shortness a breath at this time she is trying Cortez Tijerina MD Attn: Accounting[address] [place], [address], [facility] - [facility] 07/30/2024 18:41:26 09/08/2024 text/html Gabapentin maybe helps the facial pain a little bit. She did see the physician at [facility] ENT they recommended punch biopsy at 1st she was a little bit reluctant Cortez Tijerina MD Attn: Accounting[address] [facility], [place], [address], [facility] 09/09/2024 14:32:21 OBGyn Episode No OBEpisode recorded.
--- OUTSIDE RECORDS SUMMARY | 2025-01-03 17:48 | XMS_ITS | Encounter Summary ---
Author Organization [facility] Address [address] [place] [address] Care Team Providers Care Overhead Garage Door Hanger Name Role Phone Lenny Tijerina MD Primary Care Provider [phone] Joaquin Sosa DO Unavailable [phone] Encounter Details Date Type Department Care Team (Late st Contact Info) Description 01/03/2025 5:48 PM CDT Emergency [facility] Emergency Department [address] [place] [id number] Social History Tobacco Use Types Packs/Day Years Used Date Smoking Tobacco: Every Day Cigarettes 1.5 25.8 Started: 1999 Smokeless Tobacco: Never Alcohol Use Standard Drinks/Week Comments Yes 4 [...] Legal 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 During surgery, lingual artery required cautery. OSH able to achieve hemostasis with TXA, pressure and afrin. Pt hemodynamically stable. Pt accepted by MD Mcclain, report called to MD Weir. Lisa Grimes RN documented in this encounter Plan of Treatment Not on file documented as of this encounter Goals Goal Patient Goal Type Associated Problems Recent Progress Patient-Stated? Author Autogenerat ed Goal Care Plan Autogenerated Problem No Gayle Plaza RN documented as of this encounter Visit Diagnoses Not on filedocumented in this encounter Additional Health Concerns Active Problems Noted Date Diagnosed Date Autogenerated Problem 12/23/2024 documented as of this encounter Care Teams Overhead Garage Door Hanger Relationship Specialty Start Date End Date Lenny Tijerina MD PCP - General Internal Medicine 12/04/20 Joaquin Sosa DO [address] [place] [address] MEDICAL ONCOLOGY, [address] [address] Medical Oncologist/Caustic Strength Inspector Hematology and Oncology 03/06/22 documented as of this encounter
--- NOTE | 2025-01-03 18:05 | PC.NURSE ---
Pt to be transferred to [facility]. Report called by this RN @ 1156 to Lisa KOENIG in the [facility].
[2025-01-03] MEDS: oxyCODONE HCL (*CRX) 5 MG TAB IR PO (18:09)
[2025-01-03 18:34] VITALS: BP 133/63; PULSE 78; RESP 16; O2SAT 97
== END 2025-01-03 18:55 | disposition short-term general hospital (02) ==
LOC: ANHED 17:30
PROVIDERS: Emergency Provider Student in an Organized Health Care Education/Training Program; PCP Internal Medicine
DX: K91.840 Postprocedural hemorrhage of a digestive system organ or structure following a digestive system procedure (principal); C02.9 Malignant neoplasm of tongue, unspecified; J45.909 Unspecified asthma, uncomplicated; E89.0 Postprocedural hypothyroidism; F17.210 Nicotine dependence, cigarettes, uncomplicated; Z98.49 Cataract extraction status, unspecified eye; Z79.899 Other long term (current) drug therapy; Y84.8 Other medical procedures as the cause of abnormal reaction of the patient, or of later complication, without mention of misadventure at the time of the procedure
CPT/HCPCS: 36415; 80053; 85025; 85610; 85730; 86850; 86900; 86901; 99291; A9270; J2004; J3290

== ENCOUNTER 2025-02-19 09:22 | Emergency (ER) | payer MEDICARE, OTHER, SELFPAY ==
--- NOTE | ~2025-02-19 | XR_ITS ---
Examination: XR abdomen/kub 1V Clinical History: constipation Comparison: None Technique: 2 views AP abdomen Findings: Feeding tube tip within gastric body. Lung bases clear. Scattered colonic gas and stool. Stool volume not significantly increased. Scattered small bowel gas. No abnormal abdominal calcification. No acute bony abnormality. IMPRESSION: 1. No acute abnormality. Reviewed, dictated and finalized at location R. ICAL WRITER IMPRESSION: 1. No acute abnormality.
[2025-02-19 09:30] VITALS: BP 173/92; PULSE 70; RESP 19; TEMP 36.7; O2SAT 96
--- OUTSIDE RECORDS SUMMARY | 2025-02-19 09:50 | XMS_ITS | Data Portability ---
Author Organization [place] [email or web address], Main Office Address [address] [place] [address] Care Team Providers Care Internet Project Manager Name Role Phone CORTEZ TIJERINA Primary Care Provider [phone] Assessment Encounter Date Assessment Date Assessment LastModified by Organization Details LastModified Time 06/17/2022 06/17/2022 I have recommended cholesterol medication Tobacco cessation again recommended Continue current therapy See me in 4 months [email or web address] Not available 07/19/2022 23:19:09 01/08/2023 01/08/2023 Continue current therapy follow-up 6 months [email or web address] Not available 01/17/2023 15:50:27 Plan of Treatment Reminders Order Date Submit Date Provider Last Modified By Organization Details Last Modified Time Details Appointments None recorded . Lab T3, free, serum or plasma 023 01/09/20 23 [email or web address] Not available 4 18:42:33 T4, free, serum 023 01/09/20 23 [email or web address] Not available 4 18:42:33 TSH, serum or plasma 023 01/09/20 23 Not available 4 18:42:33 CBC w/ auto diff 023 01/09/20 23 [email or web address] Not available 4 18:42:34 lipid panel, serum 023 01/09/20 23 [email or web address] Not available 4 18:42:34 CMP, serum or plasma 023 01/09/20 23 [email or web address] Not available 4 18:42:34 Referral None recorded . Procedures None recorded . Surgeries None recorded . Imaging None recorded . Medication Orders None recorded . Patient TargetsNo targets recorded. Patient Instructions Encounter Date Encounter Id Patient Instructions Last Modified By Organization Details Last Modified Time 05/29/2022 [id number] we discussed rep eat biopsy but she strongly prefers to avoid. She will continue to work on her smoking. [email or web address] Not available 05/29/2022 11:36:30 06/17/2022 [id number] dementia rating scale-2* [email or web address] Not available 07/19/2022 23:19:34 alcohol misuse* [email or web address] Not available 07/19/2022 23:19:34 depression screening* [email or web address] Not available 07/19/2022 23:19:33 multi-dimensiona health assessment questionnaire* [email or web address] Not available 07/19/2022 23:19:34 Personalized Hea lt [...] 4.6 mmol/ L 3.5-5. 1 Not Available [facility] (Lab) [address] [place], [address], 04/14/2022 11:18:24 04/14/19 23 04/14/2022 PLATE LET COUNT platelets 222 x10'3 /uL 150-40 0 Not Available [facility] (Lab) [address] [place], [address], 04/14/2022 11:02:00 04/14/19 23 04/14/2022 HEMOG LOBIN /REY TOCRI T hemoglobin 16.9 g/dL 12.0-1 5.6 high Not Available [facility] (Lab) [address] [place], [address], 04/14/2022 11:01:43 04/14/19 23 04/14/2022 HEMOG LOBIN /REY TOCRI T hematocrit 52.7 % 35.7-4 5.7 high Not Available [facility] (Lab) [address] [place], [address], 04/14/2022 11:01:43 07/03/19 23 07/02/2022 CBC/C OMPLE TE BLD COUNT W/DIF F white blood cells 6.8 x10'3 /uL 4.2-10 .8 Not Available [facility] (Lab) [address] [place], [address], 07/02/2022 18:52:00 07/03/19 23 07/02/2022 CBC/C OMPLE TE BLD COUNT W/DIF F red blood cells 4.99 x10'6 /uL 3.80-5 .20 Not Available [facility] (Lab) [address] [place], [address], 07/02/2022 18:52:00 07/03/19 23 07/02/2022 CBC/C OMPLE TE BLD COUNT W/DIF F hemoglobin 16.4 g/dL 12.0-1 5.6 high Not Available [facility] (Lab) [address] [place], [address], 07/02/2022 18:52:00 07/03/19 23 07/02/2022 CBC/C OMPLE TE BLD COUNT W/DIF F hematocrit 52.4 % 35.7-4 5.7 high Not Available [facility] (Lab) [address] [place], [address], 07/02/2022 18:52:00 07/03/19 23 07/02/2022 CBC/C OMPLE TE BLD COUNT W/DIF F mean red cell volume 105.0 fL 82.0-9 9.0 high Not Available [facility] (Lab) [address] [place], [address], 07/02/2022 18:52:00 07/03/19 23 07/02/2022 CBC/C OMPLE TE BLD COUNT W/DIF F mean red cell hemoglobin 32.9 pg 27.0-3 3.0 Not Available [facility] (Lab) [address] [place], [address], 07/02/2022 18:52:00 07/03/1907/02/2022 CBC/C OMPLE TE BLD COUNT W/DIF F mean RBC HGB concentratio n 31.3 g/dL 31.0-3 6.0 Not Available [facility] (Lab) [address] [place], [address], 07/02/2022 18:52:00 07/03/19 23 07/02/2022 CBC/C OMPLE TE BLD COUNT W/DIF F red cell distribution width 15.3 % 11.8-1 5.5 Not Available [facility] (Lab) [address] [place], [address], 07/02/2022 18:52:00 07/03/1907/02/2022 CBC/C OMPLE TE BLD COUNT W/DIF F platelets 241 x10'3 /uL 150-40 0 Not Available [facility] (Lab) [address] [place], [address], 07/02/2022 18:52:00 07/03/19 23 07/02/2022 CBC/C OMPLE TE BLD COUNT W/DIF F mean platelet volume 11.1 fL 9.0-12 .4 Not Available [facility] (Lab) [address] [place], [address], 07/02/2022 18:52:00 07/03/1907/02/2022 CBC/C OMPLE TE BLD COUNT W/DIF F neutrophils 56.0 % 39.0-7 2.0 Not Available [facility] (Lab) [address] [place], [address], 07/02/2022 18:52:00 07/03/1907/02/2022 CBC/C OMPLE TE BLD COUNT W/DIF F lymphocytes 32.7 % 16.0-4 7.0 Not Available [facility] (Lab) [address] [place], [address], 07/02/2022 18:52:00 07/03/19 23 07/02/2022 CBC/C OMPLE TE BLD COUNT W/DIF F monocytes 7.3 % 5.0-12 .0 Not Available [facility] (Lab) [address] [place], [address], 07/02/2022 18:52:00 07/03/19 23 07/02/2022 CBC/C OMPLE TE BLD COUNT W/DIF F eosinophils 3.4 % 1.0-7. 0 Not Available [facility] (Lab) [address] [place], [address], 07/02/2022 18:52:00 07/03/1907/02/2022 CBC/C OMPLE TE BLD COUNT W/DIF F basophils 0.3 % 0.0-2. 0 Not Available [facility] (Lab) [address] [place], [address], 07/02/2022 18:52:00 07/03/1907/02/2022 CBC/C OMPLE TE BLD COUNT W/DIF F immature granulocytes 0.3 % 0.00-0 .50 Not Available [facility] (Lab) [address] [place], [address], 07/02/2022 18:52:00 07/03/1907/02/2022 CBC/C OMPLE TE BLD COUNT W/DIF F neutrophils, absolute count 3.83 x10'3 /uL 1.5-8. 0 Not Available [facility] (Lab) [address] [place], [address], 07/02/2022 18:52:00 07/03/1907/02/2022 CBC/C OMPLE TE BLD COUNT W/DIF F lymphocytes, absolute count 2.24 x10'3 /uL 1.07-3 .43 Not Available [facility] (Lab) [address] [place], [address], 07/02/2022 18:52:00 07/03/1907/02/2022 CBC/C OMPLE TE BLD COUNT W/DIF F monocytes, absolute count 0.50 x10'3 /uL 0.29-0 .99 Not Available [facility] (Lab) [address] [place], [address], 07/02/2022 18:52:00 07/03/19 23 07/02/2022 CBC/C OMPLE TE BLD COUNT W/DIF F eosinophils, absolute count 0.23 x10'3 /uL 0.02-0 .53 Not Available [facility] (Lab) [address] [place], [address], 07/02/2022 18:52:00 07/03/19 23 07/02/2022 CBC/C OMPLE TE BLD COUNT W/DIF F basophils, absolute count 0.02 x10'3 /uL 0.01-0 .08 Not Available [facility] (Lab) [address] [place], [address], 07/02/2022 18:52:00 07/03/1907/02/2022 CBC/C OMPLE TE BLD COUNT W/DIF F immature granulocytes ,absolute 0.02 x10'3 /uL 0.00-0 .05 Not Available [facility] (Lab) [address] [place], [address], 07/02/2022 18:52:00 07/03/19 23 07/02/2022 CBC/C OMPLE TE BLD COUNT W/DIF F nucleated red blood cells 0.0 % -0 Not Available [facility] (Lab) [address] [place], [address], 07/02/2022 18:52:00 07/03/19 23 07/02/2022 CBC/C OMPLE TE BLD COUNT W/DIF F NRBC# 0.00 x10'3 /uL Not Available [facility] (Lab) [address] [place], [address], 07/02/2022 18:52:00 07/03/1907/02/2022 COMPR EHENS JAYA METAB OLIC PANEL sodium 138 mmol/ L 137-14 5 Not Available [facility] (Lab) [address] [place], [address], 07/02/2022 19:19:54 07/03/1907/02/2022 COMPR EHENS JAYA METAB OLIC PANEL potassium 4.5 mmol/ L 3.5-5. 1 Not Available [facility] (Lab) [address] [place], [address], 07/02/2022 19:19:54 07/03/19 23 07/02/2022 COMPR EHENS JAYA METAB OLIC PANEL chloride 103 mmol/ L 98-107 Not Available [facility] (Lab) [address] [place], [address], 07/02/2022 19:19:54 07/03/19 23 07/02/2022 COMPR EHENS JAYA METAB OLIC PANEL carbon dioxide 27 mmol/ L 22-30 Not Available [facility] (Lab) [address] [place], [address], 07/02/2022 19:19:54 07/03/19 23 07/02/2022 COMPR EHENS JAYA METAB OLIC PANEL anion gap 12.5 mmol/ L 14-22 low Not Available [facility] (Lab) [address] [place], [address], 07/02/2022 19:19:54 07/03/19 23 07/02/2022 COMPR EHENS JAYA METAB OLIC PANEL glucose 99 mg/dL 70-99 Not Available [facility] (Lab) [address] [place], [address], 07/02/2022 19:19:54 07/03/19 23 07/02/2022 COMPR EHENS JAYA METAB OLIC PANEL BUN 16 mg/dL 8-19 Not Available [facility] (Lab) [address] [place], [address], 07/02/2022 19:19:54 07/03/19 23 07/02/2022 COMPR EHENS JAYA METAB OLIC PANEL creatinine 0.64 mg/dL 0.66-1 .25 low Not Available [facility] (Lab) [address] [place], [address], 07/02/2022 19:19:54 07/03/19 23 07/02/2022 COMPR EHENS JAYA METAB OLIC PANEL GFR >60 Refer ence Range : [place] ge GFR Healt hy Adult : >60 [...] calcu lator is avail able on the [facility] websi te: [email or web address] :[email or web address] [email or web address] r_cal culat or Not Available [facility] (Lab) [address] [place], [address], 07/02/2022 19:19:54 07/03/19 23 07/02/2022 COMPR EHENS JAYA METAB OLIC PANEL alkaline phosphatase 95 U/L 38-[address] [facility] (Lab) [address] [place], [address], 07/02/2022 19:19:54 07/03/19 23 07/02/2022 COMPR EHENS JAYA METAB OLIC PANEL alanine aminotransfe rase 51 U/L 0-35 high Not Available [facility] (Lab) [address] [place], [address], 07/02/2022 19:19:54 07/03/19 23 07/02/2022 COMPR EHENS JAYA METAB OLIC PANEL aspartate aminotransfe rase 57 U/L 15-37 high Not Available [facility] (Lab) [address] [place], [address], 07/02/2022 19:19:54 07/03/19 23 07/02/2022 COMPR EHENS JAYA METAB OLIC PANEL bilirubin, total 0.50 mg/dL 0.20-1 .30 Not Available [facility] (Lab) [address] [place], [address], 07/02/2022 19:19:54 07/03/19 23 07/02/2022 COMPR EHENS JAYA METAB OLIC PANEL calcium 9.4 mg/dL 8.4-10 .2 Not Available [facility] (Lab) [address] [place], [address], 07/02/2022 19:19:54 07/03/19 23 07/02/2022 COMPR EHENS JAYA METAB OLIC PANEL total protein 7.2 g/dL 6.3-8. 2 Not Available [facility] (Lab) [address] [place], [address], 07/02/2022 19:19:54 07/03/19 23 07/02/2022 COMPR EHENS JAYA METAB OLIC PANEL albumin 4.5 g/dL 3.0-4. 4 high Not Available [facility] (Lab) [address] [place], [address], 07/02/2022 19:19:54 07/03/19 23 07/02/2022 COMPR EHENS JAYA METAB OLIC PANEL globulin 2.7 g/dL 2.6-4. 2 Not Available [facility] (Lab) [address] [place], [address], 07/02/2022 19:19:54 07/03/1907/02/2022 COMPR EHENS JAYA METAB OLIC PANEL A/G ratio 1.7 ratio 1.0-2. 0 Not Available [facility] (Lab) [address] [place], [address], 07/02/2022 19:19:54 07/03/19 23 07/02/2022 T3 FREE free T3 3.3 pg/mL 2.77-5 .27 Not Available [facility] (Lab) [address] [place], [address], 07/02/2022 19:37:56 07/03/19 23 07/02/2022 T4 FREE free T4 1.38 NG/dL 0.78-2 .19 Not Available [facility] (Lab) [address] [place], [address], 07/02/2022 19:37:58 07/03/19 23 07/02/2022 TSH thyroid-stim ulating hormone 1.010 uIU/m L 0.465- 4.680 Not Available [facility] (Lab) [address] [place], [address], 07/02/2022 20:00:55 07/03/1907/02/2022 VITAM IN B12 (ANABEL EDUARDA ) vb12 338 pg/mL 239-93 1 Not Available [facility] (Lab) [address] [place], [address], 07/02/2022 21:14:20 07/03/1907/02/2022 FOLAT E, SERUM /PLAS MA folate 5.34 NG/mL 2.76-2 0.0 Not Available [facility] (Lab) [address] [place], [address], 07/02/2022 21:14:25 09/30/19 24 09/28/2023 US, aorta No observ ation record ed. [email or web address] [facility] [address], [place], [address], 11/19/2023 11:15:10 10/15/19 24 10/14/2023 US, renal No observ ation record ed. [email or web address] [facility] [address], [place], [address], 11/19/2023 11:15:29 Result Notes None recorded. Problems Name Problem SNOMED Code Status Onset Date Resolution Date Notes Provider Name and Address Organization Details Recorded Time Tobacco user 926478484 Active Not Available [facility] 4 23:03:22 Backache 635477784 Completed Not Available [facility] 3 04:54:42 Asthma 561235708 Active Not Available [facility] 4 23:03:22 Discitis 2088861 Active Not Available [facility] 4 23:03:22 Pure hyperchol esterolem ia 454131822 Active Not Available [facility] 4 23:03:22 Low back pain 668989521 Active Not Available [facility] 4 23:03:22 Pain of right hip joint 93365465866 9102 Active Not Available [facility] 4 23:03:22 Vitamin D deficienc y 13916972 Active Not Available [facility] 4 23:03:23 Hypothyro idism 18327645 Active Not Available [facility] 4 23:03:23 Herniatio n of rectum into vagina 711622549 Active Not Available [facility] 4 23:03:23 Neck pain 67726865 Active Not Available [facility] 4 23:03:23 Hyperlipi demia 96908979 Active 2016 Not Available [facility] 4 23:03:23 Serum vitamin B12 below reference range 388448820 Active 2020 Not Available [facility] 4 23:03:22 Essential hypertens ion 86463585 Active 2020 Not Available [facility] 4 23:03:23 Erythrocy tosis 948940216 Active 2021 Not Available [facility] 4 23:03:22 Vitamin B12 deficienc y (non anemic) 78811265 Active 2021 Not Available [facility] 4 23:03:23 Otitis externa 0424973 Active 2021 Not Available [facility] 4 23:03:22 Pain in throat 107509995 Active 2021 Not Available [facility] 4 23:03:22 Lesion of tongue 567817006 Active 2021 Not Available [facility] 4 23:03:22 Postopera tive pain 024095889 Active 2022 Not Available [facility] 4 23:03:22 Problem Notes None recorded. Procedures Surgical History Date Name Laterality Status Provider Name and Address Organization Details Recorded Time 06/18/19 Medicare Wellness CPT Code, subsequent completed Corinne Mcfarland RN [place] [facility] [place] [employer] 06/17/2022 10:57:55 10/04/19 20 Most Recent Mammogram completed Not Available [facility] 05/07/2022 04:45:09 09/22/19 20 Date of Last Pap Smear completed Not Available [facility] 05/07/2022 04:45:09 05/19/19 20 Most Recent Bone Density completed Not Available [facility] 05/07/2022 04:45:09 laminectomy completed Not Available [facility] 05/07/2022 04:45:13 Orthopedic Surgery completed Not Available [facility] 05/07/2022 04:45:13 Cataract Surgery completed Not Available [facility] 05/07/2022 04:45:13 Removal of ovarian cyst(s) completed Not Available [facility] 05/07/2022 04:45:13 thyroidectomy completed Not Available [facility] 05/07/2022 04:45:13 Imaging Results None recorded. Procedure Notes None recorded. Medical Equipment None Reported. Allergies Allergen ID Allergen Name Allergen Category Reaction Reaction Severity Criticality Documentation Date Start Date Code Code System Note Provider Name and Address Organization Details Recorded Time 8309 Product containin g penicilli n (product) medicatio n anaphylax is severe Not available 05/07/2022 45881 8001 SNOMED Not Available [facility] 3 05:04:43 8329 lisinopri l medicatio n rash Not available Not available 05/07/20222020 94685 RxNorm Not Available [facility] 3 05:04:43 Medications Name Sig Start [...] Not Available Not Available [employer] [facility] spacer USE WITH INHALER NEEDED active [...] 03/25/2022 32.6 kg/m2 162.56 cm 97.8 [degF] 59434.55 g Not Available [facility] 05/07/2022 04:51:22 Date Recorded Body mass index (BMI) Body height Body temperature Body weight Provider Name and Address Organization Details Last Updated DateTime 04/24/2022 32.8 kg/m2 162.56 cm 97.9 [degF] 22141.14 g Not Available [facility] 05/07/2022 04:51:22 Date Recorded Body height Body mass index (BMI) Body weight Body temperature Provider Name and Address Organization Details Last Updated DateTime 05/29/2022 162.56 cm 33 kg/m2 21592.74 g 97.6 [degF] Rasheeda Kidd CMA [facility] [employer] 05/29/2022 11:18:25 Date Recorded Pain severity - 0-10 verbal numeric rating [Score] - Reported Provider Name and Address Organization Details Last Updated DateTime 06/17/2022 3 Corinne Mcfarland RN [facility] [email or web address] 06/17/2022 10:58:11 Date Recorded Body height Body mass index (BMI) Body weight Body temperature Heart rate Systolic And Diastolic Provider Name and Address Organization Details Last Updated DateTime 3 162.56 cm 33.1 kg/m2 21205.3 3 g 98.5 [degF] 73 /min 144/80 mm[Hg] Summer barrios RN [facility] [employer] [facility] 10:44:57 Date Recorded Body height Body mass index (BMI) Body weight Body temperature Heart rate Systolic And Diastolic Provider Name and Address Organization Details Last Updated DateTime 3 162.56 cm 31.6 kg/m2 36934 g 98.2 [degF] 73 /min 136/74 mm[Hg] SHA Anne [facility] [employer] [facility] 09:58:29 Social History Question Answer Notes LastModified by Organization Details LastModified Time Tobacco Smoking Status Current Every Day Smoker Not Available [facility] 05/07/2022 04:43:25 Do You Have An Advance Directive? Yes MIGRATION.0301 [id number] Information not available 05/07/2022 Are You Blind Or Do You Have Difficulty Seeing? No MIGRATION.0301 [id number] Information not available 05/07/2022 What Is Your Level Of Caffeine Consumption? Moderate MIGRATION.0301 [id number] Information not available 05/07/2022 How Much Tobacco Do You Chew? None MIGRATION.0301 [id number] Information not available 05/07/2022 In The 14 Days Before Symptom Onset, Have You Had Close Contact With A Laboratory-conf irmed COVID-19 While That Case Was Ill? No MIGRATION.0301 [id number] Information not available 05/07/2022 In The 14 Days Before Symptom Onset, Have You Had Close Contact With A Person Who Is Under Investigation For COVID-19 While That Person Was Ill? No MIGRATION.0301 [id number] Information not available 05/07/2022 Are You Deaf Or Do You Have Serious Difficulty Hearing? No MIGRATION.0301 [id number] Information not available 05/07/2022 What Type Of Diet Are You Following? REGULAR MIGRATION.0301 234362 Information not available 05/07/2022 Which Illicit Or Recreational Drugs Have You Used? None MIGRATION.0301 625648 Information not available 05/07/2022 Have There Been Any Changes To Your Family Or Social Situation? No MIGRATION.0301 683165 Information not available 05/07/2022 Are There Any Guns Present In Your Home? No MIGRATION.0301 [id number] Information not available 05/07/2022 Do You Use Insect Repellent Routinely? No MIGRATION.0301 [id number] Information not available 05/07/2022 Where Do You [...] Do You Have A Medical Power Of Order Processing Specialist? Yes MIGRATION.0301 [id number] Information not available 05/07/2022 What Was The Date Of Your Most Recent Tobacco Screening? 01/08/2023 [email or web address] Information not available 01/08/2023 Have You Ever Been Counseled For Unhealthy Alcohol Use? No MIGRATION.0301 [id number] Information not available 05/07/2022 Do You Have Any Pets? Yes MIGRATION.0301 [id number] Information not available 05/07/2022 What Is Your Relationship Status? MIGRATION.0301 [id number] Information not available 05/07/2022 Do You Use Your Seat Belt Or Car Seat Routinely? Yes MIGRATION.0301 757891 Information not available 05/07/2022 Do You Have Smoke And Carbon Monoxide Detectors In Your Home? Yes MIGRATION.0301 065620 Information not available 05/07/2022 At What Age Did You Start Smoking Tobacco? 15 MIGRATION.0301 [id number] Information not available 05/07/2022 Are You Passively Exposed To Smoke? Yes MIGRATION.0301 145181 Information not available 05/07/2022 Are There Any Smokers In Your House? Yes MIGRATION.0301 [id number] Information not available 05/07/2022 How Much Tobacco Do You Smoke? 1 PPD MIGRATION.0301 711504 Information not available 05/07/2022 What Types Of Sporting Activities Do You Participate In? None MIGRATION.0301 126731 Information not available 05/07/2022 Do You Use Sunscreen Routinely? Yes MIGRATION.0301 638316 Information not available 05/07/2022 How Many Years Have You Smoked Tobacco? 45 MIGRATION.0301 327008 Information not available 05/07/2022 Have You Recently Traveled Abroad? No MIGRATION.0301 760986 Information not available 05/07/2022 Do You Have Difficulty Walking Or Climbing Stairs? No Information not available 06/17/2022 Do You Have Any Dietary Restrictions? No MIGRATION.0301 238706 Information not available 05/07/2022 Sex: Female Functional Status Question Answer Note LastModified by Organizat ion Details LastModified Time Do you use any illicit or recreational drugs? No MIGRATION.52111 02533 Information not available 05/07/2022 Do you or have you ever used any other forms of tobacco or nicotine? No MIGRATION.99378 91947 Information not available 05/07/2022 What is your level of alcohol consumption? Moderate 2 glasses wine per day MIGRATION.37315 59795 Information not available 05/07/2022 Do you or have you ever used smokeless tobacco? Never used smokeless tobacco MIGRATION.87772 14534 Information not available 05/07/2022 Do you have transportation difficulties? No MIGRATION.55559 87948 Information not available 05/07/2022 Are you able to walk independently without assistance or assistive devices? YESWOREST MIGRATION.14657 01773 Information not available 05/07/2022 Do you have difficulty doing errands alone? No MIGRATION.00369 75841 Information not available 05/07/2022 Are you able to care for yourself independently? Yes MIGRATION.08801 30867 Information not available 05/07/2022 What is your occupation? retired MIGRATION.70548 68858 Information not available 05/07/2022 Do you have difficulty dressing, bathing, grooming, or toileting? No MIGRATION.86634 73687 Information not available 05/07/2022 Do you or have you ever used e-cigarettes or vape? Never used electronic cigarettes MIGRATION.98066 61978 Information not available 05/07/2022 What is your exercise level? Occasional Information not available 06/17/2022 Mental Status Question Answer Note LastModified by Organizat ion Details LastModified Time Do you have difficulty concentrating, remembering or making decisions? No MIGRATION.[id number] 6 Information not available 05/07/2022 Family History Relationship Description Onset Age of this Age Resolved Age Notes LastModified by Organization Details LastModified Time Maternal Aunt Diabetes mellitus MIGRATION.103 [id number] Not available 05/07/2022 04:45:20 Sister Diabetes mellitus [id number] [id number] Not available 05/07/2022 04:45:20 Sister Diabetes mellitus [email or web address] [id number] Not available 05/07/2022 04:45:21 Maternal Grandmother Malignant neoplasm of breast >50s MIGRATION.242 [id number] Not available 05/07/2022 04:45:21 Paternal Grandmother Malignant neoplasm of breast MIGRATION.650 [id number] Not available 05/07/2022 04:45:21 Father Alcoholism [email or web address].807 [id number] Not available 05/07/2022 04:45:21 Unspecified Relation Alcoholism nephew [email or web address].120 [id number] Not available 05/07/2022 04:45:21 Medical History Condition Response BLINDNESS N NERVE DISEASE N RHEUMATIC FEVER N BLADDER PROBLEMS N KIDNEY STONES N MRSA N OTHER # 1 N [...] HAVE YOU BEEN HOSPITALIZED OR SEEN IN [facility] IN THE PAST YEAR ? N [...] mcg/0.3 mL dose 06/11/2020 completed Not Available [facility] 4 23:03:23 COVID-19, mRNA, LNP-S, PF, 30 mcg/0.3 mL dose 05/14/2020 completed Not Available [facility] 4 23:03:23 Past Encounters Encounter ID Performer Location Encounter Start Date Encounter Closed Date Diagnosis/Indication Diagnosis SNOMED-CT Code Diagnosis ICD10 Code Diagnosis IMO Codes Diagnosis Note [id number] Cortez Tijerina MD [facility] Internal Med [address] , [place] [address] 07/12/2020 00:00:00 07/13/2020 08:00:17 [id number] Cortez Tijerina MD [facility] Internal Med [address] , [place] [address] 07/26/2020 00:00:00 07/28/2020 20:57:31 [id number] Cortez Tijerina MD [facility] [address] , [place] [address] 09/04/2020 00:00:00 09/10/2020 21:40:49 [id number] [facility] ic_[facility]way _ATHENA_M IGRATION_ DEFAULT_1 _1 , 10/16/2020 00:00:00 10/16/2020 13:07:00 [id number] Cortez Tijerina MD [facility] Internal Med [address] [address] , [place] [address] 01/10/2021 00:00:00 01/20/2021 12:34:34 [id number] Cortez Tijerina MD [facility] Internal Med [place] [address] [facility] y , [place] [address] 02/07/2021 00:00:00 03/10/2021 16:40:05 [id number] Cortez Tijerina MD [facility] Internal Med [place] [address] [facility] [address] , [place] [address] 03/21/2021 00:00:00 03/21/2021 21:11:17 [id number] Cortez Tijerina MD [facility] Internal Med [place] [address] [place] [address] y , [place] [address] 06/13/2021 00:00:00 06/21/2021 20:48:34 [id number] Cortez Tijerina MD [facility] Internal Med [facility] [address] [facility] [address] [place] [address] 02/10/2022 00:00:00 02/10/2022 22:51:50 [id number] Srini El MD [facility] [place] [address] [place] [address] 03/25/2022 00:00:00 03/25/2022 12:14:14 [id number] Srini El MD [facility] [place] [address] [place] [address] 04/24/2022 00:00:00 04/24/2022 10:46:19 [id number] Srini El MD [facility] [place] [address] [place] [address] 05/29/2022 10:49:01 05/29/2022 11:42:42 Lesion of tongue 954285304 K14.9 [id number] Cortez Tijerina MD [facility] Internal Med [place] [address] [facility] y , [place] [address] 06/17/2022 10:28:45 06/17/2022 11:49:07 Adult health examination 039522474 Z00.00 Screening for disorder 191723063 Z13.9 Essential hypertension 99125887 I10 Hyperlipidemia 38944801 E78.5 Asthma 375786405 J45.90 9 [id number] Cortez Tijerina MD [facility] Internal Med [place] [address] [facility] [place] [address] 01/08/2023 09:41:16 01/08/2023 10:26:33 Essential hypertension 50253850 I10 Hyperlipidemia 99020508 E78.5 Hypothyroidism 59643196 E03.9 Health Concerns Section Related Observation LastModified by Organization Detai ls LastModified Time None Recorded Concern Status LastModified by Organization Details LastModified Time None Recorded Advance Directives Directive Y: Payers Insurance Date Sequence Insurance Name Policy Number Policy Gifford Covered Member ID Gifford Member ID Guarantor Name 01/07/2023 1 [place] Niru Amin Neunaber [id number] Niru Slater Neunaber 01/19/2023 2 HUMANA (MEDICARE SUPPLEMENT) Niru Amin Neunaber [id number] Niru Slater Neunaber Notes Date Note Type Note Provider Name and Address Organization Details Recorded Time 3 text/html the patient reports that she has irritation in the area of the previous left tongue biopsy. She reports that she is reducing smoking but has not yet managed quit. Srini El MD [address], [place], [address], [facility] [employer] [facility] [email or web address] 05/29/2022 11:36:47 3 text/html Cholesterol 270Biopsy of oral lesionHypothyroid no heat or cold intoleranceContinues to smokeCOPD stable Cortez Tijerina MD [address], [place], [address], [facility] [employer] [facility] [email or web address] 07/19/2022 23:19:37 3 text/html Hyperlipidemia try to follow low-fat dietBiopsy of oral lesion still has some symptomsHypothyroid no heat or cold intoleranceContinues to smokeCOPD stable Cortez Tijerina MD [address], [place], [address], [facility] [employer] [facility] [email or web address] 01/17/2023 15:50:43 OBGyn Episode No OBEpisode recorded.
--- OUTSIDE RECORDS SUMMARY | 2025-02-19 09:50 | XMS_ITS | Clinical Summary ---
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
--- OUTSIDE RECORDS SUMMARY | 2025-02-19 09:50 | XMS_ITS | Data Portability ---
Author Organization [facility] Address [address] [place] [address] Care Team Providers Care Hospice Aide Name Role Phone CORTEZ TIJERINA Primary Care Provider Assessment Encounter Date Assessment Date Assessment LastModified by Organization Details LastModified Time 01/14/2024 01/14/2024 health assessments and screenings discussed ordered were appropriate and patient agreeable she will keep her regular follow up all questions answered [email or web address] Not available 01/24/2024 18:19:09 05/19/2024 05/19/2024 continue with nifedipine she is done with her steroids continue with her inhalers I believe she has a pulmonary follow up she will see me back in 1 month and she has had a mouth lesion we will have ENT take a look at it [email or web address] Not available 05/21/2024 22:51:06 06/30/2024 06/30/2024 Needs to quit smoking low-fat diet follow up ENT they may need to do another biopsy she says follow up in 1 month [email or web address] Not available 07/02/2024 16:33:50 07/28/2024 07/28/2024 MRI [...] until she sees me in 6 weeks [email or web address] Not available 07/30/2024 18:39:24 09/08/2024 09/08/2024 Asthma/COPD appears stable Hypertension discussed lot going on probably some anxiety component here because of the lesion and needs to be biopsied we will monitor Oral lesion I have recommended that she follow the advice of the ENT at [place] and probably do the punch biopsy. Given her risk factors head and neck malignancy think we need some definitive answers See me back in 4 months [email or web address] Not available 09/09/2024 14:31:44 Plan of Treatment Reminders Order Date Submit Date Provider Last Modified By Organization Details Last Modified Time Details Appointments ANY 15 2024 11:00A M Cortez Tijerina MD Not available Not available Not available Lab None recorded. Referral None recorded. Procedures None recorded. Surgeries None recorded. Imaging bone density 2023 024 [facility], [address], [place] [address] [address], [place], [address], 03/22/2024 03:39:20 Medication Orders gabapenti n 100 mg capsule 2024 025 [facility] [id number] [facility], [address], [place], [address], 09/08/2024 13:54:03 Patient TargetsNo targets recorded. Patient Instructions Encounter Date Encounter Id Patient Instructions Last Modified By Organization Details Last Modified Time 01/14/2024 [id number] A healthy lifestyle: care instructions [email or web address] Not available 01/14/2024 21:36:39 Quitting Tobacco : Care Instructions Not available 01/14/2024 21:36:39 Medicare [facility] Preventive Checklist Not available 01/14/2024 21:36:39 05/19/2024 [id number] A healthy lifestyle: care instructions [email or web address] Not available 05/19/2024 13:27:16 06/30/2024 [id number] A healthy lifestyle: care instructions [email or web address] Not available 06/30/2024 21:34:17 07/28/2024 [id number] A healthy lifestyle: care instructions [email or web address] Not available 07/28/2024 17:58:05 Quitting Tobacco : Care Instructions [email or web address] Not available 07/28/2024 14:37:23 09/08/2024 [id number] Quitting Tobacco : Care Instructions [email or web address] Not available 09/08/2024 14:13:39 A healthy lifestyle: care instructions [email or web address] Not available 09/08/2024 14:13:39 Reason for Referral None Reported. Results Created Date Observation Date Name Description Value Unit Range Abnormal Flag Note LastModifiedBy Organization Detail LastModifiedTime 12/16/1912/16/2023 XR, chest , 2 view No observ ation record ed. [address], [place], [address], 12/16/2023 20:40:36 12/16/19 24 12/16/2023 PFT, compl ete No observ ation record ed. [address], [place], [address], 12/17/2023 09:59:51 12/16/19 24 12/16/2023 six minut e walk test* No observ ation record ed. [address], [place], [address], 12/17/2023 10:03:52 03/21/19 25 03/21/2024 bone densi ty No observ ation record ed. [address], [place], [address], 03/23/2024 11:35:02 03/21/19 25 03/21/2024 bone densi ty No observ ation record ed. [address], [place], [address], 03/23/2024 11:35:03 05/09/19 25 05/08/2024 XR, chest , 2 view No observ ation record ed. [address], [place], [address], 05/25/2024 16:59:02 05/09/19 25 05/08/2024 CT, chest , w/o contr ast No observ ation record ed. [address], [place], [address], 05/25/2024 16:59:02 05/11/19 25 05/09/2024 US, doppl er echoc ardio gram No observ ation record ed. [address], [place], [address], 05/13/2024 15:53:48 07/22/19 25 07/20/2024 MRI, head + neck + orbit s, w/wo contr ast No observ ation record ed. [address], [place], [address], 07/27/2024 11:47:42 Result Notes None recorded. Problems Name Problem SNOMED Code Status Onset Date Resolution Date Notes Provider Name and Address Organization Details Recorded Time Asthma 174598562 Active 2023 Noy [place], [place] [facility] 4 10:49:04 Nicotine dependence 82718670 Active 2023 N[place] [facility] 4 10:49:05 Essential hypertension 51445771 Active 2023 N[place] [facility] 4 10:50:17 Hyperlipidemia 14057861 Active 2023 N[place] [facility] 4 10:50:19 Hypothyroidism 25842050 Active 2023 N[place] [facility] 4 10:50:20 Standard chest X-ray abnormal 695479785 Active 2023 Noy [place], [place] [facility] 15:52:33 Problem Notes None recorded. Procedures Surgical History Date Name Laterality Status Provider Name and Address Organization Details Recorded Time Eye Surgery completed NAHUN Melendez - [facility] 07/09/2023 10:10:32 Back Surgery completed Elmira Lazaro MA [facility] 07/09/2023 10:10:38 Imaging Results None recorded. Procedure Notes None recorded. Medical Equipment None Reported. Allergies Allergen ID Allergen Name Allergen Category Reaction Reaction Severity Criticality Documentation Date Start Date Code Code System Note Provider Name and Address Organization Details Recorded Time 17050808 Product containin g penicilli n (product) medicatio n hives Not available Not available 07/09/2023 97904 8001 SNOMED NAHUN Melendez [facility] 4 10:03:14 612722 lisinopri l medicatio n itching rash Not available Not available Not available 07/09/2023 18574 RxNorm NAHUN Melendez [facility] 10:03:19 Medications Name Sig Start Date Stop [...] Available Not Available Not Avai danelle Trevino [facility] spacer USE WITH INHALER NEEDED active Not Available Not Available No t Available albuterol sulf 90 mcg/actuati on breath activated powder inhaler,sen sor Inhale 2 puffs every 4 hours by inhalatio n route as needed. active Not Available Not Available No t Available Vitals Date Recorded Body height Body mass index (BMI) Body weight Heart rate Oxygen saturation Systolic And Diastolic Provider Name and Address Organization Details Last Updated DateTime 162.56 cm 33.2 kg/m2 75622.0 5 g 72 /min 98 % 100/58 mm[Hg] Brittny LewisNAHUN [facility] 5 11:41:38 Date Recorded Body height Body mass index (BMI) Body weight Heart rate Oxygen saturation Systolic And Diastolic Provider Name and Address Organization Details Last Updated DateTime 5 162.56 cm 31.9 kg/m2 32868.1 8 g 82 /min 95 % 122/72 mm[Hg] Brittny LewisNAHUN [facility] 5 15:08:07 Date Recorded Body height Body mass index (BMI) Body weight Heart rate Oxygen saturation Systolic And Diastolic Provider Name and Address Organization Details Last Updated DateTime 5 162.56 cm 31.7 kg/m2 81044.1 5 g 71 /min 94 % 136/70 mm[Hg] Madelyn NAHUN Iyer [facility] 5 14:37:12 Date Recorded Body height Body mass index (BMI) Body weight Heart rate Oxygen saturation Systolic And Diastolic Provider Name and Address Organization Details Last Updated DateTime 5 162.56 cm 32.2 kg/m2 54327.9 3 g 88.99 /min 95 % 140/78 mm[Hg] Brittny LewisNAHUN [facility] 5 13:52:53 Date Recorded Pain severity - 0-10 verbal numeric rating [Score] - Reported Provider Name and Address Organization Details Last Updated DateTime 01/14/2024 5 Corinne Mcfarland [facility] 01/14/2024 10:30:23 Date Recorded Body height Body mass index (BMI) Body weight Heart rate Oxygen saturation Systolic And Diastolic Provider Name and Address Organization Details Last Updated DateTime 4 162.56 cm 33.1 kg/m2 31096.3 3 g 82 /min 95 % 152/90 mm[Hg] Kylah Antonio MA [facility] 4 10:05:16 Social History Question Answer Notes LastModified by Organizat ion Details LastModified Time Tobacco Smoking Status Current Every Day Smoker NAHUN Melendez, [facility] 07/15/2023 14:44:27 Do You Have An Advance [...] Or The Highest Degree You Have Received? IB43459-3 Information not available 01/14/2024 Are There Any Guns Present In Your Home? No Information not available 07/09/2023 In The Past 7 Days, How Many Days Did You Exercise? 0 Information not available 01/14/2024 In The Past 7 Days, How Much Pain Have You Strandquist? A Lot Information not available 01/14/2024 In [...] Past 7 Days, How Often Have You Strandquist Sleepy In The Daytime? Always Information not [...] anxious, or unable to sleep at night)? [id number] Information not available 07/09/2023 Family History Relationship [...] High Blood Pressure N Atrial Fibrillation N Thyroid Problems Y Kidney or Bladder Problems N Depression N COPD Y Blood Clots N GI Problems N Have you had a mammogram in the last yea r? Y Skin Problems N Anemia N Heart Attack ([place]) N Anxiety Disorder N Diabetes N Muscle, Joint, or Bone Problems N Seizures/Epilepsy N Have you had a colonoscopy in the last 1 0 years? Y Acid Reflux (GERD) N Cancer N Stroke N Asthma N Allergies N Have you had a PSA blood test in the las t year? N High Cholesterol Y Hepatitis N Liver Disease N Headaches N Osteoporosis N Heart Failure N Gynecological History Statement/Question Response If Post Menopausal, Age at Menopause 47 Obstetrics History GPAL:G 2 P 2 0 0 2 Type Value Full Term 2 Living 2 Total 2 Past Encounters Encounter ID Performer Location Encounter Start Date Encounter Closed Date Diagnosis/Indication Diagnosis SNOMED-CT Code Diagnosis ICD10 Code Diagnosis IMO Codes Diagnosis Note [id number] Cortez Tijerina MD [facility] [employer] [address] [place] [address] 07/09/2023 09:48:31 07/09/2023 11:00:49 Asthma 737087192 J45.909 Nicotine dependence 5629 4008 Z87.891 Essential hypertension 28626919 I10 Hyperlipidemia 56275742 E78.5 Hypothyroidism 62851311 E03.9 Abdominal aortic aneurysm screening 567750509 Z13.6 [id number] Cortez Tijerina MD [facility] [employer] [address] [place] [address] 09/14/2023 14:28:49 09/14/2023 16:12:44 Standard chest X-ray abnormal 903037845 R93.89 Hyperlipidemia 91738051 E78.5 Hypothyroidism 36113182 E03.9 [id number] Cortez Tijerina MD [facility] [employer] [facility] [place] [address] [place] [address] 01/14/2024 09:53:03 01/14/2024 11:00:48 Adult health examination 177847615 Z00.00 Health Risk Assessment collected and reviewed Obesity 660334541 E66.9 Postmenopausal state 764 94783 Z78.0 [id number] Cortez Tijerina MD [facility] [employer] [facility] [place] [address] [place] [address] 05/19/2024 10:54:05 05/19/2024 12:32:32 Body mass index 30+ - obesity 777348722 Z68.33 Overweight 562601602 E66 .3 Acute hypo xemic respiratory failure 382612989 J96.01 Asthma 493655796 J45.90 9 Essential hypertension 11695123 I10 [id number] Cortez Tijerina MD [facility] [employer] [facility] [place] [address] [place] [address] 06/30/2024 14:49:46 06/30/2024 16:17:22 Body mass index 30+ - obesity 229047861 Z68.31 433930 Obese class I 1162275956 95719 E66.811 2679192408 Essential hypertension 55572904 I10 Hyperlipidemia 59928635 E78.5 Hypothyroidism 88914503 E03.9 Nicotine dependence 5629 4008 Z87.508 [id number] Cortez Tijerina MD [facility] [employer] [facility] [place] [address] [place] [address] 07/28/2024 13:51:22 07/28/2024 15:05:32 Cigarette smoker 59910642 F17.210 229192 Smoker 17576056 F17.200 Obesity ca used by energy imbalance 075863095 E66.811 E66.09 Z68.31 78272190 Pain in face 79924100 R5 1.9 54502 Hypothyroidism 30490376 E03.9 [id number] Cortez Tijerina MD [facility] [employer] [facility] [place] [address] [facility] [place] [address] 09/08/2024 13:32:33 09/08/2024 14:32:21 Body mass index 30+ - obesity 785842313 Z68.32 794275 Obese class I 4958569316 05016 E66.811 6491394174 Smoker 29252067 F17.200 Essential hypertension 91478723 I10 Asthma 837729246 J45.90 9 Health Concerns Section Related Observation LastModified by Organization Detai ls LastModified Time None Recorded Concern Status LastModified by Organization Details LastModified Time None Recorded Advance Directives Directive Y: Payers Insurance Date Sequence Insurance Name Policy Number Policy Gifford Covered Member ID Gifford Member ID Guarantor Name 09/06/2024 1 [place] Niru Whitakeraber [id number] Niru Whitakeraber 09/06/2024 [place] - R[place] - FQHC Niru Whitakeraber [id number] Niru Whitakeraber 09/12/2024 2 HUMANA (MEDICARE SUPPLEMENT) Niru Whitakeraber [id number] Niru Slater Neunaber Notes Date Note Type [...] dizziness/vertigo. Cortez Tijerina MD Attn: Accounting, [address] [place], [address], [place] [facility] 01/24/2024 18:19:24 05/19/2024 text/html admitted with acute hypoxic respiratory failure secondary to asthma exacerbation PCR for viral pathogens was negative. Slow improvement CTA negative for PE discharge been doing fine since then was hypertensive started on nifedipine XL 30 mg daily she still feels a little bit weak with the breathing is fine on ambient air Cortez Tijerina MD Attn: Accounting, [address] [place], [address], [place] [facility] 05/21/2024 22:51:25 06/30/2024 text/html Lung issues fine nondiagnostic biopsy oral cavity hyperlipidemia she is trying to focus on diet Cortez Tijerina MD Attn: Accounting, [address] [place], [address], [place] [facility] 07/02/2024 16:34:08 07/28/2024 text/html Tongue [...] she is trying Cortez Tijerina MD Attn: Accounting, [address] [place], [address], [facility] 07/30/2024 18:41:26 09/08/2024 text/html Gabapentin maybe helps the facial pain a little bit. She did see the physician at [facility] they recommended punch biopsy at 1st she was a little bit reluctant oCrtez Tijerina MD Attn: Accounting[address] [facility], [place], [address], [facility] 09/09/2024 14:32:21 OBGyn Episode No OBEpisode recorded.
--- OUTSIDE RECORDS SUMMARY | 2025-02-19 09:50 | XMS_ITS | Encounter Summary ---
Author Organization [employer] Address [address] [place] [address] Care Team Providers Care Rod Piler Name Role Phone Unavailable Primary Care Provider Unavailabl e Encounter Details Date Type Department Care Team (Late st Contact Info) Description 12/11/2004 Outpatient Historical [facility] Support Serv. (Adt Cardiology[facility]) [address] 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
--- OUTSIDE RECORDS SUMMARY | 2025-02-19 09:50 | XMS_ITS ---
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 Other Current Plans THERAPEUTIC PHLEBOTOMY - (PERSON ONLY)* Plan Start Date:12/19/2021 Plan Provider:Joaquin Sosa DO Linked Problems Elevated hemoglobin Treatment Medications No medications scheduled. Past Treatment and Therapy Plans No past plan information found. Lifetime Dose Tracking * Chemical Lifetime Dose Automatic Entry Manual Entr y DLP 3,500 mGycm 3,500 mGycm 0 mGycm
--- OUTSIDE RECORDS SUMMARY | 2025-02-19 09:50 | XMS_ITS | Encounter Summary ---
Author Organization [employer] Address [address] [place] [address] Care Team Providers Care Set Up And Charger Name Role Phone Unavailable Primary Care Provider Unavailabl e Encounter Details Date Type Department Care Team (Latest Contact Info) Description 12/24/2004 Outpatient Historical [facility] Donnie Smallwood MD [address] [facility] [address] [place] [id number] BENIGN NEOPLASM THYROID (Primary Dx) Social History Tobacco Use Types Packs/Day Years Used Date Smoking Tobacco: Never Assessed Comments Unknown Sex and Gender Information Value Date Recorded Sex Assigned at Not on file Legal Sex Female 3:16 AM [employer] Gender Identity Not on file Sexual Orientation [...]
--- OUTSIDE RECORDS SUMMARY | 2025-02-19 09:50 | XMS_ITS | Clinical Summary ---
Author Organization [facility] [address] Address [address] [place] [address] Care Team Providers Care Digital Forensics Examiner Name Role Phone Lenny Tijerina MD Primary Care Provider [phone] Joaquin Sosa DO Unavailable [phone] Jamila CrainW Unavailable Unavaila Rebecca Guerin RN Unavailable Unav ailable Allergies Active Allergy Reactions Criticality Noted Date Comments Lisinopril Rash,Itching High 01/29/2021 UNCODED Penicillins Anaphylaxis,Hives,Sh ortness of breath,Other (See comments) High 05/26/2024 Medications albuterol HFA (PROVENTIL HFA,VENTOLIN HFA,PROAIR HFA) 90 mcg/actuation inhalerIndicati ons:Chronic Obstructive Pulmonary Disease 2 puffs 11/23/19 21 Active timolol (TIMOPTIC) 0.5 % ophthalmic solutionIndicat ions:open angle glaucoma Administer 1 drop into both eyes 2 (two) times a day 06/30/19 25 Active latanoprost (XALATAN) 0.005 % ophthalmic solutionIndicat ions:open angle glaucoma Administer 1 drop into both eyes nightly 06/30/19 25 Active Advair HFA 45-21 mcg/actuation inhalerIndicati ons:Maintenance Therapy for Asthma Inhale 2 puffs 2 (two) times a day 06/02/20 25 Active multivitamin with minerals tabletIndicatio ns:Mineral Deficiency Prevention,Ariela min Deficiency Prevention Administer per tube 1 tablet with lunch 01/24/20 Active acetaminophen (TYLENOL) 325 mg tabletIndicatio ns:Pain Administer per tube 2 tablets every 4 (four) hours 01/24/20 Active levothyroxine (SYNTHROID) 88 mcg tabletIndicatio ns:hypothyroidi sm Administer per tube 1 tablet (88 mcg total) radio despatcher before breakfast 01/24/20 Active aspirin 325 mg tabletIndicatio ns:Myocardial Reinfarction Prevention Administer per tube 1 tablet every 6 (six) hours as needed for pain 01/24/20 Active chlorhexidine (PERIDEX) 0.12 % oral rinseIndication s:Mouth Infection Prevention Apply 15 mL to the mouth or throat 3 (three) times a day 473 mL 01/24/20 Active gabapentin (NEURONTIN) 300 mg capsule Take 1 capsule (300 mg total) by mouth 3 (three) times a day 90 capsule 1 01/28/202025 Active nutritional supplement-fibe r (Autrement (HotelHotel) Standard 1.4) 0.06 gram-1.4 kcal/mL liquidIndicatio ns:NUTRITION Adminster 1 Carton per NG tube 4 (four) times a day. 1 carton Q4-5 hrs via nasogastric tube for nutrition. 180ml flush after each feeding Indications: NUTRITION Active levothyroxine (SYNTHROID) 88 mcg tabletIndicatio ns:hypothyroidi sm Take 1 tablet (88 mcg total) by mouth radio despatcher before breakfast 2024 Discontinued aspirin 325 mg tablet Take 1 tablet (325 mg total) by mouth every 6 (six) hours as needed for pain 2024 Discontinued multivitamin with minerals tabletIndicatio ns:Mineral Deficiency Prevention,Ariela min Deficiency Prevention Take 1 tablet by mouth with lunch 2024 Discontinued acetaminophen (TYLENOL) 325 mg tablet Take 2 tablets (650 mg total) by mouth every 4 (four) hours 01/05/202024 Discontinued oxyCODONE (ROXICODONE) 5 mg immediate release tabletIndicatio ns:Pain Take 1 tablet (5 mg total) by mouth every 4 (four) hours as needed 2024 Discontinued(S top Taking at Discharge) oxyCODONE (ROXICODONE) 5 mg immediate release tabletIndicatio ns:Pain Administer per tube 1 tablet (5 mg total) every 4 (four) hours as needed for pain 20 tablet 01/24/20 25 2024 Discontinued(R eorder) oxyCODONE (ROXICODONE) 5 mg immediate release tabletIndicatio ns:Pain Administer per tube 1 tablet (5 mg total) every 4 (four) hours as needed for pain for up to 7 days 42 tablet 01/31/20 25 2024 oxyCODONE (ROXICODONE) 5 mg immediate release tabletIndicatio ns:Pain Take 1 tablet (5 mg total) by mouth every 4 (four) hours as needed for pain for up to 7 days 42 tablet 02/11/20 25 2024 Active Problems Problem Noted Date Diagnosed Date [...] Encounters Date Type Department Care Team Description 02/10/[address] [facility] Medicine Otolaryngology Head-Neck Division [address] [facility], [place] Floor 5 [place] [address] Leilani Llamas RN 02/09/2025 10:30 AM ANIMAL SHELTER MANAGER Consult [facility] Radiation Oncology [address] [facility] Advanced Medicine [facility] [place] [address] Sohan Myers MD Malignant neoplasm of head, face, and neck (HCC) (Primary Dx) 02/09/2025 Orders Only [facility] Advanced Medicine Radiation Oncology [address] [facility] [place] [place] [address] Sohan Myers MD Needs smoking cessation education (Primary Dx) 02/08/2025 3:00 PM ANIMAL SHELTER MANAGER Therapy [facility] Otolaryngology [address] [place] [address] Floor 5 [place] [address] Britta Fall, JESE Dysphagia, oral phase (Primary Dx); Non-toxic multinodular goiter; Head and neck cancer (HCC); Squamous cell cancer of tongue (HCC); Dysarthria 02/08/2025 2:40 PM ANIMAL SHELTER MANAGER Office Visit [facility] Otolaryngology Head-Neck Division [address] [place] [address] 5 [place] [phone] Tony Mcclain MD Squamous cell cancer of tongue (HCC) (Primary Dx) 02/06/2025 10:30 AM ANIMAL SHELTER MANAGER Home Care Visit [address] [place] [address] Ramu Galeana RN SN OASIS DISCHARGE 02/03/2025 5:00 PM ANIMAL SHELTER MANAGER Home Care Visit [address] [place] [address] Thu Arroyo RN SN HOME VISIT 02/03/2025 Home Care Visit [address] [place] [address] Neli Roy, RN TELEPHONE ENCOUNTER 02/03/2025 Home Care Visit [address] [place] [address] Yesika Shankar RN SN TRIAGE ENCOUNTER 02/01/2025 Telephone [facility] Scheduling [address] [place] [address] Resource, Homecare Scheduling 02/01/2025 Home Care Visit [address] [place] [address] Ramu Galeana, RN CASE COMMUNICATION 01/31/2025 9:30 AM ANIMAL SHELTER MANAGER Home Care Visit [address] [place] [address] Ramu Galeana, RN SN HOME VISIT 01/30/2025 Home Care Visit [address] [place] [address] Neli Roy, RN TELEPHONE ENCOUNTER 01/30/2025 Home Care Visit [address] [place] [address] Ilana Martins, ARYA SN TRIAGE ENCOUNTER 01/27/[address] [facility] Medicine Otolaryngology Head-Neck Division [address] [place] [phone] Tony Mcclain MD 01/26/2025 Telephone [facility] Head and Neck Tumor Center [address] [place] [phone] Rebecca Velasquez, ARYA Navigation initial call 01/25/2025 9:30 AM ANIMAL SHELTER MANAGER Home Care Visit [address] [place] [address] Ramu Galeana, ARYA SN OASIS START OF CARE 01/25/2025 Plan of Care Documentation [address] [place] [address] 01/25/2025 Telephone [facility] Head and Neck Tumor Center [address] [place] [phone] Rebecca Velasquez, ARYA Navigation initial call attempt x 1 01/24/2025 Home Care Visit [address] [place] [address] Norah Spear, RN SN TRIAGE ENCOUNTER 01/23/2025 Home Care Visit [address] [place] [address] Norah Spear, ARYA SN TRIAGE ENCOUNTER 01/19/2025 11:20 AM ANIMAL SHELTER MANAGER Clinical Support [facility] [address] [facility] 1st [place] [phone] Fariha Rodriguez, PhD 01/18/2025 Documentation [facility] Head and Neck Tumor Center [address] [facility] 4th [place] [address] Jamila Crain LCSW 01/18/2025 Orders Only [facility] Otolaryngology Head-Neck Division [address] [facility], [place] Floor 5 [place] [phone] Tony Mcclain MD Squamous cell cancer of tongue (HCC) (Primary Dx) 01/16/2025 6:09 PM ANIMAL SHELTER MANAGER Anesthesia Event [facility] Operating Room 1 [place] [address] Rosalee Perez MD Niemeyer, Hunter Dalton Juan Pablo, [facility] 01/16/2025 6:00 PM ANIMAL SHELTER MANAGER - 01/16/2025 8:43 PM ANIMAL SHELTER MANAGER Surgery [facility] Operating Room 1 [place] [phone] Lynda Minor MD EVACUATION HEMATOMA NECK. 01/16/2025 7:30 AM ANIMAL SHELTER MANAGER - 01/16/2025 1:37 PM ANIMAL SHELTER MANAGER Surgery [facility] Operating Room [address] [place] [phone] Tony Mcclain MD FREE FLAP RADIAL FOREARM/GLOSSECTOMY /DISSECTION NECK. 01/16/2025 7:30 AM ANIMAL SHELTER MANAGER Anesthesia Event [facility] Operating Room [address] [place] [phone] Mckay Sexton MD Bharadwaj, Berta Carmona MD 01/16/2025 5:07 AM ANIMAL SHELTER MANAGER - 01/23/2025 5:50 PM ANIMAL SHELTER MANAGER Hospital Encounter [address] [phone] Tony Mcclain MD Aftercare following surgery for neoplasm (Primary Dx); Squamous cell cancer of tongue (HCC); Cancer of head and neck (HCC); Tongue lesion Discharge Disposition: Discharge to home, home health skilled care 01/12/2025 12:30 PM ANIMAL SHELTER MANAGER Pre-Admission Testing [facility] Center for Preoperative Assessment and Planning [facility] ([facility]) [address] [place] [address] Squamous cell cancer of tongue (HCC) (Primary Dx) 01/04/2025 2:40 PM CDT Office Visit [facility] Otolaryngology Head-Neck Division [address] [facility] 5 [place] [phone] Tony Mcclain MD Squamous cell cancer of tongue (HCC) (Primary Dx) 01/03/2025 9:09 PM CDT - 01/03/2025 10:44 PM CDT Surgery [facility] Operating Room [address] [place] [address] Lynda Minor MD CONTROL HEMORRHAGE OROPHARYNX. 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) [address] [place] [address] Tony Mcclain MD EXCISION AND REPAIR LESION ORAL CAVITY. - TONGUE 12/27/2024 8:47 AM CDT Anesthesia Event [facility] Operating Room [facility]) [address] [place] [address] Jean-Pierre Ojeda MD Lentz, William Thomas, NP 12/27/2024 6:47 AM CDT - 12/27/2024 12:23 PM CDT Hospital Encounter [facility] Operating Room [facility]) [address] [place] [address] Tony Mcclain MD Tongue lesion Discharge Disposition: Discharge to home or self care 12/27/2024 Orders Only [facility] Otolaryngology Head-Neck Division [address] [place] [address] 5 [place] [phone] Tony Mcclain MD Tongue lesion (Primary Dx); Squamous cell carcinoma, tongue border (HCC) 12/15/2024 10:20 AM CDT Office Visit [facility] Otolaryngology Head-Neck Division [address] [place] [address] 5 [place] [phone] Tony Mcclain MD Tongue lesion (Primary Dx) from Last 3 Months Surgical History Surgery Date Site/Laterality Comments LAMINECTOMY AND MICRODISCECTOMY LUMBAR SPINE 03/09/1993 - 03/08/1994 THYROIDECTOMY, PARTIAL 03/09/2005 - 03/08/2006 Right BIOPSY 04/09/2022 - 05/06/2022 tongue COLONOSCOPY 03/09/2009 - 03/08/2010 EXCISION AND REPAIR LESION ORAL CAVITY 12/27/2024 Mouth/Left Procedure: EXCISION AND REPAIR LESION ORAL CAVITY. - TONGUE; Surgeon: Tony Mcclain MD; Location: [facility] OR POD 4; Service: Otolaryngology; Laterality: Left; OROPHARYNGEAL HEMORRHAGE REPAIR 01/03/2025 Throat/Left Procedure: CONTROL HEMORRHAGE OROPHARYNX.; Surgeon: Lynda Minor MD; Location: [facility] OR POD 5; Service: Otolaryngology; Laterality: Left; oral barrera, neck barrera GLOSSECTOMY 01/16/2025 Mouth/Left Procedure: GLOSSECTOMY.; Surgeon: Tony Mcclain MD; Location: [facility] OR POD 5; Service: Otolaryngology; Laterality: Left; Medical devices from this surgery are in the Medical Devices section. NECK DISSECTION 01/16/2025 Neck/Left Procedure: DISSECTION NECK.; Surgeon: Tony Mcclain MD; Location: [facility] OR POD 5; Service: Otolaryngology; Laterality: Left; Medical devices from this surgery are in the Medical Devices section. TRACHEOSTOMY 01/16/2025 Neck/N/A Procedure: TRACHEOSTOMY.; Surgeon: Tony Mcclain MD; Location: [facility] OR POD 5; Service: Otolaryngology; Laterality: N/A; Medical devices from this surgery are in the Medical Devices section. PHARYNGOPLASTY 01/16/2025 Throat/N/A Procedure: PHARYNGOPLASTY.; Surgeon: Tony Mcclain MD; Location: [facility] OR POD 5; Service: Otolaryngology; Laterality: N/A; Medical devices from this surgery are in the Medical Devices section. RADICAL TONSILLECTOMY/PHARYNGECTOMY 01/16/2025 Throat/N/A Procedure: PHARYNGECTOMY.; Surgeon: Tony Mcclain MD; Location: [facility] OR POD 5; Service: Otolaryngology; Laterality: N/A; Medical devices from this surgery are in the Medical Devices section. EVACUATION HEMATOMA NECK 01/16/2025 Neck/Left Procedure: EVACUATION HEMATOMA NECK.; Surgeon: Lynda Minor MD; Location: [facility] OR POD 5; Service: Otolaryngology; Laterality: Left; Medical History Medical [...] Date Smoking Tobacco: Every Day Cigarettes 1.5 26 Started: 1999 Smokeless Tobacco: Never Tobacco Cessation:Ready to Q uit: Not Asked; Counseling Given: Not Answered Alcohol Use Standard Drinks/Week Comments Yes 1 (1 standard drink = 0.6 oz pur e alcohol) OASIS D0700: Social Isolation Answer Da te Recorded Frequency of experiencing loneliness or isolatio n Never 02/06/2025 OASIS A1250: Transportation Answer Date Recorded Lack of Transportation (Medical) No 02/06/2025 Lack of Transportation (Non-Medical) No 02/06/2025 Patient Unable or Declines to Respond No 02/06/2025 OASIS B1300: Health Literacy Answer Dandre e Recorded Frequency of needing help to read materials from doctor or pharmacy Sometimes 02/06/2025 Social Connection and Isolation Panel Answer Date Recorded In a typical week, how many times do you talk on the phone with family, friends, or neighbors? More than three times a week 01/20/2025 How often do you get togethe r with friends or relatives? More than three times a week 01/20/2025 How often do you attend chur or shinto services? More than 4 times per year 01/20/2025 Do you belong to any clubs o r organizations such as judaism groups, unions, fraternal or athletic groups, or school groups? No 01/20/2025 How often do you attend meet ings of the clubs or organizations you belong to? Never 01/20/2025 Are you , , di vorced, , never , or living with a partner? 01/20/2025 AUDIT-C Answer Date Recorded Q1: How often do you have a drink containing alc ohol? 2-4 times a month 01/16/2025 Q2: How many drinks containi ng alcohol do you have on a typical day when you are drinking? 1 or 2 01/16/2025 Q3: How often do you have si x or more drinks on one occasion? Never 01/16/2025 Overall Financial Resource Strain (CARDIA) Answe r Date Recorded How hard is it for you to pa y for the very basics like food, housing, medical care, and heating? Not hard at all 01/20/2025 Hunger Vital Sign Answer Date Recorded Within the past 12 months, y ou worried that your food would run out before you got the money to buy more. Never true 01/21/20 25 Within the past 12 months, t he food you bought just didn't last and you didn't have money to get more. Never true 01/20/2025 PRAPARE - Transportation Answer Date Re corded In the past 12 months, has l ack of transportation kept you from medical appointments or from getting medications? No 01/07 In the past 12 months, has l ack of transportation kept you from meetings, work, or from getting things needed for daily living? No 01/20/2025 Housing Stability Vital Sign Answer Dandre e Recorded In the last 12 months, was t here a time when you were not able to pay the mortgage or rent on time? No 01/20/2025 In the past 12 months, how m any times have you moved where you were living? 0 01/20/2025 At any time in the past 12 m [facility], were you homeless or living in a correction (including now)? No 01/20/2025 [facility] Utilities Answer Date Recorded In the past 12 months has th e electric, gas, oil, or water company threatened to shut off services in your home? No 01/20/2025 Personal Safety Answer Date Recorded Have you ever been in or are you currently in a harmful physical or emotional relationship or is someone making you feel afraid or unsafe? Denies 01/16/2025 Comments No Sex and Gender Information Value Date Recorded Sex Assigned at Not on file Legal Sex Female 6:30 AM ANIMAL SHELTER MANAGER Gender Identity Not on file Sexual Orientation Not on file Occupation Industry Job Start Date Job End Date Retired Not on file Not on file Not on file Last Filed Vital Signs Vital Sign Reading Time Taken Comments Blood Pressure 144/69 02/09/2025 10:36 AM ANIMAL SHELTER MANAGER Pulse 78 02/09/2025 10:36 AM ANIMAL SHELTER MANAGER Temperature 36.7 C (98 F) 02/06/2025 10:00 AM ANIMAL SHELTER MANAGER Respiratory Rate 18 02/06/2025 10:00 AM ANIMAL SHELTER MANAGER Oxygen Saturation 94% 02/09/2025 10:36 AM ANIMAL SHELTER MANAGER Inhaled Oxygen Concentration - - Weight 75.4 kg (166 lb 3.2 oz) 02/09/2025 10:36 AM ANIMAL SHELTER MANAGER Height 162.6 cm (5' 4) 01/17/2025 10:05 AM ANIMAL SHELTER MANAGER Body Mass Index 28.53 01/17/2025 10:05 AM ANIMAL SHELTER MANAGER Plan of Treatment Health Maintenance Due Date [...] Influenza Vaccine (#1) 2024 Fall Risk Assessment 02/09/2026 02/09/2025, 01/24/20 25 Medical Devices Implanted Type Area Music Coordinator Device Identifier Shelf Expiration Date Model / Serial / Lot Synovis EcoSynth Allian Ui Programmer Anastomotic Microvascular [place] [employer] [place] Ui Programmer 4.0mm [id number] - [id number] Implanted:Qty: 1 on 01/16/2025 by Tony Mcclain MD at [facility] Other - see comments Left: Neck Emote Gamess EcoSynth Allian [id number] 02/07/2029 [id number] / / [id number] [employer] Probe Doppler 17.4cm Standard Cuff Implantable 20mhz Latex Free Sterile Microvascular Anastomoses [place] [id number] - [id number] Implanted:Qty: 1 on 01/16/2025 by Tony Mcclain MD at [facility] Other - see comments Left: Neck [employer] [id number] 10/06/2026 [id number] / / [id number] Description:Doppler wire cut and secured with Tegaderm prior to discharge. To be removed at follow-up by the attending. Procedures Procedure Name Priority Date/Time Associated Diagnosis Comments SECOND HAND PAPER MACHINE EVALUATE AND TREAT Routine 10:55 AM ANIMAL SHELTER MANAGER INFECTION PREVENTION ADARSH AURIS PCR, SURVEILLANCE Routine 01/21/2025 5:10 AM ANIMAL SHELTER MANAGER EGFR Timed 01/19/2025 8:30 PM ANIMAL SHELTER MANAGER MAGNESIUM Timed 01/19/2025 8:30 PM ANIMAL SHELTER MANAGER PHOSPHORUS Timed 01/19/2025 8:30 PM ANIMAL SHELTER MANAGER BASIC METABOLIC PANEL Timed 01/19/2025 8:30 PM ANIMAL SHELTER MANAGER CBC WITHOUT DIFFERENTIAL Timed 01/19/2025 8:30 PM ANIMAL SHELTER MANAGER INFECTION PREVENTION ADARSH AURIS PCR, SURVEILLANCE Routine 01/19/2025 10:21 AM ANIMAL SHELTER MANAGER EGFR Timed 01/18/2025 9:50 PM ANIMAL SHELTER MANAGER MAGNESIUM Timed 01/18/2025 9:50 PM ANIMAL SHELTER MANAGER PHOSPHORUS Timed 01/18/2025 9:50 PM ANIMAL SHELTER MANAGER BASIC METABOLIC PANEL Timed 01/18/2025 9:50 PM ANIMAL SHELTER MANAGER CBC WITHOUT DIFFERENTIAL Timed 01/18/2025 9:50 PM ANIMAL SHELTER MANAGER EGFR Timed 01/17/2025 10:02 PM ANIMAL SHELTER MANAGER MAGNESIUM Timed 01/17/2025 10:02 PM ANIMAL SHELTER MANAGER PHOSPHORUS Timed 01/17/2025 10:02 PM ANIMAL SHELTER MANAGER BASIC METABOLIC PANEL Timed 01/17/2025 10:02 PM ANIMAL SHELTER MANAGER CBC WITHOUT DIFFERENTIAL Timed 01/17/2025 10:02 PM ANIMAL SHELTER MANAGER EGFR Timed 01/16/2025 10:59 PM ANIMAL SHELTER MANAGER MAGNESIUM Timed 01/16/2025 10:59 PM ANIMAL SHELTER MANAGER PHOSPHORUS Timed 01/16/2025 10:59 PM ANIMAL SHELTER MANAGER BASIC METABOLIC PANEL Timed 01/16/2025 10:59 PM ANIMAL SHELTER MANAGER CBC WITHOUT DIFFERENTIAL Timed 01/16/2025 10:59 PM ANIMAL SHELTER MANAGER POC BLOOD GAS AND CHEMISTRIES, ARTERIAL Routine 01/16/2025 6:55 PM ANIMAL SHELTER MANAGER LA AN PROCEDURE PLACEHOLDER Routine 01/16/2025 6:42 PM ANIMAL SHELTER MANAGER EVACUATION HEMATOMA NECK. 01/16/2025 6:14 PM ANIMAL SHELTER MANAGER Squamous cell cancer of tongue (HCC) EGFR Timed 01/16/2025 1:52 PM ANIMAL SHELTER MANAGER MAGNESIUM Timed 01/16/2025 1:52 PM ANIMAL SHELTER MANAGER PHOSPHORUS Timed 01/16/2025 1:52 PM ANIMAL SHELTER MANAGER BASIC METABOLIC PANEL Timed 01/16/2025 1:52 PM ANIMAL SHELTER MANAGER CBC WITHOUT DIFFERENTIAL Timed 01/16/2025 1:52 PM ANIMAL SHELTER MANAGER XR KUB IP Routine 01/16/2025 1:46 PM ANIMAL SHELTER MANAGER LA AN PROCEDURE PLACEHOLDER Routine 01/16/2025 8:39 AM ANIMAL SHELTER MANAGER LA AN PROCEDURE PLACEHOLDER Routine 01/16/2025 8:38 AM ANIMAL SHELTER MANAGER LA AN PROCEDURE PLACEHOLDER Routine 01/16/2025 8:36 AM ANIMAL SHELTER MANAGER LA AN ELECTIVE ENDOTRACHEAL AIRWAY Routine 01/16/2025 8:36 AM ANIMAL SHELTER MANAGER SURGICAL PATHOLOGY Routine 01/16/2025 8: 34 AM ANIMAL SHELTER MANAGER Squamous cell cancer of tongue (HCC) RADICAL TONSILLECTOMY/PHARYNGEC CHAZ. 01/16/2025 7:33 AM ANIMAL SHELTER MANAGER Squamous cell cancer of tongue (HCC) PHARYNGOPLASTY. 01/16/2025 7:33 AM ANIMAL SHELTER MANAGER Squamous cell cancer of tongue (HCC) NERVE GRAFT 01/16/2025 7:33 AM ANIMAL SHELTER MANAGER Squamous cell cancer of tongue (HCC) TRACHEOSTOMY. 01/16/2025 7:33 AM ANIMAL SHELTER MANAGER Squamous cell cancer of tongue (HCC) GRAFT SKIN SPLIT THICKNESS 01/16/2025 7:33 AM ANIMAL SHELTER MANAGER Squamous cell cancer of tongue (HCC) DISSECTION NECK. 01/16/2025 7:33 AM ANIMAL SHELTER MANAGER Squamous cell cancer of tongue (HCC) GLOSSECTOMY. 01/16/2025 7:33 AM ANIMAL SHELTER MANAGER Squamous cell cancer of tongue (HCC) FREE FLAP RADIAL FOREARM 01/16/2025 7:33 AM ANIMAL SHELTER MANAGER Squamous cell cancer of tongue (HCC) TYPE AND SCREEN 14 DAY Routine 2:01 PM ANIMAL SHELTER MANAGER Squamous cell cancer of tongue (HCC) THYROID FUNCTION CASCADE Routine 01/12/2025 2:01 PM ANIMAL SHELTER MANAGER Squamous cell cancer of tongue (HCC) CT CHEST W CONTRAST ED Urgent/IP Urgent 01/04/2025 8:[address] SOFT TISSUE NECK W CONTRAST ED Urgent/IP Urgent 01/04/2025 8:41 AM CDT LA CRITICAL CARE ILL/INJURED PATIENT INIT 30-74 MIN Routine 01/03/2025 11:00 PM CDT ANESTHESIA INTUBATION Routine 01/03/2025 9:50 PM CDT PREPARE RBC STAT 01/03/2025 9:08 PM CDT LA CONTROL OROPHARYNGEAL HEMORRHAGE SIMPLE 01/03/2025 9:07 PM CDT Tongue lesion B CHECK SAMPLE STAT 01/03/2025 8:35 PM CDT EGFR STAT 01/03/2025 7:54 PM CDT DIFFERENTIAL AUTO STAT 01/03/2025 7:5 4 PM CDT TYPE AND SCREEN STAT 01/03/2025 7:54 PM CDT COMPREHENSIVE METABOLIC PANEL STAT 01/03/2025 7:54 PM CDT APTT STAT 01/03/2025 7:54 PM CDT PROTIME-INR STAT 01/03/2025 7:54 PM CDT CBC WITH AUTO DIFFERENTIAL STAT 01/03/2025 7:54 PM CDT MYCOBACTERIOLOGY AFB CULTURE AND ACID-FAST STAIN Routine 12/27/2024 9:21 AM CDT MYCOLOGY (FUNGAL) CULTURE AND STAIN Routine 12/27/2024 9:21 AM CDT TISSUE AEROBIC AND ANAEROBIC CULTURE AND GRAM STAIN Routine 12/27/2024 9:21 AM CDT LA AN PROCEDURE PLACEHOLDER Routine 12/27/2024 9:17 AM CDT LA AN ELECTIVE ENDOTRACHEAL AIRWAY Routine 12/27/2024 9:17 AM CDT SURGICAL PATHOLOGY Routine 12/27/2024 9: 07 AM CDT Tongue lesion EXCISION AND REPAIR LESION ORAL CAVITY. 12/27/2024 8:45 AM CDT Tongue lesion Case Notes 12/16 - Waiting for WIT. NB from Last 3 Months Results * SECOND HAND PAPER MACHINE Evaluation and Treatment (01/23/2025 10:55 AM ANIMAL SHELTER MANAGER) Narrative Ilana Calloway, SECOND HAND PAPER MACHINE - 01/23/2025 10:55 AM ANIMAL SHELTER MANAGER Ilana Calloway, SECOND HAND PAPER MACHINE 01/23/2025 3:13 PM Speech-Language Pathology: Clinical Bedside Swallow HPI/PMH 69 y.o. 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 In PACU several hours later had an episode of coughing and was noted to have rapid expansion of left neck concerning for hematoma. RTOR for evacuation of neck hematoma. Respiratory/Intubation Status: Downsized to cuffless 4 Shiley 1113 AM PLOF:No previous SECOND HAND PAPER MACHINE notes Current Diet Order:npo, ng Baseline Diet: regular however decreased PO due to pain/discomfort due to lingual mass General Information Dara Elizabeth 01/23/25 General Observations: Decannulated, gauze in place, consistently placing pressure on gauze to keep strong voice/air escape. Family member in room for session. Minimal lingual range of motion, result of surgery. Intelligibility impaired however verbal communication functional. Pain Score: 0 - No pain If pain >4, was RN notified? Yes Patient Stated Goal/Comments: see above Clinical Impression & Professional Recommendations Diet Solids Recommendation: NPO Diet Liquids Recommendations: PO for pleasure only, Thin/regular Recommended Form of Medications: Feeding tube Compensatory Strategies/Modifications: Other (Comment), Slow rate, Single sips (use of syringe/tubing) Postural Recommendations: Upright 90 degrees Assistance with feeding/swallowing: Setup only Specialty Instructions: none Dysphagia Diagnosis: Oral dysphagia Overall Clinical Impression/Additional Information: Given trials of ice chips, thin liquid via spoon and syringe as well as puree via syringe. Prior to syringe trials, pt unable to effectively transit liquid trials posteriorly. Right head tilt and posterior head tilt improved movement however not functional. Given syringe with extended tubing, pt with improve functionality. Still required multiple swallows to clear thin liquids. With puree via syringe, pt reported sensation of globus in throat, requiring multiple liquid washes to improve. Significant effort required to clear trials. Suspect base of tongue weakness resulting in pharyngeal residue, worse with puree. Infrequent cough noted following trials however also noted prior to trials. At this time, recommend continue NPO however allow thin liquid for pleasure. Utilize syringe with tubing, placed on right posterior tongue. Discussed importance of continued use of pharyngeal structures as well as frequency of oral care. Pt to follow up as OP. Assessment Details & Results Consistencies Administered: Ice chips, Thin liquids, Purees MASA: Chaves Assessment of Swallowing Ability (MASA) Alertness: Alert Cooperation: Cooperative Auditory Comprehension: No abnormality detected Respiration: Chest clear Respiratory Rate (for swallow): Able to control breath rate for swallow Aphasia: No abnormality detected Apraxia: No abnormality detected Dysarthria: Speech intelligible but obviously defective Saliva: No abnormality detected Lip Seal: Mild impairment/occasional leakage Tongue Movement: Minimal movement Tongue Strength: Unilateral weakness Tongue Coordination: Mild incoordination Gag: No gag (not assessed) Palate: Slight asymmetry/mobile Cough Reflex: No deficit noted Voluntary Cough: No abnormality detected Voice: No abnormality detected Trach: No trach Oral Preparation: Minimal chew gravity assisted Bolus Clearance: Significant clearance, minimal residue Oral Transit: Delay > 5 seconds Delay consistency: Purees, Thin liquids Pharyngeal Phase: Mildly restricted laryngeal elevation, Slow initiation Pharyngeal Response: Cough before, during, or after swallow MASA Score: 161 Plan SECOND HAND PAPER MACHINE Frequency of Services during current admission: 1-2x/wk SECOND HAND PAPER MACHINE Recommendation (Add'l Services): Outpatient SECOND HAND PAPER MACHINE SECOND HAND PAPER MACHINE - Next Appointment: 01/25/25 Further Assessment/Follow up Indicated: Recommendations: Ongoing speech therapy, Speech at next level of care Next Visit Plan:treatment/therapy Additional Referrals: none at this time Please reference care plan for treatment goals, if indicated. Discharge Summary Statement If this is the last swallow therapy visit, this serves as the discharge summary. us Melissa TELLEZ SECOND HAND PAPER MACHINE ORDERABLES Final Result * Infection Prevention Adarsh auris PCR, surveillance Axilla/Groin (01/21/2025 5:10 AM ANIMAL SHELTER MANAGER) Adarsh auris DNA Not Detected Not Detected [facility] Comment: Interpretive Data Testing performed by [facility] Molecular Infectious Disease Laboratory using the Noemy vera 6800 Adarsh auris assay. This assay detects DNA from Adarsh auris using Real-Time PCR. This assay is laboratory developed and is not cleared by the [place] Food and Drug Administration. The performance characteristics have been verified by the [facility] Molecular Infectious Disease Laboratory. Axilla/Groin 01/21/2025 5:10 AM ANIMAL SHELTER MANAGER 01/21/2025 5:23 AM ANIMAL SHELTER MANAGER Narrative DALY [facility] - 01/21/2025 1:19 PM ANIMAL SHELTER MANAGER Order placed by OPA due to ring surveillance. us Instant Order Generic Provider LAB MICROBIOLOGY - GENERAL ORDERABLES Final Result MAOASH [facility] Department [place] [address] [facility] * eGFR (01/19/2025 8:30 PM ANIMAL SHELTER MANAGER) eGFR >90 >=60 mL/min/1. 73 m2 Comment: Interpretive Data Reference Interval Normal >/= 90 mL/min/1.73m2 Mildly decreased* 60 - 89 mL/min/1.73m2 Mildly to moderately decreased 45 - 59 mL/min/1.73m2 Moderately to severely decreased 30 - 44 mL/min/1.73m2 Severely decreased 15 - 29 mL/min/1.73m2 Kidney Failure < 15 mL/min/1.73m2 *Relative to young adult level Estimated glomerular filtration rate is determined by the 2020 CKD-EPI equation recommended by the National Kidney Foundation (A Unifying Approach to GFR Estimation: Recommendations of the NKF-ASK Task Force on Reassessing the Inclusion of Race in Diagnosing Kidney Disease, JASN 2020). The CKD-EPI equation should not be used for patients with unstable renal function and has not been validated in children and those over 70. Current interpretive data was last reviewed 2021. Blood 01/19/2025 8:30 PM ANIMAL SHELTER MANAGER 01/19/2025 9:48 PM ANIMAL SHELTER MANAGER us Tony Mcclain MD LAB BLOOD ORDERABLES Final Res ult [facility] Department [place] [address] * (ABNORMAL) CBC without differential (01/19/2025 8:30 PM ANIMAL SHELTER MANAGER) WBC 7.81 3.80 - 9.90 K/cumm Hgb 10.3(L) 11.9 - 15.5 g/dL [facility] Hct 32.5(L) 35.6 - 45.5 % [facility] Plt 250 150 - 400 K/cumm [facility] MPV 11.7 9.1 - 12.3 fL [facility] RBC 3.42(L) 3.90 - 5.20 M/cumm [facility] MCV 95.0 81.3 - 96.4 fL [facility] MCH 30.1 27.1 - 33.3 pg [facility] MCHC 31.7(L) 32.3 - 35.7 g/dL [facility] RDW CV 15.7(H) 11.1 - 14.9 % [facility] RDW SD 55.3(H) 35.7 - 48.1 fL [facility] NRBC abs 0.00 0.00 - 0.01 K/cumm [facility] Blood 01/19/2025 8:30 PM ANIMAL SHELTER MANAGER 01/19/2025 9:47 PM ANIMAL SHELTER MANAGER us Tony Mcclain MD LAB BLOOD ORDERABLES Final Res ult [facility] [place] [address] * Phosphorus (01/19/2025 8:30 PM ANIMAL SHELTER MANAGER) Pathologist [facility] Phosphorus, pl 3.2 2.3 - 4.5 mg/dL Blood 01/19/2025 8:30 PM ANIMAL SHELTER MANAGER 01/19/2025 9:48 PM ANIMAL SHELTER MANAGER us Tony Mcclain MD LAB BLOOD ORDERABLES Final Res ult Performing Organization Address City/[facility] Co de Phone Number [facility] [place] [address] * Magnesium (01/19/2025 8:30 PM ANIMAL SHELTER MANAGER) Pathologist [facility] Magnesium 2.2 1.4 - 2.5 mg/dL Blood 01/19/2025 8:30 PM ANIMAL SHELTER MANAGER 01/19/2025 9:48 PM ANIMAL SHELTER MANAGER us Tony Mcclain MD LAB BLOOD ORDERABLES Final Res ult Performing Organization Address City/[facility] Co de Phone Number [facility] [place] [address] * (ABNORMAL) Basic metabolic panel (01/19/2025 8:30 PM ANIMAL SHELTER MANAGER) Pathologist [facility] Sodium 144 135 - 145 mmol/L Potassium, pl 4.4 3.3 - 4.9 mmol/L [facility] Chloride 106 97 - 110 mmol/L [facility] CO2 30 22 - 32 mmol/L [facility] Anion gap 8 2 - 15 mmol/L [facility] BUN 17 6 - 25 mg/dL [facility] Creatinine 0.49(L) 0.60 - 1.10 mg/dL [facility] Glucose 84 70 - 199 mg/dL [facility] Comment: Interpretive Data Fasting glucose >/= 126 mg/dl is diagnostic for diabetes. Fasting is defined as no caloric intake for at least 8 hours. Fasting glucose between 100 mg/dl to 125 mg/dl is diagnostic of prediabetes. In a patient with classic symptoms of hyperglycemia or hyperglycemic crisis, a random glucose >/= 200 mg/dl is diagnostic for diabetes. In the absence of unequivocal hyperglycemia, results should be confirmed by repeat testing. The classification and Diagnosis of Diabetes Diabetes Care 2021; 46: S19-S40. Current interpretive data was last revised 2022. Calcium 8.8 8.5 - 10.3 mg/dL [facility] Blood 01/19/2025 8:30 PM ANIMAL SHELTER MANAGER 01/19/2025 9:48 PM ANIMAL SHELTER MANAGER Tony Mcclain MD LAB BLOOD ORDERABLES Final Res ult [facility] Department [place] [address] * Infection Prevention Adarsh auris PCR, surveillance Axilla/Groin (01/19/2025 10:21 AM ANIMAL SHELTER MANAGER) Adarsh auris DNA Not Detected Not Detected [facility] Comment: Interpretive Data Testing performed by [facility] Molecular Infectious Disease Laboratory using the Noemy vera 6800 Adarsh auris assay. This assay detects DNA from Adarsh auris using Real-Time PCR. This assay is laboratory developed and is not cleared by the [place] Food and Drug Administration. The performance characteristics have been verified by the [facility] Molecular Infectious Disease Laboratory. Axilla/Groin 01/19/2025 10:2 1 AM ANIMAL SHELTER MANAGER 01/19/2025 10:38 AM ANIMAL SHELTER MANAGER Narrative [facility] - 01/19/2025 10:14 PM ANIMAL SHELTER MANAGER Order placed by OPA due to ring surveillance. us Instant Order Generic Provider LAB MICROBIOLOGY - GENERAL ORDERABLES Final Result Performing Organization Address [facility]/ZIP Co de Phone Number [facility] [place] [address] [facility] * eGFR (01/18/2025 9:50 PM ANIMAL SHELTER MANAGER) eGFR >90 >=60 mL/min/1. 73 m2 Comment: Interpretive Data Reference Interval Normal >/= 90 mL/min/1.73m2 Mildly decreased* 60 - 89 mL/min/1.73m2 Mildly to moderately decreased 45 - 59 mL/min/1.73m2 Moderately to severely decreased 30 - 44 mL/min/1.73m2 Severely decreased 15 - 29 mL/min/1.73m2 Kidney Failure < 15 mL/min/1.73m2 *Relative to young adult level Estimated glomerular filtration rate is determined by the 2020 CKD-EPI equation recommended by the National Kidney Foundation (A Unifying Approach to GFR Estimation: Recommendations of the NKF-ASK Task Force on Reassessing the Inclusion of Race in Diagnosing Kidney Disease, JASN 2020). The CKD-EPI equation should not be used for patients with unstable renal function and has not been validated in children and those over 70. Current interpretive data was last reviewed 2021. Blood 01/18/2025 9:50 PM ANIMAL SHELTER MANAGER 01/18/2025 10:06 PM ANIMAL SHELTER MANAGER us Tony Mcclain MD LAB BLOOD ORDERABLES Final Res ult Performing Organization Address City/[facility]/ZIP Co de Phone Number [facility] Department [place] [address] * (ABNORMAL) CBC without differential (01/18/2025 9:50 PM ANIMAL SHELTER MANAGER) WBC 10.11(H) 3.80 - 9.90 K/cumm Hgb 10.1(L) 11.9 - 15.5 g/dL [facility] Hct 31.7(L) 35.6 - 45.5 % [facility] Plt 202 150 - 400 K/cumm [facility] MPV 11.3 9.1 - 12.3 fL [facility] RBC 3.39(L) 3.90 - 5.20 M/cumm [facility] MCV 93.5 81.3 - 96.4 fL [facility] MCH 29.8 27.1 - 33.3 pg [facility] MCHC 31.9(L) 32.3 - 35.7 g/dL [facility] RDW CV 15.5(H) 11.1 - 14.9 % [facility] RDW SD 53.2(H) 35.7 - 48.1 fL [facility] NRBC abs 0.00 0.00 - 0.01 K/cumm [facility] Blood 01/18/2025 9:50 PM ANIMAL SHELTER MANAGER 01/18/2025 10:07 PM ANIMAL SHELTER MANAGER Tony Mcclain MD LAB BLOOD ORDERABLES Final Res ult [facility] Department [place] [address] * (ABNORMAL) Phosphorus (01/18/2025 9:50 PM ANIMAL SHELTER MANAGER) [facility] Phosphorus, pl 1.5(L) 2.3 - 4.5 mg/dL Blood 01/18/2025 9:50 PM ANIMAL SHELTER MANAGER 01/18/2025 10:06 PM ANIMAL SHELTER MANAGER Tony Mcclain MD LAB BLOOD ORDERABLES Final Res ult [facility] [place] [address] * Magnesium (01/18/2025 9:50 PM ANIMAL SHELTER MANAGER) [facility] Magnesium 2.1 1.4 - 2.5 mg/dL Blood 01/18/2025 9:50 PM ANIMAL SHELTER MANAGER 01/18/2025 10:06 PM ANIMAL SHELTER MANAGER Tony Mcclain MD LAB BLOOD ORDERABLES Final Res ult [facility] Department [place] [address] * (ABNORMAL) Basic metabolic panel (01/18/2025 9:50 PM ANIMAL SHELTER MANAGER) [facility] Sodium 143 135 - 145 mmol/L Potassium, pl 3.5 3.3 - 4.9 mmol/L [facility] Chloride 108 97 - 110 mmol/L [facility] CO2 27 22 - 32 mmol/L [facility] Anion gap 8 2 - 15 mmol/L [facility] BUN 13 6 - 25 mg/dL [facility] Creatinine 0.50(L) 0.60 - 1.10 mg/dL [facility] Glucose 145 70 - 199 mg/dL [facility] Comment: Interpretive Data Fasting glucose >/= 126 mg/dl is diagnostic for diabetes. Fasting is defined as no caloric intake for at least 8 hours. Fasting glucose between 100 mg/dl to 125 mg/dl is diagnostic of prediabetes. In a patient with classic symptoms of hyperglycemia or hyperglycemic crisis, a random glucose >/= 200 mg/dl is diagnostic for diabetes. In the absence of unequivocal hyperglycemia, results should be confirmed by repeat testing. The classification and Diagnosis of Diabetes Diabetes Care 2021; 46: S19-S40. Current interpretive data was last revised 2022. Calcium 8.6 8.5 - 10.3 mg/dL [facility] Blood 01/18/2025 9:50 PM ANIMAL SHELTER MANAGER 01/18/2025 10:06 PM ANIMAL SHELTER MANAGER Tony Mcclain MD LAB BLOOD ORDERABLES Final Res ult Performing Organization Address City/[facility]/ZIP Co de Phone Number [facility] Department [place] [address] * eGFR (01/17/2025 10:02 PM ANIMAL SHELTER MANAGER) [facility] eGFR >90 >=60 mL/min/1. 73 m2 Comment: Interpretive Data Reference Interval Normal >/= 90 mL/min/1.73m2 Mildly decreased* 60 - 89 mL/min/1.73m2 Mildly to moderately decreased 45 - 59 mL/min/1.73m2 Moderately to severely decreased 30 - 44 mL/min/1.73m2 Severely decreased 15 - 29 mL/min/1.73m2 Kidney Failure < 15 mL/min/1.73m2 *Relative to young adult level Estimated glomerular filtration rate is determined by the 2020 CKD-EPI equation recommended by the National Kidney Foundation (A Unifying Approach to GFR Estimation: Recommendations of the NKF-ASK Task Force on Reassessing the Inclusion of Race in Diagnosing Kidney Disease, JASN 2020). The CKD-EPI equation should not be used for patients with unstable renal function and has not been validated in children and those over 70. Current interpretive data was last reviewed 2021. Blood 01/17/2025 10:0 2 PM ANIMAL SHELTER MANAGER 01/17/2025 10:29 PM ANIMAL SHELTER MANAGER Tony Mcclain MD LAB BLOOD ORDERABLES Final Res ult [facility] Department [place] [address] * (ABNORMAL) CBC without differential (01/17/2025 10:02 PM ANIMAL SHELTER MANAGER) [facility] WBC 14.65(H) 3.80 - 9.90 K/cumm Hgb 9.8(L) 11.9 - 15.5 g/dL [facility] Hct 29.7(L) 35.6 - 45.5 % [facility] Plt 230 150 - 400 K/cumm [facility] MPV 11.6 9.1 - 12.3 fL [facility] RBC 3.23(L) 3.90 - 5.20 M/cumm [facility] MCV 92.0 81.3 - 96.4 fL [facility] MCH 30.3 27.1 - 33.3 pg [facility] MCHC 33.0 32.3 - 35.7 g/dL [facility] RDW CV 15.5(H) 11.1 - 14.9 % [facility] RDW SD 51.9(H) 35.7 - 48.1 fL [facility] NRBC abs 0.00 0.00 - 0.01 K/cumm [facility] Blood 01/17/2025 10:0 2 PM ANIMAL SHELTER MANAGER 01/17/2025 10:24 PM ANIMAL SHELTER MANAGER us Tony Mcclain MD LAB BLOOD ORDERABLES Final Res ult Performing Organization Address City/[facility] Co de Phone Number [facility] [place] [address] * Phosphorus (01/17/2025 10:02 PM ANIMAL SHELTER MANAGER) Phosphorus, pl 2.5 2.3 - 4.5 mg/dL Blood 01/17/2025 10:0 2 PM ANIMAL SHELTER MANAGER 01/17/2025 10:24 PM ANIMAL SHELTER MANAGER us Tony Mcclain MD LAB BLOOD ORDERABLES Final Res ult Performing Organization Address [facility] Co de Phone Number [facility] Department [place] [address] * Magnesium (01/17/2025 10:02 PM ANIMAL SHELTER MANAGER) Magnesium 2.3 1.4 - 2.5 mg/dL Blood 01/17/2025 10:0 2 PM ANIMAL SHELTER MANAGER 01/17/2025 10:24 PM ANIMAL SHELTER MANAGER us Tony Mcclain MD LAB BLOOD ORDERABLES Final Res ult Performing Organization Address City/[facility] Co de Phone Number [facility] Department [place] [address] * (ABNORMAL) Basic metabolic panel (01/17/2025 10:02 PM ANIMAL SHELTER MANAGER) Pathologist [facility] Sodium 146(H) 135 - 145 mmol/L Potassium, pl 3.9 3.3 - 4.9 mmol/L [facility] Chloride 112(H) 97 - 110 mmol/L [facility] CO2 26 22 - 32 mmol/L [facility] Anion gap 8 2 - 15 mmol/L [facility] BUN 9 6 - 25 mg/dL [facility] Creatinine 0.54(L) 0.60 - 1.10 mg/dL [facility] Glucose 121 70 - 199 mg/dL [facility] Comment: Interpretive Data Fasting glucose >/= 126 mg/dl is diagnostic for diabetes. Fasting is defined as no caloric intake for at least 8 hours. Fasting glucose between 100 mg/dl to 125 mg/dl is diagnostic of prediabetes. In a patient with classic symptoms of hyperglycemia or hyperglycemic crisis, a random glucose >/= 200 mg/dl is diagnostic for diabetes. In the absence of unequivocal hyperglycemia, results should be confirmed by repeat testing. The classification and Diagnosis of Diabetes Diabetes Care 2021; 46: S19-S40. Current interpretive data was last revised 2022. Calcium 9.1 8.5 - 10.3 mg/dL [facility] Blood 01/17/2025 10:0 2 PM ANIMAL SHELTER MANAGER 01/17/2025 10:24 PM ANIMAL SHELTER MANAGER us Tony Mcclain MD LAB BLOOD ORDERABLES Final Res ult [facility] Department [place] [address] * eGFR (01/16/2025 10:59 PM ANIMAL SHELTER MANAGER) Pathologist [facility] eGFR >90 >=60 mL/min/1. 73 m2 Comment: Interpretive Data Reference Interval Normal >/= 90 mL/min/1.73m2 Mildly decreased* 60 - 89 mL/min/1.73m2 Mildly to moderately decreased 45 - 59 mL/min/1.73m2 Moderately to severely decreased 30 - 44 mL/min/1.73m2 Severely decreased 15 - 29 mL/min/1.73m2 Kidney Failure < 15 mL/min/1.73m2 *Relative to young adult level Estimated glomerular filtration rate is determined by the 2020 CKD-EPI equation recommended by the National Kidney Foundation (A Unifying Approach to GFR Estimation: Recommendations of the NKF-ASK Task Force on Reassessing the Inclusion of Race in Diagnosing Kidney Disease, JASN 2020). The CKD-EPI equation should not be used for patients with unstable renal function and has not been validated in children and those over 70. Current interpretive data was last reviewed 2021. Blood 01/16/2025 10:5 9 PM ANIMAL SHELTER MANAGER 01/16/2025 11:21 PM ANIMAL SHELTER MANAGER us Tony Mcclain MD LAB BLOOD ORDERABLES Final Res ult [facility] Department [place] [address] * (ABNORMAL) CBC without differential (01/16/2025 10:59 PM ANIMAL SHELTER MANAGER) WBC 10.46(H) 3.80 - 9.90 K/cumm Hgb 10.1(L) 11.9 - 15.5 g/dL [facility] Comment:Hemoglobin delta due to surgical procedure. This result has been called to Queenie Mcneill RN by [email or web address] on 01/16/2025 23:53:57. Hct 30.7(L) 35.6 - 45.5 % [facility] Plt 215 150 - 400 K/cumm [facility] MPV 11.4 9.1 - 12.3 fL [facility] RBC 3.34(L) 3.90 - 5.20 M/cumm [facility] MCV 91.9 81.3 - 96.4 fL [facility] MCH 30.2 27.1 - 33.3 pg [facility] MCHC 32.9 32.3 - 35.7 g/dL [facility] RDW CV 15.1(H) 11.1 - 14.9 % [facility] RDW SD 51.0(H) 35.7 - 48.1 fL [facility] NRBC abs 0.00 0.00 - 0.01 K/cumm [facility] Blood 01/16/2025 10:5 9 PM ANIMAL SHELTER MANAGER 01/16/2025 11:22 PM ANIMAL SHELTER MANAGER us Tony Mcclain MD LAB BLOOD ORDERABLES Final Res ult Performing Organization Address City/[facility] Co de Phone Number [facility] [place] [address] * Phosphorus (01/16/2025 10:59 PM ANIMAL SHELTER MANAGER) Pathologist [facility] Phosphorus, pl 3.1 2.3 - 4.5 mg/dL Blood 01/16/2025 10:5 9 PM ANIMAL SHELTER MANAGER 01/16/2025 11:21 PM ANIMAL SHELTER MANAGER us Tony Mcclain MD LAB BLOOD ORDERABLES Final Res ult Performing Organization Address [facility] Co de Phone Number [facility] [place] [address] * Magnesium (01/16/2025 10:59 PM ANIMAL SHELTER MANAGER) [facility] Magnesium 2.3 1.4 - 2.5 mg/dL Blood 01/16/2025 10:5 9 PM ANIMAL SHELTER MANAGER 01/16/2025 11:21 PM ANIMAL SHELTER MANAGER Tony Mcclain MD LAB BLOOD ORDERABLES Final Res ult Performing Organization Address City/[facility] Co de Phone Number [facility] [place] [address] * (ABNORMAL) Basic metabolic panel (01/16/2025 10:59 PM ANIMAL SHELTER MANAGER) Pathologist [facility] Sodium 143 135 - 145 mmol/L Potassium, pl 4.2 3.3 - 4.9 mmol/L [facility] Chloride 109 97 - 110 mmol/L [facility] CO2 24 22 - 32 mmol/L [facility] Anion gap 10 2 - 15 mmol/L [facility] BUN 12 6 - 25 mg/dL [facility] Creatinine 0.53(L) 0.60 - 1.10 mg/dL [facility] Glucose 195 70 - 199 mg/dL [facility] Comment: Interpretive Data Fasting glucose >/= 126 mg/dl is diagnostic for diabetes. Fasting is defined as no caloric intake for at least 8 hours. Fasting glucose between 100 mg/dl to 125 mg/dl is diagnostic of prediabetes. In a patient with classic symptoms of hyperglycemia or hyperglycemic crisis, a random glucose >/= 200 mg/dl is diagnostic for diabetes. In the absence of unequivocal hyperglycemia, results should be confirmed by repeat testing. The classification and Diagnosis of Diabetes Diabetes Care 2021; 46: S19-S40. Current interpretive data was last revised 2022. Calcium 8.2(L) 8.5 - 10.3 mg/dL [facility] Blood 01/16/2025 10:5 9 PM ANIMAL SHELTER MANAGER 01/16/2025 11:21 PM ANIMAL SHELTER MANAGER Tony Mcclain MD LAB BLOOD ORDERABLES Final Res ult [facility] Department [place] [address] * (ABNORMAL) POC Blood Gas and Chemistries, Arterial - (01/16/2025 6:55 PM ANIMAL SHELTER MANAGER) pH, Art POC 7.39 7.35 - 7.45 pCO2, Art POC 33(L) 35 - 45 mmHg [facility] pO2, Art POC 225(H) 83 - 108 mmHg [facility] Na, POC 139 135 - 145 mmol/L [facility] K POC 3.5 3.3 - 4.9 mmol/L [facility] Comment: Interpretive Data Not all point of care methods assess for hemolysis. Confirm with instrument and retest K+ if not consistent with clinical signs and symptoms. Current Interpretive Data was last revised on 2023. Cl, POC 112(H) 97 - 110 mmol/L [facility] Ionized Ca, POC 4.00(L) 4.50 - 5.10 mg/dL [facility] Glucose, POC 153 70 - 199 mg/dL [facility] Lactate POC 1.0 0.7 - 2.0 mmol/L [facility] SO2 (reji) arterial 100(H) 90 - 95 % [facility] Base excess, POC -4.3 mmol/L [facility] Hct, POC 33.0(L) 36.3 - 45.3 % [facility] Total Hb, POC 11.0(L) 11.9 - 15.5 g/dL [facility] Blood 01/16/2025 6:55 PM ANIMAL SHELTER MANAGER 01/16/2025 6:55 PM ANIMAL SHELTER MANAGER Tony Mcclain MD LAB POCT ORDERABLES - DEVICE F inal Result [facility] Department [place] [address] * LA AN PROCEDURE PLACEHOLDER (01/16/2025 6:42 PM ANIMAL SHELTER MANAGER) Narrative Debora Sy, TRANSMISSION DESIGN ENGINEER - 01/16/2025 6:42 PM ANIMAL SHELTER MANAGER Debora Sy, TRANSMISSION DESIGN ENGINEER 01/16/2025 6:42 PM Airway Difficult airway: no Rosalee Perez MD ANESTHESIA ORDERABLES Fi nal Result * eGFR (01/16/2025 1:52 PM ANIMAL SHELTER MANAGER) eGFR >90 >=60 mL/min/1. 73 m2 Comment: Interpretive Data Reference Interval Normal >/= 90 mL/min/1.73m2 Mildly decreased* 60 - 89 mL/min/1.73m2 Mildly to moderately decreased 45 - 59 mL/min/1.73m2 Moderately to severely decreased 30 - 44 mL/min/1.73m2 Severely decreased 15 - 29 mL/min/1.73m2 Kidney Failure < 15 mL/min/1.73m2 *Relative to young adult level Estimated glomerular filtration rate is determined by the 2020 CKD-EPI equation recommended by the National Kid[employer] (A Unifying Approach to GFR Estimation: Recommendations of the NKF-ASK Task Force on Reassessing the Inclusion of Race in Diagnosing Kidney Disease, JASN 2020). The CKD-EPI equation should not be used for patients with unstable renal function and has not been validated in children and those over 70. Current interpretive data was last reviewed 2021. Blood 01/16/2025 1:52 PM ANIMAL SHELTER MANAGER 01/16/2025 2:09 PM ANIMAL SHELTER MANAGER Tony Mcclain MD LAB BLOOD ORDERABLES Final Res ult [facility] Department [place] [address] * (ABNORMAL) CBC without differential (01/16/2025 1:52 PM ANIMAL SHELTER MANAGER) WBC 12.98(H) 3.80 - 9.90 K/cumm Hgb 13.3 11.9 - 15.5 g/dL [facility] Hct 42.0 35.6 - 45.5 % [facility] Plt 281 150 - 400 K/cumm [facility] MPV 11.0 9.1 - 12.3 fL [facility] RBC 4.48 3.90 - 5.20 M/cumm [facility] MCV 93.8 81.3 - 96.4 fL [facility] MCH 29.7 27.1 - 33.3 pg [facility] MCHC 31.7(L) 32.3 - 35.7 g/dL [facility] RDW CV 15.1(H) 11.1 - 14.9 % [facility] RDW SD 52.0(H) 35.7 - 48.1 fL [facility] NRBC abs 0.00 0.00 - 0.01 K/cumm [facility] Blood 01/16/2025 1:52 PM ANIMAL SHELTER MANAGER 01/16/2025 2:09 PM ANIMAL SHELTER MANAGER Tony Mcclain MD LAB BLOOD ORDERABLES Final Res ult Performing Organization Address [facility] Co de Phone Number [facility] [place] [address] * Phosphorus (01/16/2025 1:52 PM ANIMAL SHELTER MANAGER) [facility] Phosphorus, pl 3.3 2.3 - 4.5 mg/dL Blood 01/16/2025 1:52 PM ANIMAL SHELTER MANAGER 01/16/2025 2:09 PM ANIMAL SHELTER MANAGER Tony Mcclain MD LAB BLOOD ORDERABLES Final Res ult Performing Organization Address [facility] Co de Phone Number [facility] [place] [address] * (ABNORMAL) Magnesium (01/16/2025 1:52 PM ANIMAL SHELTER MANAGER) [facility] Magnesium 2.6(H) 1.4 - 2.5 mg/dL Blood 01/16/2025 1:52 PM ANIMAL SHELTER MANAGER 01/16/2025 2:09 PM ANIMAL SHELTER MANAGER Tony Mcclain MD LAB BLOOD ORDERABLES Final Res ult Performing Organization Address [facility] Co de Phone Number [facility] [place] [address] * (ABNORMAL) Basic metabolic panel (01/16/2025 1:52 PM ANIMAL SHELTER MANAGER) [facility] Sodium 141 135 - 145 mmol/L Potassium, pl 4.3 3.3 - 4.9 mmol/L [facility] Chloride 105 97 - 110 mmol/L [facility] CO2 25 22 - 32 mmol/L [facility] Anion gap 11 2 - 15 mmol/L [facility] BUN 14 6 - 25 mg/dL [facility] Creatinine 0.59(L) 0.60 - 1.10 mg/dL [facility] Glucose 154 70 - 199 mg/dL [facility] Comment: Interpretive Data Fasting glucose >/= 126 mg/dl is diagnostic for diabetes. Fasting is defined as no caloric intake for at least 8 hours. Fasting glucose between 100 mg/dl to 125 mg/dl is diagnostic of prediabetes. In a patient with classic symptoms of hyperglycemia or hyperglycemic crisis, a random glucose >/= 200 mg/dl is diagnostic for diabetes. In the absence of unequivocal hyperglycemia, results should be confirmed by repeat testing. The classification and Diagnosis of Diabetes Diabetes Care 2021; 46: S19-S40. Current interpretive data was last revised 2022. Calcium 8.4(L) 8.5 - 10.3 mg/dL [facility] Blood 01/16/2025 1:52 PM ANIMAL SHELTER MANAGER 01/16/2025 2:09 PM ANIMAL SHELTER MANAGER us Tony Mcclain MD LAB BLOOD ORDERABLES Final Res ult [facility] Department [place] [address] * XR Kub (01/16/2025 1:46 PM ANIMAL SHELTER MANAGER) Anatomical Region Laterality Modality Body, Abdomen N/A Digital Radiogra phy 01/16/2025 2:59 PM ANIMAL SHELTER MANAGER Impressions 01/16/2025 5:01 PM ANIMAL SHELTER MANAGER Feeding tube courses below the diaphragm with tip projecting over the gastric body. Stylet is still present. Dictated by: Ba Page M.D. The radiology attending physician has personally reviewed this study, and had reviewed and/or edited this written report and agrees with it. Electronically signed by: Analilia Javed M.D. Narrative 01/16/2025 5:01 PM ANIMAL SHELTER MANAGER EXAMINATION: Abdomen, one view. HISTORY: Check tube placement. COMPARISON: None Procedure Note Analilia Javed MD - 01/16/2025 EXAMINATION: Abdomen, one view. HISTORY: Check tube placement. COMPARISON: None IMPRESSION: Feeding tube courses below the diaphragm with tip projecting over the gastric body. Stylet is still present. Dictated by: Ba Page M.D. The radiology attending physician has personally reviewed this study, and had reviewed and/or edited this written report and agrees with it. Electronically signed by: Analilia Javed M.D. Result [facility] Tony Mcclain MD IMG XR PROCEDURES Final Result * LA AN PROCEDURE PLACEHOLDER (01/16/2025 8:39 AM ANIMAL SHELTER MANAGER) Fariha Ahuja CRNA - 01/16/2025 8:39 AM ANIMAL SHELTER MANAGER Fariha Carter CRNA 01/16/2025 8:39 AM Arterial Line Patient location: OR Indication: continuous blood pressure monitoring and blood sampling needed Staff: Supervising provider: Mckay Sexton MD Placed by: TRANSMISSION DESIGN ENGINEER: Donnie Kamara CRNA Procedure prep: Prep solution: chlorhexadine/alcohol Prep: provider hat/mask and sterile gloves Arterial line: Catheter size: 20 gauge Catheter length: 5 cm Catheter type: wire-guided catheter Seldinger technique: yes Laterality: right Site: radial artery Line secured: tape and Tegaderm Results: good waveform and good blood return Number of attempts: 1 Assessment: Events: hematoma Result [facility] Mckay Sexton MD ANESTHESIA ORDERABLES Sharron l Result * LA AN PROCEDURE PLACEHOLDER (01/16/2025 8:38 AM ANIMAL SHELTER MANAGER) Fariha Ahuja CRNA - 01/16/2025 8:38 AM ANIMAL SHELTER MANAGER Fariha Carter CRNA 01/16/2025 8:39 AM Peripheral IV Catheter Patient location: OR Staff: Supervising provider: Mckay Sexton MD Placed by: TRANSMISSION DESIGN ENGINEER: Fariha Carter CRNA Preprocedure prep: Prep solution: chlorhexadine PPE: gloves PIV line: Laterality: right Site: saphenous Catheter size: 18 g Technique: anatomical landmarks and direct visualization Procedure details: good blood return and occlusive dressing applied Number of attempts: 1 Assessment: Events: patient tolerated procedure well with no complications Mckay Sexton MD ANESTHESIA ORDERABLES Sharron l Result * LA AN ELECTIVE ENDOTRACHEAL AIRWAY, LA AN PROCEDURE PLACEHOLDER (01/16/2025 8:36 AM ANIMAL SHELTER MANAGER) Narrative Fariha Carter CRNA - 01/16/2025 8:36 AM ANIMAL SHELTER MANAGER Fariha Carter CRNA 01/16/2025 8:38 AM Airway Patient location: OR Urgency: elective Date/time: 01/16/2025 7:46 AM Indications for airway management: anesthesia Difficult airway: no Staff: Supervising provider: Mckay Sexton MD Placed by: TRANSMISSION DESIGN ENGINEER: Fariha Carter CRNA Emergent airway documentation: Risks and benefits [...] used for successful ETT placement: video laryngoscopy Devices/Methods used in placement: stylet Insertion site: oral Blade type: Esdras Video blade type: Inman Blade size: 3 Cormack-Lehane (video): grade I - full view of glottis Cuff volume: 6 mL Cuff inflated with: air ETT to teeth: 22 cm Placement verified by: auscultation and CO2 detection Airway secured with: silk tape Number of attempts: 1 Mckay Sexton MD ANESTHESIA ORDERABLES Sharron l Result * Surgical pathology (01/16/2025 8:34 AM ANIMAL SHELTER MANAGER) Tissue (Tongue, Biopsy) 01/16/2025 8:34 AM ANIMAL SHELTER MANAGER Tissue specimen (specimen) (Tongue, Biopsy) 01/16/2025 8:35 AM ANIMAL SHELTER MANAGER Tissue specimen (specimen) (Tongue, Biopsy) 01/16/2025 8:43 AM ANIMAL SHELTER MANAGER Tissue specimen (specimen) (Tongue, Biopsy) 01/16/2025 9:00 AM ANIMAL SHELTER MANAGER Tissue specimen (specimen) (Tongue, Biopsy) 01/16/2025 9:01 AM ANIMAL SHELTER MANAGER Tissue specimen (specimen) (Tongue, Biopsy) 01/16/2025 9:01 AM ANIMAL SHELTER MANAGER Tissue specimen (specimen) (Tongue, Biopsy) 01/16/2025 9:03 AM ANIMAL SHELTER MANAGER Tissue specimen (specimen) (Tongue, Biopsy) 01/16/2025 9:03 AM ANIMAL SHELTER MANAGER Tissue specimen (specimen) (Tongue, Biopsy) 01/16/2025 9:05 AM ANIMAL SHELTER MANAGER Tissue specimen (specimen) (Tongue, Biopsy) 01/16/2025 9:05 AM ANIMAL SHELTER MANAGER Tissue specimen (specimen) (Tongue - Resection for Tumor) 01/16/2025 9:07 AM ANIMAL SHELTER MANAGER Tissue specimen (specimen) (Neck) 01/16/2025 9:36 AM ANIMAL SHELTER MANAGER Tissue specimen (specimen) (Neck) 01/16/2025 10:02 AM ANIMAL SHELTER MANAGER Tissue specimen (specimen) (Neck) 01/16/2025 10:03 AM ANIMAL SHELTER MANAGER Tissue specimen (specimen) (Neck) 01/16/2025 10:10 AM ANIMAL SHELTER MANAGER Narrative PATHOLOGY [facility] - 01/20/2025 3:01 PM ANIMAL SHELTER MANAGER EPIC results best viewed via link to PDF [facility] [place] [address] Note to Patients: This report may contain [...] Gender: F : 1955 (Age: 69) Address: [facility] [place] [address] Hospital #: [id number] Taken:01/16/2025 Received:01/16/2025 Reported: 01/20/2025 Patient Type: [facility] Inpatient Service: Ear Nose Throat Location: [place] [id number] Physician(s): Garrett Carey M.D. Diagnosis: K. 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 Ventral tongue margin, excision (AFR1): - Negative for carcinoma - Negative for dysplasia B. Anterior lingual margin, excision (BFR1): - Negative for carcinoma - Fibrovascular, adipose, and peripheral nerve tissue C. Anterior margin, excision (CFR1): - Negative for carcinoma - Negative for dysplasia - Benign squamous mucosa D. Posterior deep margin, excision (DFR1): - Negative for carcinoma - Skeletal muscle and fibroadipose tissue E. Anterior deep margin, excision (EFR1): - Negative for carcinoma - Skeletal muscle and fibroadipose tissue F. Dorsal tongue, excision (FFR1): - Negative for carcinoma - Negative for dysplasia - Benign squamous mucosa G. Base of tongue, excision (GFR1): - Negative for carcinoma - Negative for dysplasia - Benign squamous mucosa H. Posterior pharyngeal margin, excision (HFR1): - Negative for carcinoma - Negative for dysplasia - Benign squamous mucosa I. Lateral floor of mouth, excision (IFR1): - Negative for carcinoma - Negative for dysplasia - Benign squamous mucosa J. Anterior floor of mouth, excision (JFR1): - Negative for carcinoma - Salivary gland tissue L. Left level 1b, lymph node dissection: - Two lymph nodes, negative for carcinoma (0/2) - Salivary gland tissue, benign M. Left neck level 2, lymph node dissection: - Ten lymph nodes, negative for carcinoma (0/10) N. Left neck level 3, lymph node dissection: - Six lymph nodes, negative for carcinoma (0/6) O. Dominga facial artery, biopsy: - Two lymph nodes, negative for carcinoma (0/2) alak/01/20/2025 08:42 By this signature, I attest that the above diagnosis is based upon my personal examination of the slides(and/or other material indicated in the diagnosis). Bal Mcneill MD PhD Report Electronically Reviewed and Signed Out By Bal Mcneill MD PhD 01/20/2025 15:01:44 Intraoperative Consultation: Frozen Section Diagnosis AFR1: Ventral tongue margin - Negative for dysplasia or carcinoma By Cristobal Wood M.D., Iqra Segura MD, PhD BFR1: Anterior lingual margin - Soft tissue and peripheral nerve with no evidence of malignancy By Cristobal Wood M.D., Iqra Segura MD, PhD CFR1: Anterior margin - Negative for dysplasia or carcinoma By Cristobal Wood M.D., Iqra Segura MD, PhD DFR1: Posterior deep margin - Negative for carcinoma By Cristobal Wood M.D., Iqra Segura MD, PhD EFR1: Anterior deep margin - Negative for carcinoma By Cristobal Wood M.D., Iqra Segura MD, PhD FFR1: Dorsal tongue - Negative for dysplasia or carcinoma By Cristobal Wood M.D., Iqra Segura MD, PhD GFR1: Base of tongue - Negative for dysplasia or carcinoma By Cristobal Wood M.D., Iqra Segura MD, PhD HFR1: Posterior pharyngeal margin - Negative for dysplasia or carcinoma By Cristobal Wood M.D., Iqra Segura MD, PhD IFR1: Lateral floor of mouth - Negative for dysplasia or carcinoma By Cristobal Wood M.D., Iqra Segura MD, PhD JFR1: Anteriorfloor of mouth - Negative for dysplasia or carcinoma By Cristobal Wood M.D., Iqra Segura MD, PhD Gross Consultation A: Ventral tongue margin Received fresh is a 1.0 x 0.2 x 0.2 cm piece of powell-brown tissue. The specimen is entirely submitted in AFR1. By Cristobal Wood M.D., Iqra Segura MD, PhD B: Anterior lingual margin Received fresh is a 0.3 x 0.2 x 01 cm piece of powell-brown tissue. The specimen is entirely submitted in BFR1. By Cristobal Wood M.D., Iqra Segura MD, PhD C: Anterior margin Received fresh is a 0.6 x 0.4x 0.2 cm piece of powell-brown tissue. The specimen is entirely submitted in CFR1. By Cristobal Wood M.D., Iqra Segura MD, PhD D: Posterior deep margin Received fresh is a 0.6 x 0.4 x 0.2 cm piece of powell-brown tissue. The specimen is entirely submitted in DFR1. By Cristobal Wood M.D., Iqra Segura MD, PhD E: Anterior deep margin Received fresh is a 0.6 x 0.4 x 0.1 cm piece of powell-brown tissue. The specimen is entirely submitted in EFR1. By Cristobal Wood M.D., Iqra Segura MD, PhD F: Dorsal tongue Received fresh is a 3.0 x 0.5 x 0.4 cm piece of powell-brown tissue. The specimen is entirely submitted in FFR1. By Cristobal Wood M.D., Iqra Segura MD, PhD G: Base of tongue Received fresh is a 2.0 x 0.4 x 0.2 cm piece of powell-brown tissue. The specimen is entirely submitted in GFR1. By Cristobal Wood M.D., Iqra Segura MD, PhD H: Posterior pharyngeal margin Received fresh is a 0.8 x 0.2 x 0.1 cm piece of powell-brown tissue. The specimen is entirely submitted in HFR1. By Cristobal Wood M.D., Iqra Segura MD, PhD I: Lateral floor of mouth Received fresh is a 2.5 x 0.3 x 0.1 cm piece of powell-brown tissue. The specimen is entirely submitted in IFR1. By Cristobal Wood M.D., Iqra Segura MD, PhD J: Anteriorfloor of mouth Received fresh is a 1.2 x 0.5 x 0.2 cm piece of powell-brown tissue. The specimen is entirely submitted in JFR1. By Cristobal Wood M.D., Iqra Segura MD, PhD I personally examined the relevant preparation(s) or a microscopic image of the relevant preparation(s) for the specimen(s) while the surgical procedure was still underway and rendered or confirmed the diagnosis(es) Report Electronically reviewed and Signed out by Iqra Segura MD, PhD (A - B - C - D - E - F - G - H - I - J) Gilles Haro M.D. History: The patient is a 69 year old woman with squamous cell cancer of the tongue. Operative procedure: Free flap radical forearm/glossectomy/dissection neck, glossectomy, dissection neck, graft skin split-thickness, tracheostomy, nerve graft. Specimen(s) Received: A: Ventral tongue margin B: Anterior lingual margin C: Anterior margin D: Posterior deep margin E: Anterior deep margin F: Dorsal tongue G: Base of tongue H: Posterior pharyngeal margin I: Lateral floor of mouth J: Anterior floor of mouth K: Left hemiglossectomy, long stitch rivera anterior L: Left level 1b M: Left neck level 2 N: Left neck level 3 O: Dominga facial artery Gross Description: Received in 15 formalin jars labeled with the patient's identifiers. A. Labeled ventral tongue margin is a single cassette with frozen section remnants. The cassette is submitted entirely for processing. Labeled AFR1. Jar: 0. B. Labeled anterior lingual margin is a single cassette with frozen section remnants. The cassette is submitted entirely for processing. Labeled BFR1. Jar: 0. C. Labeled anterior margin is a single cassette with frozen section remnants. The cassette is submitted entirely for processing. Labeled CFR1. Jar: 0. D. Labeled posterior deep margin is a single cassette with frozen section remnants. The cassette is submitted entirely for processing. Labeled DFR1. Jar: 0. E. Labeled anterior deep margin is a single cassette with frozen section remnants. The cassette is submitted entirely for processing. Labeled EFR1. Jar: 0. F. Labeled dorsal tongue is a single cassette with frozen section remnants. The cassette is submitted entirely for processing. Labeled FFR1. Jar: 0. G. Labeled base of tongue is a single cassette with frozen section remnants. The cassette is submitted entirely for processing. Labeled GFR1. Jar: 0. H. Labeled posterior pharyngeal margin is a single cassette with frozen section remnants. The cassette is submitted entirely for processing. Labeled HFR1. Jar: 0. I. Labeled lateral floor of mouth is a single cassette with frozen section remnants. The cassette is submitted entirely for processing. Labeled IFR1. Jar: 0. J. Labeled anterior floor of mouth is a single cassette with frozen section remnants. The cassette is submitted entirely for processing. Labeled JFR1. Jar: 0. K. Labeled left hemiglossectomy, long stitch rivera anterior is an oriented left hemiglossectomy (AP- 6.0 cm, RL- 5.0cm, SI- 3.8cm). A suture designates anterior and is arbitrarily redesignated as 12:00. The specimen is inked as follows: 12:00-6:00/dorsal is inked black and 6:00-12:00/ventral is inked blue. The mucosa is powell-pink with a 4.0 x 2.5 x 2.3 cm area of ulceration located on the lateral/posterior aspect. The specimen is serially sectioned from 12:00-6:00 in 13 slices to reveal a firm powell-white lesion underlying the aforementioned area of ulceration, measuring 1.7 x 0.9 x 0.7 cm . The lesion measures 0.1 cm to the nearest inked ventral/posterior margin at 8:00. There is an additional area of firm, powell-white discoloration (lesion #2) located at the 12:00/anterior margin measuring 1.0 x 0.8 x 0.8 cm and 1.0 cm from the nearest inked dorsal margin. The remaining cut surfaces are powell-brown and grossly unremarkable. Gross photographs are taken and surgical device sales representative sections are mapped and submitted as follows: K1 Slice 1, anterior margin, radial K2-K3 Slice 3, surgical device sales representative lesion #2, bisected K4-K5 Slice 5, bisected K6-K7 Slice 7, bisected K8-K9 Slice 9, surgical device sales representative lesion/ulceration K10-K11 Slice 10, surgical device sales representative lesion/ulceration K12-K13 Slice 12, surgical device sales representative lesion/ulceration K14-K15 Slice 13, posterior margin, radial (lesion in K14) Jar 1. L. Labeled left level 1B is a portion of powell-purple tissue with attached yellow adipose tissue (5.0 x 5.0 x 3.0 cm). Dissection and palpation reveals three powell-purple putative lymph nodes ranging from 1.0-4.0 cm. The putative lymph nodes are entirely submitted as follows: L1 Two putative lymph nodes, one is inked black and bisected L2-L9 One putative lymph node, sectioned Jar 1. M. Labeled left neck level 2 is a portion of yellow lobular adipose tissue measuring 5.0 x 5.0 x 2.0 cm. Dissection and palpation reveals nine putative powell-purple lymph nodes ranging from 0.1-1.5 cm. The putative lymph nodes are submitted entirely as follows: M1 Five intact putative lymph nodes M2 Two putative lymph nodes, bisected, one is inked black M3 Two putative lymph nodes, bisected, one is inked black Jar 1. N. Labeled left neck level 3 is a portion of yellow lobular adipose tissue measuring 5.5 x 5.0 x 1.5 cm. Dissection and palpation reveals six putative powell-purple lymph nodes ranging from 0.1-2.5 cm. The putative lymph nodes are entirely submitted as follows: N1 Four intact putative lymph nodes N2 Two putative lymph nodes, bisected, one is inked black Jar 1. O. Labeled dominga-facial artery is a roughly ovoid portion of tissue measuring 0.8 x 0.5 x 0.3 cm. Submitted entirely. Labeled O1. Jar 0. bj/01/17/2025 11:58 PA(s): ROSALINDA Chavez PA CANCER CASE SUMMARY FOR CANCER OF THE LIP AND ORAL CAVITY Procedure: Glossectomy: partial, left Tumor Site: Oral Other: left posterolateral Tumor Laterality: Left Tumor Focality: Unifocal Tumor Size: Greatest dimension: 1.7 cm Tumor Depth of Invasion (DOI): 8 mm Histologic Type: Squamous cell carcinoma, conventional Histologic Grade: G2: Moderately differentiated Specimen Margins: Uninvolved by invasive tumor Distance from closest margin: 1.4 mm Location of closest margin: ventral posterior (not final) Uninvolved by high-grade dysplasia/in situ disease Tumor Bed Margin Orientation: Unoriented to true margin surface Tumor Bed Margins: Uninvolved by invasive tumor Uninvolved by high-grade dysplasia/in situ disease Lymphovascular Invasion: Not identified Perineural Invasion: Present Small nerves <1mm Worst Pattern of Invasion (WPOI): WPOI 1-4 Regional Lymph Nodes: Number of Lymph Nodes Involved: 0 Number of Lymph Nodes Examined: 20 Pathologic Stage Classification (pTNM, AJCC 8th Edition): pT2: Tumor <=2 cm, DOI >5 mm and <=10 mm or tumor >2 cm but <=4 cm, and <=10 mm DOI pN0: No regional lymph node metastasis The pathologic stage assigned here should be regarded as provisional, and may change after integration of clinical data not provided with this specimen. CAP VERSION: LipOralCavity 4.0.0.1 By this signature, I attest that the above diagnosis is based upon my personal examination of the slides(and/or other material). Addenda/Procedures The performance characteristics of some immunohistochemical stains, fluorescence in-situ hybridization tests and immunophenotyping by flow cytometry cited in this report (if any) were determined by the Surgical Pathology and Flow Cytometry Departments at [facility] as part of an ongoing director supplier quality program and in compliance with federally mandated [...] Health and Human Services as a high complexity laboratory under CLIA '88. The FDA has [...] Surgical Pathology and Flow Cytometry Departments of [facility]. It has not been cleared or approved by the U. S. Food and Drug Administration. IMAGES AND SCANNED DOCUMENTS, IF INCLUDED, ONLY VIEWABLE IN PDF VERSION OF REPORT Tony Mcclain MD LAB PATHOLOGY ORDERABLES Final Result PATHOLOGY [facility] 3rd Floor [place], [place] [phone] * TYPE AND SCREEN 14 DAY (01/12/2025 2:01 PM ANIMAL SHELTER MANAGER) ABO Rh A Positive Robert, indirect Negative [facility] Blood 01/12/2025 2:01 PM ANIMAL SHELTER MANAGER 01/12/2025 2:23 PM ANIMAL SHELTER MANAGER Narrative DALY [facility] - 01/12/2025 3:40 PM ANIMAL SHELTER MANAGER Is this test being ordered in advance for a procedure?->Yes Expected date of procedure:->01/16/25 Has the patient been transfused in the past 3 months?->No Has the patient been in the past 3 months?->No Berta Jarrell MD LAB BLOOD BAN K TEST ORDERABLES Final Result Performing Organization Address City/[facility]/ZIP Co de Phone Number [facility] [place] [address] * Thyroid Function [place] (01/12/2025 2:01 PM ANIMAL SHELTER MANAGER) TSH 0.73 0.30 - 4.20 mcIUnit/mL Blood 01/12/2025 2:01 PM ANIMAL SHELTER MANAGER 01/12/2025 2:26 PM ANIMAL SHELTER MANAGER Tony Mcclain MD LAB BLOOD ORDERABLES Final Res ult Performing Organization Address [facility] Co de Phone Number [facility] [place] [address] * CT Chest W Contrast (01/04/2025 8:41 AM CDT) Anatomical Region Laterality Modality Body N/A Computed Tomogra phy 01/04/2025 9:09 AM CDT Impressions 01/05/2025 1:24 PM CDT 1. Severe aortic valve calcification, which can be seen in the setting of aortic stenosis and lead to dyspnea. 2. Findings of smoking related lung disease including mild emphysema and respiratory bronchiolitis. 3. Mild aspiration changes and mucous plugging in the lower lobe bronchi. Dictated by: René Luna M.D. The radiology attending physician has personally reviewed this study, and had reviewed and/or edited this written report and agrees with it. Electronically signed by: Izabel Molina M.D. Narrative 01/05/2025 1:24 PM CDT EXAMINATION: Computed tomography of the chest with intravenous contrast HISTORY: 69-year-old woman with dyspnea TECHNIQUE: Transaxial computed tomographic images of the chest were obtained with intravenous contrast according to the standard protocol after the administration of 100 mL Opti-Ray 350 intravenous contrast. COMPARISON: None available FINDINGS: Centrilobular groundglass opacities in the lung apices are favored to reflect sequelae of smoking related lung disease such as respiratory bronchiolitis. There is mild emphysema. Mucus plugging is noted in the lower lobes with small volume debris within the trachea, consistent with aspiration. Sequelae of old granulomatous disease are noted in the chest. There is a common origin of the left common carotid and brachiocephalic arteries. The patient is status post right hemithyroidectomy. There is no axillary, supraclavicular, mediastinal or hilar lymphadenopathy. The heart size is within normal limits. Coronary artery calcifications are present, as well as aortic valve calcifications. Numerous cysts and too small to characterize hypoattenuating lesions are noted throughout the liver. An 8 mm low attenuating ill-defined lesion in hepatic segment 4A is indeterminate. Calcified granulomas are present in the liver and spleen. The hepatic and portal veins are patent. A 9 mm left adrenal nodule is noted, nonspecific but possibly representing an adenoma. The imaged portions of the pancreas and kidneys are normal. Mixed calcified and noncalcified atherosclerotic plaque is noted throughout the thoracic aorta and its major branches. There is no suspicious osseous lesion. Procedure Note Izabel Molina MD - 01/05/2025 EXAMINATION: Computed tomography of the chest with intravenous contrast HISTORY: 69-year-old woman with dyspnea TECHNIQUE: Transaxial computed tomographic images of the chest were obtained with intravenous contrast according to the standard protocol after the administration of 100 mL Opti-Ray 350 intravenous contrast. COMPARISON: None available FINDINGS: Centrilobular groundglass opacities in the lung apices are favored to reflect sequelae of smoking related lung disease such as respiratory bronchiolitis. There is mild emphysema. Mucus plugging is noted in the lower lobes with small volume debris within the trachea, consistent with aspiration. Sequelae of old granulomatous disease are noted in the chest. There is a common origin of the left common carotid and brachiocephalic arteries. The patient is status post right hemithyroidectomy. There is no axillary, supraclavicular, mediastinal or hilar lymphadenopathy. The heart size is within normal limits. Coronary artery calcifications are present, as well as aortic valve calcifications. Numerous cysts and too small to characterize hypoattenuating lesions are noted throughout the liver. An 8 mm low attenuating ill-defined lesion in hepatic segment 4A is indeterminate. Calcified granulomas are present in the liver and spleen. The hepatic and portal veins are patent. A 9 mm left adrenal nodule is noted, nonspecific but possibly representing an adenoma. The imaged portions of the pancreas and kidneys are normal. Mixed calcified and noncalcified atherosclerotic plaque is noted throughout the thoracic aorta and its major branches. There is no suspicious osseous lesion. IMPRESSION: 1. Severe aortic valve calcification, which can be seen in the setting of aortic stenosis and lead to dyspnea. 2. Findings of smoking related lung disease including mild emphysema and respiratory bronchiolitis. 3. Mild aspiration changes and mucous plugging in the lower lobe bronchi. Dictated by: René Luna M.D. The radiology attending physician has personally reviewed this study, and had reviewed and/or edited this written report and agrees with it. Electronically signed by: Izabel Molina M.D. Debbie TELLEZ IM CT PROCEDURES Final Resul t * CT Neck Soft Tissue W Contrast (01/04/2025 8:41 AM CDT) Anatomical Region Laterality Modality Head and Neck N/A Computed Tomogra phy 01/04/2025 10:2 6 AM CDT Impressions 01/04/2025 11:07 AM CDT Postsurgical changes of left lateral tongue mass resection. No cervical lymphadenopathy to suggest metastatic disease in the neck. Dictated by: Symone Boyd MD The radiology attending physician has personally reviewed this study, and had reviewed and/or edited this written report and agrees with it. Electronically signed by: Rashaun Qiu M.D. 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 Contrast information: 100 mL Optiray-350 IV COMPARISON: None FINDINGS: There is streak artifact from dental hardware, which slightly limits evaluation of the tongue/oral cavity. Within this limitation, there is trace gas and fluid at the presumed left tongue resection site. No discrete rim enhancing lesion at this site. Scattered subcentimeter lymph nodes are seen in the neck. None are pathologically enlarged or abnormally enhancing. The muscles of the neck are normal. Vessels of the neck demonstrate normal course and caliber. Fascial planes are preserved and the deep spaces of the neck are normal. The visualized airway is widely patent. The base of the skull and the temporal bones are normal. Limited views of the brain including the cerebellum and brainstem are normal. The limited view of the [place] is unremarkable. Bilateral lens replacements. The spinal canal is normal in caliber. Mild multilevel disc height loss. Moderate neuroforaminal stenosis at right C6-C7. Partially imaged centrilobular ground glass nodularity in the bilateral apices, which may represent sequela of infection/inflammation. Postsurgical changes of right hemithyroidectomy. 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 Contrast information: 100 mL Optiray-350 IV COMPARISON: None FINDINGS: There is streak artifact from dental hardware, which slightly limits evaluation of the tongue/oral cavity. Within this limitation, there is trace gas and fluid at the presumed left tongue resection site. No discrete rim enhancing lesion at this site. Scattered subcentimeter lymph nodes are seen in the neck. None are pathologically enlarged or abnormally enhancing. The muscles of the neck are normal. Vessels of the neck demonstrate normal course and caliber. Fascial planes are preserved and the deep spaces of the neck are normal. The visualized airway is widely patent. The base of the skull and the temporal bones are normal. Limited views of the brain including the cerebellum and brainstem are normal. The limited view of the [place] is unremarkable. Bilateral lens replacements. The spinal canal is normal in caliber. Mild multilevel disc height loss. Moderate neuroforaminal stenosis at right C6-C7. Partially imaged centrilobular ground glass nodularity in the bilateral apices, which may represent sequela of infection/inflammation. Postsurgical changes of right hemithyroidectomy. IMPRESSION: Postsurgical changes of left lateral tongue mass resection. No cervical lymphadenopathy to suggest metastatic disease in the neck. Dictated by: Symone Boyd MD The radiology attending physician has personally reviewed this study, and had reviewed and/or edited this written report and agrees with it. Electronically signed by: Rashaun Qiu M.D. us Debbie TELLEZ IMG CT PROCEDURES Final Resul t * LA CRITICAL CARE ILL/INJURED PATIENT INIT 30-74 MIN (01/03/2025 11:00 PM CDT) Narrative Omar De Jesus MD - 01/03/2025 11:00 PM CDT Omar De Jesus MD 01/06/2025 11:05 PM Critical Care Performed by: Omar De Jesus MD Authorized by: Omar De Jesus MD Critical care provider statement: As reflected in the history, physical exam, orders, notes, and/or MDM, I was personally present while the patient was critically ill and provided critical care services for 31 minutes, excluding time involved in separately billable procedures. Critical care was necessary to treat or prevent imminent or life-threatening deterioration of the following condition(s): Intraoral hemorrhage Critical care was time spent by me providing the following: continuous telemetry, continuous pulse oximetry, interpretation of bedside monitors, imaging, and arterial/venous lab draws and serial bedside patient exams Hemostasis with topical agents, ENT consultation for operative hemorrhage control I provided emergent necessary critical care medicine services to this patient. I ordered and reviewed test results and/or imaging studies. I spent time discussing the management of this critically ill patient with consultants and the medical staff. I spent time discussing the management and therapeutic options for this critically ill patient with the patient themselves or with the appropriate designated surrogate decision-maker. I spent time documenting in the medical record. us Omar De Jesus MD IN CLINIC/BEDSIDE ORDERA BLES Final Result * Airway (01/03/2025 9:50 PM CDT) Narrative Sadiq Pena MD - 01/03/2025 9:50 PM CDT Sadiq Pena MD 01/03/2025 9:52 PM Airway Patient location: OR Urgency: emergent Indications for airway management: anesthesia Difficult airway: no Staff: Placed by: Resident: Sadiq Pena MD Emergent airway documentation: Risks and benefits discussed: no Consent given by: patient Consent cannot be obtained due to urgency: yes Airway prep: Preoxygenated: yes Patient position: sniffing Mask difficulty assessment: 0 - not attempted Spontaneous ventilation during airway: absent Sedation level during airway: GA Final airway details: Final airway type: endotracheal airway Tube type: ETT ETT size: 7.0 mm Cuffed: yes Technique used for successful ETT placement: video laryngoscopy Devices/Methods used in placement: stylet and cricoid pressure Insertion site: oral Blade type: Esdras Video blade type: Inman Blade size: 4 Cormack-Lehane (direct): grade III - view of epiglottis only Cormack-Lehane (video): grade IIa - partial view of glottis Cuff inflated with: air ETT to lips: 21 cm Placement verified by: auscultation and CO2 detection Airway secured with: silk tape Number of attempts: 2 Additional comments: Oropharynx with copious amounts of blood. Non-amenable to suctioning. Grade 3 view with MAC 3 blade. Swapped to Inman 4 blade. 2a view. Tube placed without difficulty. Calvin Pena MD ANESTHESIA ORDERABLES Final Res ult * Prepare RBC: 2 Units (01/03/2025 9:08 PM CDT) Product code [id number] [facility] Unit Number [id number] 6-H [facility] Product Blood Type [facility] Dispense Status RETURNED [facility] Product code [id number] Unit Number [id number] 1-8 [facility] Product Blood Type [facility] Dispense Status RETURNED [facility] Blood 01/03/2025 9:08 PM CDT 01/03/2025 9:08 PM CDT Narrative [facility] - 01/03/2025 11:54 PM CDT Are special requirements needed? (All products are leukoreduced and CMV- safe)- >No Date required:-[id number] LRRBC # of [id number] Reasons:-Intra-op transfusion} Sadiq Pena MD BLOOD BANK PRODUCT ORDE MARILYN Final Result [facility] Department [place] [address] * Check Sample (01/03/2025 8:35 PM CDT) ABO Rh A Positive [facility] HCLL OTHER 01/03/2025 8:35 PM CDT 01/03/2025 8:59 PM CDT us Omar De Jesus MD LAB BLOOD ORDERABLES Fin al Result Performing Organization Address [facility] de Phone Number [facility] [place] [address] [facility] * eGFR (01/03/2025 7:54 PM CDT) eGFR >90 >=60 mL/min/1. 73 m2 Comment: Interpretive Data Reference Interval Normal >/= 90 mL/min/1.73m2 Mildly decreased* 60 - 89 mL/min/1.73m2 Mildly to moderately decreased 45 - 59 mL/min/1.73m2 Moderately to severely decreased 30 - 44 mL/min/1.73m2 Severely decreased 15 - 29 mL/min/1.73m2 Kidney Failure < 15 mL/min/1.73m2 *Relative to young adult level Estimated glomerular filtration rate is determined by the 2020 CKD-EPI equation recommended by the National Kidney Foundation (A Unifying Approach to GFR Estimation: Recommendations of the NKF-ASK Task Force on Reassessing the Inclusion of Race in Diagnosing Kidney Disease, JASN 2020). The CKD-EPI equation should not be used for patients with unstable renal function and has not been validated in children and those over 70. Current interpretive data was last reviewed 2021. Blood 01/03/2025 7:54 PM CDT 01/03/2025 8:28 PM CDT us Omar De Jesus MD LAB BLOOD ORDERABLES Fin al Result Performing Organization Address City/[facility]/ZIP Co de Phone Number [facility] Department [place] [address] * (ABNORMAL) Differential, auto (01/03/2025 7:54 PM CDT) Neutrophil abs 7.88(H) 1.50 - 6.50 K/cumm Imm gran abs 0.04 0.00 - 0.10 K/cumm [facility] Lymphocyte abs 2.33 0.80 - 3.30 K/cumm [facility] Monocyte abs 0.92(H) 0.20 - 0.80 K/cumm [facility] Eosinophil abs 0.08 0.00 - 0.50 K/cumm [facility] Basophil abs 0.03 0.00 - 0.10 K/cumm [facility] Neutrophil pct 69.7 % [facility] Comment: Interpretive Data Percent cell count reference ranges are not reported, since discordance with absolute values may lead to misinterpretation of CBC data. Current Interpretive Data was last revised on 2017. Imm gran pct 0.4 % [facility] Comment: Interpretive Data Percent cell count reference ranges are not reported, since discordance with absolute values may lead to misinterpretation of CBC data. Current Interpretive Data was last revised on 2017. Lymphocyte pct 20.7 % [facility] Comment: Interpretive Data Percent cell count reference ranges are not reported, since discordance with absolute values may lead to misinterpretation of CBC data. Current Interpretive Data was last revised on 2017. Monocyte pct 8.2 % [facility] Comment: Interpretive Data Percent cell count reference ranges are not reported, since discordance with absolute values may lead to misinterpretation of CBC data. Current Interpretive Data was last revised on 2017. Eosinophil pct 0.7 % [facility] Comment: Interpretive Data Percent cell count reference ranges are not reported, since discordance with absolute values may lead to misinterpretation of CBC data. Current Interpretive Data was last revised on 2017. Basophil pct 0.3 % [facility] Comment: Interpretive Data Percent cell count reference ranges are not reported, since discordance with absolute values may lead to misinterpretation of CBC data. Current Interpretive Data was last revised on 2017. Blood 01/03/2025 7:54 PM CDT 01/03/2025 8:20 PM CDT us Omar De Jesus MD LAB BLOOD ORDERABLES Fin al Result Performing Organization Address [facility] Co de Phone Number [facility] [place] [address] * (ABNORMAL) CBC with auto differential (01/03/2025 7:54 PM CDT) [facility] WBC 11.28(H) 3.80 - 9.90 K/cumm Hgb 16.5(H) 11.9 - 15.5 g/dL [facility] Hct 51.7(H) 35.6 - 45.5 % [facility] Plt 315 150 - 400 K/cumm [facility] MPV 11.2 9.1 - 12.3 fL [facility] RBC 5.49(H) 3.90 - 5.20 M/cumm [facility] MCV 94.2 81.3 - 96.4 fL [facility] MCH 30.1 27.1 - 33.3 pg [facility] MCHC 31.9(L) 32.3 - 35.7 g/dL [facility] RDW CV 14.3 11.1 - 14.9 % [facility] RDW SD 50.4(H) 35.7 - 48.1 fL [facility] NRBC abs 0.00 0.00 - 0.01 K/cumm [facility] Blood 01/03/2025 7:54 PM CDT 01/03/2025 8:20 PM CDT us Omar De Jesus MD LAB BLOOD ORDERABLES Fin al Result Performing Organization Address [facility] Co de Phone Number [facility] [place] [address] * aPTT (01/03/2025 7:54 PM CDT) aPTT 32 26 - 38 sec Comment: Interpretive Data Heparin therapeutic range: 66.0 - 100.0 seconds. Range based on correlation with therapeutic heparin activity range of 0.3 - 0.7 Units/mL. Current interpretive data was last revised on 2022. Blood 01/03/2025 7:54 PM CDT 01/03/2025 8:20 PM CDT Omar De Jesus MD LAB BLOOD ORDERABLES Fin al Result Performing Organization Address [facility] de Phone Number [facility] [employer] [place], [place] [id number] * Protime-INR (01/03/2025 7:54 PM CDT) Pathologist [facility] PT 12.0 10.2 - 13.5 sec INR 1.06 0.90 - 1.20 [facility] Comment: Interpretive data Oral anticoagulant therapeutic ranges: Venous thromboembolism prophylaxis or treatment: 2.0-3.0 CARDIOLOGY Standard range: 2.0-3.0 High-intensity range: 2.5-3.5 Refer to indication-specific guidelines for appropriate target ranges for prosthetic heart valve replacement. Current interpretive data was last revised on 2019. Blood 01/03/2025 7:54 PM CDT 01/03/2025 8:20 PM CDT Omar De Jesus MD LAB BLOOD ORDERABLES Fin al Result Performing Organization Address [facility] de Phone Number [facility] [place] [address] * Type and screen (01/03/2025 7:54 PM CDT) Robert, indirect Negative ABO Rh A Positive [facility] Blood 01/03/2025 7:54 PM CDT 01/03/2025 8:29 PM CDT N[facility]ative [facility] - 01/03/2025 9:29 PM CDT Has the patient had Daratumumab or Isatuximab in the past 6 months?->Unknown Omar De Jesus MD LAB BLOOD BANK TEST ORDBeena SANDERS Final Result [facility] Department [place] [address] * (ABNORMAL) Comprehensive metabolic panel (01/03/2025 7:54 PM CDT) Pathologist [facility] Sodium 138 135 - 145 mmol/L Potassium, pl 4.2 3.3 - 4.9 mmol/L [facility] Chloride 97 97 - 110 mmol/L [facility] CO2 23 22 - 32 mmol/L [facility] Anion gap 18(H) 2 - 15 mmol/L [facility] BUN 23 6 - 25 mg/dL [facility] Creatinine 0.67 0.60 - 1.10 mg/dL [facility] Glucose 88 70 - 199 mg/dL [facility] Comment: Interpretive Data Fasting glucose >/= 126 mg/dl is diagnostic for diabetes. Fasting is defined as no caloric intake for at least 8 hours. Fasting glucose between 100 mg/dl to 125 mg/dl is diagnostic of prediabetes. In a patient with classic symptoms of hyperglycemia or hyperglycemic crisis, a random glucose >/= 200 mg/dl is diagnostic for diabetes. In the absence of unequivocal hyperglycemia, results should be confirmed by repeat testing. The classification and Diagnosis of Diabetes Diabetes Care 202; 46: S19-S40. Current interpretive data was last revised 2022. Calcium 9.7 8.5 - 10.3 mg/dL [facility] Bilirubin, total 0.8 0.1 - 1.2 mg/dL [facility] Protein, pl 7.8 6.5 - 8.5 g/dL [facility] Albumin 4.5 3.5 - 5.0 g/dL [facility] Alk phos 101 40 - 130 Units/L [facility] ALT 13 7 - 45 Units/L [facility] AST 22 10 - 45 Units/L [facility] Blood 01/03/2025 7:54 PM CDT 01/03/2025 8:20 PM CDT us Omar De Jesus MD LAB BLOOD ORDERABLES Fin al Result Performing Organization Address [facility] Co de Phone Number [facility] Department [place] [address] * Tissue aerobic and anaerobic culture and gram stain Tissue Tongue (12/27/2024 9:21 AM CDT) Direct Specimen Exam Stain: No polymorphonuclear leukocytes seen. No organisms seen. Report Final Report: Few Mixed upper respiratory tract microorganisms. [facility] Organism MIXED UPPER RESPIRATORY TRACT MICROORGANISMS. [facility] Tissue (Tongue) 12/27/2024 9 :21 AM CDT 12/27/2024 11:04 AM CDT Narrative [facility] - 12/30/2024 1:29 PM CDT LEFT POSTERIOR TONGUE LESION Testing performed by [facility] Microbiology Laboratory ([phone]) Specimens submitted from normally sterile body sites will have all bacterial morphotypes identified. Specimens that contain grossly mixed nadya and/or are from body sites that are not normally sterile will be examined for Staphylococcus aureus, Pseudomonas aeruginosa, beta-hemolytic strep, vancomycin-resistant Enterococcus, Bacteroides, Parabacteroides, Clostridium perfringens and fungus. If any of these are isolated, the organism will be reported. Current interpretive data was last revised on 2019. us Tony Mcclain MD LAB MICROBIOLOGY - GENERAL ORD ERABLES Final Result Performing Organization Address [facility] Co de Phone Number [facility] Department [place] [address] * Mycology (fungal) culture and stain Tissue Mouth (12/27/2024 9:21 AM CDT) Direct Specimen Exam Stain: No Fungal elements seen. Report Final Report: No growth of fungus [facility] Tissue (Mouth) 12/27/2024 9: 21 AM CDT 12/27/2024 11:04 AM CDT Narrative [facility] - 01/24/2025 7:38 AM ANIMAL SHELTER MANAGER LEFT POSTERIOR TONGUE LESION Testing performed by [facility]biology Laboratory ([phone]). us Tony Mcclain MD LAB MICROBIOLOGY - GENERAL ORD ERABLES Final Result [facility] Department [place] [address] * LA AN ELECTIVE ENDOTRACHEAL AIRWAY, LA AN PROCEDURE PLACEHOLDER (12/27/2024 9:17 AM CDT) Narrative Shanna Nix CRNA - 12/27/2024 9:17 AM CDT Shanna Nix CRNA 12/27/2024 9:18 AM Airway Patient location: OR Urgency: elective Indications for airway management: anesthesia Difficult airway: no Staff: Placed by: TRANSMISSION DESIGN ENGINEER: Shanna Nix CRNA Emergent airway documentation: Risks [...] Biopsy) 12/27/2024 9:11 AM CDT Narrative PATHOLOGY [facility] - 12/29/2024 3:35 PM CDT EPIC results best viewed via link to PDF [facility] R[facility] [place] [address] Note to Patients: This report may contain [...] Gender: F : 1955 (Age: 69) Address: [address] [place], [place] [address] [id number] Hospital #: [id number] Taken:12/27/2024 Received:12/27/2024 Reported: 12/29/2024 Patient Type: [facility] Service: Surgery Location: Physician(s): Garrett Carey M.D. Diagnosis: A. Oral cavity, left posterior tongue, biopsy (AFR1): - Invasive squamous cell carcinoma, moderately-poorly differentiated B. Oral cavity, left posterior tongue, biopsy: - Invasive squamous cell carcinoma, moderately-poorly differentiated [facility]/12/29/2024 15:35 By this signature, I attest that the above diagnosis is based upon my personal examination of the slides(and/or other material indicated in the diagnosis). Iqra Segura MD, PhD Report Electronically Reviewed and Signed Out By Iqra Segura MD, PhD 12/29/2024 15:35:33 Intraoperative Consultation: Frozen Section Diagnosis AFR1: Left posterior tongue - Squamous cell carcinoma By Naomie Arce, MS, PA (ASCP)CM, Oneida Mabry MS, PA(ASCP)EMELY, Harrison Grissom M.D., Marquise Torres, DO Gross Consultation A: Left posterior tongue Received fresh, are two pieces of irregular red-powell to powell soft tissue (1.5 x 1.0 x 1.0 and 2.2 x 1.0 x 0.7 cm). The pieces of tissue are entirely submitted intact for frozen section in cassette AFR1. By Naomie Arce MS, PA ([facility])CM, Oneida Mabry MS, PA([facility])EMELY, Harrison Grissom M.D., Marquise Torres DO I [...] B2. Jar 0. sxv/12/27/2024 14:02 PA(s): Claudio Alvarez, , PA ([facility])CM By this signature, I attest that the above diagnosis is based upon my personal examination of the slides(and/or other material). Addenda/Procedures The performance characteristics of some immunohistochemical stains, fluorescence in-situ hybridization tests and immunophenotyping by flow cytometry cited in this report (if any) were determined by the Surgical Pathology and Flow Cytometry Departments at [facility] as part of an ongoing director supplier quality program and in compliance with federally mandated [...] Health and Human Services as a high complexity laboratory under CLIA '88. The FDA has [...] Surgical Pathology and Flow Cytometry Departments of [facility]. It has not been cleared or approved by the U. S. Food and Drug Administration. IMAGES AND SCANNED DOCUMENTS, IF INCLUDED, ONLY VIEWABLE IN PDF VERSION OF REPORT Tony Mcclain MD LAB PATHOLOGY ORDERABLES Final Result PATHOLOGY [facility] 3rd Floor [place], [place] [phone] from Last 3 Months [place] [address] [employer] MED[employer]ARE SUPPLEMENT MEDICARE [employer] SUPPLEMENT MEDICARE Advance Directives For more information, please contact: [phone] * Full Code (Latest Code Status on File) Date Activated Date Inactivated Comments 01/17/2025 12:23 AM 01/23/2025 9:51 PM * Full Code Date Activated Date Inactivated Comments 01/03/2025 10:34 PM 01/04/2025 6:16 PM Care Teams Digital Forensics Examiner Relationship Specialty Start Date End Date Lenny Tijerina MD PCP - General Internal Medicine 12/04/20 Joaquin Sosa DO [address] [place] [address] MEDICAL ONCOLOGY, [place] [address] Medical Oncologist/Paper Testing Supervisor Hematology and Oncology 03/06/22 Jamila Crain LCSW Customer Associate 01/18/25 Rebecca Velasquez, RN Nurse Navigator 01/25/25
[2025-02-19 09:59] LABS: Hematocrit 46.6 % (37.0-47.0); Hemoglobin 14.4 g/dL (12.0-15.0); Immature Granulocyte Percent A 1.5 % (0-0.5); Lymphocytes Absolute Auto 1.47 K/mm3 (0.9-3.2); Mean Corpuscular HGB Conc 30.9 g/dl (32-36); Mean Corpuscular Hemoglobin 30.8 pg (26-34); Mean Corpuscular Volume 99.6 fl (80-100); Nucleated Red Blood Cells Absolute Auto 0.000 K/mm3 (0.0-0.012); Nucleated Red Blood Cells Perc 0.0 % (0.0-0.2); Platelet Count Result 404 k/mm3 (150-375); Red Blood Count 4.68 M/mm3 (4.2-5.4); White Blood Count 13.7 K/mm3 (4.5-10.0)
[2025-02-19 10:22] LABS: Alanine Aminotransferase 15 U/L (6-35); Albumin Level 4.3 g/dL (3.5-5.1); Alkaline Phosphatase 77 U/L (38-126); Anion Gap 5 mmol/L (4-12); Aspartate Amino Transferase 26 U/L (14-36); Bilirubin,Total 0.5 mg/dL (0.2-1.3); Blood Urea Nitrogen 22 mg/dL (7-17); Calcium 9.7 mg/dL (8.4-10.2); Carbon Dioxide 29 mmol/L (22-30); Chloride 105 mmol/L (98-107); Estimated CRCL calculation 84 ml/min; Estimated Glomerular Filt Rate > 60; Glucose 107 mg/dL (65-110); Lipase 70 U/L (23-300); Potassium 5.0 mmol/L (3.4-5.0); Sodium 139 mmol/L (137-145); Total Protein 7.6 g/dL (6.3-8.2)
--- NOTE | 2025-02-19 11:30 | PC.NURSE ---
patient had large BM after fleets enema. MD Cam notified.
--- NOTE | 2025-02-19 11:58 | ED.ABDPAIN ---
HPI - Abdominal Pain General Chief Complaint: Abdominal Pain Stated Complaint: constipation Time Seen by Provider: 02/19/25 09:32 Source: patient Mode of arrival: EMS Limitations: no limitations History of Present Illness HPI narrative: 69-year-old with a history of tongue cancer presents to the ER with the complaints of having rectal pain. It is patient states that she has been constipated since this morning unable to have a bowel movement. She did mention that she is on opiate therapy for pain control and she has not been taking pain medicine for a day or so. Denies any nausea or vomiting. MD elicited complaint: abdominal pain Pertinent past history: constipation Onset (ago): day(s) (1) Pain Consistency: constant Severity: moderate Quality: aching Exacerbating factors: nothing Relieving factors: nothing Associated symptoms: denies other symptoms Related Data Home Medications ?Medication ?Instructions ?Recorded ?Confirmed ?Last Taken ?Type latanoprost 0.005 % eye drops 1 drp EACH EYE DAILY 04/08/23 07/01/24 Unknown History timolol maleate 0.5 % eye drops 1 drp EACH EYE Q12H 04/08/23 07/01/24 Unknown History olopatadine 0.2 % eye drops 1 drp EACH EYE DAILY 07/01/24 07/01/24 Unknown History (Pataday Once Daily Relief) Allergies Allergy/AdvReac Type Severity Reaction Status Date / Time Penicillins Allergy Severe Difficulty Verified 02/19/25 09:35 Breathing lisinopril Allergy Intermediate Rash Verified 02/19/25 09:35 Review of Systems Review of Systems: All systems reviewed & are unremarkable except as noted in HPI and below Constitutional: Constitutional: Reports no additional constitutional complaints Eyes: Eyes: Reports no additional eye complaints Cardiovascular: Cardiovascular: Reports no additional cardiovascular complaints Respiratory: Respiratory: Reports no additional respiratory complaints Gastrointestinal: Gastrointestinal: Reports no additional gastrointestinal complaints Musculoskeletal: Musculoskeletal: Reports no additional musculoskeletal complaints Integumentary/Breasts: Skin/Breast: Reports system reviewed and no additional complaints, except as docu Psychiatric: Psychiatric: Reports no additional psychiatric complaints PMFSH Past Medical History Medical History Tongue mass Tongue ulcer Stomatitis and mucositis Oral ulcer Hypothyroidism Asthma Cataract Thyroid disease Heart disease SVT 2012 Small bowel problem bloating Back pain L-5 Ovarian cyst Surgical History Surgical History History of removal of ovarian cyst History of orthopedic surgery H/O laminectomy History of thyroid surgery right thyroidectomy Hx of cataract surgery Family History Family History Grandparent Breast cancer Other Diabetes mellitus Father Alcoholism Social History Social History Social History: Caffeine-coffee Smoking packs per day: 1 Smoking cigarettes per day: 20.0 Years smoked: 50 Smoking pack-years: 50.00 Smoking status: Current every day smoker Tobacco type: cigarettes Second hand tobacco smoke exposure: Yes Alcohol intake: current Drinks per week: 1 Substance use: never Substance use type: does not use Lack of Transportation: No Lack of Food: Never True Current Housing: I Have Housing Concerned About Future Housing: No Difficulty Paying Gas/Electric Bills: No Difficulty Paying for Meds: No Currently Unemployed: No Education: Master's Degree or Higher Difficulty w/ Childcare or Family Care: No Living arrangements: with family Occupation/Education: retired Gender identity (if verbalized by the patient): Female Sexual Orientation (if Verbalized by the Patient): Straight or Heterosexual Spiritual care concerns: No Exam Narrative: GENERAL: Well-appearing, well-nourished, and in no acute distress. HEAD: Normocephalic, atraumatic. EYES: PERRLA and EOMI. ENT: Nares clear, no rhinorrhea or epistaxis. Mucous membranes moist. has a Dobbhoff tube in the left nares NECK: Supple. CHEST: Clear to auscultation. No respiratory distress. HEART: Regular rate and rhythm. No murmur heard. Normal peripheral pulses. ABDOMEN: Soft, nontender, nondistended, normal active bowel sounds. EXTREMITIES: Normal range of motion. No edema. SKIN: Warm, dry, no rash. NEURO: No focal deficits. Alert and oriented x3. PSYCH: Normal mood and affect. Course Course Emergency Course: Pt had a Enema with good results , she is feeling better ,informed and her about the lab work .Feels comfortable to going home. Vital Signs Vital signs: Vital Signs Temperature 36.7 C 02/19/25 09:30 Pulse Rate 70 02/19/25 09:30 Respiratory Rate 19 02/19/25 09:30 Blood Pressure 173/92 H 02/19/25 09:30 Pulse Oximetry 96 02/19/25 09:30 Oxygen Delivery Room Air 02/19/25 09:30 Temperature 36.7 C 02/19/25 09:30 Pulse Rate 70 02/19/25 09:30 Respiratory Rate 19 02/19/25 09:30 Blood Pressure 173/92 H 02/19/25 09:30 Pulse Oximetry 96 02/19/25 09:30 Oxygen Delivery Room Air 02/19/25 09:30 MDM Differential Diagnosis Differential Diagnosis: SBO , opioid induced constipation, fecal impaction Medical Records I have reviewed the following patient records and this information was taken into consideration when formulating the assessment and plan.: previous ER visits Lab Data MDM Lab Attestation statement: I personally reviewed the patient's lab results. 02/19/25 09:38 02/19/25 10:05 Labs: Lab Results 02/19/25 02/19/25 Range/Units 09:38 10:05 WBC 13.7 H (4.5-10.0) K/mm3 RBC 4.68 (4.2-5.4) M/mm3 Hgb 14.4 (12.0-15.0) g/dL Hct 46.6 (37.0-47.0) % MCV 99.6 (80-100) fl MCH 30.8 (26-34) pg MCHC 30.9 L (32-36) g/dl RDW 16.9 H (11.5-14.5) % Plt Count 404 H (150-375) k/mm3 MPV 11.0 H (7.4-10.4) fl Immature Gran % (Auto) 1.5 H (0-0.5) % Neut % (Auto) 78.6 H (45.5-73.1) % Lymph % (Auto) 10.8 L (18.3-44.2) % Braxton % (Auto) 6.1 (2.6-8.5) % Eos % (Auto) 2.8 (0-4.4) % Baso % (Auto) 0.2 (0.2-1.2) % Lymph # (Auto) 1.47 (0.9-3.2) K/mm3 Braxton # (Auto) 0.8 H (0.1-0.6) K/mm3 Eos # (Auto) 0.4 H (0-0.3) K/mm3 Baso # (Auto) 0.0 (0.0-0.1) K/mm3 Abs Immat Gran (auto) 0.20 H (0.00-0.031) K/mm3 Absolute Neuts (auto) 10.7 H (1.3-6.7) K/mm3 Absolute Nucleated RBC 0.000 (0.0-0.012) K/mm3 Nucleated RBC % 0.0 (0.0-0.2) % Sodium 139 (137-145) mmol/L Potassium 5.0 (3.4-5.0) mmol/L Chloride 105 (98-107) mmol/L Carbon Dioxide 29 (22-30) mmol/L Anion Gap 5 (4-12) mmol/L BUN 22 H (7-17) mg/dL Creatinine 0.51 L (0.7-1.0) mg/dL Estim Creat Clear Calc 84 ml/min Estimated GFR > 60 (59 - ) Glucose 107 (65-110) mg/dL Calcium 9.7 (8.4-10.2) mg/dL Total Bilirubin 0.5 (0.2-1.3) mg/dL AST 26 (14-36) U/L ALT 15 (6-35) U/L Alkaline Phosphatase 77 (38-126) U/L Total Protein 7.6 (6.3-8.2) g/dL Albumin 4.3 (3.5-5.1) g/dL Lipase 70 (23-300) U/L Imaging Data Radiologist's impression: ITS Impressions Abdomen X-Ray 02/19/25 11:32 IMPRESSION: 1. No acute abnormality. Discharge Plan Discharge Clinical Impression: Constipation due to opioid therapy Patient Disposition: Home Condition: Stable Instructions: Constipation (DC) Additional Instructions: continue home medications , follow with your doctor as needed Patient Language: Serbian Prescriptions: No Action latanoprost 0.005 % drops 1 drp EACH EYE DAILY timolol maleate 0.5 % drops 1 drp EACH EYE Q12H olopatadine [Pataday Once Daily Relief] 0.2 % drops 1 drp EACH EYE DAILY levothyroxine [Synthroid] 88 mcg tablet 88 mcg PO DAILY Qty: 30 0RF albuterol sulfate 90 mcg/actuation HFA aerosol inhaler 1 inh inhalation Q4-6H Qty: 1 1RF fluticasone propion-salmeterol [Advair HFA] 230-21 mcg/actuation HFA aerosol inhaler 2 inh inhalation BID Qty: 1 1RF Follow-up/Referrals: Breezy,MD Lenny [Primary Care Provider] Time of Disposition: 12:00
[2025-02-19 12:11] VITALS: BP 157/73; PULSE 76; RESP 16; O2SAT 98
== END 2025-02-19 12:12 | disposition home or self-care (01) ==
PROVIDERS: Emergency Provider Family Medicine; PCP Internal Medicine
DX: K59.03 Drug induced constipation (principal); T40.2X5A Adverse effect of other opioids, initial encounter; C02.9 Malignant neoplasm of tongue, unspecified; J45.909 Unspecified asthma, uncomplicated; E89.0 Postprocedural hypothyroidism; F17.210 Nicotine dependence, cigarettes, uncomplicated; Z98.49 Cataract extraction status, unspecified eye
CPT/HCPCS: 36415; 74018; 80053; 83690; 85025; 99283